=== PATIENT | male | born 1950 | race Caucasian/White ===

== ENCOUNTER 2023-11-16 12:06 | Outpatient (OUT) | payer MEDICARE, SELFPAY ==
[2023-11-16 12:37] LABS: Basophils Absolute Auto 0.1 10^3/uL (0.0-0.1); Basophils Percent Auto 1.2 % (0.2-2.0); Eosinophils Absolute Auto 0.3 10^3/uL (0.0-0.7); Eosinophils Percent Auto 4.6 % (0.9-7.0); Hematocrit 36.7 % (42.0-54.0); Hemoglobin 12.4 g/dL (14.0-18.0); Immature Granulocytes Abs Auto 0.01 10^3/uL (0.00-0.03); Immature Granulocytes Pct Auto 0.2 % (0.0-0.5); Lymphocytes Absolute Auto 2.2 10^3/uL (1.2-3.8); Lymphocytes Percent Auto 34.3 % (20.5-60.0); Mean Corpuscular HGB Conc 33.8 g/dL (29.9-35.2); Mean Corpuscular Hemoglobin 33.2 pg (25.9-34.0); Mean Corpuscular Volume 98.1 fL (80.0-94.0); Mean Platelet Volume 9.1 fL (9.5-13.5); Monocytes Absolute Auto 0.5 10^3/uL (0.3-0.8); Monocytes Percent Auto 7.9 % (1.7-12.0); Neutrophils Absolute Auto 3.4 10^3/uL (1.4-6.5); Neutrophils Percent Auto 51.8 % (43.0-75.0); Platelet Count 339 10^3/uL (150-450); Red Blood Count 3.74 10^6/uL (4.70-6.10); White Blood Count 6.5 10^3/uL (4.0-11.0)
[2023-11-16 13:12] LABS: Estimated Average Glucose 123 mg/dL; Glycohemoglobin A1C 5.9 % (4.5-6.2)
[2023-11-16 14:43] LABS: Alanine Aminotransferase 20 U/L (16-63); Albumin Globulin Ratio 0.8; Albumin Level 3.4 g/dL (3.4-5.0); Alkaline Phosphatase 107 U/L (46-116); Anion Gap 10.6; Aspartate Amino Transferase 14 U/L (15-37); BUN Creatinine Ratio 10.7; Bilirubin Total 0.6 mg/dL (0.2-1.0); Calcium 9.2 mg/dL (8.5-10.1); Carbon Dioxide 25.5 mmol/L (21.0-32.0); Chloride 103 mmol/L (98-107); Chol HDL Ratio 3.9; Cholesterol 187 mg/dL (<=200); Estimated GFR (African America 56 (>=60); Estimated GFR (Non-African Ame 46 (>=60); Free T3 2.64 pg/mL (2.18-3.98); Globulin 4.2 g/dL; Glucose 90 mg/dL (74-106); HDL Cholesterol 48 mg/dL (40-60); LDL Cholesterol Calculated 120.2 mg/dL; Potassium 4.1 mmol/L (3.5-5.1); Sodium 135 mmol/L (136-145); Thyroid Stimulating Hormone 5.071 uIU/mL (0.358-3.740); Total Protein 7.6 g/dL (6.4-8.2); Triglycerides 94 mg/dL (<=150); VLDL CHOLESTEROL 18.8 mg/dL
== END 2023-11-16 12:07 | disposition home or self-care (01) ==
LOC: LAB 12:09
PROVIDERS: PCP Family Medicine; Visit Provider Family Medicine
DX: J30.2 Other seasonal allergic rhinitis (principal); N52.9 Male erectile dysfunction, unspecified; K21.9 Gastro-esophageal reflux disease without esophagitis; E78.5 Hyperlipidemia, unspecified; R73.09 Other abnormal glucose; Z12.5 Encounter for screening for malignant neoplasm of prostate; Z12.12 Encounter for screening for malignant neoplasm of rectum
CPT/HCPCS: 36415; 80053; 80061; 83036; 84436; 84443; 84481; 85025; G0103

== ENCOUNTER 2023-11-23 09:19 | Outpatient (OUT) | payer MEDICARE, SELFPAY ==
--- NOTE | 2023-11-23 09:25 | US_ITS ---
[address] [address] Patient Name: ODALYS MCLEAN MRN: [id number] date: 1950 Sex: M Assigned Patient Location: US Current Patient Location: Accession/Order Number: [id number] Exam Date: 11/23/2023 09:30 Report Date: 11/23/2023 11:40 At the request of: JARON LUCAS Procedure: US aorta EXAM: US aorta HISTORY: Abdominal Aneurysm I71.40 COMPARISON: None. 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
--- OUTSIDE RECORDS SUMMARY | 2023-11-23 09:34 | XMS_ITS | CCD ---
Author Name Unknown Address [address] [facility] [address] [place] [address] Organization [facility] Care Team Providers Care Managing Consultant Name Role Phone PHYSICIAN, DEFAULT Unavailable Unavailable PHYSICIAN, DEFAULT Unavailable Unavailable DR JARON AVALOS Admitting Unavailable LANCE, DR SALMERON Attending Unavailable DR JARON AVALOS Primary Care Unavailable DR JARON AVALOS Consulting Unavailable Jaron Avalos MD Unavailable Jaron Avalos MD Unavailable Jaron Avalos MD Unavailable Jaron Avalos MD Primary Care Provider [phone] EDWARD, SUDISH Referring Unavailable EDWARD, SUDISH Attending Unavailable EDWARD, SUDISH Referring Unavailable EDWARD, SUDISH Referring Unavailable EDWARD, SUDISH Attending Unavailable EDWARD, SUDISH Attending Unavailable RODDY LOYD Referring Unavailable JARON AVALOS Primary Care Unavailable RODDY LOYD Referring Unavailable RODDY LOYD Referring Unavailable JARON AVALOS Primary Care Unavailable JARON AVALOS Primary Care Unavailable EDWRAD, SUDISH Referring Unavailable RODDY LOYD Admitting Unavailable RODDY LOYD Attending Unavailable EDWARD, SUDISH Referring Unavailable JARON AVALOS M Primary Care Unavailable RODDY LOYD Referring Unavailable JARON AVALOS Primary Care Unavailable RODDY LOYD Attending Unavailable EDWARD, SUDISH Referring Unavailable RODDY LOYD Attending Unavailable EDWARD, SUDISH Referring Unavailable Medications Current Medications Medication Drug Class(es) Dates Sig (Normalized) Sig (Original) amoxicillin 120 mg/ml / clavulanate 8.58 mg/ml oral suspension (1 source) Penicillin-class Antibacterial Start: 05-23-2023 End: 05-28-2023 take 6.5 mL by mouth twice daily amoxicillin-clav ulanate (AUGMENTIN) 600-42.9 mg/5 mL suspension Take 6.5 mL by mouth twice daily for 5 days. 65 mL 0 05/23/2023 05/28/2023 Active Comment on above: Take 6.5 mL by mouth twice daily for 5 days. enteric contrast (will be provided with radiology test) (1 source) Start: 09-25-2022 End: 09-25-2022 take 1 dose by mouth once, then take 1 dose by mouth once enteric contrast (will be provided with radiology test) Take 1 Each by mouth one time only for [address] Chest ABD/PEL WO Routine order Administer, As Directed One Time Only, via Oral, Rectal, both Oral and Rectal, Enteric Tube, Stoma or Indwelling Catheter, Enteric Contrast as designated per enteric contrast guidelines 1 Each 0 09/25/2022 09/25/2022 Active Comment on above: Take 1 Each by mouth one time only for [address] Chest ABD/PEL WO Routine order Administer, As Directed One Time Only, via Oral, Rectal, both Oral and Rectal, Enteric Tube, Stoma or Indwelling Catheter, Enteric Contrast as designated per enteric contrast guidelines oxyCODONE hydrochloride 1 mg/ml oral solution (2 sources) Opioid Agonist Start: 05-22-2023 End: 06-01-2023 take 5 mL by mouth every six hours as needed for pain oxyCODONE (ROXICODONE) 5 mg/5 mL oral solution Indications: Acute post-operative pain Take 5 mL by mouth every 6 hours as needed for pain for up to 7 days. 100 mL 0 05/25/2023 06/01/2023 Active Comment on above: Take 5 mL by mouth e very 6 hours as needed for pain for up to 7 days. Completed/Discontinued Medications Medication Drug Class(es) Dates Sig (Normalized) Sig (Original) Acetaminophen (7 sources) acetaminophen (TYLENOL ORAL) Take by mouth as needed. 0 Active Comment on above: Take by mouth as nee ded. acetaminophen 250 mg / aspirin 250 mg / caffeine 65 mg oral tablet (7 sources) Platelet Aggregation Inhibitor, Nonsteroidal Anti-inflammatory Drug, Central Nervous System Stimulant, Methylxanthine take 1 tablet by mouth once as needed Aspirin-Acetaminop hen-Caffeine (EXCEDRIN MIGRAINE) 250-250-65 mg per tablet Take 1 tablet by mouth as needed. 0 Active Comment on above: Take 1 tablet by carlos th as needed. desloratadine 5 mg oral tablet (7 sources) Histamine-1 Receptor Antagonist Start: 10-20-2015 take 1 tablet by mouth once daily desloratadine (CLARINEX) 5 mg tablet Take 1 tablet by mouth once daily. 0 10/20/2015 Active Comment on above: Take 1 tablet by carlos th once daily. Problems Problem Classification Problem Date Documented Date Episodic/Chronic Chronic kidney disease (4 sources) Chronic kidney disease stage 3A ; Translations: [Stage 3a chronic kidney disease] Onset: 3 05-17-2023 Chronic Diabetes mellitus without complication (1 source) Other abnormal glucose; Translations: [OTHER ABNORMAL GLUCOSE] Onset: 2 Episodic Disorders of lipid metabolism (1 source) Hyperlipidemia, unspecified; Translations: [HYPERLIPIDEMIA UNSPECIFIED] Onset: 2 Chronic Esophageal disorders (1 source) Gastro-esophageal reflux disease without esophagitis; Translations: [GERD WITHOUT ESOPHAGITIS] Onset: 2 Chronic Esophageal disorders (19 sources) Zenker's diverticulum; Translations: [Diverticulum of esophagus, acquired] Onset: 2 Episodic Fluid and electrolyte disorders (5 sources) Hyperkalemia; Translations: [Hyperkalemia] Onset: 3 Episodic Other gastrointestinal disorders (1 source) Dysphagia, unspecified; Translations: [DYSPHAGIA UNSPECIFIED] Onset: 2 Episodic Other gastrointestinal disorders (1 source) Dysphagia; Translations: [Dysphagia, pharyngoesophageal phase] Episodic Other lower respiratory disease (2 sources) Multiple nodules of lung; Translations: [Other nonspecific abnormal finding of lung field] Episodic Other male genital disorders (4 sources) Male erectile dysfunction, unspecified; Translations: [MALE ERECTILE DYSFUNCTION UNS] Onset: 2 Chronic Other nervous system disorders (1 source) Acute postoperative pain; Translations: [Other acute postprocedural pain] 05-25-2023 Episodic Other nervous system disorders (1 source) Other acute postprocedural pain; Translations: [Acute post-operative pain] Onset: 3 Episodic Other screening for suspected conditions (not mental disorders or infectious disease) (1 source) Encounter for screening for malignant neoplasm of prostate; Translations: [ENC SCREEN MALIG NEOPLASM PROSTATE] Onset: 2 Episodic Results Test Name Value Interpretation Reference Range Facility [facility] 06-11-2023 CNOV Office Visit (OTOLMN ) ODALYS CERDA ([id number]) 1950 M Date Time Provider Department 06/11/23 10:40 AM RODDY LOYD OTOLMS During your visit today, we recorded the following information about you: Amy Rios RN 06/11/2023 10:58 AM Signed Tobacco Use: 5 packs/day Quit 11/12/1969. Types: Cigarettes Was smoking cessation packet given? N/A - Patient is a non-smoker or quit >1 year ago. Was a referral initiated?N/A Patient is a non-smoker Roddy Loyd MD 06/14/2023 12:35 PM Signed CC: Odalys Cerda is a 73 year old male seen as a return patient with a history of zenker's diverticulum s/p CO2 laser diverticulum 05-22-23 IMPRESSION AND PLANS (Medical Decision Making): Doing well post-op Has advanced to a more regular diet Follow up - 9-12 months Medical Decision Making: Medical Decision Making Level: 1 - N/A HPI: The patient returns today for f/u regarding the above. At the last visit, the plan was as follows: surgery Today, is doing quite well He has started a more normal diet No pain EAT 10: Patient Entered Questionnaires Eating Asessment Tool Score 06/04/2023 EAT Score 15 LCQ: Patient Entered Questionnaires VHI (original/full) Patient Entered Questionnaires REVIEW OF RADIOLOGICAL FILMS AND RECORDS: Op report ALLERGIES No Known Allergies Current Outpatient Medications Medication Sig desloratadine (CLARINEX) 5 mg tablet Take 1 tablet by mouth once daily. Aspirin-Acetaminophen -Caffeine (EXCEDRIN MIGRAINE) 250-250-65 mg per tablet Take 1 tablet by mouth as needed. acetaminophen (TYLENOL ORAL) Take by mouth as needed. No current facility-administered medications for this visit. PAST MEDICAL HISTORY Diagnosis Date Zenker diverticulum PAST SURGICAL HISTORY Procedure Laterality Date COLONOSCOPY EGD LAP ING HERNIA REPAIR INIT TONSILLECTOMY HX Social History: Social History Tobacco Use Smoking status: Former Packs/day: 5.00 Types: Cigarettes Quit date: 11/12/1969 Years since quittin.6 Smokeless tobacco: Never Substance Use Topics Alcohol use: Not Currently Drug use: Never Family History: No family history of ENT problems PHYSICAL EXAM: On physical examination Odalys Cerda is a well-developed, well nourished male. The voice is wnl. Mental status revealed patient to be alert and oriented x3. Mood is appropriate. Details of the physical examination: Pulmonary: There is no respiratory distress or increased work of breathing. Nose: The external anatomy appears normal. LARYNX: deferred NECK: The neck remains soft without masses or lymphadenopathy. ROM was intact Roddy Loyd MD Referring Provider: RODDY LOYD [[id number]] Allergies As of Date: 06/11/2023 (No Known Allergies) Date Reviewed: 06/11/2023 Reviewed by: Amy Rios RN - Fully Assessed Reason for Visit: Established Patient [175] Cmt: Post op visit Primary Visit Diagnosis:Zenker's diverticulum [K22.5] Prescriptions as of 06/14/2023 - desloratadine (CLARINEX) 5 mg tablet Take 1 tablet by mouth once daily. - Aspirin-Acetaminophen -Caffeine (EXCEDRIN MIGRAINE) 250-250-65 mg per tablet Take 1 tablet by mouth as needed. - acetaminophen (TYLENOL ORAL) Take by mouth as needed. Problem List As Of Date 06/11/2023 Noted Resolved 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] 05/16/2023 Stage 3a chronic kidney disease (HCC) [N18.31] 05/17/2023 Hyperkalemia [E87.5] 05/17/2023 Visit Notes: >> Amy Rios RN Mon Jun 11, 2023 10:57 AM Status: Signed Tobacco Use: 5 packs/day Quit 11/12/1969. Types: Cigarettes Was smoking cessation packet given? N/A - Patient is a non-smoker or quit >1 year ago. Was a referral initiated?N/A Patient is a non-smoker Encounter Status:Closed by RODDY LOYD on 06/14/23 [facility] 05-24-2023 CNPN Telephone (OTOLMN) CARIDADODALYS ([id number]) 1950 M Date Time Provider Department 05/24/23 RODDY LOYD OTOLMN During your visit today, we recorded the following information about you: Diane Joaquin Vilchis 05/24/2023 4:41 PM Signed Mr. Cerda called and said that the oxyCodone 5 mg /5ml can't be filled due to supply shortage with outside company. The pharmacy he was using was [facility] in [facility]. He was wondering if a new prescription be filled at the [facility] in [facility]. The Pharmacy phone number is . Amy Rios RN 05/25/2023 9:55 AM Signed [facility] [place]- they do not have this medication in stock. Said nearest pharmacy is [facility] in [place]. Called pt. And he said it is ok to send there, since will be there this afternoon. Allergies As of Date: 05/24/2023 (No Known Allergies) Date Reviewed: 05/22/2023 Reviewed by: Macarena Manjarrez RN - Fully Assessed Reason for Visit: Medication Problem [65] Cmt: Medication can't be refilled Visit Diagnosis:Acute post-operative pain [G89.18] Order(s):oxyCODONE (ROXICODONE) 5 mg/5 mL oral solutionTake 5 mL by mouth every 6 hours as needed for pain for up to 7 days.Disp: 100 mLRfl: 0 Prescriptions as of 05/25/2023 - oxyCODONE (ROXICODONE) 5 mg/5 mL oral solution Take 5 mL by mouth every 6 hours as needed for pain for up to 7 days. - amoxicillin-clavulana te (AUGMENTIN) 600-42.9 mg/5 mL suspension Take 6.5 mL by mouth twice daily for 5 days. - desloratadine (CLARINEX) 5 mg tablet Take 1 tablet by mouth once daily. - Aspirin-Acetaminophen -Caffeine (EXCEDRIN MIGRAINE) 250-250-65 mg per tablet Take 1 tablet by mouth as needed. - acetaminophen (TYLENOL ORAL) Take by mouth as needed. Problem List As Of Date 05/24/2023 Noted Resolved 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] 05/16/2023 Stage 3a chronic kidney disease (HCC) [N18.31] 05/17/2023 Hyperkalemia [E87.5] 05/17/2023 Prescriptions ordered this encounter Disp Refills Start End OXYCODONE 5 MG/5 ML ORAL SOLUTION 100 * 0 05/25/2023 06/01/2023 Route: ORAL Sig: Take 5 mL by mouth every 6 hours as needed for pain for up to 7 days. Medications Discontinued During This Encounter Prescriptions - oxyCODONE (ROXICODONE) 5 mg/5 mL oral solution (Discontinued) Take 5 mL by mouth every 6 hours as needed for pain for up to 7 days. Encounter Status:Closed by RODDY LOYD on 05/25/23 Normal [facility] Basic metabolic 2000 panelon 05-23-2023 Anion gap [Moles/Vol] 10 mmol/L Normal 9-18 [facility] Comment on above: Order Comment: Speci nomi Type: BLOOD SPECIMEN Ordering Facility: [facility] Address: [address] [place], [place] [phone] Performed By: #### 2 4321-2 #### [facility] CLIA [id number] [address] [place] [address] [place] Calcium [Mass/Vol] 9.5 mg/dL Normal 8.5-10.2 [facility] Comment on above: Order Comment: Speci men Type: BLOOD SPECIMEN Ordering Facility: [facility] Address: [address] [place] [address] Performed By: #### 2 4321-2 #### [facility] CLIA [id number] [facility] [place] [address] [place] Chloride [Moles/Vol] 106 mmol/L High 97-105 [facility] Comment on above: Order Comment: Speci men Type: BLOOD SPECIMEN Ordering Facility: [facility] Address: [address] [place] [address] Performed By: #### 2 4321-2 #### [facility] CLIA [id number] [address] [place] [address] [place] CO2 [Moles/Vol] 23 mmol/L Normal 22-30 [facility] Comment on above: Order Comment: Speci men Type: BLOOD SPECIMEN Ordering Facility: [facility] Address: [address] [place] [address] Performed By: #### 2 4321-2 #### [facility] CLIA [id number] [address] [place] [address] [place] Creatinine [Mass/Vol] 1.36 mg/dL High 0.73-1.22 [facility] Comment on above: Order Comment: Speci men Type: BLOOD SPECIMEN Ordering Facility: [facility] Address: [address] [place] [address] Performed By: #### 2 4321-2 #### [facility] CLIA [id number] [facility] [address] [place] ESTIMATED GLOMERULAR FILTRATION RATE 55 mL/min/1.73m??? Low >=60 [facility] Comment on above: Order Comment: Speci men Type: BLOOD SPECIMEN Ordering Facility: [facility] Address: [address] [place] [address] Result Comment: Kristel mated Glomerular Filtration Rate (eGFR) is calculated using the 2020 CKD-EPI creatinine equation. This equation utilizes serum creatinine, sex, and age as parameters. The creatinine assay has traceable calibration to isotope dilution-mass spectrometry. Refer to KDIGO guidelines for clinical interpretation. In patients with unstable renal function, e.g. those with acute kidney injury, the eGFR may not accurately reflect actual GFR. Performed By: #### 2 4321-2 #### [facility] CLIA [id number] [address] [place] [address] [place] Glucose [Mass/Vol] 160 mg/dL High 74-99 [facility] Comment on above: Order Comment: Speci men Type: BLOOD SPECIMEN Ordering Facility: [facility] Address: [address] [place] [address] Result Comment: The [place] Diabetes Association (ADA) provides guidance for cutoff values for fasting glucose and random glucose. The ADA defines fasting as no caloric intake for at least 8 hours. Fasting plasma glucose results between 100 to 125 mg/dL indicate increased risk for diabetes (prediabetes). Fasting plasma glucose results greater than or equal to 126 mg/dL meet the criteria for diagnosis of diabetes. In the absence of unequivocal hyperglycemia, results should be confirmed by repeat testing. In a patient with classic symptoms of hyperglycemia or hyperglycemic crisis, random plasma glucose results greater than or equal to 200 mg/dL meet the criteria for diagnosis of diabetes. Reference: Standards of Medical Care in Diabetes 2016, [place] Diabetes Association. Diabetes Care. 2016.39(Suppl 1). Performed By: #### 2 4321-2 #### [facility] CLIA [id number] [address] [place] [address] [place] Potassium [Moles/Vol] 4.9 mmol/L Normal 3.7-5.1 [facility] Comment on above: Order Comment: Speci men Type: BLOOD SPECIMEN Ordering Facility: [facility] Address: [address] [place] [address] Performed By: #### 2 4321-2 #### [facility] CLIA [id number] [address] [place] [address] [place] Sodium [Moles/Vol] 139 mmol/L Normal 136-144 [facility] Comment on above: Order Comment: Speci men Type: BLOOD SPECIMEN Ordering Facility: [facility] Address: [address] [place] [address] Performed By: #### 2 4321-2 #### [facility] CLIA [id number] [address] [place] [address] [place] Urea nitrogen [Mass/Vol] 12 mg/dL Normal 9-24 [facility] Comment on above: Order Comment: Speci men Type: BLOOD SPECIMEN Ordering Facility: [facility] Address: [address] [place] [address] Performed By: #### 2 4321-2 #### [facility] CLIA [id number] [address] [place] CBC W Auto Differential pane l (Bld)on 05-23-2023 Basophils (Bld) [#/Vol] 10*3/uL Normal <0.11 [facility] Comment on above: Order Comment: Speci men Type: BLOOD SPECIMEN Ordering Facility: [facility] Address: [address] [place] [address] Performed By: #### K 1 #### [facility] CLIA [id number] [address] [place] [address] Basophils/100 WBC (Bld) 0.1 % Normal [facility] Comment on above: Order Comment: Speci men Type: BLOOD SPECIMEN Ordering Facility: [facility] Address: [address] [place] [address] Performed By: #### K 1 #### [facility] CLIA [id number] [address] [place] [address] Differential cell count method Nom (Bld) Auto Normal [facility] Comment on above: Order Comment: Speci men Type: BLOOD SPECIMEN Ordering Facility: [facility] Address: [address] [place] [address] Performed By: #### K 1 #### [facility] CLIA [id number] [address] [place] [address] Eosinophils (Bld) [#/Vol] 10*3/uL Normal <0.46 [facility] Comment on above: Order Comment: Speci men Type: BLOOD SPECIMEN Ordering Facility: [facility] Address: [address] [place], [place] [phone] Performed By: #### K 1 #### [facility] CLIA [id number] [address] [place] [address] Eosinophils/100 WBC (Bld) 0.0 % Normal [facility] Comment on above: Order Comment: Speci men Type: BLOOD SPECIMEN Ordering Facility: [facility] Address: [address] [place] [address] Performed By: #### K 1 #### [facility] CLIA [id number] [address] [place] [address] Erythrocyte distribution width (RBC) [Ratio] 12.1 % Normal 11.5-15.0 [facility] Comment on above: Order Comment: Speci men Type: BLOOD SPECIMEN Ordering Facility: [facility] Address: [address] [place] [address] Performed By: #### K 1 #### [facility] CLIA [id number] [address] [place] [address] Hematocrit (Bld) [Volume fraction] 38.5 % Low 39.0-51.0 [facility] Comment on above: Order Comment: Speci men Type: BLOOD SPECIMEN Ordering Facility: [facility] Address: [address] [place] [address] Performed By: #### K 1 #### [facility] CLIA [id number] [address] [place] [address] Hemoglobin (Bld) [Mass/Vol] 13.1 g/dL Normal 13.0-17.0 [facility] Comment on above: Order Comment: Speci men Type: BLOOD SPECIMEN Ordering Facility: [facility] Address: [address] [place] [address] Performed By: #### K 1 #### [facility] CLIA [id number] [address] [place] [address] Immature granulocytes (Bld) [#/Vol] 0.07 10*3/uL Normal <0.10 [facility] Comment on above: Order Comment: Speci men Type: BLOOD SPECIMEN Ordering Facility: [facility] Address: [address] [place] [address] Performed By: #### K 1 #### [facility] CLIA [id number] [address] [place] [address] Immature granulocytes/100 WBC (Bld) 0.5 % Normal [facility] Comment on above: Order Comment: Speci men Type: BLOOD SPECIMEN Ordering Facility: [facility] Address: [address] [place] [address] Performed By: #### K 1 #### [facility] CLIA [id number] [address] [place] [address] Lymphocytes (Bld) [#/Vol] 0.86 10*3/uL Low 1.00-4.00 [facility] Comment on above: Order Comment: Speci men Type: BLOOD SPECIMEN Ordering Facility: [facility] Address: [address] [place] [address] Performed By: #### K 1 #### [facility] CLIA [id number] [address] [place] [address] Lymphocytes/100 WBC (Bld) 5.8 % Normal [facility] Comment on above: Order Comment: Speci men Type: BLOOD SPECIMEN Ordering Facility: [facility] Address: [address] [place] [address] Performed By: #### K 1 #### [facility] CLIA [id number] [address] [place] [address]77 MCH (RBC) [Entitic mass] 33.5 pg Normal 26.0-34.0 [facility] Comment on above: Order Comment: Speci men Type: BLOOD SPECIMEN Ordering Facility: [facility] Address: [address] [place] [address] Performed By: #### K 1 #### [facility] CLIA [id number] [address] [place] [address]703 MCHC (RBC) [Mass/Vol] 34.0 g/dL Normal 30.5-36.0 [facility] Comment on above: Order Comment: Speci men Type: BLOOD SPECIMEN Ordering Facility: [facility] Address: [address] [place] [address] Performed By: #### K 1 #### [facility] CLIA [id number] [address] [place] [address] MCV (RBC) [Entitic vol] 98.5 fL Normal 80.0-100.0 [facility] Comment on above: Order Comment: Speci men Type: BLOOD SPECIMEN Ordering Facility: [facility] Address: [address] [place] [address] Performed By: #### K 1 #### [facility] CLIA [id number] [address] [place] [address] Monocytes (Bld) [#/Vol] 0.68 10*3/uL Normal <0.87 [facility] Comment on above: Order Comment: Speci men Type: BLOOD SPECIMEN Ordering Facility: [facility] Address: [address] [place] [address] Performed By: #### K 1 #### [facility] CLIA [id number] [address] [place] [address] Monocytes/100 WBC (Bld) 4.6 % Normal [facility] Comment on above: Order Comment: Speci men Type: BLOOD SPECIMEN Ordering Facility: [facility] Address: [address] [place] [address] Performed By: #### K 1 #### [facility] CLIA [id number] [address] [place] [address] Neutrophils (Bld) [#/Vol] 13.22 10*3/uL High 1.45-7.50 [facility] Comment on above: Order Comment: Speci men Type: BLOOD SPECIMEN Ordering Facility: [facility] Address: [address] [place] [address] Performed By: #### K 1 #### [facility] CLIA [id number] [address] [place] [address] Neutrophils/100 WBC (Bld) 89.0 % Normal [facility] Comment on above: Order Comment: Speci men Type: BLOOD SPECIMEN Ordering Facility: [facility] Address: [address] [place] [address] Performed By: #### K 1 #### [facility] CLIA [id number] [address] [place] [address] Nucleated RBC (Bld) [#/Vol] 10*3/uL Normal <0.01 [facility] Comment on above: Order Comment: Speci men Type: BLOOD SPECIMEN Ordering Facility: [facility] Address: [address] [place] [address] Performed By: #### K 1 #### [facility] CLIA [id number] [address] [place] [address] 22148 Nucleated RBC/100 WBC (Bld) [Ratio] 0.0 /100 WBC Normal [facility] Comment on above: Order Comment: Speci men Type: BLOOD SPECIMEN Ordering Facility: [facility] Address: [address] [address] Performed By: #### K 1 #### [facility] CLIA [id number] [address] [place] [address] 17479 Platelet mean volume (Bld) [Entitic vol] 9.9 fL Normal 9.0-12.7 [facility] Comment on above: Order Comment: Speci men Type: BLOOD SPECIMEN Ordering Facility: [facility] Address: [address] [address] Performed By: #### K 1 #### [facility] CLIA [id number] [address] [place] [address] 42371 Platelets (Bld) [#/Vol] 229 10*3/uL Normal 150-400 [facility] Comment on above: Order Comment: Speci men Type: BLOOD SPECIMEN Ordering Facility: [facility] Address: [address] [address] Performed By: #### K 1 #### [facility] CLIA [id number] [address] [place] [address] RBC (Bld) [#/Vol] 3.91 10*6/uL Low 4.20-6.00 [facility] Comment on above: Order Comment: Speci men Type: BLOOD SPECIMEN Ordering Facility: [facility] Address: [address] [place] [address] Performed By: #### K 1 #### [facility] CLIA [id number] [address] [place] [address] 85427 WBC (Bld) [#/Vol] 14.85 10*3/uL High 3.70-11.00 [facility] Comment on above: Order Comment: Speci men Type: BLOOD SPECIMEN Ordering Facility: [facility] Address: [address] [place] [address] Performed By: #### K 1 #### [facility] CLIA [id number] [address] [place] [address] 88024 XR ESOPHAGRAMon 05-23-2023 XR ESOPHAGRAM * * *Final Report* * * DATE OF EXAM: May 23 2023 9:36AM HGX [id number] - XR ESOPHAGRAM / PROCEDURE REASON: Dysphagia, known cause * * * * Physician Interpretation * * * * UPPER GI HISTORY: History of Zenker's diverticulum status post cricopharyngeal myotomy 05/22/2023. COMPARISON: Outside barium swallow 06/14/2021 TECHNIQUE: The patient ingested water-soluble contrast followed by low density barium under intermittent fluoroscopic monitoring. Contrast: ORAL: 40 ml of OMNIPAQUE 350 ORAL: 40 ml of EZPAQUE Fluoroscopy radiation summary: Fluoroscopy time: 0:36 (min:sec). Air kerma: 17.9 mGy. RESULT: Extractor Filler: No focal consolidation within the visualized lung field. Luminal contrast transits the esophagus with filling and rapid emptying of a small Zenker's diverticulum without leak or obstruction. Staff Physician: Dr. Adriana MD was present for the critical portions of the procedure and was immediately available throughout the remainder of the procedure. IMPRESSION: NO LEAK OR OBSTRUCTION. Sledger: RACHELLE Transcribe Date/Time: May 23 2023 9:41A Dictated by : PEDRO WILSON MD This examination was interpreted and the report reviewed and electronically signed by: MANOHAR CASTANON MD on May 23 2023 9:49AM EST [id number] Normal [facility] ANES POSTPROC EVALon 023 ANES POSTPROC EVAL HNO ID: [id number] Author: Kevin Gutierrez DO Service: ? Author Type: Anesthesiologist Type: Anesthesia Postprocedure Evaluation Filed: 05/22/2023 4:29 PM Note Text: POST ANESTHESIA EVALUATION NOTE : 1950 Procedure Summary Date: 05/22/23 Room / Location: [address] [facility] Anesthesia Start: 1422 Anesthesia Stop: 1543 Procedures: ENDOSCOPIC EXCISION ZENKERS DIVERTICULUM DIVERTICULECTOMY HYPOPHARYNX OR ESOPHAGUS, CERVICAL APPROACH (Neck) Diagnosis: Zenker diverticulum Pharyngoesophageal dysphagia (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]) (Pharyngoesophageal dysphagia [R13.14]) Surgeons: Roddy Loyd MD Responsible Provider: Kevin Gutierrez DO Anesthesia Type: general ASA Status: 3 Anesthesia Type: general Airway Type: ETT Last Vitals Vitals Value Taken Time BP 142/68 05/22/23 1615 Temp 36.2 ?C (97.2 ?F) 05/22/23 1608 Pulse 60 05/22/23 1619 Resp 15 05/22/23 1619 SpO2 98 % 05/22/23 1619 Vitals shown include unvalidated device data. Post Anesthesia Patient Status Patient Evaluation: PACU. PACU/ICU Patient Condition: stable. Anticipated Disposition: inpatient floor planned admission. Neurological Status: aware and responsive. Pulmonary Status: breathing comfortably on supplemental oxygen Airway Control: returned to baseline unsupported. Cardiovascular Status: stable. Pain Management: clinically adequate Postoperative Hydration: acceptable. Intraoperative Events: no significant anesthesia events Post Operative Nausea/Vomiting Status: no significant post operative nausea or vomiting Recommendation: continue current plan of care. Anesthesia Observations No Documentation SIGNATURE: Kevin Gutierrez DO PATIENT NAME: Odalys Cerda DATE: May 22, 2023 TIME: 4:29 PM CSN: [id number] Normal [facility] ANES PRE-OPon 05-22-2023 ANES PRE-OP HNO ID: [id number] Author: Kevin Gutierrez DO Service: ? Author Type: Anesthesiologist Type: Anesthesia Preprocedure Evaluation Filed: 05/22/2023 6:42 AM Note Text: ANESTHESIOLOGY DAY OF SURGERY NOTE : 1950 Procedure Information Date/Time: 05/22/23 1515 Procedures: ENDOSCOPIC EXCISION ZENKERS DIVERTICULUM DIVERTICULECTOMY HYPOPHARYNX OR ESOPHAGUS, CERVICAL APPROACH (Neck) Location: [facility] Surgeons: Roddy Loyd MD Estimated body mass index is 27.34 kg/m? as calculated from the following: Height as of 05/16/23: 180.3 cm (5' 11 ). Weight as of 05/16/23: 88.9 kg (196 lb). Most recent hematocrit and potassium results: Hematocrit 39.6 05/16/2023 Potassium 4.2 05/17/2023 Relevant Problems -RENAL (+) Stage 3a chronic kidney disease (HCC) I - PHYSICAL EVALUATION AIRWAY Patient intubated: No. Tracheostomy tube not present Mallampati: II. TM distance: >3 FB. Neck ROM: full ROM without neurological symptoms. Mouth opening: adequate. Short neck: no. Thick neck: no DENTAL Normal dental observations. Dental findings: teeth intact. II - ANESTHESIA PLAN ASA Score: 3 Anesthetic Plan: general Airway type: ETT The patient is not a current smoker. NPO Status: adequate Beta Sherly Administration of chronic beta sherly medication not planned. Monitoring Plan Monitoring plan: standard ASA. Post Procedure Analgesic Plan Postoperative analgesic plan: multimodal analgesia. Informed Consent Anesthetic risks, benefits, alternatives, personnel and consent discussed: yes. Patient / Responsible Alliance Party agrees to proceed: yes Patient / Surrogate agrees to blood products: Yes DNR status not reviewed with patient and/or family prior to surgery. Significant changes in the patient condition since the History and Physical, not otherwise documented in primary service progress note: no. Potential Anesthesia issues that may suggest increased risk of complications or contraindication to planned procedure: none. No vitals data found for the desired time range. No current facility-administered medications on file as of . Outpatient Medications as of Medication Sig - desloratadine (CLARINEX) 5 mg tablet Take 1 tablet by mouth once daily. - Aspirin-Acetaminophen -Caffeine (EXCEDRIN MIGRAINE) 250-250-65 mg per tablet Take 1 tablet by mouth as needed. - acetaminophen (TYLENOL ORAL) Take by mouth as needed. I have interviewed and examined the patient. I have reviewed the medical record and/or the pre-anesthesia evaluation, pertinent labs, and test results. This contains updated information obtained within 48 hours of Surgery/Procedure. SIGNATURE: Kevin Gutierrez DO PATIENT NAME: Odalys Cerda DATE: May 22, 2023 TIME: 6:41 AM CSN: [id number] Normal [facility] OPERATIVE NOon 05-22-2023 OPERATIVE NO HNO ID: [id number] Author: Roddy Loyd MD Service: Otolaryngology Author Type: Physician Type: Operative Report Filed: 05/22/2023 6:26 PM Note Text: Operative Note DATE OF SERVICE: 05/22/2023 PATIENT: Odalys Cerda LOG ID: [id number] INCISION/PROCEDURE START TIME: 2:40 PM INCISION CLOSE/PROCEDURE END TIME: 3:21 PM Surgeon: Roddy Loyd MD Or Assistant: Linda Adkins MD, Philip Thomas MD Pre-Operative Diagnosis: Zenker diverticulum Pharyngoesophageal dysphagia Post-Operative Diagnosis: Zenker diverticulum Pharyngoesophageal dysphagia Procedure: Rigid esophagoscopy Cricopharyngeal myotomy with CO2 laser Findings: - Easy exposure with long duckbill pharyngoscope. - Cricopharyngeal hypertrophy - Cricopharyngeal myotomy performed with Co2 laser on settings of 4 watt continuous Anesthesia: General endotracheal anesthesia Complications: None Blood Loss: 2 cc Specimens: None Disposition: PACU Pre-Operative Note: Mr. Cerda is a 73 year old male who presented to the [facility] clinic with a history of dysphagia. Modified barium swallow revealed evidence of a small zenker diverticulum and cricopharyngeal hypertrophy. The patient was therefore offered the aforementioned procedures. The procedure, risks, benefits, alternatives, potential complications, possible outcomes as well as the option of no treatment were reviewed with the patient who indicated their understanding and wished to proceed forward with the procedure. Informed consent was obtained. Operative Note: The patient was taken to the operative suite and a huddle was performed, all present were in agreement. The patient was sedated and intubated. Eye protection placed over the patient's eyes. The patient was then draped in the appropriate fashion. A time-out was then performed. We first began by inserting a tooth guard over the maxillary teeth for protection during the procedure. The Morales 3 blade was used to expose the cricopharyngeus muscle to ensure exposure was possible. The morales 3 blade was removed. The short duckbill laryngoscope was then advanced into the oral cavity and oropharynx until the postcricoid region was brought into view. Once the cricopharyngeus muscle was adequately visualized, the patient was placed into suspension. Microlaryngoscopy was initiated with 0-degree Vargas endoscope with above findings. The eyes, face, and ETT were covered with wet towels. A microscope was brought into the field and aimed at the cricopharyngeal muscle. A CO2 laser was assembled with settings of 4 mercer continuous. The CO2 laser was used to transect the cricopharyngeus muscle and overlying mucosa down to fascia. No perforation in the fascia was visualized. Teseal was placed onto the surgical site. The laryngoscope was then taken out of suspension and removed under direct visualization without injury to the oral cavity. The maxillary tooth guard was removed and no injury was noted. This completed the procedure. The patient tolerated the procedure well without any immediate postoperative complications. All counts were correct at the conclusion of the procedure. Roddy Loyd MD was present for all critical portions of the procedure. I was present, scrubbed, and personally performed all [place] portions of the procedure. Roddy Loyd MD [facility] CNPN Telephone ([place]) ODALYS CERDA ([id number]) 1950 M Date Time Provider Department 05/17/23 STACY DAI During your visit today, we recorded the following information about you: Stacy Dai APRN.CNP 05/17/2023 8:25 AM Signed Please contact patient and advise potassium level is elevated on pre-op labs -5.4 Repeat potassium ordered Advise patient to increase water intake, avoid high potassium foods and have potassium repeated in 2-3 days prior to upcoming surgery Thank you Stacy Dai APRN.CNP [facility] Jennie Chilel LPN 05/21/2023 7:05 AM Signed DEBORA Gonzalez APRN.CNP; [facility] Rn Resource Pool 1 4 days ago LB Called patient and relayed the below message, he asked I send him a message as he was out and not able to write anything down. My Chart message was sent included lab hours and location along with phone number to call and schedule an appt. Allergies As of Date: 05/17/2023 (No Known Allergies) Date Reviewed: 05/16/2023 Reviewed by: Jennie Chilel LPN - Fully Assessed Reason for Visit: PreOp Call [1754] Cmt: Pre-op labs Primary Visit Diagnosis:Hyperkalemi a [E87.5] Order(s):POTASSIUM BLD [SQK1] Order #: [id number] FUTURE Prescriptions as of 05/21/2023 - desloratadine (CLARINEX) 5 mg tablet Take 1 tablet by mouth once daily. - Aspirin-Acetaminophen -Caffeine (EXCEDRIN MIGRAINE) 250-250-65 mg per tablet Take 1 tablet by mouth as needed. - acetaminophen (TYLENOL ORAL) Take by mouth as needed. Problem List As Of Date 05/17/2023 Noted Resolved 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] 05/16/2023 Stage 3a chronic kidney disease (HCC) [N18.31] 05/17/2023 Hyperkalemia [E87.5] 05/17/2023 Encounter Status:Closed by STACY DAI on 05/17/23 Normal [facility] POTASSIUM BLDon 05-17-2023 Potassium [Moles/Vol] 4.2 mmol/L Normal 3.7-5.1 [facility] Comment on above: Order Comment: Speci men Type: BLOOD SPECIMEN Ordering Facility: [facility] Address: [address] [address] Performed By: #### K 1 #### [facility] CLIA [id number] [address] [place] [address] 49465 Basic metabolic 2000 panelon 05-16-2023 Anion gap [Moles/Vol] 11 mmol/L Normal 9-18 [facility] Comment on above: Order Comment: Speci men Type: BLOOD SPECIMEN Ordering Facility: [facility] Address: [address] [address] Performed By: #### K 1 #### [facility] CLIA [id number] [address] [place] [address] 51178 Calcium [Mass/Vol] 9.7 mg/dL Normal 8.5-10.2 [facility] Comment on above: Order Comment: Speci men Type: BLOOD SPECIMEN Ordering Facility: [facility] Address: [address] [address] Performed By: #### K 1 #### [facility] CLIA [id number] [address] [place] [address] 93546 Chloride [Moles/Vol] 106 mmol/L High 97-105 [facility] Comment on above: Order Comment: Speci men Type: BLOOD SPECIMEN Ordering Facility: [facility] Address: [address] [address] Performed By: #### K 1 #### [facility] CLIA [id number] [address] [place] [address] 85383 CO2 [Moles/Vol] 24 mmol/L Normal 22-30 [facility] Comment on above: Order Comment: Speci men Type: BLOOD SPECIMEN Ordering Facility: [facility] Address: [address] [address] Performed By: #### K 1 #### [facility] CLIA [id number] [address] [place] [address] 63213 Creatinine [Mass/Vol] 1.51 mg/dL High 0.73-1.22 [facility] Comment on above: Order Comment: Sandra nomi Type: BLOOD SPECIMEN Ordering Facility: [facility] Address: [address] [address] Performed By: #### K 1 #### [facility] CLIA [id number] [address] [place] [address] 75200 ESTIMATED GLOMERULAR FILTRATION RATE 48 mL/min/1.73m??? Low >=60 [facility] Comment on above: Order Comment: Sandra nomi Type: BLOOD SPECIMEN Ordering Facility: [facility] Address: [address] [place] [address] Result Comment: Kristel mated Glomerular Filtration Rate (eGFR) is calculated using the 2020 CKD-EPI creatinine equation. This equation utilizes serum creatinine, sex, and age as parameters. The creatinine assay has traceable calibration to isotope dilution-mass spectrometry. Refer to KDIGO guidelines for clinical interpretation. In patients with unstable renal function, e.g. those with acute kidney injury, the eGFR may not accurately reflect actual GFR. Performed By: #### K 1 #### [facility] CLIA [id number] [address] [place], [place] [id number] Glucose [Mass/Vol] 87 mg/dL Normal 74-99 [facility] Comment on above: Order Comment: Sandra nomi Type: BLOOD SPECIMEN Ordering Facility: [facility] Address: [address] [place] [address] Result Comment: The [place] Diabetes Association (ADA) provides guidance for cutoff values for fasting glucose and random glucose. The ADA defines fasting as no caloric intake for at least 8 hours. Fasting plasma glucose results between 100 to 125 mg/dL indicate increased risk for diabetes (prediabetes). Fasting plasma glucose results greater than or equal to 126 mg/dL meet the criteria for diagnosis of diabetes. In the absence of unequivocal hyperglycemia, results should be confirmed by repeat testing. In a patient with classic symptoms of hyperglycemia or hyperglycemic crisis, random plasma glucose results greater than or equal to 200 mg/dL meet the criteria for diagnosis of diabetes. Reference: Standards of Medical Care in Diabetes 2016, [place] Diabetes Association. Diabetes Care. 2016.39(Suppl 1). Performed By: #### K 1 #### [facility] CLIA [id number] [address] [place] [address] Potassium [Moles/Vol] 5.4 mmol/L High 3.7-5.1 [facility] Comment on above: Order Comment: Speci men Type: BLOOD SPECIMEN Ordering Facility: [facility] Address: [address] [address] Performed By: #### K 1 #### [facility] CLIA [id number] [address] [place] [address] 09075 Sodium [Moles/Vol] 141 mmol/L Normal 136-144 [facility] Comment on above: Order Comment: Speci men Type: BLOOD SPECIMEN Ordering Facility: [facility] Address: [address] [address] Performed By: #### K 1 #### [facility] CLIA [id number] [address] [place], [place] [phone] Urea nitrogen [Mass/Vol] 12 mg/dL Normal 9-24 [facility] Comment on above: Order Comment: Speci men Type: BLOOD SPECIMEN Ordering Facility: [facility] Address: [address] [address] Performed By: #### K 1 #### [facility] CLIA [id number] [address] [place] [address] 39265 CBC W Auto Differential pane l (Bld)on 05-16-2023 Basophils (Bld) [#/Vol] 0.07 10*3/uL Normal <0.11 [facility] Comment on above: Order Comment: Speci men Type: BLOOD SPECIMEN Ordering Facility: [facility] Address: [address] [address] Performed By: #### K 1 #### [facility] CLIA [id number] [address] [place] [address] 83823 Basophils/100 WBC (Bld) 0.9 % Normal [facility] Comment on above: Order Comment: Speci men Type: BLOOD SPECIMEN Ordering Facility: [facility] Address: [address] [address] Performed By: #### K 1 #### [facility] CLIA [id number] [address] [place] [address] 62354 Differential cell count method Nom (Bld) Auto Normal [facility] Comment on above: Order Comment: Speci men Type: BLOOD SPECIMEN Ordering Facility: [facility] Address: [address] [address] Performed By: #### K 1 #### [facility] CLIA [id number] [address] [place] [address] 20090 Eosinophils (Bld) [#/Vol] 0.41 10*3/uL Normal <0.46 [facility] Comment on above: Order Comment: Speci men Type: BLOOD SPECIMEN Ordering Facility: [facility] Address: [address] [address] Performed By: #### K 1 #### [facility] CLIA [id number] [address] [place] [address] 85788 Eosinophils/100 WBC (Bld) 5.5 % Normal [facility] Comment on above: Order Comment: Speci men Type: BLOOD SPECIMEN Ordering Facility: [facility] Address: [address] [place] [address] Performed By: #### K 1 #### [facility] CLIA [id number] [address] [place] [address] 05513 Erythrocyte distribution width (RBC) [Ratio] 12.5 % Normal 11.5-15.0 [facility] Comment on above: Order Comment: Speci men Type: BLOOD SPECIMEN Ordering Facility: [facility] Address: [address] [place] [address] Performed By: #### K 1 #### [facility] CLIA [id number] [address] [place] [address] 94914 Hematocrit (Bld) [Volume fraction] 39.6 % Normal 39.0-51.0 [facility] Comment on above: Order Comment: Speci men Type: BLOOD SPECIMEN Ordering Facility: [facility] Address: [address] [address] Performed By: #### K 1 #### [facility] CLIA [id number] [address] [place] [address] 98377 Hemoglobin (Bld) [Mass/Vol] 13.3 g/dL Normal 13.0-17.0 [facility] Comment on above: Order Comment: Speci men Type: BLOOD SPECIMEN Ordering Facility: [facility] Address: [address] [address] Performed By: #### K 1 #### [facility] CLIA [id number] [address] [place] [address] 01548 Immature granulocytes (Bld) [#/Vol] 10*3/uL Normal <0.10 [facility] Comment on above: Order Comment: Speci men Type: BLOOD SPECIMEN Ordering Facility: [facility] Address: [address] [address] Performed By: #### K 1 #### [facility] CLIA [id number] [address] [place] [address] 58128 Immature granulocytes/100 WBC (Bld) 0.3 % Normal [facility] Comment on above: Order Comment: Speci men Type: BLOOD SPECIMEN Ordering Facility: [facility] Address: [address] [address] Performed By: #### K 1 #### [facility] CLIA [id number] [address] [place] [address] 05836 Lymphocytes (Bld) [#/Vol] 2.08 10*3/uL Normal 1.00-4.00 [facility] Comment on above: Order Comment: Speci men Type: BLOOD SPECIMEN Ordering Facility: [facility] Address: [address] [address] Performed By: #### K 1 #### [facility] CLIA [id number] [address] [place] [address] 09301 Lymphocytes/100 WBC (Bld) 27.7 % Normal [facility] Comment on above: Order Comment: Speci men Type: BLOOD SPECIMEN Ordering Facility: [facility] Address: [address] [address] Performed By: #### K 1 #### [facility] CLIA [id number] [address] [place] [address] 53784 MCH (RBC) [Entitic mass] 33.6 pg Normal 26.0-34.0 [facility] Comment on above: Order Comment: Speci men Type: BLOOD SPECIMEN Ordering Facility: [facility] Address: [address] [address] Performed By: #### K 1 #### [facility] CLIA [id number] [address] [place] [address] 21448 MCHC (RBC) [Mass/Vol] 33.6 g/dL Normal 30.5-36.0 [facility] Comment on above: Order Comment: Speci men Type: BLOOD SPECIMEN Ordering Facility: [facility] Address: [address] [address] Performed By: #### K 1 #### [facility] CLIA [id number] [address] [place] [address] 28192 MCV (RBC) [Entitic vol] 100.0 fL Normal 80.0-100.0 [facility] Comment on above: Order Comment: Speci men Type: BLOOD SPECIMEN Ordering Facility: [facility] Address: [address] [address] Performed By: #### K 1 #### [facility] CLIA [id number] [address] [place] [address] 07796 Monocytes (Bld) [#/Vol] 0.68 10*3/uL Normal <0.87 [facility] Comment on above: Order Comment: Speci men Type: BLOOD SPECIMEN Ordering Facility: [facility] Address: [address] [address] Performed By: #### K 1 #### [facility] CLIA [id number] [address] [place] [address] 26264 Monocytes/100 WBC (Bld) 9.1 % Normal [facility] Comment on above: Order Comment: Speci men Type: BLOOD SPECIMEN Ordering Facility: [facility] Address: [address] [place] [address] Performed By: #### K 1 #### [facility] CLIA [id number] [address] [place] [address] 58147 Neutrophils (Bld) [#/Vol] 4.25 10*3/uL Normal 1.45-7.50 [facility] Comment on above: Order Comment: Speci men Type: BLOOD SPECIMEN Ordering Facility: [facility] Address: [address] [place] [address] Performed By: #### K 1 #### [facility] CLIA [id number] [address] [place] [address] 50210 Neutrophils/100 WBC (Bld) 56.5 % Normal [facility] Comment on above: Order Comment: Speci men Type: BLOOD SPECIMEN Ordering Facility: [facility] Address: [address] [address] Performed By: #### K 1 #### [facility] CLIA [id number] [address] [place] [address] 36882 Nucleated RBC (Bld) [#/Vol] 10*3/uL Normal <0.01 [facility] Comment on above: Order Comment: Speci men Type: BLOOD SPECIMEN Ordering Facility: [facility] Address: [address] [address] Performed By: #### K 1 #### [facility] CLIA [id number] [address] [place] [address] 77796 Nucleated RBC/100 WBC (Bld) [Ratio] 0.0 /100 WBC Normal [facility] Comment on above: Order Comment: Speci men Type: BLOOD SPECIMEN Ordering Facility: [facility] Address: [address] [address] Performed By: #### K 1 #### [facility] CLIA [id number] [address] [place] [address] 01967 Platelet mean volume (Bld) [Entitic vol] 10.2 fL Normal 9.0-12.7 [facility] Comment on above: Order Comment: Speci men Type: BLOOD SPECIMEN Ordering Facility: [facility] Address: [address] [place] [address] Performed By: #### K 1 #### [facility] CLIA [id number] [address] [place] [address] 09876 Platelets (Bld) [#/Vol] 264 10*3/uL Normal 150-400 [facility] Comment on above: Order Comment: Speci men Type: BLOOD SPECIMEN Ordering Facility: [facility] Address: [address] [place] [address] Performed By: #### K 1 #### [facility] CLIA [id number] [address] [place] [address] 73353 RBC (Bld) [#/Vol] 3.96 10*6/uL Low 4.20-6.00 [facility] Comment on above: Order Comment: Speci men Type: BLOOD SPECIMEN Ordering Facility: [facility] Address: [address] [place] [address] Performed By: #### K 1 #### [facility] CLIA [id number] [address] [place] [address] 81724 WBC (Bld) [#/Vol] 7.51 10*3/uL Normal 3.70-11.00 [facility] Comment on above: Order Comment: Speci men Type: BLOOD SPECIMEN Ordering Facility: [facility] Address: [address] [place] [address] Performed By: #### K 1 #### [facility] CLIA [id number] [address] [place] [address] 53704 [id number] 05-16-2023 ECG01 Ventricular Rate : 6 1 BPM Atrial Rate : 61 BPM P-R Interval : 174 ms QRS Duration : 86 ms Q-T Interval : 426 ms QTC Calculation(Bazett) : 428 ms Calculated P Danvers : 77 degrees Calculated R Danvers : -18 degrees Calculated T Danvers : 21 degrees NORMAL SINUS RHYTHM NORMAL ECG Confirmed by KAYE HOLLINGSWORTH MD (34) on 05/27/2023 1:02:45 PM NAME : ODALYS CERDA PID : [id number] : 1950 Gender : Male Race : ORD : Procedure Date : May 16 2023 09:16:45 Edit Date : May 27 2023 13:03:58 Diagnosis: NORMAL SINUS RHYTHM NORMAL ECG Confirmed by KAYE HOLLINGSWORTH MD (34) on 05/27/2023 1:02:45 PM Test Reason : Location : 145 : LOCARD Overread By : KAYE HOLLINGSWORTH MD Edited By : KAYE HOLLINGSWORTH MD Referred By : RODDY LOYD Acquired by : Gm taveras [facility] HISTORY PHYSICALon HISTORY PHYSICAL HNO ID: [id number] Author: Stacy Dai APRN.HAND COUNTER Service: ? Author Type: Nurse Practitioner Type: HANDP Filed: 05/18/2023 8:48 AM Note Text: HISTORY AND PHYSICAL EXAMINATION SERVICE DATE: 05/16/2023 SERVICE TIME: 10:14 AM PRIMARY CARE PHYSICIAN: No primary care provider on file. REASON FOR VISIT: Odalys Cerda is a 73 year old male who is scheduled for ENDOSCOPIC EXCISION ZENKERS DIVERTICULUM DIVERTICULECTOMY HYPOPHARYNX OR ESOPHAGUS, CERVICAL APPROACH at the request of Dr. Roddy Loyd for consultation. My final recommendation will be communicated back to the requesting physician by way of shared medical record or letter. The patient has the following: ACTIVE PROBLEM LIST Zenker Diverticulum Stage 3a Chronic Kidney Disease (Hcc) Hyperkalemia Subjective CHIEF COMPLAINT: Dysphagia HPI: 73 year old man with history of dysphagia for about 12 years. Occurs mostly with solids and pill. Diagnosed with Zenkers diverticulum. Denies current abdominal pain Elected for above surgery PAST MEDICAL HISTORY Diagnosis Date Zenker diverticulum PAST SURGICAL HISTORY Procedure Laterality Date COLONOSCOPY EGD LAP ING HERNIA REPAIR INIT TONSILLECTOMY HX FAMILY HISTORY Problem Relation Age of Onset Anesthesia Problems No Family History SOCIAL HISTORY: Social History Tobacco Use Smoking status: Former Packs/day: 5.00 Types: Cigarettes Quit date: 11/12/1969 Years since quittin.5 Smokeless tobacco: Never Substance Use Topics Alcohol use: Not Currently Drug use: Never MEDICATIONS: Prior to Admission medications as of 05/16/23 1008 Medication Sig Last Dose Taking desloratadine (CLARINEX) 5 mg tablet Take 1 tablet by mouth once daily. Yes Aspirin-Acetaminophen -Caffeine (EXCEDRIN MIGRAINE) 250-250-65 mg per tablet Take 1 tablet by mouth as needed. Yes acetaminophen (TYLENOL ORAL) Take by mouth as needed. Yes No medication comments found. CURRENT ALLERGIES: ALLERGIES No Known Allergies COVID VACCINATION STATUS: Fully vaccinated REVIEW OF SYSTEMS: PAIN ASSESSMENT: General: No weight loss, malaise or fevers. Neuro: No history of TIA's, stroke, SELF SEALING FUEL TANK BUILDER tumor, impaired sensorium, hemiplegia, paraplegia or quadraplegia. No neurological symptoms or problems., Postive for Headaches Respiratory: No history of current cough or dyspnea, or pneumonia in the past 6 weeks. No history of respiratory/pulmonary symptoms or problems. + snoring Cardiovascular: No history of HTN requiring medication, no history of angina, CHF, [place], cardiac surgery or stents. Denies rest pain, gangrene or revascularization/amp utation for PVD. No history of cardiovascular symptoms or problems. GI: See HPI : No history of dysuria, frequency or incontinence,, stones or chronic kidney disease Endocrine: No history of diabetes. Has not taken steroids within the past 30 days. No history of endocrinological symptoms or problems. Hematology: No history of bleeding or clotting disorder. Pt is not taking anti-coagulation or platelet medications. No history of hematological symptoms or problems. Oncology: No history of CA metastasis, chemo within 30 days, or radiotherapy within 90 days. Has not lost 10% of body wt in 6 months. No history of oncological symptoms or problems. Psych: No history of psychiatric symptoms or problems. Musculoskeletal: Negative for joint pain or swelling, back pain or muscle pain. Skin: Negative for lesions, rash and itching. Objective PHYSICAL EXAM: VITALS: BP 131/72 Pulse 60 Temp (Src) 97.5 (Temporal Artery) Resp 16 Ht 5' 11 (1.80m) Wt 196 lb (88.9kg) SpO2 99% BMI 27.35 kg/(m2). General: Alert and oriented, No acute distress Skin: Normal color, no rash, no lesions. HEENT: EOM, pupils equal, round and reactive., No carotid bruits Cardiovascular: Normal S1 AND S2, no rubs, murmurs or gallops. No JVD. Pulse regular. Lungs: Normal breath sounds, no wheezes or crackles. Abdomen: Soft, non-tender, no rigidity. Extremities: No deformity, no edema or tenderness, no joint swelling or clubbing. Neurological: Normal cognition and motor skills. Pulses: Carotid and radial pulses normal +2. Diagnostic tests reviewed for today's visit: Lab Value Units Date High Low HB 13.3 g/dL 05/16/2023 17.0 13.0 HCT 39.6 % 05/16/2023 51.0 39.0 WBC 7.51 k/uL 05/16/2023 11.00 3.70 PLT 264 k/uL 05/16/2023 400 150 NA 141 mmol/L 05/16/2023 144 136 K 4.2 mmol/L 05/17/2023 5.1 3.7 GLUC 87 mg/dL 05/16/2023 99 74 BUN 12 mg/dL 05/16/2023 24 9 CREAT 1.51 mg/dL 05/16/2023 1.22 0.73 Recent Results (from the past 8760 hour(s)) ECG COMPLETE Collection Time: 05/16/23 9:16 AM Result Value Ventricular Rate 61 Atrial Rate 61 P-R Interval 174 QRS Duration 86 QT Interval 426 QTC Calculation (Bazett) 428 Calculated P Danvers 77 Calculated R Danvers -18 Calculated T Dan[place] 21 Impression NORMAL SINUS RHYTHM NORMAL ECG Chest xray 05/16/20 (more content not included)... Normal [facility] XR CHEST 1V FRONTALon 2022 XR CHEST 1V FRONTAL * * *Final Report* * * DATE OF EXAM: May 16 2023 11:28AM LNX 5290 - XR CHEST 1V FRONTAL / PROCEDURE REASON: Zenker diverticulum * * * * Physician Interpretation * * * * EXAMINATION: CHEST RADIOGRAPH (SINGLE VIEW AP OR PA) CLINICAL HISTORY: Zenker diverticulum MQ: XC1_5 Comparison: CT chest performed 10/19/2022 RESULT: Lines, tubes, and devices: None. Lungs and pleura: No consolidation. No lung mass. No pleural effusion. Cardiomediastinal silhouette: Normal cardiomediastinal silhouette. Other: Degenerative changes noted in the thoracic spine. IMPRESSION: No acute radiographic abnormality. Sledger: PSCB Transcribe Date/Time: May 16 2023 2:51P Dictated by : BINDU NORRIS MD This examination was interpreted and the report reviewed and electronically signed by: BINDU NORRIS MD on May 16 2023 3:03PM EST [id number] Normal [facility] CNOVon 03-23-2023 CNOV Office Visit (OTOLTW ) ODALYS CERDA ([id number]) 1950 M Date Time Provider Department 03/23/23 1:30 PM RODDY LOYD OTPETERTAndrew During your visit today, we recorded the following information about you: Roddy Loyd MD 03/28/2023 6:17 PM Signed CC: The patient is seen at the request of Dr. Marine Leon for evaluation and management of Zenker's Diverticulum. I will communicate with the referring provider via the shared EMR or mail. Assessment and Plan (Medical Decision Making): Small diverticulum/CP prominence noticeable on MBS We agreed to pursue endoscopic zenkers diverticulotomy with the CO2 laser . -I discussed options including observation, endoscopic vs open cricopharyngeal myotomy including the risks and benefits of each approach including but not limited to: bleeding, infection, perforation, inability to gain endoscopic exposure, injury to dentoalveolar structures, tongue numbness, taste disturbance, need for temporary feeding tube, need for revision surgery, laser fire/burn if used in procedure. Surgery - Endoscopic CP myotomy Drug management - NONE Labs and Imaging ordered - BMP, CBC + DIFF, ECG, XR chest Consults - PACC Follow up - for surgery in near term Medical Decision Making: Problems: Moderate: New problem with uncertain prognosis Data: Unique test result(s) reviewed: 2 Unique test(s) ordered: 2 Risk: Moderate: Decision on minor surgery w/ risk factors Medical Decision Making Level: 4 - Moderate HPI: 73 year old man with history of dysphagia for about 12 years. He has seen GI and thoracic surgery for it. MBS revealed zenker's diverticulum. The dysphagia occurs mainly with solids. No weight loss, but it takes him much longer to eat. He coughs up the food frequently.He has difficulty with swallowing pills. Eat-10 = 20 REVIEW OF RADIOLOGICAL FILMS AND RECORDS: UGI: Upper GI 09/29/2019 was notable for mild tertiary waves of the esophagus resulting in slight delay in passage of contents into the stomach but was otherwise unremarkable with no notable structural abnormalities. MBS 06/14/21 ALLERGIES No Known Allergies Current Outpatient Medications Medication Sig desloratadine (CLARINEX) 5 mg tablet Take 1 tablet by mouth once daily. Aspirin-Acetaminophen -Caffeine (EXCEDRIN MIGRAINE) 250-250-65 mg per tablet Take 1 tablet by mouth as needed. acetaminophen (TYLENOL ORAL) Take by mouth as needed. No current facility-administered medications for this visit. No past medical history on file. No past surgical history on file. Social History: Social History Tobacco Use Smoking status: Former Types: Cigarettes Quit date: 11/12/1969 Years since quittin.3 Smokeless tobacco: Never Substance Use Topics Alcohol use: Not Currently Drug use: Never Family History: No family history of ENT problems ROS: Constitutional: Denies having night sweats, constant fatigue, loss of appetite, or recent substantial weight loss. Eyes: The pt denies having blurred vision or double vision. Respiratory: Denies symptoms of shortness of breath, noisy breathing. 14 point review of systems was otherwise normal except as noted in HPI. PHYSICAL EXAM: On physical examination Odalys Cerda is a well-developed, well nourished male. His conversational voice is normal. Mental status revealed patient to be alert and oriented x 3. Mood is appropriate. Details of the physical examination: Respiratory: no stridor or SOB Cardiovascular: No clubbing, cyanosis or edema of the upper extremities HEAD AND FACE: Physical examination of the head, neck, external nose, external ears, mouth and face fails to demonstrate any significant abnormality or asymmetry to critical face to face observation. Skin and scalp are normal. NOSE: Examination of the nasal cavity revealed a septum which is midline ORAL CAVITY AND OROPHARYNX: The oral mucosa, hard and soft palates, tongue, and posterior pharyngeal wall are without lesions. LARYNX: To better evaluate laryngeal biomechanics and vocal fold oscillation I performed laryngoscopy. A mirror exam was attempted but would not provide this level of laryngeal detail. PROCEDURE NOTE: Laryngoscopy was performed because of the following indication: high resolution assessment of vocal fold oscillation and laryngeal biomechanics: After spraying the nose with xylocaine/neosynephri ne, the flexible scope was placed in a transnasal fashion. The nasopharynx, oropharynx, hypopharynx including the pyriform sinuses were normal. The base of tongue showed no gross lesions. The larynx itself showed no lesions. Right VC motion: within normal limits Left VC motion: within normal limits Glottic closure: complete The immediate subglottic airway was patent Pt tolerated the procedure well, and there were no complications. The procedure was performed by Dr. Roddy Smith (more content not included)... [facility] 11-22-2022 [employer] Telephone ([employer]) ODALYS CERDA ([id number]) 1950 M Date Time Provider Department 11/22/22 MARINE LEON During your visit today, we recorded the following information about you: Venessa uMrphy 11/22/2022 10:37 AM Signed Changed phone apt time from 9:20am to 8:40 am 12/14/2022. Confirmed with patient via phone. Sent via mail. Patient also has access to [employer]. PF Allergies As of Date: 11/22/2022 (No Known Allergies) Date Reviewed: 10/19/2022 Reviewed by: Jane Lemos Ma - Fully Assessed Reason for Visit: Appointment Rescheduled [1024] Problem List As Of Date: 11/22/2022 (None) Encounter Status:Closed by VENESSA MURPHY on 11/22/22 [facility] 11-16-2022 [employer] Telephone ([employer]) ODALYS CERDA ([id number]) 1950 M Date Time Provider Department 11/16/22 MARINE LEON During your visit today, we recorded the following information about you: Venessa Murphy 11/16/2022 12:47 PM Signed Left message with patient to reschedule for a different day and/or time (phone visit) w/ Dr. Leon. PF Allergies As of Date: 11/16/2022 (No Known Allergies) Date Reviewed: 10/19/2022 Reviewed by: Jane Lemos Ma - Fully Assessed Reason for Visit: Appointment Rescheduled [1024] Problem List As Of Date: 11/16/2022 (None) Encounter Status:Closed by VENESSA MURPHY on 11/16/22 [facility] [employer] Telephone (THORMN) ODALYS CERDA ([id number]) 1950 M Date Time Provider Department 11/16/22 MARINE LEON During your visit today, we recorded the following information about you: Venessa Murphy 11/16/2022 10:57 AM Signed Confirmed rescheduled date and time of apt w/ patient from 11/30/2022 at 9:20am to 12/14/2022 at 9:20am, phone visit w/ Dr. Leon. Dr Leon not available on 11/30/2022. Set out via mail. Patient also has access to [employer]. Allergies As of Date: 11/16/2022 (No Known Allergies) Date Reviewed: 10/19/2022 Reviewed by: Jane Lemos Ma - Fully Assessed Reason for Visit: Appointment Rescheduled [1024] Problem List As Of Date: 11/16/2022 (None) Encounter Status:Closed by VENESSA MURPHY on 11/16/22 [facility] 10-23-2022 CNPN Telephone (THORMN) ODALYS CERDA ([id number]) 1950 M Date Time Provider Department 10/23/22 MARINE LEON During your visit today, we recorded the following information about you: Arely Berrios RN 10/23/2022 8:[address] leon , plan for CT scan of the chest in 6 months to follow lung nodule CT scan of chest April [address] leon or roller mill tender to review Allergies As of Date: 10/23/2022 (No Known Allergies) Date Reviewed: 10/19/2022 Reviewed by: Jane Lemos Ma - Fully Assessed Reason for Visit: Appointment [186] Orders [681] Cmt: follow up ct scan Primary Visit Diagnosis:Lung nodules [R91.8] Order(s):CT CHEST WO IVCON [[id number]] Order #: [id number] FUTURE Problem List As Of Date: 10/23/2022 (None) Encounter Status:Closed by ARELY BERRIOS on 10/23/22 [facility] CNOVon 10-19-2022 CNOV Office Visit (THORMN ) ODALYS CERDA ([id number]) 1950 M Date Time Provider Department 10/19/22 12:40 PM MARINE LEON During your visit today, we recorded the following information about you: Temperature Pulse Respiration Blood pressure 98.3 degrees 70/minute 12/minute 117/73 Weight Height 89 kg 1.77 m Marine Leon MD, PhD 10/20/2022 9:32 AM Unsigned [employer] [address] [address] [place] DEPART[facility] OF THORACIC AND CARDIOVASCULAR SURGERY NAME: ODALYS CERDA CLINIC #: [id number] DATE: 10/19/2022 AGE: 72 PHYSICIAN: Marine Leon M.D., Ph.D. I had the sincere pleasure of seeing the patient in my Thoracic Surgery Clinic. This very pleasant 72-year-old man was seen with his in my clinic today for an opinion regarding dysphagia and a relatively recent bacterial pneumonia. The patient's medical history and review of systems have been studied. I have also independently reviewed images from a limited barium esophagram as well as CT and abdominal CT scans that were performed at this center today. I have also studied pulmonary function tests including a walk oximetry, PFTs and DLCO. I have assessed the patient with my care team here at [facility]. In brief, the patient is a fairly healthy 72-year-old man with an ECOG performance status of zero. He has gradually noted the onset of dysphagia over the last several months. This has gotten worse, but when questioned specifically, he may have had dysphagia persisting for greater than a decade. Currently, the patient impacts his upper esophagus with food and has to regurgitate. He is able to take mechanically soft and solids without difficulty. He has normal pulmonary function tests and had a reasonable walk oximetry without desaturation. His DLCO is normal. His barium esophagram identifies a fairly small Zenker's diverticulum. The diverticulum is probably less than 2 cm. It is not particularly evident on the CT scan of neck. Overall, the patient is not losing weight. IMPRESSION: Hypertrophic upper esophageal sphincter might benefit from dilatation or an endoscopic myotomy given the small size of the Zenker's diverticulum. Botox could certainly be utilized for palliation in addition to dilatation. I will have Dr. Loyd see the patient. If he thinks that a standard surgical diverticulectomy should be performed despite the diminutive size of the diverticulum, I will be happy to move in that direction. It is possible he might be able to palliate this process endoscopically. I will arrange a visit with Dr. Loyd. It was a pleasure seeing the patient today. Marine Leon M.D., Ph.D. SM:[id number] / Richard Navarro MD 10/19/2022 2:39 PM Addendum [facility] THORACIC SURGERY OUTPATIENT CONSULT NOTE Odalys Cerda [id number] Requesting Provider: Jaron Avalos MD Thoracic Physician: Marine Leon MD Chief Complaint: Difficulty swallowing Impression: 72-year-old male with small Zenker's diverticulum noted on modified barium swallow measuring 2 cm in length by 1.4 cm at the neck. The patient did undergo CT chest, abdomen, and pelvis which was reviewed today and the diverticulum wasn't visualized Plan: -We will refer the patient to ENT for evaluation for possible dilation, possible Botox injection. As the diverticulum is very small and was not visible today on the CT scan we would try to have the patient avoid any aggressive operative interventions. If this would fail, and if his symptoms would get worse, we can re-evaluate for surgery. HPI: Odalys Cerda is a 72 year old. No medical issues. Hx of tonsillectomy. Ex smoker quit 30 years ago. Not on anticoagulation. White male referred by Jaron Avalos MD for an opinion regarding management of Zenker's Diverticulum. Patient has been complaining of difficulty swallowing for 14 years. It happened mainly with solid food where he feels that food is getting stuck then he would have to cough it up or drink more to clear it. This happens daily with every single meal. Reports also occasional hoarseness. Occasional heartburn. (document at least 4 of these elements) Quality: chronic Severity: severe Duration: 6 times per day Timing: daily Context: preceded by food ECOG Score: 0 Living arrangement: Lives with family/friend Functional status: Independent Unintentional weight loss over last 3 months: No PAST MEDICAL HISTORY: No past medical history on file. PAST SURGICAL HISTORY: No past surgical history on file. FAMILY HISTORY: No family history on file. SOCIAL HISTORY: MEDICATIONS: Prior to Admission Medications: No prescriptions on file. ALLERGIES: ALLERGIES Not on File Chemical Exposure: No Asbestos Exposure yes COMPLETE REVIEW OF SYSTEM (more content not included)... Normal [facility] CT ABD/PEL WO IVCONon 2021 CT ABD/PEL WO IVCON * * *Final Report* * * DATE OF EXAM: Oct 19 2022 11:28AM [facility] [facility] [place]/PEL WO IVCON / PROCEDURE REASON: Zenkers diverticulum * * * * Physician Interpretation * * * * EXAMINATION: CT ABDOMEN AND PELVIS WITHOUT IV CONTRAST CLINICAL HISTORY: History of large Zenker's diverticulum diagnosed on upper GI study 06/14/2021. TECHNIQUE: Non-IV contrast imaging of the abdomen and pelvis was performed using standard technique, scanning from just above the dome of the diaphragm to the symphysis pubis. Unenhanced imaging is limited for the evaluation of some intra-abdominal and pelvic pathology. MQ: CTAPWO_3 Contrast: IV: None Oral: 450 ml of Omni 240 10-25ml diluted with water CT Radiation dose: Integrated Dose-length product (DLP) for this visit = 863 mGy*cm. CT Dose Reduction Employed: Automated exposure control (AEC) COMPARISON: None. RESULT: Abdomen / Pelvis: Liver: Unremarkable. Biliary: The gallbladder is unremarkable. Spleen: No splenomegaly. Pancreas: Unremarkable. Adrenals: No mass. Kidneys: No calculus, hydronephrosis or finding to suggest a cyst or mass in the unenhanced kidney. GI Tract: No bowel dilation. Normal appendix. There is diverticulosis. No changes of diverticulitis. Lymph Nodes: No lymphadenopathy. Mesentery/peritoneum: No ascites. Retroperitoneum: No mass. Vasculature: Arterial atherosclerotic disease with 3.2 cm infrarenal abdominal aortic aneurysm. Pelvis: No mass or ascites. Bones/Soft Tissues: No suspicious osseous lesion. Lower thorax: A chest CT performed will be reported separately. Extractor Filler (topogram) images: No additional findings. IMPRESSION: 3.2 cm infrarenal abdominal aortic aneurysm. Sledger: RACHELLE Transcribe Date/Time: Oct 19 2022 11:42A Dictated by : YOSI ROSALINA, DO This examination was interpreted and the report reviewed and electronically signed by: JARON HUYNH MD on Oct 19 2022 1:07PM EST [id number] Normal [facility] CT CHEST WO IVCONon 10-19-20 22 Radiology Result ACTIONABLE Abnormal [facility] CT CHEST WO IVCON * * *Final Report* * * DATE OF EXAM: Oct 19 2022 11:28AM [facility] [place] CT CHEST WO IVCON / PROCEDURE REASON: Zenkers diverticulum * * * * Physician Interpretation * * * * EXAMINATION: CHEST CT WITHOUT CONTRAST CLINICAL HISTORY: Zenkers diverticulum on outside barium swallow. Former smoker. Technique: Spiral CT acquisition of the chest from the thoracic inlet to the upper abdomen without contrast. MQ: CTCWO_6 CT Radiation dose: Integrated Dose-length product (DLP) for this visit = 863 mGy*cm CT Dose Reduction Employed: Automated exposure control (AEC) Comparison: None. RESULT: Limitations: None. Lines, tubes, and devices: None. Lung parenchyma and airways: No consolidation. There is scarring/atelectasis adjacent to vertebral osteophytes in the right lower lobe. A 3 mm left upper lobe nodular opacity the pleura laterally (image 42) may be related to apical pleural parenchymal scarring which is seen bilaterally and likely postinflammatory. The central airways are patent and without an endobronchial lesion. Pleural space: No pleural effusion. No pleural thickening. Lower neck, lymph nodes, and mediastinum: The imaged thyroid gland is normal. No lymphadenopathy in the supraclavicular, axillary, mediastinal, or hilar regions. Nondilated esophagus. The reported Zenker's diverticulum is not well/reliably characterized on the present study. Heart, pericardium, and thoracic vessels: The thoracic aorta and main pulmonary artery are normal in caliber. The cardiac chambers are normal in size. Mild coronary artery atherosclerotic calcifications are noted, although the study is not optimized for coronary assessment. No pericardial effusion or thickening. Bones and soft tissues: There is osteopenia. No destructive bone lesion. Mild endplate degenerative changes in the thoracic spine. Chest wall is unremarkable. Upper abdomen: Dictated separately. Extractor Filler (topogram) images: No additional findings. IMPRESSION: The queried Zenker's diverticulum is not well/reliably characterized on the present exam. A 3 mm nodular opacity in the left upper lobe may be related to scarring versus a small lung nodule. If there are risk factors for lung malignancy a chest CT could be obtained in one year. Incidental Finding: Follow-up Acuity: Incidental Finding: Solid: <6 mm (solitary or multiple) Routing Code: N/A Recommendation: No imaging follow-up is recommended Time Frame: N/A Comments: If there are risk factors for lung malignancy, a follow-up chest CT exam could be obtained in 12 months Sledger: PSCBrian Transcribe Date/Time: Oct 19 2022 4:07P Dictated by : CY RUTHERFORD MD This examination was interpreted and the report reviewed and electronically signed by: LELO FONTAINE MD on Oct 19 2022 5:22PM EST [id number] ACTIONABLE Invalid Interpretation Code [facility] SIX MINUTE WALKon 10-19-2022 [facility] 09-06-2022 CNPN Telephone (THORMN) ODALYS CERDA ([id number]) 1950 M Date Time Provider Department 09/06/22 MRAINE LEON During your visit today, we recorded the following information about you: Porsha Nick 09/15/2022 3:54 PM Addendum Received Routed Epic Telephone Encounter from MD Odalys Sloan is being referred to Unspecified Thoracic Surgeon by Jaron Avalos MD [address] [facility] [address] Patient diagnosis/Reason for consult: Zenker's Diverticulum Referral triage process explained: Yes Patient will receive a call from Thoracic NPM after triage review with surgeon to discuss any additional testing and/or consults that will be scheduled. Pt will then receive a call from our scheduling office for scheduling. Please call pt at [phone]. Patient was informed consultation could be at [place] or [facility]: No Patient Registration: Registration complete/updated: Yes Insurance card(s) [facility] in the past year: Yes, 09/06/22 Pt's Ring[employer] is inactive. Ok to communicate to pt via Ring[employer] no Medical Records: Records in [facility] (internal [facility] records): No Imaging in [facility] (internal [facility] records): No Care Everywhere - queried no, downloaded No Linked Outside Organizations (list): Waiting for correct spelling of name OSH Records Requested: yes Date: September 06, 2022 Outside Hospital(s) requested records from: Dr. Jaron Avalos Received: Yes Uploaded: Yes. Waiting on additional records: No. Missing (list): n/a OSH Pathology Slides Requested: no Date: N/A Outside Hospital(s) slides requested from: n/a OS Radiology Imaging Requested: yes Date: September 06, 2022 Outside Hospital(s) requested imaging from: [facility]. Imaging will be received via Electronic Transfer Received: Yes Imaging uploaded: Yes Waiting on additional: Yes. Missing (list): CT Additional providers added to Care Teams: Yes Additional Notes/Comments: n/a Enct routed to: Willie Gaston [facility] for triage Porsha Nick, wage and salary administrator Arely Berrios RN 09/25/2022 8:49 AM Signed Thoracic Surgery Consultation - review of records for appointment scheduling Received medical records from the office of Jaron Avalos MD [address] [address] Patient is being referred to Unspecified/First Available by OSH for Zenker DIverticulum Outside hospital records scanned Imaging CT (chest,) 05/30/21 UGI: MBS 06/14/21 Cardiopulmonary Testing PFT's/Six: requested Cardiac: Office Notes/Consults 09/06/22 see scanned docs History of: No family history on file. No past medical history on file. No past surgical history on file. Request consult with dr leon pft/dlco/six ct chest/abd with oral constrast DEBORA Murillo 09/26/2022 3:38 PM Addendum Pt was scheduled for the requested consult w/Dr Edward w/a ch/abd/pel ct w/oral contrast and w/pfts per Arely's Tele. Pt was scheduled for 10/19/22, confirmed appt date/time/location w/pt via phone. Appt reminder sent out to pt via Replise. Referring Provider: JARON AVALOS [[id number]] Allergies As of Date: 09/06/2022 (Not on File) Date Reviewed: Never Reviewed Reason for Visit: Consult [173] Cmt: Zenker Diverticulum Appointment Confirmation [350] Primary Visit Diagnosis:Zenkers diverticulum [K22.5] Order(s):SPIROMETRY BASELINE ONLY [[id number]] Order #: [id number]: 1 FUTURE LUNG DIFFUSION CAPACITY (DLCO) [[id number]] Order #: [id number]: 1 FUTURE SIX MINUTE WALK [[id number]] Order #: [id number]: [address] CHEST WO IVCON [[id number]] Order #: [id number] FUTURE CT ABD/PEL WO IVCON [[id number]] Order #: [id number] FUTURE [] enteric contrast (will be provided with radiology test)Take 1 Each by mouth one time only for [address] Chest ABD/PEL WO Routine order Administer, As Directed One Time Only, via Oral, Rectal, both Oral and Rectal, Enteric Tube, Stoma or Indwelling Catheter, Enteric Contrast as designated per enteric contrast guidelinesDisp: 1 EachRfl: 0 Problem List As Of Date: 09/06/2022 (None) Prescriptions ordered this encounter Disp Refills Start End ENTERIC CONTRAST (RADIOLOGY PROCEDUR* 1 Ea* 0 09/25/2022 09/25/2022 Class: In Office Route: ORAL Sig: Take 1 Each by mouth one time only for [address] Chest ABD/PEL WO Routine order Administer, As Directed One Time Only, via Oral, Rectal, both Oral and Rectal, Enteric Tube, Stoma or Indwelling Catheter, Enteric Contrast as designated per enteric contrast guidelines Cosign accepted by MARINE LEON[[id number]] on 09/25/2022 3:58 PM Encounter Status:Closed by ARELY BERRIOS on 09/25/22 Normal [facility] H PYLORI ANTIBODY IGGon 10-2 H. PYLORI IGG ABS 0.15 Index Value Normal 0.00-0.79 T [facility] Comment on above: Result Comment: Nega tive <0.80 Equivocal 0.80 - 0.89 Positive >0.89 Performed By: #### H PYLLC #### [facility] [address] [place] [address] Dr. Dunia Carlisle CBC AUTO DIFFon 08-31-2022 BASO # 0.1 103/ul Normal 0.0-0.1 [facility] Comment on above: Performed By: #### C BC #### [facility] [address] [place] [address] Dr. Dunia Carlisle Basophils/100 WBC (Bld) 1.2 % Normal 0.2-2.0 [facility] Comment on above: Performed By: #### C BC #### [facility] [address] [place] [address] Dr. Dunia Carlisle EO # 0.2 103/ul Normal 0.0-0.7 [facility] Comment on above: Performed By: #### C BC #### [facility] [address] [place] [address] Dr. Dunia Carlisle Eosinophils/100 WBC (Bld) 3.6 % Normal 0.9-7.0 [facility] Comment on above: Performed By: #### C BC #### [facility] [address] [place] [address] Dr. Dunia Carlisle Erythrocyte distribution width (RBC) [Ratio] 12.1 % Normal 11.0-15.0 [facility] Comment on above: Performed By: #### C BC #### [facility] [address] [place] [address] Dr. Dunia Carlisle Hematocrit (Bld) [Volume fraction] 39.3 % Critically low 42.0-54.0 [facility] Comment on above: Performed By: #### C BC #### [facility] [address] [place] [address] Dr. Dunia Carlisle Hemoglobin (Bld) [Mass/Vol] 13.1 g/dL Critically low 14.0-18.0 [facility] Comment on above: Performed By: #### C BC #### [facility] [address] [place] [address] Dr. Dunia Carlisle IG # 0.07 10e3/ul Critically high 0.00-0.03 [facility] Comment on above: Performed By: #### C BC #### [facility] [address] [place] [address] Dr. Dunia Carlisle IG % 1.2 % Critically high 0.0-0.5 [facility] Comment on above: Performed By: #### C BC #### [facility] [address] [place] [address] Dr. Dunia Carlisle LYMPH # 1.8 103/ul Normal 1.2-3.8 [facility] Comment on above: Performed By: #### C BC #### [facility] [address] [place] [address] Dr. Dunia Carlisle Lymphocytes/100 WBC (Bld) 29.1 % Normal 20.5-60.0 [facility] Comment on above: Performed By: #### C BC #### [facility] [address] [place] [address] Dr. Dunia Carlisle MANUAL DIFF REQ NO Normal [facility] Comment on above: Performed By: #### C BC #### [facility] [address] [place] [address] Dr. Dunia Carlisle MCH (RBC) [Entitic mass] 33.2 pg Normal 25.9-34.0 [facility] Comment on above: Performed By: #### C BC #### [facility] [address] [place] [address] Dr. Dunia Carlisle MCHC (RBC) [Mass/Vol] 33.3 g/dL Normal 29.9-35.2 [facility] Comment on above: Performed By: #### C BC #### [facility] [address] [place] [address] Dr. Dunia Carlisle MCV (RBC) [Entitic vol] 99.5 fL Critically high 80.0-94.0 [facility] Comment on above: Performed By: #### C BC #### [facility] [address] [address] [address] Dunia Carlisle MONO # 0.5 103/ul Normal 0.3-0.8 [facility] Comment on above: Performed By: #### C BC #### [facility] [address] [address] [address] Dunia Carlisle Monocytes/100 WBC (Bld) 8.9 % Normal 1.7-12.0 [facility] Comment on above: Performed By: #### C BC #### [facility] [address] [place] [address] Dr. Dunia Carlisle NEUT # 3.4 103/ul Normal 1.4-6.5 [facility] Comment on above: Performed By: #### C BC #### [facility] [address] [place] [address] Dr. Dunia Carlisle Neutrophils/100 WBC (Bld) 56.0 % Normal 43.0-75.0 [facility] Comment on above: Performed By: #### C BC #### [facility] [address] [place] [address] Dr. Dunia Carlisle Platelet mean volume (Bld) [Entitic vol] 9.4 fL Critically low 9.5-13.5 [facility] Comment on above: Performed By: #### C BC #### [facility] [address] [place] [address] Dr. Dunia Carlisle PLT 249 103/ul Normal 150-450 [facility] Comment on above: Performed By: #### C BC #### [facility] [address] [place] [address] Dr. Dunia Carlisle RBC 3.95 106/ul Critically low 4.70-6.10 [facility] Comment on above: Performed By: #### C BC #### [facility] [address] [place] [address] Dr. Dunia Carlisle WBC 6.0 103/ul Normal 4.0-11.0 [facility] Comment on above: Performed By: #### C BC #### [facility] [address] [place] [address] Dr. Dunia Carlisle GLYCOHEMOGLOBIN A1Con 2021 ADA RECOMMENDATION SEE BELOW Normal [facility] Comment on above: Result Comment: ADA RECOMMENDED LIMIT 4.0 - 6.0 ADA THERAPEUTIC TARGET < 7.0 ACTION SUGGESTED > 7.0 Performed By: #### A 1C #### [facility] [address] [place] [address] Dr. Dunia Carlisle Glucose [Mass/Vol] 123 mg/dL Normal [facility] Comment on above: Performed By: #### A 1C #### [facility] [address] [place] [address] Dr. Dunia Carlisle HbA1c (Bld) [Mass fraction] 5.9 % Normal 4.5-6.2 [facility] Comment on above: Performed By: #### A 1C #### [facility] [address] [place] [address] Dr. Dunia Carlisle LIPID PROFILEon 08-31-2022 CHOL-HDL RATIO NORM SEE BELOW Normal [facility] Comment on above: Result Comment: 3.3 - 4.4 LOW RISK 4.4 - 7.1 AVERAGE RISK 7.1 - 11.0 MODERATE RISK >11.0 HIGH RISK Performed By: #### L IPID, CMP #### [facility] [address] [place] [address] Dr. Dunia Carlisle Cholesterol [Mass/Vol] 179 mg/dL Normal <=200 [facility] Comment on above: Performed By: #### L IPID, CMP #### [facility] [address] [place] [address] Dr. Dunia aCrlisle Cholesterol in HDL [Mass/Vol] 56 mg/dL Normal 40-60 [facility] Comment on above: Performed By: #### L IPID, CMP #### [facility] [address] [place] [address] Dr. Dunia Carlisle Cholesterol in LDL [Mass/Vol] 110.6 mg/dL Normal [facility] Comment on above: Performed By: #### L IPID, CMP #### [facility] [address] [place] [address] Dr. Dunia Carlisle Cholesterol.total/Ch olesterol in HDL [Mass ratio] 3.2 {ratio} Normal [facility] Comment on above: Performed By: #### L IPID, CMP #### [facility] [address] [address] [address] Dunia Carlisle HDL NORMAL > or = 60 mg/dl - LO W CARDIOVASCULAR RISK <40 mg/dl - HIGH CARDIOVASCULAR RISK Normal [facility] Comment on above: Performed By: #### L IPID, CMP #### [facility] [address] [address] [address] Dunia Carlisle LDL CALC NORMAL SEE BELOW Normal [facility] Comment on above: Result Comment: <100 mg/dl OPTIMAL 100 - 129 mg/dl NEAR OR ABOVE OPTIMAL 130 - 159 mg/dl BORDERLINE HIGH 160 - 189 mg/dl HIGH >190 mg/dl VERY HIGH Performed By: #### L IPID, CMP #### [facility] [address] [address] [address] Dunia Carlisle Triglyceride [Mass/Vol] 62 mg/dL Normal <=150 [facility] Comment on above: Performed By: #### L IPID, CMP #### [facility] [address] [address] [address] Dunia Carlisel VLDL CALC 12.4 mg/dL Normal [facility] Comment on above: Performed By: #### L IPID, CMP #### [facility] [address] [address] [address] Dunia Carlisle PROF 14(COMP METB)on 022 Albumin [Mass/Vol] 3.8 g/dL Normal 3.4-5.0 [facility] Comment on above: Performed By: #### L IPID, CMP #### [facility] [address] [address] [address] Dunia Carlisle Albumin/Globulin [Mass ratio] 1.0 {ratio} Normal [facility] Comment on above: Performed By: #### L IPID, CMP #### [facility] [address] [address] [address] Dunia Carlisle ALP [Catalytic activity/Vol] 104 U/L Normal 46-116 [facility] Comment on above: Performed By: #### L IPID, CMP #### [facility] [address] [address] [address] Dunia Carlisle ALT [Catalytic activity/Vol] 14 U/L Critically low 16-63 [facility] Comment on above: Performed By: #### L IPID, CMP #### [facility] [address] [address] [address] Dunia Carlisle Anion gap [Moles/Vol] 11.0 mmol/L Normal [facility] Comment on above: Performed By: #### L IPID, CMP #### [facility] [address] [address] [address] Dunia Carlisle AST [Catalytic activity/Vol] 16 U/L Normal 15-37 [facility] Comment on above: Performed By: #### L IPID, CMP #### [facility] [address] [address] [address] Dunia Carlisle Bilirubin [Mass/Vol] 0.6 mg/dL Normal 0.2-1.0 [facility] Comment on above: Performed By: #### L IPID, CMP #### [facility] [address] [address] [address] Dunia Carlisle Calcium [Mass/Vol] 9.1 mg/dL Normal 8.5-10.1 [facility] Comment on above: Performed By: #### L IPID, CMP #### [facility] [address] [address] [address] Dunia Carlisle Chloride [Moles/Vol] 105 mmol/L Normal 98-107 [facility] Comment on above: Performed By: #### L IPID, CMP #### [facility] [address] [address] [address] Dunia Carlisle CO2 [Moles/Vol] 28.7 mmol/L Normal 21.0-32.0 [facility] Comment on above: Performed By: #### L IPID, CMP #### [facility] [address] [address] [address] Dunia Carlisle Creatinine [Mass/Vol] 1.41 mg/dL Critically high 0.70-1.30 [facility] Comment on above: Performed By: #### L IPID, CMP #### [facility] [address] [place] [address] Dr. Dunia Carlisle EGFR-AF GERMAN =60 Normal >=60 [facility] Comment on above: Performed By: #### L IPID, CMP #### [facility] [address] [address] [address] Dunia Carlisle EGFR-NON AF GERMAN 49 mL/min/1.73m2 Critically low >=60 [facility] Comment on above: Performed By: #### L IPID, CMP #### [facility] [address] [place] [address] Dr. Dunia Carlisle Globulin (S) [Mass/Vol] 3.9 g/dL Normal [facility] Comment on above: Performed By: #### L IPID, CMP #### [facility] [address] [place] [address] Dr. Dunia Carlisle Glucose [Mass/Vol] 93 mg/dL Normal 74-106 [facility] Comment on above: Performed By: #### L IPID, CMP #### [facility] [address] [place] [address] Dr. Dunia Carlisle Potassium [Moles/Vol] 4.7 mmol/L Normal 3.5-5.1 [facility] Comment on above: Performed By: #### L IPID, CMP #### [facility] [address] [place] [address] Dr. Dunia Carlisle Protein [Mass/Vol] 7.7 g/dL Normal 6.4-8.2 [facility] Comment on above: Performed By: #### L IPID, CMP #### [facility] [address] [place] [address] Dr. Dunia Carlisle Sodium [Moles/Vol] 140 mmol/L Normal 136-145 [facility] Comment on above: Performed By: #### L IPID, CMP #### [facility] [address] [place] [address] Dr. Dunia Carlisle Urea nitrogen [Mass/Vol] 15.0 mg/dL Normal 7.0-18.0 [facility] Comment on above: Performed By: #### L IPID, CMP #### [facility] [address] [address] [address] Dunia Carlisle Urea nitrogen/Creatinine [Mass ratio] 10.6 mg/mg Normal [facility] Comment on above: Performed By: #### L IPID, CMP #### [facility] [address] [address] [address] Dunia Carlisle Vital Signs Date Time Vital Sign Value Performing Clinician Faci lity 05-16-2023 10:07-0400 Body height 180.3 cm Pacc 2 Work Phone: [facility] 05-16-2023 10:07-0400 Body temperature 97.5 [degF] Pacc 2 Work Phone: [facility] 05-16-2023 10:07-0400 Body weight 88.91 kg Pacc 2 Work Phone: [facility] 05-16-2023 10:07-0400 Diastolic blood pressure 72 mm[Hg] Pacc 2 Work Phone: [facility] 05-16-2023 10:07-0400 Heart rate 60 /min Pacc 2 Work Phone: [facility] 05-16-2023 10:07-0400 Respiratory rate 16 /min Pacc 2 Work Phone: [facility] 05-16-2023 10:07-0400 SaO2% (BldA) [Mass fraction] 99 % Pacc 2 Work Phone: [facility] 05-16-2023 10:07-0400 Systolic blood pressure 131 mm[Hg] Pacc 2 Work Phone: [facility] 10-19-2022 12:37-0500 Body height 177 cm Pulm J-2 [facility] 10-19-2022 12:37-0500 Body temperature 98.29 [degF] Marine Leon MD, PhD Work Phone: [facility] 10-19-2022 12:37-0500 Body weight 89.04 kg Marine Leon MD, PhD Work Phone: [facility] 10-19-2022 12:37-0500 Diastolic blood pressure 73 mm[Hg] Marine Leon MD, PhD Work Phone: [facility] 10-19-2022 12:37-0500 Heart rate 70 /min Marine Leon MD, PhD Work Phone: [facility] 10-19-2022 12:37-0500 Respiratory rate 12 /min Marine Leon MD, PhD Work Phone: [facility] 10-19-2022 12:37-0500 SaO2% (BldA) [Mass fraction] 98 % Marine Leon MD, PhD Work Phone: [facility] 10-19-2022 12:37-0500 Systolic blood pressure 117 mm[Hg] Marine Leon MD, PhD Work Phone: [facility] 10-19-2022 09:00-0500 Body weight 87.59 kg Pulm J-2 [facility] Encounters Encounter Date Encounter Type Care Provider Facility Start: 06-11-2023 End: 06-11-2023 ambulatory RODDY LOYD Facility:[facility] Start: 06-11-2023 End: 06-11-2023 Patient encounter procedure Roddy Loyd MD Work Phone: Otolaryngology Comment on above: Zenker's diverticulu m (Primary Dx) Start: 05-24-2023 Telephone encounter Roddy teixeira MD Work Phone: Otolaryngology Comment on above: Medication Problem ( Medication can't be refilled) Start: 05-23-2023 End: 05-23-2023 ambulatory JARON AVALOS Facility:[facility] Start: 05-22-2023 End: 05-23-2023 ambulatory RODDY LOYD Facility:[facility] Start: 05-17-2023 End: 05-17-2023 ambulatory Stacy Dai APRN.CNP Work Phone: Pre Anesthesia Comment on above: Repeat lab work Start: 05-17-2023 E-mail encounter fro m caregiver Stacy Garcíamyrima BASHIR.HAND COUNTER Work Phone: [facility] Start: 05-17-2023 Telephone encounter Stacy gray MCKAY.HAND COUNTER Work Phone: Pre Anesthesia Comment on above: PreOp Call (Pre-op l abs ) Start: 05-16-2023 End: 05-16-2023 ambulatory JARON AVALOS Facility:[facility] Start: 05-16-2023 End: 05-17-2023 ambulatory RODDY LOYD Facility:[facility] Start: 05-16-2023 Encounter for other preprocedural examination MARINE LEON [facility] Start: 05-16-2023 End: 05-16-2023 Subsequent hospital visit by physician Xr [facility] Comment on above: 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] Start: 05-16-2023 End: 05-16-2023 Admission to [facility] 2 Work Phone: [facility] Start: 05-16-2023 End: 05-16-2023 ambulatory [facility] 2 Work Phone: Pre Anesthesia Comment on above: Pre-op evaluation (P rimary Dx); Zenker diverticulum Start: 05-16-2023 End: 05-16-2023 Preprocedural examination done [facility] [place] 2 Work Phone: Pre Anesthesia Start: 04-19-2023 End: 04-19-2023 ambulatory Marine Leon MD, PhD Work Phone: Thoracic Clinic Comment on above: DIVERTICULUM - ESOPH BARBARA (Primary Dx) Start: 04-19-2023 End: 04-19-2023 Telemedicine consultation with patient Marine Leon MD, PhD Work Phone: [facility] Start: 03-23-2023 End: 03-23-2023 ambulatory RODDY LOYD Facility:[facility] Start: 12-14-2022 End: 12-14-2022 ambulatory MARINE LEON Facility:[facility] Start: 12-14-2022 End: 12-14-2022 ambulatory Marine Leon MD, PhD Work Phone: [facility] Clinic Comment on above: DIVERTICULUM - ESOPH BARBARA (Primary Dx); Pharyngoesophageal dysphagia Start: 12-14-2022 End: 12-14-2022 Telemedicine consultation with patient Marine Leon MD, PhD Work Phone: [facility] Start: 11-22-2022 Telephone encounter Marine ledbetter MD, PhD Work Phone: [facility] Comment on above: Appointment Reschedu led Start: 11-16-2022 Telephone encounter Marine ledbetter MD, PhD Work Phone: [facility] Comment on above: Appointment Reschedu led Start: 10-24-2022 ambulatory Soniya Baez APRN.HAND COUNTER Work Phone: Pulmonary Medicine Start: 10-23-2022 Telephone encounter Marine ledbetter MD, PhD Work Phone: [facility] Comment on above: Appointment; Orders (follow up ct scan ) Start: 10-19-2022 End: 10-19-2022 [facility] Start: 10-19-2022 End: 10-19-2022 Patient encounter procedure Marine Leon MD, PhD Work Phone: [facility] Comment on above: DIVERTICULUM - ESOPH BARBARA (Primary Dx) Start: 10-19-2022 End: 10-19-2022 ambulatory SUDISH EDWARD Facility:[facility] Start: 10-19-2022 End: 10-19-[address] [facility] Facility:[facility] Start: 10-19-2022 End: 10-19-2022 Subsequent hospital visit by physician Ct 2 Main Qb (I-Stat) Radiology Comment on above: Zenkers diverticulum [K22.5] Start: 10-19-2022 End: 10-19-2022 ambulatory [facility] Pulmonary Medicine Comment on above: Spirometry Start: 10-19-2022 End: 10-19-2022 Patient encounter procedure Pulm Fct Lab J-2 [facility] Start: 09-06-2022 Telephone encounter Marine ledbetter MD, PhD Work Phone: [facility] Comment on above: Consult (Neno motley ) Start: 08-31-2022 End: 09-01-[address] JARON AVALOS Facility: Start: 05-16-2018 End: 05-17-2018 Ambulatory DEFAULT PHYSICIAN Facility:[facility] Procedures Date Procedure Procedure Detail Performing Clinician Start: 05-16-2023 Radiologic exam ches t single view Edwin Lopez MD Work Phone: Start: 10-19-2022 Ct abdomen & pelvis w/o contrast material Marine Leon MD, PhD Work Phone: Start: 10-19-2022 Ct thorax w/o contra st material Marine Leon MD, PhD Work Phone: Start: 10-19-2022 End: 10-19-2022 Co diffusing capacity Marine Leon MD, PhD Work Phone: Start: 08-31-[address] JUANJOSE AVALOS Comment on above: Performed By: #### P [facility] #### [facility] [address] [place] [address] Dr. Dunia Carlisle Plan of Treatment Date Care Activity Detail Author Start: 03-04-2028 Urine microalbumin profile DTAP,TDAP,TD (3 - Td or Tdap) [facility] Start: 05-23-2026 DIABETES SCREEN DIABETES SCREEN [facility] Start: 05-16-2026 DIABETES SCREEN DIABETES SCREEN [facility] Start: 05-23-2024 HEMOGLOBIN/HEMATOCRIT HEMOGLOBIN/HEM [facility] Start: 05-23-2024 SERUM CREATININE SERUM CREATININE [facility] Start: 05-16-2024 HEMOGLOBIN/HEMATOCRIT HEMOGLOBIN/HEM [facility] Start: 05-16-2024 SERUM CREATININE SERUM CREATININE [facility] Start: 07-13-2023 Influenza vaccination INFLUENZA (#1) [facility] Start: 05-17-2023 End: 07-17-2023 POTASSIUM BLD POTASSIUM BLD Lab Routine Hyperkalemia Expected: 05/17/2023, Expires: 07/17/2023 [facility] Work Phone: Comment on above: Expected: 05/17/2023 , Expires: 07/17/2023 Start: 12-11-2022 COVID-19 VACCINE (6 - Moderna series) COVID-19 VACCINE (6 - Moderna series) [facility] Start: 11-12-2022 ADVANCE DIRECTIVE DISCUSSION ADVANCE DIRECTIVE DISCUSSION [facility] Start: 11-12-2022 DEPRESSION ASSESSMENT DEPRESSION ASS ESSMENT [facility] Start: 11-12-2021 ADVANCE DIRECTIVE DISCUSSION ADVANCE DIRECTIVE DISCUSSION [facility] Start: 11-12-2021 DEPRESSION ASSESSMENT DEPRESSION ASS ESSMENT [facility] Start: 1995 COLOGUARD (FIT-DNA) COLOGUARD (FIT-D NA) [facility] Start: 1995 Colonoscopy COLONOSCOPY [facility] Start: 1995 COLORECTAL CANCER SCREENING COLORECTAL CANCER SCREENING [facility] Start: [address] COLONOGRAPHY [facility] Start: 1995 DIABETES SCREEN DIABETES SCREEN [facility] Start: 1995 FECAL OCCULT BLOOD FECAL OCCULT BLOO D [facility] Start: 1995 SIGMOIDOSCOPY SIGMOIDOSCOPY [facility] Start: 1985 LIPID SCREEN LIPID SCREEN [facility] Start: 02-09-1968 ANNUAL PCP TEAM SUPERVISOR ASSEMBLY STOCK IONA DISEASE VISIT ANNUAL PCP TEAM CHRONIC DISEASE VISIT [facility] Start: 02-09-1968 HEPATITIS C SCREENING HEPATITIS C SC REENING [facility] Start: 1950 ABDOMINAL AORTIC ANEURYSM SCREENING ABDOMINAL AORTIC ANEURYSM SCREENING [facility] End: 10-25-2023 Ct abdomen & pelvis w/o contrast material CT ABD/PEL WO IVCON Radiology Routine Zenkers diverticulum 1 Occurrences starting 09/25/2022 until 10/25/2023 [facility] Work Phone: Comment on above: 1 Occurrences starti ng 09/25/2022 until 10/25/2023 End: 10-25-2023 Ct thorax w/o contrast material CT CHEST WO IVCON Radiology Routine Zenkers diverticulum 1 Occurrences starting 09/25/2022 until 10/25/2023 [facility] Work Phone: Comment on above: 1 Occurrences starti ng 09/25/2022 until 10/25/2023 End: 11-22-2023 Ct thorax w/o contrast material CT CHEST WO IVCON Radiology Routine Lung nodules 1 Occurrences starting 10/23/2022 until 11/22/2023 [facility] Work Phone: Comment on above: 1 Occurrences starti ng 10/23/2022 until 11/22/2023 End: 10-25-2023 LUNG DIFFUSION CAPACITY (DLCO) LUNG DIFFUSION CAPACITY (DLCO) PFT Routine Zenkers diverticulum 1 Occurrences starting 09/25/2022 until 10/25/2023 [facility] Work Phone: Comment on above: 1 Occurrences starti ng 09/25/2022 until 10/25/2023 LUNG DIFFUSION CAPAC ITY (DLCO) LUNG DIFFUSION CAPACITY (DLCO) PFT Routine Zenkers diverticulum 10/19/2022 9:29 AM EST [facility] Work Phone: End: 10-25-2023 SIX MINUTE WALK SIX MINUTE WALK PFT Routine Zenkers diverticulum 1 Occurrences starting 09/25/2022 until 10/25/2023 [facility] Work Phone: Comment on above: 1 Occurrences starti ng 09/25/2022 until 10/25/2023 End: 10-25-2023 SPIROMETRY BASELINE ONLY SPIROMETRY BASELINE ONLY PFT Routine Zenkers diverticulum 1 Occurrences starting 09/25/2022 until 10/25/2023 [facility] Work Phone: Comment on above: 1 Occurrences starti ng 09/25/2022 until 10/25/2023 SPIROMETRY BASELINE ONLY SPIROME TRY BASELINE ONLY PFT Routine Zenkers diverticulum 10/19/2022 9:29 AM EST [facility] Work Phone: [facility] Immunizations Immunization Date Immunization Notes Care Provider Hubert berg 08-24-2022 influenza, high-dose , quadrivalent vaccine (FLUZONE HIGH DOSE QUADRIVALENT) [address] 08-18-2021 influenza (aIIV4) va ccine, age 65+ yr, quadrivalent, PF (FLUAD QUADRIVALENT) [address] 08-06-2020 pneumococcal conjuga te vaccine, [address] 08-02-2020 influenza virus vacc ine, unspecified formulation [address] 04-22-2020 zoster vaccine recombinant [address] 12-22-2019 zoster vaccine recombinant [address] 08-27-2018 influenza, high dose seasonal, preservative-free [address] 08-27-2018 pneumococcal polysac charide vaccine, [address] 03-04-2018 tetanus toxoid, redu alex diphtheria toxoid, and acellular pertussis vaccine, adsorbed [address] 09-17-2017 influenza, injectabl e, quadrivalent, preservative free [address] 08-20-2017 influenza, high dose seasonal, preservative-free [address] 11-14-2016 influenza, injectabl e, quadrivalent, preservative free [address] 11-14-2016 pneumococcal conjuga te vaccine, [address] 11-15-2015 pneumococcal polysac charide vaccine, [address] 10-20-2015 influenza, seasonal, injectable [address] 11-03-2014 pneumococcal polysac charide vaccine, [address] 09-29-2014 influenza virus vacc ine, whole virus [address] 04-23-2013 tetanus toxoid, redu alex diphtheria toxoid, and acellular pertussis vaccine, adsorbed [address] 09-18-2005 tetanus and diphther ia toxoids, adsorbed, preservative free, for adult use (5 Lf of tetanus toxoid and 2 Lf of diphtheria toxoid) [address] Payers Date Payer Category Payer Medicare HUMANA MEDICARE HU[employer]NA MEDICARE PPO [id number] 2018-Present [phone] [address] [address] [place] [address] PPO [id number] 1959 Medicare [id number] 1950 Unknown [id number] Unknown Social History Date Type Detail Facility Tobacco smoking stat [facility] Tobacco smoking consumption unknown [facility] Start: 1950 Sex Assigned At Not on file [facility] Start: 10-19-2022 End: 05-16-2023 Tobacco smoking status NHIS Ex-smoker [facility] End: 11-12-1969 History of tobacco use Current smoker [facility] End: 11-12-1969 History of tobacco use Cigarette Smoker [facility] Start: 10-19-2022 End: 05-16-2023 Tobacco use and exposure Smokeless tobacco non-user [facility] Start: 10-19-2022 End: 05-16-2023 Alcohol intake Ex-drinker (finding) [facility] Start: 1950 Sex Assigned At Male [facility] Start: 03-23-2023 End: 05-16-2023 Cigarettes smoked current (pack per day) - Reported 5 [facility] Start: 03-23-2023 End: 05-16-2023 Tobacco use panel [facility] National Score (1-10 0), lower number is lower risk 76 [facility] Start: 09-29-2022 Gender identity Identifies as male gender (finding) [facility] Start: 09-29-2022 Sexual orientation Heterosexual (fin ding) [facility] Clinical Notes 09-25-2022 to 06-11-2023 Roddy Loyd MD - 06/11/2023 11:30 AM Amy Rose RN - 06/11/2023 10:57 AM EDTTelephone Encounter - Amy Rios RN - 05/25/2023 9:46 AM Manda Perdomo RT(R) - 05/16/2023 11:45 AM EDT Note Date & Type Note Facility 06-11-2023 Note HNO ID: [id number] Author: Roddy Loyd MD Service: ? Author Type: Physician Type: Progress Notes Filed: 06/14/2023 12:35 PM Note Text: CC: Odalys Cerda is a 73 year old male seen as a return patient with a history of zenker's diverticulum s/p CO2 laser diverticulum 05-22-23 IMPRESSION AND PLANS (Medical Decision Making): Doing well post-op Has advanced to a more regular diet Follow up - 9-12 months Medical Decision Making: Medical Decision Making Level: 1 - N/A HPI: The patient returns today for f/u regarding the above. At the last visit, the plan was as follows: surgery Today, is doing quite well He has started a more normal diet No pain EAT 10: Patient Entered Questionnaires Eating Asessment Tool Score 06/04/2023 EAT Score 15 LCQ: Patient Entered Questionnaires VHI (original/full) Patient Entered Questionnaires REVIEW OF RADIOLOGICAL FILMS AND RECORDS: Op report ALLERGIES No Known Allergies Current Outpatient Medications Medication Sig desloratadine (CLARINEX) 5 mg tablet Take 1 tablet by mouth once daily. Flqjbel-Xcvxhrncwqmqx-Vvggzpmv (EXCEDRIN MIGRAINE) 250-250-65 mg per tablet Take 1 tablet by mouth as needed. acetaminophen (TYLENOL ORAL) Take by mouth as needed. No current facility-administered medications for this visit. PAST MEDICAL HISTORY Diagnosis Date Zenker diverticulum PAST SURGICAL HISTORY Procedure Laterality Date COLONOSCOPY EGD LAP ING HERNIA REPAIR INIT TONSILLECTOMY HX Social History: Social History Tobacco Use Smoking status: Former Packs/day: 5.00 Types: Cigarettes Quit date: 11/12/1969 Years since quittin.6 Smokeless tobacco: Never Substance Use Topics Alcohol use: Not Currently Drug use: Never Family History: No family history of ENT problems PHYSICAL EXAM: On physical examination Odalys Cerda is a well-developed, well nourished male. The voice is wnl. Mental status revealed patient to be alert and oriented x3. Mood is appropriate. Details of the physical examination: Pulmonary: There is no respiratory distress or increased work of breathing. Nose: The external anatomy appears normal. LARYNX: deferred NECK: The neck remains soft without masses or lymphadenopathy. ROM was intact Roddy Loyd MD [facility] 06-11-2023 History of Presen t illness Narrative CC: Odalys Cerda is a 73 year old male seen as a return patient with a history of zenker's diverticulum s/p CO2 laser diverticulum 05-22-23 IMPRESSION AND PLANS (Medical Decision Making): Doing well post-op Has advanced to a more regular diet Follow up - 9-12 months Medical Decision Making: Medical Decision Making Level: 1 - N/A HPI: The patient returns today for f/u regarding the above. At the last visit, the plan was as follows: surgery Today, is doing quite well He has started a more normal diet No pain EAT 10: Patient Entered Questionnaires Eating Asessment Tool Score 06/04/2023 EAT Score 15 LCQ: Patient Entered Questionnaires VHI (original/full) Patient Entered Questionnaires REVIEW OF RADIOLOGICAL FILMS AND RECORDS: Op report ALLERGIES No Known Allergies Current Outpatient Medications Medication Sig desloratadine (CLARINEX) 5 mg tablet Take 1 tablet by mouth once daily. Rnnxadz-Abbdnkecwxfal-Gkzrbzvc (EXCEDRIN MIGRAINE) 250-250-65 mg per tablet Take 1 tablet by mouth as needed. acetaminophen (TYLENOL ORAL) Take by mouth as needed. No current facility-administered medications for this visit. PAST MEDICAL HISTORY Diagnosis Date Zenker diverticulum PAST SURGICAL HISTORY Procedure Laterality Date COLONOSCOPY EGD LAP ING HERNIA REPAIR INIT TONSILLECTOMY HX Social History: Social History Tobacco Use Smoking status: Former Packs/day: 5.00 Types: Cigarettes Quit date: 11/12/1969 Years since quittin.6 Smokeless tobacco: Never Substance Use Topics Alcohol use: Not Currently Drug use: Never Family History: No family history of ENT problems PHYSICAL EXAM: On physical examination Odalys Cerda is a well-developed, well nourished male. The voice is wnl. Mental status revealed patient to be alert and oriented x3. Mood is appropriate. Details of the physical examination: Pulmonary: There is no respiratory distress or increased work of breathing. Nose: The external anatomy appears normal. LARYNX: deferred NECK: The neck remains soft without masses or lymphadenopathy. ROM was intact Roddy Loyd MD documented in this encounter [facility] 06-11-2023 Nurse Note Tobacco Use: 5 packs/day Quit 11/12/1969. Types: Cigarettes Was smoking cessation packet given? N/A - Patient is a non-smoker or quit >1 year ago. Was a referral initiated?N/A Patient is a non-smoker documented in this encounter [facility] 05-25-2023 Miscellaneous Notes [facility] [place] do not have this medication in stock. Said nearest pharmacy is [facility] in [place]. Called pt. And he said it is ok to send there, since will be there this afternoon. Mr. Cerda called and said that the oxyCodone 5 mg /5ml can't be filled due to supply shortage with outside company. The pharmacy he was using was [facility] in [facility]. He was wondering if a new prescription be filled at the [facility] in [facility]. The Pharmacy phone number is . documented in this encounter [facility] 05-23-2023 Note HNO ID: [id number] Author: RT Maite(R) Service: Radiology Author Type: Technologist Type: Progress Notes Filed: 05/23/2023 9:44 AM Note Text: Radiology Service Progress Note PATIENT NAME: Odalys Cerda DATE OF SERVICE: May 23, 2023 TIME: 9:43 AM PATIENT IDENTITY VERIFICATION COMPLETED USING TWO (2) IDENTIFIERS: Name and Date of confirmed by patient verbally. FALL SCREENING: Has the patient had 2 falls in the last year or 1 fall with injury or currently using an Ambulatory Assistive Device (Walker, Cane, Wheelchair, Crutches, etc.)? Inpatient: Screened on floor PATIENT GENDER DATA: Male PATIENT RELEVANT IMPLANT DATA REVIEWED: Yes RADIOLOGY DEPARTMENT: General X-ray: Exam(s) Completed: GI/ Procedure(s): Esophogram with water soluable and barium contrasts PERIPHERAL IV DATA: Not applicable SIGNED BY: RT Maite(R) May 23, 2023 9:43 AM [facility] 05-23-2023 Note HNO ID: [id number] Author: Philip Thomas MD Service: Otolaryngology Author Type: Resident Type: Progress Notes Filed: 05/23/2023 7:10 AM Note Text: [facility] OT[facility] - HEAD AND NECK SURGERY PROGRESS NOTE Admission Date: 05/22/2023 Interval HPI: No acute events. Denies chest pain. OBJECTIVE: Vitals: 05/22/23 1638 05/22/23 2106 05/23/23 0033 05/23/23 0536 BP: 159/74 112/53 129/59 107/55 Pulse: 65 (!) 54 (!) 55 (!) 52 Resp: 18 16 16 16 Temp: 36.8 ?C (98.2 ?F) 36.7 ?C (98.1 ?F) 36 ?C (96.8 ?F) 36.6 ?C (97.8 ?F) TempSrc: Oral Oral Temporal Oral SpO2: 96% 93% 96% 96% Physical Examination: General: No acute distress Neuro: following commands, appropriate Airway: No stridor or stertor. Neck: soft. No crepitus ASSESSMENT/PLAN: Odalys Cerda is a 73 year old male POD 1 from endoscopic cricopharyngeal myotomy and zenker diverticulectomy Active Problems: * No active hospital problems. * - XR esophagram this morning - Antibiotics: unasyn - Anticoagulation: lovenox - FEN: NPO. If no leak on imaging then start liquid diet - Dispo: discharge today assuming no leak Plan of care discussed with: Provider, RN, Patient. Philip Thomas MD Otolaryngology - Head and Neck Surgery PGY 5 Pager: [phone] Service pager: [phone] (page after 5pm and on weekends) [facility] 05-22-2023 Note HNO ID: [id number] Author: Donita Torres APRN.SUPERVISOR ELECTROLYTIC TINNING Service: ? 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 Staffing SUPERVISOR ELECTROLYTIC TINNING: Donita Torres APRN.CRNA Performed by: ZAINA Indications and Patient Condition Indications for airway management: anesthesia and airway protection Preoxygenated: yes anesthesia circuit Method: modified rapid sequence Cricoid Pressure: No Final Airway Details Final airway type: endotracheal airway Final Endotracheal Airway: microlaryngeal (6.0) Cuffed: yes Successful intubation technique: video laryngoscopy Devices used: [employer] Endotracheal tube insertion site: oral Blade size: #4 Measured from: lips Measurement (cm): 23 Placement verified by: chest auscultation and capnometry Cormack-Lehane Classification: grade I - full view of glottis Number of attempts at approach: 1 Airway not difficult SIGNATURE: Donita Torres APRN.CRNA PATIENT NAME: Odalys Cerda DATE: May 22, 2023 TIME: 2:50 PM CSN: [id number] [facility] 05-17-2023 Miscellaneous Notes my chart message sent documented in this encounter [facility] 05-17-2023 Miscellaneous Notes Please contact patient and advise potassium level is elevated on pre-op labs -5.4 Repeat potassium ordered Advise patient to increase water intake, avoid high potassium foods and have potassium repeated in 2-3 days prior to upcoming surgery Thank you Stacy Dai APRN.CNP PACC documented in this encounter [facility] 05-16-2023 Note HNO ID: [id number] Author: Manda Pendleton RT(R) Service: ? Author Type: Technologist Type: Progress Notes Filed: 05/16/2023 11:24 AM Note Text: Radiology Service Progress Note PATIENT NAME: Odalys Cerda DATE OF SERVICE: May 16, 2023 TIME: 11:24 AM PATIENT IDENTITY VERIFICATION COMPLETED USING TWO (2) IDENTIFIERS: Name and Date of confirmed by patient verbally. FALL SCREENING: Has the patient had 2 falls in the last year or 1 fall with injury or currently using an Ambulatory Assistive Device (Walker, Cane, Wheelchair, Crutches, etc.)? No PATIENT GENDER DATA: Male PATIENT RELEVANT IMPLANT DATA REVIEWED: Not Applicable RADIOLOGY DEPARTMENT: General X-ray: Exam(s) Completed: Chest X-Ray PERIPHERAL IV DATA: Not applicable SIGNED BY: RT Corky(R) May 16, 2023 11:24 AM [facility] 05-16-2023 History of Presen t illness Narrative Radiology Service Progress Note PATIENT NAME: Odalys Cerda DATE OF SERVICE: May 16, 2023 TIME: 11:24 AM PATIENT IDENTITY VERIFICATION COMPLETED USING TWO (2) IDENTIFIERS: Name and Date of confirmed by patient verbally. FALL SCREENING: Has the patient had 2 falls in the last year or 1 fall with injury or currently using an Ambulatory Assistive Device (Walker, Cane, Wheelchair, Crutches, etc.)? No PATIENT GENDER DATA: Male PATIENT RELEVANT IMPLANT DATA REVIEWED: Not Applicable RADIOLOGY DEPARTMENT: General X-ray: Exam(s) Completed: Chest X-Ray PERIPHERAL IV DATA: Not applicable SIGNED BY: RT Corky(R) May 16, 2023 11:24 AM documented in this encounter [facility] 05-16-2023 History and physical note HISTORY AND PHYSICAL EXAMINATION SERVICE DATE: 05/16/2023 SERVICE TIME: 10:14 AM PRIMARY CARE PHYSICIAN: No primary care provider on file. REASON FOR VISIT: Odalys Cerda is a 73 year old male who is scheduled for ENDOSCOPIC EXCISION ZENKERS DIVERTICULUM DIVERTICULECTOMY HYPOPHARYNX OR ESOPHAGUS, CERVICAL APPROACH at the request of Dr. Roddy Loyd for consultation. My final recommendation will be communicated back to the requesting physician by way of shared medical record or letter. The patient has the following: ACTIVE PROBLEM LIST Zenker Diverticulum Subjective CHIEF COMPLAINT: Dysphagia HPI: 73 year old man with history of dysphagia for about 12 years. Occurs mostly with solids and pill. Diagnosed with Zenkers diverticulum. Denies current abdominal pain Elected for above surgery PAST MEDICAL HISTORY Diagnosis Date Zenker diverticulum PAST SURGICAL HISTORY Procedure Laterality Date COLONOSCOPY EGD LAP ING HERNIA REPAIR INIT TONSILLECTOMY HX FAMILY HISTORY Problem Relation Age of Onset Anesthesia Problems No Family History SOCIAL HISTORY: Social History Tobacco Use Smoking status: Former Packs/day: 5.00 Types: Cigarettes Quit date: 11/12/1969 Years since quittin.5 Smokeless tobacco: Never Substance Use Topics Alcohol use: Not Currently Drug use: Never MEDICATIONS: Prior to Admission medications as of 05/16/23 1008 Medication Sig Last Dose Taking desloratadine (CLARINEX) 5 mg tablet Take 1 tablet by mouth once daily. Yes Ihbdwkt-Rfzbaqmfngoku-Cdjmpfks (EXCEDRIN MIGRAINE) 250-250-65 mg per tablet Take 1 tablet by mouth as needed. Yes acetaminophen (TYLENOL ORAL) Take by mouth as needed. Yes No medication comments found. CURRENT ALLERGIES: ALLERGIES No Known Allergies COVID VACCINATION STATUS: Fully vaccinated REVIEW OF SYSTEMS: PAIN ASSESSMENT: General: No weight loss, malaise or fevers. Neuro: No history of TIA's, stroke, SELF SEALING FUEL TANK BUILDER tumor, impaired sensorium, hemiplegia, paraplegia or quadraplegia. No neurological symptoms or problems., Postive for Headaches Respiratory: No history of current cough or dyspnea, or pneumonia in the past 6 weeks. No history of respiratory/pulmonary symptoms or problems. + snoring Cardiovascular: No history of HTN requiring medication, no history of angina, CHF, [place], cardiac surgery or stents. Denies rest pain, gangrene or revascularization/amputation for PVD. No history of cardiovascular symptoms or problems. GI: See HPI : No history of dysuria, frequency or incontinence,, stones or chronic kidney disease Endocrine: No history of diabetes. Has not taken steroids within the past 30 days. No history of endocrinological symptoms or problems. Hematology: No history of bleeding or clotting disorder. Pt is not taking anti-coagulation or platelet medications. No history of hematological symptoms or problems. Oncology: No history of CA metastasis, chemo within 30 days, or radiotherapy within 90 days. Has not lost 10% of body wt in 6 months. No history of oncological symptoms or problems. Psych: No history of psychiatric symptoms or problems. Musculoskeletal: Negative for joint pain or swelling, back pain or muscle pain. Skin: Negative for lesions, rash and itching. Objective PHYSICAL EXAM: VITALS: BP 131/72 Pulse 60 Temp (Src) 97.5 (Temporal Artery) Resp 16 Ht 5' 11 (1.80m) Wt 196 lb (88.9kg) SpO2 99% BMI 27.35 kg/(m^2). General: Alert and oriented, No acute distress Skin: Normal color, no rash, no lesions. HEENT: EOM, pupils equal, round and reactive., No carotid bruits Cardiovascular: Normal S1 & S2, no rubs, murmurs or gallops. No JVD. Pulse regular. Lungs: Normal breath sounds, no wheezes or crackles. Abdomen: Soft, non-tender, no rigidity. Extremities: No deformity, no edema or tenderness, no joint swelling or clubbing. Neurological: Normal cognition and motor skills. Pulses: Carotid and radial pulses normal +2. Diagnostic tests reviewed for today's visit: Labs pending Most recent EK05/16/2023 preliminary normal sinus rhythm, normal axis, normal intervals Chest xray pending Spirometry 10/19/2022 IMPRESSION: Spirometry shows a reduced FEV1/FVC ratio; but individually normal FVC and FEV1 predicted values.This pattern indicates mild obstruction or a normal variant. The diffusing capacity is normal. Electronically Signed On 10-19-2022 15:18:48 EST by Prudencio Bella Assessment/Wendy Lazcano diverticulum Assessment: See HPI METS: Climb a flight of stairs or walk up a hill (5.50 METs) Participate in moderate recreational activities, such as golf, bowling, dancing, doubles tennis, or throwing a baseball or football (6.00 METs) Patient denies any chest pain or undue shortness of breath with the above physical activity. ASA Class: 2 ANESTHESIA FINDINGS: Intubation History: No history of difficult intubation Significant Anesthesia Considerations: None Airway Exam: General: Normal appearance Mallampati Score is CLASS II ULBT: Class I - Lower incisors can bite the upper lip above the eleuterio line Neck: Normal appearance and function, Distance from hyoid to mentum during neck extension is at least 3 finger breaths Mouth: Normal tongue size Dentition: Intact Airway History: No abnormal airway history Sleep Apnea Probability Snores loudly: No Tired, fatigued or sleepy in daytime: No Stops breathing or choking/gasping during sleep: No High blood pressure: No Sleep Apnea Probability Score 05/09/2023 Sleep Apnea Screen V2 50 (Recommend sleep study) PLAN This patient is optimally prepared for surgery pending LABS and CXR. CONSULTS: Patient does not require consults for optimization at this time. The Following Tests/Procedures Have Been Initiated: Labs, chest xray and EKG ordered by surgical team Planned Anesthetic: General Instructions Given to Patient: Instructions located in the after visit summary. Patient given verbal and written preop instructions and voices comprehension and compliance. SIGNATURE: Stacy Dai APRN.CNP PATIENT NAME: Odalys Cerda DATE: May 16, 2023 TIME: documented in this encounter [facility] 05-16-2023 Instructions Stacy Dai APRN.CNP - 05/16/2023 10:12 AM EDT PATIENT PREOPERATIVE INSTRUCTIONS Roddy Loyd MD has scheduled you for your procedure at this surgery center: [facility] Scheduling Office: [phone] --[address] [place] [address]. Please read below carefully for your personalized instructions. Dietary Restrictions: - Nothing to eat or drink after midnight except for a sip of water with approved medications. Medications: Unless instructed differently below, stay on all of your medications until your surgery. Approved medications to take the morning of surgery with a sip of water: NONE If you take any medications for erectile dysfunction-Cialis (Tadalafil), Levitra, Staxyn (Vardenafil) Viagra (Sildenenafil please do not take these for 48 hours before surgery. If you start any new medications after today's visit, please contact the surgeon's office. Blood Thinning Medications: - Stop NSAIDS (Ibuprofen, Advil, Aleve, Motrin, Celebrex, Mobic, etc.) 7 days before surgery, as directed by your surgeon. - Stop Aspirin 7 days before surgery, as directed by your surgeon. - Stop Vitamin E, ALL multi-vitamins, herbals and dietary supplements 7 days before surgery. - You may take Tylenol (Acetaminophen) or any of your pain medications that do not contain aspirin or NSAIDS as needed. Important Reminders: - If you use CPAP/BIPAP, bring the machine with you to the surgery center. - If you are prescribed inhalers for breathing, continue using them. - Candy, mints, and tobacco products are NOT permitted the morning of surgery. - Hearing aids, dentures and glasses may be worn the morning of surgery. - NO jewelry, body piercings, makeup, hairpins or contacts are to be worn the day of surgery. If you develop symptoms such as a fever, cold, or flu, or have other changes to your health within TWO DAYS of scheduled surgery or the morning of surgery, please contact the surgery center above. Personal Belongings: -Please have photo ID and insurance cards. -If you do not have a copy of advance directives on file with us, please bring a copy with you on the day of surgery. - Leave ALL valuables and money at home or with family members. For Outpatient Procedures: - YOU MUST HAVE A RESPONSIBLE DIVISION CHAIR TAKE YOU HOME. A CAFETERIA DIRECTOR OR PEDIATRICS PHYSICIAN CANNOT BE MADE A RESPONSIBLE DIVISION CHAIR. - We recommend that a responsible person stays with you overnight to take care of you. - You cannot stay in a hotel alone after outpatient surgery. You will not be permitted to have your surgery, if you do not have someone to take care of you. Arrival Time for Surgery: - To obtain your arrival time for surgery, call your physician's office the day before your surgery. - If your surgery is scheduled for Sunday, call the Sunday before. Your surgeon s lead presser will tell you what time to call the office. - If you have not reached the departmental lead presser by 5 P.M., call [phone] after 5 P.M. the day before your surgery. Please be aware that emergency situations arise, which may delay or change your surgical time. If this happens, we will notify you as soon as possible and regret any inconvenience. If you already have an Advance Directive, please fax a copy to [phone] or email to for it to be added to your chart. If you do not have an Advance Directive, you can find the appropriate form and more information at [email or web address]. We recommend that you complete the Advance Directive form found on the website and bring it with you the day of your surgery. It can be witnessed and scanned into your chart that day. documented in this encounter [facility] 04-19-2023 Note HNO ID: [id number] Author: Marine Leon MD, PhD Service: ? Author Type: Physician Type: Progress Notes Filed: 04/19/2023 9:25 AM Note Text: VIRTUAL VISIT PROGRESS NOTE This is a virtual visit using Audio only. It required patient-provider interaction for the medical decision making as documented below. I have communicated my name and active licensure. The patient's identity and physical location were verified at the time of this visit. Either the patient or their legal contact representative has been informed of the risks and benefits of -- and alternatives to -- treatment through a remote evaluation and consents to proceed with the evaluation remotely. 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 03/23/2023 ENT - CC: The patient is seen at the request of Dr. Marine Leon for evaluation and management of Zenker's Diverticulum. I will communicate with the referring provider via the shared EMR or mail. Assessment and Plan (Medical Decision Making): Small diverticulum/CP prominence noticeable on MBS We agreed to pursue endoscopic zenkers diverticulotomy with the CO2 laser . -I discussed options including observation, endoscopic vs open cricopharyngeal myotomy including the risks and benefits of each approach including but not limited to: bleeding, infection, perforation, inability to gain endoscopic exposure, injury to dentoalveolar structures, tongue numbness, taste disturbance, need for temporary feeding tube, need for revision surgery, laser fire/burn if used in procedure. Surgery - Endoscopic CP myotomy Drug management - NONE Labs and Imaging ordered - BMP, CBC + DIFF, ECG, XR chest Consults - PACC Follow up - for surgery in near term HISTORY REVIEWED (electronic chart updated): No past medical history on file. No past surgical history on file. No family history on file. Social History Tobacco Use - Smoking status: Former Types: Cigarettes Quit date: 11/12/1969 Years since quittin.4 - Smokeless tobacco: Never Substance Use Topics - Alcohol use: Not Currently - Drug use: Never Current Outpatient Medications Medication Sig - desloratadine (CLARINEX) 5 mg tablet Take 1 tablet by mouth once daily. - Owyzmpr-Lwlbueggojjrh-Gnyvqtwc (EXCEDRIN MIGRAINE) 250-250-65 mg per tablet Take 1 tablet by mouth as needed. - acetaminophen (TYLENOL ORAL) Take by mouth as needed. No current facility-administered medications for this visit. ALLERGIES No Known Allergies REVIEW OF SYSTEMS: GENERAL: feeling well without fatigue, no recent change in weight HEENT: denies KERN, change in hearing or vision, no other ENT complaints NECK: denies swelling or pain in neck RESPIRATORY: intermittent cough, no wheezing or shortness of breath CARDIOVASCULAR: no chest pain, no palpitations GI: normal appetite, tolerating PO well, BMs normal, and no abdominal pain : urination is normal MUSCULOSKELETAL: denies any painful or swollen joints, no muscle aches PHYSICAL EXAMINATION: VIDEO EXAM: (if completed, performed via video enabled technology) No exam performed ASSESSMENT: (K22.5) DIVERTICULUM - ESOPHAGUS (primary encounter diagnosis) PLAN: See There are no Patient Instructions on file for this visit. I spent a total of >30 minutes on the date of the service which included preparing to see the patient, [id number] patient care, completing clinical documentation, counseling and educating the patient/family/caregiver, and care coordination (not separately reported) Marine Leon M.D., Ph.D., FACS, [facility] I have read and reviewed the documentation and agree. I wish to add the following findings which have been dictated and will be communicated back to the requesting physician. Marine Leon MD, PhD [facility] 04-19-2023 History of Presen t illness Narrative VIRTUAL VISIT PROGRESS NOTE This is a virtual visit using Audio only. It required patient-provider interaction for the medical decision making as documented below. I have communicated my name and active licensure. The patient's identity and physical location were verified at the time of this visit. Either the patient or their legal contact representative has been informed of the risks and benefits of -- and alternatives to -- treatment through a remote evaluation and consents to proceed with the evaluation remotely. 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 03/23/2023 ENT - CC: The patient is seen at the request of Dr. Marine Leon for evaluation and management of Zenker's Diverticulum. I will communicate with the referring provider via the shared EMR or mail. Assessment and Plan (Medical Decision Making): Small diverticulum/CP prominence noticeable on MBS We agreed to pursue endoscopic zenkers diverticulotomy with the CO2 laser . -I discussed options including observation, endoscopic vs open cricopharyngeal myotomy including the risks and benefits of each approach including but not limited to: bleeding, infection, perforation, inability to gain endoscopic exposure, injury to dentoalveolar structures, tongue numbness, taste disturbance, need for temporary feeding tube, need for revision surgery, laser fire/burn if used in procedure. Surgery - Endoscopic CP myotomy Drug management - NONE Labs and Imaging ordered - BMP, CBC + DIFF, ECG, XR chest Consults - PACC Follow up - for surgery in near term HISTORY REVIEWED (electronic chart updated): No past medical history on file. No past surgical history on file. No family history on file. Social History Tobacco Use Smoking status: Former Types: Cigarettes Quit date: 11/12/1969 Years since quittin.4 Smokeless tobacco: Never Substance Use Topics Alcohol use: Not Currently Drug use: Never Current Outpatient Medications Medication Sig desloratadine (CLARINEX) 5 mg tablet Take 1 tablet by mouth once daily. Nukbfry-Rpspgnrxspiym-Nkekaebq (EXCEDRIN MIGRAINE) 250-250-65 mg per tablet Take 1 tablet by mouth as needed. acetaminophen (TYLENOL ORAL) Take by mouth as needed. No current facility-administered medications for this visit. ALLERGIES No Known Allergies REVIEW OF SYSTEMS: GENERAL: feeling well without fatigue, no recent change in weight HEENT: denies KERN, change in hearing or vision, no other ENT complaints NECK: denies swelling or pain in neck RESPIRATORY: intermittent cough, no wheezing or shortness of breath CARDIOVASCULAR: no chest pain, no palpitations GI: normal appetite, tolerating PO well, BMs normal, and no abdominal pain : urination is normal MUSCULOSKELETAL: denies any painful or swollen joints, no muscle aches PHYSICAL EXAMINATION: VIDEO EXAM: (if completed, performed via video enabled technology) No exam performed ASSESSMENT: (K22.5) DIVERTICULUM - ESOPHAGUS (primary encounter diagnosis) PLAN: See There are no Patient Instructions on file for this visit. I spent a total of >30 minutes on the date of the service which included preparing to see the patient, [id number] patient care, completing clinical documentation, counseling and educating the patient/family/caregiver, and care coordination (not separately reported) Marine Leon M.D., Ph.D., FACS, FCCP I have read and reviewed the documentation and agree. I wish to add the following findings which have been dictated and will be communicated back to the requesting physician. Marine Leon MD, PhD documented in this encounter [facility] 03-23-2023 Note HNO ID: [id number] Author: Roddy Loyd MD Service: ? Author Type: Physician Type: Progress Notes Filed: 03/28/2023 6:17 PM Note Text: CC: The patient is seen at the request of Dr. Marine Leon for evaluation and management of Zenker's Diverticulum. I will communicate with the referring provider via the shared EMR or mail. Assessment and Plan (Medical Decision Making): Small diverticulum/CP prominence noticeable on MBS We agreed to pursue endoscopic zenkers diverticulotomy with the CO2 laser . -I discussed options including observation, endoscopic vs open cricopharyngeal myotomy including the risks and benefits of each approach including but not limited to: bleeding, infection, perforation, inability to gain endoscopic exposure, injury to dentoalveolar structures, tongue numbness, taste disturbance, need for temporary feeding tube, need for revision surgery, laser fire/burn if used in procedure. Surgery - Endoscopic CP myotomy Drug management - NONE Labs and Imaging ordered - BMP, CBC + DIFF, ECG, XR chest Consults - PACC Follow up - for surgery in near term Medical Decision Making: Problems: Moderate: New problem with uncertain prognosis Data: Unique test result(s) reviewed: 2 Unique test(s) ordered: 2 Risk: Moderate: Decision on minor surgery w/ risk factors Medical Decision Making Level: 4 - Moderate HPI: 73 year old man with history of dysphagia for about 12 years. He has seen GI and thoracic surgery for it. MBS revealed zenker's diverticulum. The dysphagia occurs mainly with solids. No weight loss, but it takes him much longer to eat. He coughs up the food frequently.He has difficulty with swallowing pills. Eat-10 = 20 REVIEW OF RADIOLOGICAL FILMS AND RECORDS: UGI: Upper GI 09/29/2019 was notable for mild tertiary waves of the esophagus resulting in slight delay in passage of contents into the stomach but was otherwise unremarkable with no notable structural abnormalities. MBS 06/14/21 ALLERGIES No Known Allergies Current Outpatient Medications Medication Sig desloratadine (CLARINEX) 5 mg tablet Take 1 tablet by mouth once daily. Hpsxcam-Khcccrufxtiwr-Ytpbbhni (EXCEDRIN MIGRAINE) 250-250-65 mg per tablet Take 1 tablet by mouth as needed. acetaminophen (TYLENOL ORAL) Take by mouth as needed. No current facility-administered medications for this visit. No past medical history on file. No past surgical history on file. Social History: Social History Tobacco Use Smoking status: Former Types: Cigarettes Quit date: 11/12/1969 Years since quittin.3 Smokeless tobacco: Never Substance Use Topics Alcohol use: Not Currently Drug use: Never Family History: No family history of ENT problems ROS: Constitutional: Denies having night sweats, constant fatigue, loss of appetite, or recent substantial weight loss. Eyes: The pt denies having blurred vision or double vision. Respiratory: Denies symptoms of shortness of breath, noisy breathing. 14 point review of systems was otherwise normal except as noted in HPI. PHYSICAL EXAM: On physical examination Odalys Cerda is a well-developed, well nourished male. His conversational voice is normal. Mental status revealed patient to be alert and oriented x 3. Mood is appropriate. Details of the physical examination: Respiratory: no stridor or SOB Cardiovascular: No clubbing, cyanosis or edema of the upper extremities HEAD AND FACE: Physical examination of the head, neck, external nose, external ears, mouth and face fails to demonstrate any significant abnormality or asymmetry to critical face to face observation. Skin and scalp are normal. NOSE: Examination of the nasal cavity revealed a septum which is midline ORAL CAVITY AND OROPHARYNX: The oral mucosa, hard and soft palates, tongue, and posterior pharyngeal wall are without lesions. LARYNX: To better evaluate laryngeal biomechanics and vocal fold oscillation I performed laryngoscopy. A mirror exam was attempted but would not provide this level of laryngeal detail. PROCEDURE NOTE: Laryngoscopy was performed because of the following indication: high resolution assessment of vocal fold oscillation and laryngeal biomechanics: After spraying the nose with xylocaine/neosynephrine, the flexible scope was placed in a transnasal fashion. The nasopharynx, oropharynx, hypopharynx including the pyriform sinuses were normal. The base of tongue showed no gross lesions. The larynx itself showed no lesions. Right VC motion: within normal limits Left VC motion: within normal limits Glottic closure: complete The immediate subglottic airway was patent Pt tolerated the procedure well, and there were no complications. The procedure was performed by Dr. Roddy Loyd. NECK: The neck appears normal. On palpation, there are no masses or lymphadenopathy. The ROM is intact Roddy Loyd MD I agree with the chief complaint, ROS, and Pas (more content not included)... [facility] 12-14-2022 Note HNO ID: [id number] Author: Marine Leon MD, PhD Service: ? Author Type: Physician Type: Progress Notes Filed: 12/14/2022 9:06 AM Note Text: VIRTUAL VISIT PROGRESS NOTE This is a virtual visit using Audio only. It required patient-provider interaction for the medical decision making as documented below. Last clinic note per Dr. Leon: 10/19/2022 IMPRESSION: Hypertrophic upper esophageal sphincter might benefit from dilatation or an endoscopic myotomy given the small size of the Zenker's diverticulum. Botox could certainly be utilized for palliation in addition to dilatation. I will have Dr. Loyd see the patient. If he thinks that a standard surgical diverticulectomy should be performed despite the diminutive size of the diverticulum, I will be happy to move in that direction. It is possible he might be able to palliate this process endoscopically. I will arrange a visit with Dr. Loyd. It was a pleasure seeing the patient today. ENT Dr. Loyd: 03/30/2023 scheduled. Odalys Cerda is a 72 year old male seen for dysphagia. HISTORY REVIEWED (electronic chart updated): No past medical history on file. No past surgical history on file. No family history on file. Social History Tobacco Use Smoking status: Former Types: Cigarettes Quit date: 11/12/1969 Years since quittin.1 Smokeless tobacco: Never Substance Use Topics Alcohol use: Not Currently Drug use: Never No current outpatient medications on file. No current facility-administered medications for this visit. ALLERGIES No Known Allergies REVIEW OF SYSTEMS: GENERAL: feeling well without fatigue, no recent change in weight HEENT: denies KERN, change in hearing or vision, no other ENT complaints NECK: denies swelling or pain in neck RESPIRATORY: no wheezing or shortness of breath, intermittent productive cough CARDIOVASCULAR: no chest pain, no palpitations GI: normal appetite, tolerating PO well, BMs normal, and no abdominal pain : urination is normal MUSCULOSKELETAL: denies any painful or swollen joints, no muscle aches SKIN: no rash HEMATOLOGY/LYMPHOLOGY: negative for prolonged bleeding, no swollen lymph nodes PHYSICAL EXAMINATION: VIDEO EXAM: (if completed, performed via video enabled technology) No exam performed ASSESSMENT: No diagnosis found. PLAN: See Moe There are no Patient Instructions on file for this visit. I spent a total of 30 minutes on the date of the service which included preparing to see the patient, counseling and educating the patient/family/caregiver, communicating results to the patient/family/caregiver, and care coordination (not separately reported) I have read and reviewed the documentation and agree. I wish to add the following findings which have been dictated and will be communicated back to the requesting physician. Marine Leon MD, PhD [facility] 12-14-2022 History of Presen t illness Narrative VIRTUAL VISIT PROGRESS NOTE This is a virtual visit using Audio only. It required patient-provider interaction for the medical decision making as documented below. Last clinic note per Dr. Leon: 10/19/2022 IMPRESSION: Hypertrophic upper esophageal sphincter might benefit from dilatation or an endoscopic myotomy given the small size of the Zenker's diverticulum. Botox could certainly be utilized for palliation in addition to dilatation. I will have Dr. Loyd see the patient. If he thinks that a standard surgical diverticulectomy should be performed despite the diminutive size of the diverticulum, I will be happy to move in that direction. It is possible he might be able to palliate this process endoscopically. I will arrange a visit with Dr. Loyd. It was a pleasure seeing the patient today. ENT Dr. Loyd: 03/30/2023 scheduled. Odalys Cerda is a 72 year old male seen for dysphagia. HISTORY REVIEWED (electronic chart updated): No past medical history on file. No past surgical history on file. No family history on file. Social History Tobacco Use Smoking status: Former Types: Cigarettes Quit date: 11/12/1969 Years since quittin.1 Smokeless tobacco: Never Substance Use Topics Alcohol use: Not Currently Drug use: Never No current outpatient medications on file. No current facility-administered medications for this visit. ALLERGIES No Known Allergies REVIEW OF SYSTEMS: GENERAL: feeling well without fatigue, no recent change in weight HEENT: denies KERN, change in hearing or vision, no other ENT complaints NECK: denies swelling or pain in neck RESPIRATORY: no wheezing or shortness of breath, intermittent productive cough CARDIOVASCULAR: no chest pain, no palpitations GI: normal appetite, tolerating PO well, BMs normal, and no abdominal pain : urination is normal MUSCULOSKELETAL: denies any painful or swollen joints, no muscle aches SKIN: no rash HEMATOLOGY/LYMPHOLOGY: negative for prolonged bleeding, no swollen lymph nodes PHYSICAL EXAMINATION: VIDEO EXAM: (if completed, performed via video enabled technology) No exam performed ASSESSMENT: No diagnosis found. PLAN: See Moe There are no Patient Instructions on file for this visit. I spent a total of 30 minutes on the date of the service which included preparing to see the patient, counseling and educating the patient/family/caregiver, communicating results to the patient/family/caregiver, and care coordination (not separately reported) I have read and reviewed the documentation and agree. I wish to add the following findings which have been dictated and will be communicated back to the requesting physician. Marine Leon MD, PhD documented in this encounter [facility] 11-22-2022 Miscellaneous Notes Changed phone apt time from 9:20am to 8:40 am 12/14/2022. Confirmed with patient via phone. Sent via mail. Patient also has access to [employer]. PF documented in this encounter [facility] 11-16-2022 Miscellaneous Notes Left message with patient to reschedule for a different day and/or time (phone visit) w/ Dr. Leon. PF documented in this encounter [facility] 11-16-2022 Miscellaneous Notes Confirmed rescheduled date and time of apt w/ patient from 11/30/2022 at 9:20am to 12/14/2022 at 9:20am, phone visit w/ Dr. Leon. Dr Leon not available on 11/30/2022. Set out via mail. Patient also has access to [employer]. documented in this encounter [facility] 10-24-2022 Note HNO ID: [id number] Author: Soniya Baez APRN.BARRY Service: ? Author Type: Nurse Practitioner Type: Progress Notes Filed: 10/24/2022 12:16 PM Note Text: Incidental Lung Nodule Enrollment Call attempt: 1st Attempt Call status: Complete Enrolled in Lung Nodule program: No Lung Nodule outreach: No outreach - TSx Lung Nodule Program Location: [place] Chest ordered by Dr. Leon. Soniya Baez APRN.CNP [facility] 10-24-2022 Note Patient Outreach (PU LMMN) ODALYS CERDA ([id number]) 1950 M Date Time Provider Department 10/24/22 SONIYA BAEZ During your visit today, we recorded the following information about you: Soniya Baez APRN.CNP 10/24/2022 12:16 PM Signed Incidental Lung Nodule Enrollment Call attempt: 1st Attempt Call status: Complete Enrolled in Lung Nodule program: No Lung Nodule outreach: No outreach - TSx Lung Nodule Program Location: [place] Chest ordered by Dr. Leon. Soniya Baez APRN.CNP Allergies As of Date: 10/24/2022 (No Known Allergies) Date Reviewed: 10/19/2022 Reviewed by: Jane Lemos Ma - Fully Assessed Primary Visit Diagnosis:Lung nodules [R91.8] Problem List As Of Date: 10/24/2022 (None) Encounter Status:Closed by SONIYA BAEZ on 10/24/22 [facility] 10-24-2022 History of Presen t illness Narrative Incidental Lung Nodule Enrollment Call attempt: 1st Attempt Call status: Complete Enrolled in Lung Nodule program: No Lung Nodule outreach: No outreach - TSx Lung Nodule Program Location: [place] Chest ordered by Dr. Leon. 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 Author Type: Physician Type: Progress Notes Filed: 10/21/2022 11:53 AM Note Text: [facility] STAFF PHYSICIAN NOTE OF PERSONAL INVOLVEMENT IN CARE I have reviewed the documentation obtained and documented by the Resident. I have personally performed a face to face assessment of the patient and have personally participated on the bolton components of the history, exam and medical decision making. I have discussed the case and management of the patient's care. I wish to add the following findings which have been dictated and will be communicated back to the requesting physician. STAFF PHYSICIAN: Marine Leon MD, PhD DATE OF SERVICE: October 19, 2022 [facility] 10-21-2022 History of Presen t illness Narrative [facility] STAFF PHYSICIAN NOTE OF PERSONAL INVOLVEMENT IN CARE I have reviewed the documentation obtained and documented by the Resident. I have personally performed a face to face assessment of the patient and have personally participated on the bolton components of the history, exam and medical decision making. I have discussed the case and management of the patient's care. I wish to add the following findings which have been dictated and will be communicated back to the requesting physician. STAFF PHYSICIAN: Marine Leon MD, PhD DATE OF SERVICE: October 19, 2022 Images from the original note were not included. [facility] THORACIC SURGERY OUTPATIENT CONSULT NOTE Odalys Cerda [id number] Requesting Provider: Jaron Avalos MD Thoracic Physician: Marine Leon MD Chief Complaint: Difficulty swallowing Impression: 72-year-old male with small Zenker's diverticulum noted on modified barium swallow measuring 2 cm in length by 1.4 cm at the neck. The patient did undergo CT chest, abdomen, and pelvis which was reviewed today and the diverticulum wasn't visualized Plan: -We will refer the patient to ENT for evaluation for possible dilation, possible Botox injection. As the diverticulum is very small and was not visible today on the CT scan we would try to have the patient avoid any aggressive operative interventions. If this would fail, and if his symptoms would get worse, we can re-evaluate for surgery. HPI: Odalys Cerda is a 72 year old. No medical issues. Hx of tonsillectomy. Ex smoker quit 30 years ago. Not on anticoagulation. White male referred by Jaron Avalos MD for an opinion regarding management of Zenker's Diverticulum. Patient has been complaining of difficulty swallowing for 14 years. It happened mainly with solid food where he feels that food is getting stuck then he would have to cough it up or drink more to clear it. This happens daily with every single meal. Reports also occasional hoarseness. Occasional heartburn. (document at least 4 of these elements) Quality: chronic Severity: severe Duration: 6 times per day Timing: daily Context: preceded by food ECOG Score: 0 Living arrangement: Lives with family/friend Functional status: Independent Unintentional weight loss over last 3 months: No PAST MEDICAL HISTORY: No past medical history on file. PAST SURGICAL HISTORY: No past surgical history on file. FAMILY HISTORY: No family history on file. SOCIAL HISTORY: MEDICATIONS: Prior to Admission Medications: No prescriptions on file. ALLERGIES: ALLERGIES Not on File Chemical Exposure: No Asbestos Exposure yes COMPLETE REVIEW OF SYSTEMS Constitutional: No weight loss, malaise or fevers. HEENT: Negative for frequent or significant headaches Resp: Negative for cough, wheezing, or shortness of breath Cardiovascular: Negative for chest pain, leg swelling or palpitations GI: See HPI : No history of dysuria, frequency, or incontinence Endo: Negative for cold or heat intolerance, polyuria, polydipsia and goiter Heme/Lymph: Negative for prolonged bleeding, bruising easily or swollen nodes Neurologic: No history or headaches, syncope, paralysis, seizures or tremors Integumentary: Negative for lesions, rash, and itching. Additional systems reviewed: No additional systems reviewed PHYSICAL EXAM There were no vitals taken for this visit. Constitutional: Well developed and Well nourished HEENT: PERRLA and EOM's intact Resp: Clear Cardiovascular: Regular rate & rhythm GI: Soft, Round, and Non-tender Integumentary: Warm and Dry Musculoskeletal: No deformities Neurological/Psychiatric: Oriented to time, place & person Additional systems reviewed: No additional systems reviewed DATA: Radiology: CT (chest,) 05/30/21 UGI: Upper GI 09/29/2019 was notable for mild tertiary waves of the esophagus resulting in slight delay in passage of contents into the stomach but was otherwise unremarkable with no notable structural abnormalities. MBS 06/14/21 I have personally reviewed the following images/data: CT scan, EGD, Esophagram, and Swallowing Study Outside Paper Medical Records Review personally performed by: Va SIGNATURE: Richard Navarro MD PAGER: [phone] DATE of SERVICE: 10/19/2022 TIME of SERVICE: 9:22 AM documented in this encounter [facility] 10-19-2022 Note HNO ID: [id number] Author: Richard Navarro MD Service: ? Author Type: Resident Type: Progress Notes Filed: 10/19/2022 2:39 PM Note Text: [facility] THORACIC SURGERY OUTPATIENT CONSULT NOTE Odalys Cerda [id number] Requesting Provider: Jaron Avalos MD Thoracic Physician: Marine Leon MD Chief Complaint: Difficulty swallowing Impression: 72-year-old male with small Zenker's diverticulum noted on modified barium swallow measuring 2 cm in length by 1.4 cm at the neck. The patient did undergo CT chest, abdomen, and pelvis which was reviewed today and the diverticulum wasn't visualized Plan: -We will refer the patient to ENT for evaluation for possible dilation, possible Botox injection. As the diverticulum is very small and was not visible today on the CT scan we would try to have the patient avoid any aggressive operative interventions. If this would fail, and if his symptoms would get worse, we can re-evaluate for surgery. HPI: Odalys Cerda is a 72 year old. No medical issues. Hx of tonsillectomy. Ex smoker quit 30 years ago. Not on anticoagulation. White male referred by Jaron Avalos MD for an opinion regarding management of Zenker's Diverticulum. Patient has been complaining of difficulty swallowing for 14 years. It happened mainly with solid food where he feels that food is getting stuck then he would have to cough it up or drink more to clear it. This happens daily with every single meal. Reports also occasional hoarseness. Occasional heartburn. (document at least 4 of these elements) Quality: chronic Severity: severe Duration: 6 times per day Timing: daily Context: preceded by food ECOG Score: 0 Living arrangement: Lives with family/friend Functional status: Independent Unintentional weight loss over last 3 months: No PAST MEDICAL HISTORY: No past medical history on file. PAST SURGICAL HISTORY: No past surgical history on file. FAMILY HISTORY: No family history on file. SOCIAL HISTORY: MEDICATIONS: Prior to Admission Medications: No prescriptions on file. ALLERGIES: ALLERGIES Not on File Chemical Exposure: No Asbestos Exposure yes COMPLETE REVIEW OF SYSTEMS Constitutional: No weight loss, malaise or fevers. HEENT: Negative for frequent or significant headaches Resp: Negative for cough, wheezing, or shortness of breath Cardiovascular: Negative for chest pain, leg swelling or palpitations GI: See HPI : No history of dysuria, frequency, or incontinence Endo: Negative for cold or heat intolerance, polyuria, polydipsia and goiter Heme/Lymph: Negative for prolonged bleeding, bruising easily or swollen nodes Neurologic: No history or headaches, syncope, paralysis, seizures or tremors Integumentary: Negative for lesions, rash, and itching. Additional systems reviewed: No additional systems reviewed PHYSICAL EXAM There were no vitals taken for this visit. Constitutional: Well developed and Well nourished HEENT: PERRLA and EOM's intact Resp: Clear Cardiovascular: Regular rate AND rhythm GI: Soft, Round, and Non-tender Integumentary: Warm and Dry Musculoskeletal: No deformities Neurological/Psychiatric: Oriented to time, place AND person Additional systems reviewed: No additional systems reviewed DATA: Radiology: CT (chest,) 05/30/21 UGI: Upper GI 09/29/2019 was notable for mild tertiary waves of the esophagus resulting in slight delay in passage of contents into the stomach but was otherwise unremarkable with no notable structural abnormalities. MBS 06/14/21 I have personally reviewed the following images/data: CT scan, EGD, Esophagram, and Swallowing Study Outside Paper Medical Records Review personally performed by: Me SIGNATURE: Richard Navarro MD PAGER: [phone] DATE of SERVICE: 10/19/2022 TIME of SERVICE: 9:22 AM [facility] 10-19-2022 Note HNO ID: [id number] Author: RT Tino(R) Service: Radiology Author Type: Technologist Type: Progress Notes Filed: 10/19/2022 11:23 AM Note Text: Radiology Service Progress Note PATIENT NAME: Odalys Cerda DATE OF SERVICE: October 19, 2022 TIME: 11:23 AM PATIENT IDENTITY VERIFICATION COMPLETED USING TWO (2) IDENTIFIERS: Name and Date of confirmed by patient verbally and Name and Date of confirmed by identification band. FALL SCREENING: Has the patient had 2 falls in the last year or 1 fall with injury or currently using an Ambulatory Assistive Device (Walker, Cane, Wheelchair, Crutches, etc.)? No PATIENT GENDER DATA: Male PATIENT RELEVANT IMPLANT DATA REVIEWED: Yes RADIOLOGY DEPARTMENT: CT; Exam(s) Completed: Chest Abdomen Pelvis PERIPHERAL IV DATA: Not applicable SIGNED BY: RT Tino(R) October 19, 2022 11:23 AM [facility] 10-19-2022 Note HNO ID: [id number] Author: Lulu Jacome RRT Service: ? Author Type: Registered Resp Therapist Type: Procedures Filed: 10/19/2022 9:58 AM Note Text: RESPIRATORY THERAPY SIX MINUTE WALK TEST OXIMETRY REPORT Six Minute Walk Test for This Encounter Oxygen Device Liters FIO2 SpO2% HR Activity Feet Speed (MPH) Flag R/A 100 81 Resting R/A 98 93 Six Minute Walk 1285 2.4 R/A 99 83 Recovery 1 minute post R/A 100 84 Recovery 2 minute post R/A 100 84 Recovery 3 minute post General Information Height Weight Smoking Status Pulse Oximetry Site Oximeter Pre Blood Pressure Post Blood Pressure Total Time Spent (min) 177 cm (5' 9.69 ) 87.6 kg (193 lb 1.6 oz) Ex-smoker Forehead Masimo 129/84 131/82 30 _ Distance Walked (meters) Distance Walked (feet) Male Predicted Walk Distance (feet) Male Lower Limit of Normal (feet) Male % Predicted Total Duration Of The Stops (seconds) 391.67 1285 1690.62 1188.62 76 -- _ Lowest SpO2 During 6 Minute Walk Pre-Ganga Dyspnea Rating Pre-Ganga Fatigue Rating Post Ganga Dyspnea Rating Post Ganga Fatigue Rating O2 Supply Carrier Walking Assistance/Device 98 % 0 0 0 2 -- None Six Minute Walk Trend (Previous Encounters) None SIGNATURE: Lulu Jacome RRT PATIENT NAME: Odalys Cerda DATE: October 19, 2022 TIME: 9:58 AM [facility] 10-19-2022 Note HNO ID: [id number] Author: Lulu Jacome RRT Service: ? Author Type: Registered Resp Therapist Type: Progress Notes Filed: 10/19/2022 9:35 AM Note Text: PULM FUNCTION SMARTBLOCK: Provider: Marine Leon MD, PhD Spirometry: 1 DLCO: 1 6 MW: 1 [facility] 10-19-2022 History of Presen t illness Narrative Radiology Service Progress Note PATIENT NAME: Odalys Cerda DATE OF SERVICE: October 19, 2022 TIME: 11:23 AM PATIENT IDENTITY VERIFICATION COMPLETED USING TWO (2) IDENTIFIERS: Name and Date of confirmed by patient verbally and Name and Date of confirmed by identification band. FALL SCREENING: Has the patient had 2 falls in the last year or 1 fall with injury or currently using an Ambulatory Assistive Device (Walker, Cane, Wheelchair, Crutches, etc.)? No PATIENT GENDER DATA: Male PATIENT RELEVANT IMPLANT DATA REVIEWED: Yes RADIOLOGY DEPARTMENT: CT; Exam(s) Completed: Chest Abdomen Pelvis PERIPHERAL IV DATA: Not applicable SIGNED BY: RT Tino(R) October 19, 2022 11:23 AM documented in this encounter [facility] 10-19-2022 Procedure note Associated Ord er(s): SIX MINUTE WALK RESPIRATORY THERAPY SIX MINUTE WALK TEST OXIMETRY REPORT Six Minute Walk Test for This Encounter Oxygen Device Liters FIO2 SpO2% HR Activity Feet Speed (MPH) Flag R/A 100 81 Resting R/A 98 93 Six Minute Walk 1285 2.4 R/A 99 83 Recovery 1 minute post R/A 100 84 Recovery 2 minute post R/A 100 84 Recovery 3 minute post General Information Height Weight Smoking Status Pulse Oximetry Site Oximeter Pre Blood Pressure Post Blood Pressure Total Time Spent (min) 177 cm (5' 9.69 ) 87.6 kg (193 lb 1.6 oz) Ex-smoker Forehead Masimo 129/84 131/82 30 _ Distance Walked (meters) Distance Walked (feet) Male Predicted Walk Distance (feet) Male Lower Limit of Normal (feet) Male % Predicted Total Duration Of The Stops (seconds) 391.67 1285 1690.62 1188.62 76 -- _ Lowest SpO2 During 6 Minute Walk Pre-Ganga Dyspnea Rating Pre-Ganga Fatigue Rating Post Ganga Dyspnea Rating Post Ganga Fatigue Rating O2 Supply Carrier Walking Assistance/Device 98 % 0 0 0 2 -- None Six Minute Walk Trend (Previous Encounters) None SIGNATURE: Lulu Jacome RRT PATIENT NAME: Odalys Cerda DATE: October 19, 2022 TIME: 9:58 AM documented in this encounter [facility] 10-19-2022 History of Presen t illness Narrative PULM FUNCTION SMARTBLOCK: Provider: Marine Leon MD, PhD Spirometry: 1 DLCO: 1 6 MW: 1 documented in this encounter [facility] 09-25-2022 Miscellaneous Notes Images from the original note were not included. Thoracic Surgery Consultation - review of records for appointment scheduling Received medical records from the office of Jaron Avalos MD [address] [place], [place] [id number] Patient is being referred to Unspecified/First Available by OS for Zenker DIverticulum Outside hospital records scanned Imaging CT (chest,) 05/30/21 UGI: MBS 06/14/21 Cardiopulmonary Testing PFT's/Six: requested Cardiac: Office Notes/Consults 09/06/22 see scanned docs History of: No family history on file. No past medical history on file. No past surgical history on file. Request consult with dr leon pft/dlco/six ct chest/abd with oral constrast Arely Berrios RN Received Routed [facility] Telephone Encounter from Dr. Jaron Avalos MD Odalys Cerda is being referred to Unspecified Thoracic Surgeon by Jaron Avalos MD [address] [place], [place] [id number] Patient diagnosis/Reason for consult: Zenker's Diverticulum Referral triage process explained: Yes Patient will receive a call from Thoracic NPM after triage review with surgeon to discuss any additional testing and/or consults that will be scheduled. Pt will then receive a call from our scheduling office for scheduling. Please call pt at [phone]. Patient was informed consultation could be at [place] or [facility]: No Patient Registration: Registration complete/updated: Yes Insurance card(s) [facility] in the past year: Yes, 09/06/22 Pt's [employer] is inactive. Ok to communicate to pt via [employer] no Medical Records: Records in [facility] (internal [facility] records): No Imaging in [facility] (internal [facility] records): No Care Everywhere - queried no, downloaded No Linked Outside Organizations (list): Waiting for correct spelling of name OSH Records Requested: yes Date: September 06, 2022 Outside Hospital(s) requested records from: Dr. Jaron Avalos Received: Yes Uploaded: Yes. Waiting on additional records: No. Missing (list): n/a OSH Pathology Slides Requested: no Date: N/A Outside Hospital(s) slides requested from: n/a OSH Radiology Imaging Requested: yes Date: September 06, 2022 Outside Hospital(s) requested imaging from: [facility]. Imaging will be received via Electronic Transfer Received: Yes Imaging uploaded: Yes Waiting on additional: Yes. Missing (list): CT Additional providers added to Care Teams: Yes Additional Notes/Comments: n/a Enct routed to: Willie Gaston NPM for triage Porsha Nick, wage and salary administrator [facility] Diagnosis Zenkers diverticulum- Primary Diverticulum of esophagus, acquired [facility] Zenkers diverticulum Diverticulum of esophagus, acquired [facility] Diagnosis Zenkers diverticulum- Primary Diverticulum of esophagus, acquired [facility] Diagnosis Zenkers diverticulum- Primary Diverticulum of esophagus, acquired [facility] Diagnosis DIVERTICULUM - ESOPHAGUS- Primary Diverticulum of esophagus, acquired [facility] Diagnosis Lung nodules- Primary Other nonspecific abnormal finding of lung field [facility] Diagnosis Lung nodules- Primary Other nonspecific abnormal finding of lung field [facility] Diagnosis DIVERTICULUM - ESOPHAGUS- Primary Diverticulum of esophagus, acquired Pharyngoesophageal dysphagia Dysphagia, pharyngoesophageal phase [facility] Diagnosis DIVERTICULUM - ESOPHAGUS- Primary Diverticulum of esophagus, acquired Zenker diverticulum Diverticulum of esophagus, acquired Pharyngoesophageal dysphagia Dysphagia, pharyngoesophageal phase [facility] Diagnosis Pre-op evaluation- Primary Preoperative examination, unspecified Zenker diverticulum Diverticulum of esophagus, acquired Zenker diverticulum Diverticulum of esophagus, acquired Pharyngoesophageal dysphagia Dysphagia, pharyngoesophageal phase [facility] Diagnosis Hyperkalemia- Primary Hyperpotassemia Zenker diverticulum Diverticulum of esophagus, acquired Pharyngoesophageal dysphagia Dysphagia, pharyngoesophageal phase documented in this encounter [facility] note* Diagnosis Acute post-operative pain documented in this encounter [facility] note* Diagnosis Zenker's diverticulum- Primary Diverticulum of esophagus, acquired documented in this encounter [facility] note* Diagnosis Zenker diverticulum Diverticulum of esophagus, acquired documented in this encounter [facility] for referral (narrative)* Diagnostic Procedure Only (Routine) - Closed Specialty Diagnoses / Procedures Referred By Alfonso espinoza Referred To Contact XR IMAGING Diagnoses Zenker diverticulum Procedures XR CHEST 1V FRONTAL RADIOLOGIC EXAM CHEST SINGLE VIEW Roddy Loyd MD [address] [id number] Xr Imaging Referral ID Status Reason Start Date Expiration Date V isits Requested Visits Authorized [id number] Closed Auto-Generate d Referral 03/23/2023 04/21/2024 1 1 [facility] Summary Purpose Family History No Family History Records FoundNo Family History Records FoundNo Family History Records Found Advance Directives No Advanced Directives Records FoundNo Advanced Directives Records FoundNo Advanced Directives Records Found Reason for Referral Specialty Diagnoses / Procedures Referred By Alfonso espinoza Referred To Contact CT IMAGING Diagnoses Zenkers diverticulum Procedures CT ABD/PEL WO IVCON CT ABD & PELVIS W/O CONTRAST Marine Leon MD, PhD [address] [place] [address] Ct Imaging Referral ID Status Reason Start Date Expiration Date Visits Requested Visits Authorized [id number] Pending Review Auto-Generat ed Referral 2 10/25/2023 1 1 Specialty Diagnoses / Procedures Referred By Alfonso espinoza Referred To Contact CT IMAGING Diagnoses Zenkers diverticulum Procedures CT CHEST WO IVCON DIAGNOSTIC COMPUTED TOMOGRAPHY THORAX W/O CNTRST Marine Leon MD, PhD [address] [place] [address] Ct Imaging Referral ID Status Reason Start Date Expiration Date Visits Requested Visits Authorized [id number] Pending Review Auto-Generat ed Referral 2 10/25/2023 1 1 Specialty Diagnoses / Procedures Referred By Contac t Referred To [facility] RESPIRATORY [facility]STER Diagnoses Zenkers diverticulum Procedures SIX MINUTE WALK CARDIOPULMONARY EXERCISE STRESS Marine Leon MD, PhD [address] [place] [address] Respiratory [address] [place] [address] Referral ID Status Reason Start Date Expiration Date Visits Requested Visits Authorized [id number] Pending Review Auto-Generat ed Referral 2 10/25/2023 1 1 Specialty Diagnoses / Procedures Referred By Contac t Referred To [facility] RESPIRATORY [place] Diagnoses Zenkers diverticulum Procedures LUNG DIFFUSION CAPACITY (DLCO) DIFFUSING CAPACITY Marine Leon MD, PhD [address] [place] [address] [facility] [id number] [address] [address] [place], [place] [address] [address] Referral ID Status Reason Start Date Expiration Date Visits Requested Visits Authorized [id number] Pending Review Auto-Generat ed Referral 2 10/25/2023 1 1 Specialty Diagnoses / Procedures Referred By Contac t Referred To [facility] [place] Diagnoses Zenkers diverticulum Procedures SPIROMETRY BASELINE ONLY SPMTRY W/VC EXPIRATORY NAHUM W/WO MXML VOL VNTJ Marine Leon MD, PhD [address] [place] [address] [facility] [address] [place] [address] Referral ID Status Reason Start Date Expiration Date Visits Requested Visits Authorized [id number] Pending Review Auto-Generat ed Referral 2 10/25/2023 1 1 Referral ID Status Reason Start Date Expiration Date V isits Requested Visits Authorized [id number] Closed Auto-Generate d Referral 10/19/2022 11/18/2022 1 1 Referral ID Status Reason Start Date Expiration Date V isits Requested Visits Authorized [id number] Closed Auto-Generate d Referral 10/19/2022 11/18/2022 1 1 Specialty Diagnoses / Procedures Referred By Contac t Referred To Contact Ent - Otolaryngology Diagnoses Diverticulum of esophagus, acquired Procedures CONSULT TO ENT OFFICE/OUTPATIENT NEW HIGH MDM 60-74 MINUTES Marine Leon MD, PhD [address] [employer] [address] [place] [id number] Referral ID Status Reason Start Date Expiration Date Visits Requested Visits Authorized [id number] Authorized PCP Requested Referral 11/21/2022 10/21/2023 1 1 Specialty Diagnoses / Procedures Referred By Contac t Referred To Contact CT IMAGING Diagnoses Lung nodules Procedures CT CHEST WO IVCON DIAGNOSTIC COMPUTED TOMOGRAPHY THORAX W/O CNTRST Marine Leon MD, PhD [address] [employer] [address] [place] [address] Ct Imaging Referral ID Status Reason Start Date Expiration Date Visits Requested Visits Authorized [id number] Pending Review Auto-Generat ed Referral 11/22/2023 1 1 Additional Source Comments (unrecognized sect ion and content) No Status Records FoundNo Status Records FoundNo Status Records Found INFORMATION SOURCE (unrecogn ized section and content) DATE CREATED AUTHOR 05/17/2018 [facility] DATE CREATED AUTHOR AUTHOR'S ORGANIZ ATION 09/04/2022 [facility] DATE CREATED AUTHOR AUTHOR'S ORGANIZ ATION 06/15/2023 [facility] Source Comments (unrecognize d section and content) In the event this informatio n is protected by the Federal Confidentiality of Alcohol and Drug Abuse Patient Records regulations: The Federal rules restrict any use of the information to criminally investigate or prosecute any alcohol or drug abuse patient.[facility] the event this information is protected by the Federal Confidentiality of Alcohol and Drug Abuse Patient Records regulations: The Federal rules restrict any use of the information to criminally investigate or prosecute any alcohol or drug abuse patient.[facility] Hospital[facility] the event this information is protected by the Federal Confidentiality of Alcohol and Drug Abuse Patient Records regulations: The Federal rules restrict any use of the information to criminally investigate or prosecute any alcohol or drug abuse patient.[facility] Hospital[facility] the event this information is protected by the Federal Confidentiality of Alcohol and Drug Abuse Patient Records regulations: The Federal rules restrict any use of the information to criminally investigate or prosecute any alcohol or drug abuse patient.[facility] HospitalIn the event this information is protected by the Federal Confidentiality of Alcohol and Drug Abuse Patient Records regulations: The Federal rules restrict any use of the information to criminally investigate or prosecute any alcohol or drug abuse patient.[facility] HospitalIn the event this information is protected by the Federal Confidentiality of Alcohol and Drug Abuse Patient Records regulations: The Federal rules restrict any use of the information to criminally investigate or prosecute any alcohol or drug abuse patient.[facility] Hospital[facility] the event this information is protected by the Federal Confidentiality of Alcohol and Drug Abuse Patient Records regulations: The Federal rules restrict any use of the information to criminally investigate or prosecute any alcohol or drug abuse patient.[facility] HospitalIn the event this information is protected by the Federal Confidentiality of Alcohol and Drug Abuse Patient Records regulations: The Federal rules restrict any use of the information to criminally investigate or prosecute any alcohol or drug abuse patient.[facility] HospitalIn the event this information is protected by the Federal Confidentiality of Alcohol and Drug Abuse Patient Records regulations: The Federal rules restrict any use of the information to criminally investigate or prosecute any alcohol or drug abuse patient.[facility] HospitalIn the event this information is protected by the Federal Confidentiality of Alcohol and Drug Abuse Patient Records regulations: The Federal rules restrict any use of the information to criminally investigate or prosecute any alcohol or drug abuse patient.[facility] HospitalIn the event this information is protected by the Federal Confidentiality of Alcohol and Drug Abuse Patient Records regulations: The Federal rules restrict any use of the information to criminally investigate or prosecute any alcohol or drug abuse patient.[facility] HospitalIn the event this information is protected by the Federal Confidentiality of Alcohol and Drug Abuse Patient Records regulations: The Federal rules restrict any use of the information to criminally investigate or prosecute any alcohol or drug abuse patient.[facility] HospitalIn the event this information is protected by the Federal Confidentiality of Alcohol and Drug Abuse Patient Records regulations: The Federal rules restrict any use of the information to criminally investigate or prosecute any alcohol or drug abuse patient.[facility] HospitalIn the event this information is protected by the Federal Confidentiality of Alcohol and Drug Abuse Patient Records regulations: The Federal rules restrict any use of the information to criminally investigate or prosecute any alcohol or drug abuse patient.[facility] HospitalIn the event this information is protected by the Federal Confidentiality of Alcohol and Drug Abuse Patient Records regulations: The Federal rules restrict any use of the information to criminally investigate or prosecute any alcohol or drug abuse patient.[facility] HospitalIn the event this information is protected by the Federal Confidentiality of Alcohol and Drug Abuse Patient Records regulations: The Federal rules restrict any use of the information to criminally investigate or prosecute any alcohol or drug abuse patient.[facility] HospitalIn the event this information is protected by the Federal Confidentiality of Alcohol and Drug Abuse Patient Records regulations: The Federal rules restrict any use of the information to criminally investigate or prosecute any alcohol or drug abuse patient.[facility] HospitalIn the event this information is protected by the Federal Confidentiality of Alcohol and Drug Abuse Patient Records regulations: The Federal rules restrict any use of the information to criminally investigate or prosecute any alcohol or drug abuse patient.[facility] HospitalIn the event this information is protected by the Federal Confidentiality of Alcohol and Drug Abuse Patient Records regulations: The Federal rules restrict any use of the information to criminally investigate or prosecute any alcohol or drug abuse patient.[facility] HospitalIn the event this information is protected by the Federal Confidentiality of Alcohol and Drug Abuse Patient Records regulations: The Federal rules restrict any use of the information to criminally investigate or prosecute any alcohol or drug abuse patient.[facility] Reason for Visit (unrecogniz ed section and content) Reason Comments Consult Zenker Diverticulum Reason Comments Spirometry Specialty Diagnoses / Procedures Referred By Contac t Referred To Contact [facility] Diagnoses Zenkers diverticulum Procedures LUNG DIFFUSION CAPACITY (DLCO) DIFFUSING CAPACITY Marine Leon MD, PhD [address] [employer] [address] [place] [address] [facility] [place] [address] Referral ID Status Reason Start Date Expiration Date V isits Requested Visits Authorized [id number] Closed Auto-Generate d Referral 09/25/2022 10/25/2023 1 1 Specialty Diagnoses / Procedures Referred By Contac t Referred To Contact [facility] Diagnoses Zenkers diverticulum Procedures SPIROMETRY BASELINE ONLY SPMTRY W/VC EXPIRATORY NAHUM W/WO MXML VOL VNTJ Marine Leon MD, PhD [address] [employer] [address] [place] [address] [facility] [address] [address] Referral ID Status Reason Start Date Expiration Date V isits Requested Visits Authorized [id number] Closed Auto-Generate d Referral 09/25/2022 10/25/2023 1 1 Specialty Diagnoses / Procedures Referred By Contac t Referred To Contact [facility] Diagnoses Zenkers diverticulum Procedures SIX MINUTE WALK CARDIOPULMONARY EXERCISE STRESS Marine Leon MD, PhD [address] [employer] [address] [place] [address] [facility] [address] [address] Referral ID Status Reason Start Date Expiration Date V isits Requested Visits Authorized [id number] Closed Auto-Generate d Referral 09/25/2022 10/25/2023 1 1 Specialty Diagnoses / Procedures Referred By Contac t Referred To Contact CT IMAGING Diagnoses Zenkers diverticulum Procedures CT ABD/PEL WO IVCON CT ABD & PELVIS W/O CONTRAST Marine Leon MD, PhD [address] [place] [address] Ct Imaging Referral ID Status Reason Start Date Expiration Date V isits Requested Visits Authorized [id number] Closed Auto-Generate d Referral 10/19/2022 11/18/2022 1 1 Reason Comments Consult Reason Comments Appointment Orders follow up ct scan Reason Comments Appointment Rescheduled Reason Comments Established Patient Reason Comments Cough Reason Comments Pre-Op Visit Reason Comments PreOp Call Pre-op labs Reason Comments Medication Problem Medication can't be refilled Reason Comments Established Patient Post op visit Reason Comments Radiology XR Specialty Diagnoses / Procedures Referred By Contac t Referred To Contact XR IMAGING Diagnoses Zenker diverticulum Procedures XR CHEST 1V FRONTAL RADIOLOGIC EXAM CHEST SINGLE VIEW Roddy Loyd MD [address] [place] [address] Xr Imaging Referral ID Status Reason Start Date Expiration Date V isits Requested Visits Authorized [id number] Closed Auto-Generate d Referral 03/23/2023 04/21/2024 1 1 Care Teams (unrecognized sec tion and content) Managing Consultant Relationship Specialty Start Date End Date Jaron Avalos MD [address] [place] [id number] Referring Family Medicine 09/05/22 Managing Consultant Relationship Specialty Start Date End Date Jaron Avalos MD [address] [place] [address] Referring Family Medicine 09/05/22 Managing Consultant Relationship Specialty Start Date End Date Jaron Avalos MD [address] [place] [address] Referring Family Medicine 09/05/22 Managing Consultant Relationship Specialty Start Date End Date Jaron Avalos MD [address] [place] [address] Referring Family Medicine 09/05/22 Managing Consultant Relationship Specialty Start Date End Date Jaron Avalos MD [address] [place] [address] Referring Family Medicine 09/05/22 Managing Consultant Relationship Specialty Start Date End Date Jaron Avalos MD [address] [place] [address] Referring Family Medicine 09/05/22 Managing Consultant Relationship Specialty Start Date End Date Jaron Avalos MD [address] [place] [id number] Referring Family Medicine 09/05/22 Managing Consultant Relationship Specialty Start Date End Date Jaron Avalos MD [address] [place] [id number] Referring Family Medicine 09/05/22 Managing Consultant Relationship Specialty Start Date End Date Jaron Avalos MD Referring Family Medicine 09/05/22 Managing Consultant Relationship Specialty Start Date End Date Jaron Avalos MD [address] [facility] [place] [address] PCP - General Family Medicine 05/16/23 Jaron Avalos MD Referring Family Medicine 09/05/22 Managing Consultant Relationship Specialty Start Date End Date Jaron Avalos MD [address] [facility] PCP - General Family Medicine 05/16/23 Jaron Avalos MD Referring Family Medicine 09/05/22 Managing Consultant Relationship Specialty Start Date End Date Jaron Avalos MD [address] [facility] [place] [address] PCP - General Family Medicine 05/16/23 Jaron Avalos MD Referring Family Medicine 09/05/22 Managing Consultant Relationship Specialty Start Date End Date Jaron Avalos MD [address] [facility] [place] [address] PCP - General Family Medicine 05/16/23 Jaron Avalos MD Referring Family Medicine 09/05/22 Managing Consultant Relationship Specialty Start Date End Date Jaron Avalos MD [address] [facility] [place] [address] PCP - General Family [facility] 05/16/23 Jaron Avalos MD Referring Family Medicine 09/05/22 Managing Consultant Relationship Specialty Start Date End Date Jaron Avalos MD [address] [facility] [place] [address] PCP - General Family Medicine 05/16/23 Jaron Avalos MD Referring Family Medicine 09/05/22 FOR RECORDS PERTAINING TO PATIENTS WHO ARE OR HAVE BEEN ENROLLED IN A CHEMICAL DEPENDENCY/SUBSTANCEABUSE PROGRAM, SOME INFORMATION MAY BE OMITTED. This clinical summary was aggregated from multiple sources. Caution should be exercised in using it in the provision of clinical care. This summary normalizes information from multiple sources, and as a consequence, information in this document may materially change the coding, format and clinical context of patient data. In addition, data may be omitted in some cases. CLINICAL DECISIONS SHOULD BE BASED ON THE PRIMARY CLINICAL RECORDS. [facility] [employer] [facility]. provides no warranty or guarantee of the accuracy or completeness of information in this document.
[2023-11-23 11:13] LABS: Occult Blood Positive
== END 2023-11-23 09:20 | disposition home or self-care (01) ==
LOC: US 09:19
PROVIDERS: PCP Family Medicine; Visit Provider Family Medicine
DX: I71.40 Abdominal aortic aneurysm, without rupture, unspecified (principal); J30.2 Other seasonal allergic rhinitis; N52.9 Male erectile dysfunction, unspecified; K21.9 Gastro-esophageal reflux disease without esophagitis; E78.5 Hyperlipidemia, unspecified; R73.09 Other abnormal glucose; Z12.5 Encounter for screening for malignant neoplasm of prostate; Z12.12 Encounter for screening for malignant neoplasm of rectum
CPT/HCPCS: 76706; G0328

== ENCOUNTER 2024-03-13 08:39 | Outpatient (OUT) | payer MEDICARE, SELFPAY ==
--- NOTE | 2024-03-13 09:01 | CT_ITS ---
[address] [address] Patient Name: ODALYS MCLEAN MRN: [id number] date: 1950 Sex: M Assigned Patient Location: CT Current Patient Location: CT Accession/Order Number: [id number] Exam Date: 03/13/2024 08:57 Report Date: 03/13/2024 12:18 At the request of: JARON LUCAS Procedure: CT chest wo con EXAMINATION: CT chest wo con HISTORY: Nonspecific Abnormal Findings On Lung Field R91.8 COMPARISON: 05/30/2021 TECHNIQUE: Multi-planar CT images were created with IV contrast. Axial, Coronal, and Sagittal images. Dose reduction techniques were achieved by using automated exposure control and/or adjustment of mA and/or kV according to patient size and/or use of iterative reconstruction technique. FINDINGS: LUNGS: Previously identified 8 mm opacity in the posterior basilar segment of the right lower lobe is decreased in overall size now measuring 5.4 mm, axial image 97 and 98. Minimal biapical pleural parenchymal scarring is stable. No new significant pulmonary nodule or mass. PLEURA: No mass, effusion, or pneumothorax. VASCULATURE: No abnormality. CHEMA: No mass or adenopathy. MEDIASTINUM: No mass or adenopathy. CARDIAC: No enlargement, pericardial thickening, or significant calcification. AORTA: No aneurysm or dissection. CHEST WALL: No mass or axillary adenopathy. BONES: No bone lesion or fracture. LIMITED ABDOMEN: No suspicious findings. Limited images of the upper abdomen. OTHER: Negative. CT/CT chest wo con IMPRESSION: Decrease in size of a right lower lobe opacity, stability over time suggests a benign process No new significant pulmonary nodule or mass Electronically authenticated by: CATHI GARCIA Date: 03/13/2024 12:18
--- OUTSIDE RECORDS SUMMARY | 2024-03-13 09:03 | XMS_ITS | CCD ---
Author Organization [facility] Care Team Providers Care Correctional Nurse Name Role Phone PHYSICIAN, DEFAULT Unavailable Unavailable PHYSICIAN, DEFAULT Unavailable Unavailable LANCE, DR SALMERON Admitting Unavailable LANCE, DR SALMERON Attending Unavailable LANCE, DR SALMERON Primary Care Unavailable LANCE, DR SALMERON Consulting Unavailable Jaron Avalos MD Unavailable Jaron Avalos MD Unavailable Jaron Avalos MD Unavailable Jaron Avalos MD Primary Care Provider [phone] MELA, SUDISH Referring Unavailable MELA, SUDISH Attending Unavailable MELA, SUDISH Referring Unavailable MELA, SUDISH Referring Unavailable MELA, SUDISH Attending Unavailable MELA, SUDISH Attending Unavailable RACH, RDODY Referring Unavailable HOY, JARON M Primary Care Unavailable RACH, RODDY Referring Unavailable RACH, RODDY Referring Unavailable HOY, JARON M Primary Care Unavailable HOY, JARON M Primary Care Unavailable MELA, SUDISH Referring Unavailable RACH RODDY Admitting Unavailable RODDY LOYD Attending Unavailable MELA, SUDISH Referring Unavailable HOY, JARON M Primary Care Unavailable RACH, RODDY Referring Unavailable HOY, JARON M Primary Care Unavailable RACH RODDY Attending Unavailable MELA, SUDISH Referring Unavailable RACH, RODDY Attending Unavailable MELA, SUDISH Referring Unavailable NILLShaji R Attending Unavailable Allergies Allergy Classification Reported Allergen(s) Allergy Type Date of Onset Reaction(s) Facility (1 source) No Known Medication Allergies; Translations: [No Known Medication Allergies] Propensity to adverse reactions (disorder) [facility] Repository Medications Current Medications Medication Drug Class(es) Dates [...] Test Name Value Interpretation Reference Range Facility Physician Referralon 024 Physician Referral [id number]. [id number] Gm F[facility] CNOVon 06-11-2023 CNOV Office Visit (OTOLMN ) ODALYS CERDA ([id number]) 1950 M Date Time Provider Department 06/11/23 10:40 AM RODDY LOYD OTOLPR During your visit today, we recorded the following information about you: Amy Rios RN 06/11/2023 10:58 AM Signed Tobacco Use: 5 packs/day Quit 11/12/1969. Types: Cigarettes Was smoking cessation packet given? N/A - Patient is a non-smoker or quit >1 year ago. Was a referral initiated?N/A Patient is a non-smoker Roddy Loyd MD 06/14/2023 12:35 PM Signed CC: Oadlys Cerda is a 73 year old male [...] Roddy Loyd MD Referring Provider: RODDY LOYD [[id number]] Allergies As of Date: 06/11/2023 (No Known [...] Encounter Status:Closed by RODDY LOYD on 06/14/23 [facility] 05-24-2023 CNPN Telephone (OTOLMN) CARIDADODALYS Kehinde ([id number]) 1950 M Date Time Provider Department 05/24/23 RODDY LOYD OTOLMN During your visit today, we recorded the following information about you: Diane Joaquin Vilchis 05/24/2023 4:41 PM Signed Mr. Cerda called and said that the oxyCodone 5 mg /5ml can't be filled due to supply shortage with outside company. [facility] pharmacy he was using [facility]. He was wondering if a new prescription be filled at the [facility] in [facility]. The Pharmacy phone number is . Amy Rios RN 05/25/2023 9:55 AM Signed Called [facility] in [place]- they do not have this medication in stock. [facility] [place] Called pt. And he said it is [...] Status:Closed by RODDY LOYD on 05/25/23 Normal [facility] Basic metabolic 2000 panelon 05-23-2023 Anion gap [Moles/Vol] 10 mmol/L Normal 9-18 [facility] Comment on above: Order Comment: Specpaola mosher Type: BLOOD SPECIMEN Ordering Facility: [facility] Address: [address] [place] [phone] Performed By: #### 2 4321-2 #### [facility] CLIA [id number] [address] [facility] [place] [place] [address] [place] Calcium [Mass/Vol] 9.5 mg/dL Normal 8.5-10.2 [facility] Comment on above: Order Comment: Speci men Type: BLOOD SPECIMEN Ordering Facility: [facility] Address: [address] [address] Performed By: #### 2 4321-2 #### [facility] CLIA [id number] [address] [place] [address] [place] Chloride [Moles/Vol] 106 mmol/L High 97-105 [facility] Comment on above: Order Comment: Speci men Type: BLOOD SPECIMEN Ordering Facility: [facility] Address: [address] [address] Performed By: #### 2 4321-2 #### [facility] CLIA [id number] [address] [place] [address] [place] CO2 [Moles/Vol] 23 mmol/L Normal 22-30 [facility] Comment on above: Order Comment: Speci men Type: BLOOD SPECIMEN Ordering Facility: [facility] Address: [address] [place] [address] Performed By: #### 2 4321-2 #### [facility] CLIA [id number] [address] [place] [address] [place] Creatinine [Mass/Vol] 1.36 mg/dL High 0.73-1.22 [facility] Comment on above: Order Comment: Speci men Type: BLOOD SPECIMEN Ordering Facility: [facility] Address: [address] [place] [address] Performed By: #### 2 4321-2 #### [facility] CLIA [id number] [address] [place] [address] [place] ESTIMATED GLOMERULAR FILTRATION RATE 55 mL/min/1.73m??? Low >=60 [facility] Comment on above: Order Comment: Speci men Type: BLOOD SPECIMEN Ordering Facility: [facility] Address: [address] [place] [address] Result Comment: Kristel mated Glomerular Filtration Rate [...] GFR. Performed By: #### 2 4321-2 #### [facility] CLIA [id number] [address] [place] [address] [place] Glucose [Mass/Vol] 160 mg/dL High 74-99 [facility] Comment on above: Order Comment: Speci men Type: BLOOD SPECIMEN Ordering Facility: [facility] Address: [address] [phone] Result Comment: The [place] Diabetes Association (ADA) provides guidance for cutoff [...] Standards of Medical Care in Diabetes 2016, [place] [employer]. Diabetes Care. 2016.39(Suppl 1). Performed By: #### 2 4321-2 #### [facility] CLIA [id number] [address] [place] [address] [place] Potassium [Moles/Vol] 4.9 mmol/L Normal 3.7-5.1 [facility] Comment on above: Order Comment: Sandra mosher Type: BLOOD SPECIMEN Ordering Facility: [facility] Address: [address] [place] [address] Performed By: #### 2 4321-2 #### [facility] CLIA [id number] [address] [id number] [place] Sodium [Moles/Vol] 139 mmol/L Normal 136-144 [facility] Comment on above: Order Comment: Speci men Type: BLOOD SPECIMEN Ordering Facility: [facility] Address: [address] [address] Performed By: #### 2 4321-2 #### [facility] CLIA [id number] [address] [place] [address] STATES [facility] Urea nitrogen [Mass/Vol] 12 mg/dL Normal 9-24 [facility] Comment on above: Order Comment: Speci men Type: BLOOD SPECIMEN Ordering Facility: [facility] Address: [address] [address] Performed By: #### 2 4321-2 #### [facility] CLIA [id number] [address] [place] [address] OF [place] CBC W Auto Differential pane l (Bld)on 05-23-2023 Basophils (Bld) [#/Vol] 10*3/uL Normal <0.11 [facility] Comment on above: Order Comment: Speci men Type: BLOOD SPECIMEN Ordering Facility: [facility] Address: [address] [address] Performed By: #### K 1 #### [facility] CLIA [id number] [address] [place], [place] [id number] Basophils/100 WBC (Bld) 0.1 % Normal [facility] Comment on above: Order Comment: Speci men Type: BLOOD SPECIMEN Ordering Facility: [facility] Address: [address] Performed By: #### K 1 #### [facility] CLIA [id number] [address] [place] [address] Differential cell count method Nom (Bld) Auto Normal [facility] Comment on above: Order Comment: Speci men Type: BLOOD SPECIMEN Ordering Facility: [facility] Address: [address] [address] Performed By: #### K 1 #### [facility] CLIA [id number] [address] [place] [address] Eosinophils (Bld) [#/Vol] 10*3/uL Normal <0.46 [facility] Comment on above: Order Comment: Speci men Type: BLOOD SPECIMEN Ordering Facility: [facility] Address: [address] [address] Performed By: #### K 1 #### [facility] CLIA [id number] [address] [place] [address] Eosinophils/100 WBC (Bld) 0.0 % Normal [facility] Comment on above: Order Comment: Speci men Type: BLOOD SPECIMEN Ordering Facility: [facility] Address: [address] [address] Performed By: #### K 1 #### [facility] CLIA [id number] [address] [place] [address] Erythrocyte distribution width (RBC) [Ratio] 12.1 % Normal 11.5-15.0 [facility] Comment on above: Order Comment: Speci men Type: BLOOD SPECIMEN Ordering Facility: [facility] Address: [address] [address] Performed By: #### K 1 #### [facility] CLIA [id number] [address] [place] [address] Hematocrit (Bld) [Volume fraction] 38.5 % Low 39.0-51.0 [facility] Comment on above: Order Comment: Speci men Type: BLOOD SPECIMEN Ordering Facility: [facility] Address: [address] [address] Performed By: #### K 1 #### [facility] CLIA [id number] [address] [place] [address] Hemoglobin (Bld) [Mass/Vol] 13.1 g/dL Normal 13.0-17.0 [facility] Comment on above: Order Comment: Speci men Type: BLOOD SPECIMEN Ordering Facility: [facility] Address: [address] [address] Performed By: #### K 1 #### [facility] CLIA [id number] [address] [place] [address] Immature granulocytes (Bld) [#/Vol] 0.07 10*3/uL Normal <0.10 [facility] Comment on above: Order Comment: Speci men Type: BLOOD SPECIMEN Ordering Facility: [facility] Address: [address] [place] [address] Performed By: #### K 1 #### [facility] CLIA [id number] [address] [place] [address] Immature granulocytes/100 WBC (Bld) 0.5 % Normal [facility] Comment on above: Order Comment: Speci men Type: BLOOD SPECIMEN Ordering Facility: [facility] Address: [address] [place] [address] Performed By: #### K 1 #### [facility] CLIA [id number] [address] [place] [address] Lymphocytes (Bld) [#/Vol] 0.86 10*3/uL Low 1.00-4.00 [facility] Comment on above: Order Comment: Speci men Type: BLOOD SPECIMEN Ordering Facility: [facility] Address: [address] [place] [address] Performed By: #### K 1 #### [facility] CLIA [id number] [address] [place] [address] Lymphocytes/100 WBC (Bld) 5.8 % Normal [facility] Comment on above: Order Comment: Speci men Type: BLOOD SPECIMEN Ordering Facility: [facility] Address: [address] [place] [address] Performed By: #### K 1 #### [facility] CLIA [id number] [address] [place] [address]38[address] MCH (RBC) [Entitic mass] 33.5 pg Normal 26.0-34.0 [facility] Comment on above: Order Comment: Speci men Type: BLOOD SPECIMEN Ordering Facility: [facility] Address: [address] [place] [address] Performed By: #### K 1 #### [facility] CLIA [id number] [address] [place] [address]481 MCHC (RBC) [Mass/Vol] 34.0 g/dL Normal 30.5-36.0 [facility] Comment on above: Order Comment: Speci men Type: BLOOD SPECIMEN Ordering Facility: [facility] Address: [address] [place] [address] Performed By: #### K 1 #### [facility] CLIA [id number] [address] [place] [address] 51647 MCV (RBC) [Entitic vol] 98.5 fL Normal 80.0-100.0 [facility] Comment on above: Order Comment: Speci men Type: BLOOD SPECIMEN Ordering Facility: [facility] Address: [address] [place] [address] Performed By: #### K 1 #### [facility] CLIA [id number] [address] [place] [address]28[address] Monocytes (Bld) [#/Vol] 0.68 10*3/uL Normal <0.87 [facility] Comment on above: Order Comment: Speci men Type: BLOOD SPECIMEN Ordering Facility: [facility] Address: [address] [place] [address] Performed By: #### K 1 #### [facility] CLIA [id number] [address] [place] [address]9747 Monocytes/100 WBC (Bld) 4.6 % Normal [facility] Comment on above: Order Comment: Speci men Type: BLOOD SPECIMEN Ordering Facility: [facility] Address: [address] [place] [address] Performed By: #### K 1 #### [facility] CLIA [id number] [address] [place] [address]288 Neutrophils (Bld) [#/Vol] 13.22 10*3/uL High 1.45-7.50 [facility] Comment on above: Order Comment: Speci men Type: BLOOD SPECIMEN Ordering Facility: [facility] Address: [address] [address] Performed By: #### K 1 #### [facility] CLIA [id number] [address] [place] [address] Neutrophils/100 WBC (Bld) 89.0 % Normal [facility] Comment on above: Order Comment: Speci men Type: BLOOD SPECIMEN Ordering Facility: [facility] Address: [address] [address] Performed By: #### K 1 #### [facility] CLIA [id number] [address] [place] [address] Nucleated RBC (Bld) [#/Vol] 10*3/uL Normal <0.01 [facility] Comment on above: Order Comment: Speci men Type: BLOOD SPECIMEN Ordering Facility: [facility] Address: [address] [address] Performed By: #### K 1 #### [facility] CLIA [id number] [address] [place] [address]128 Nucleated RBC/100 WBC (Bld) [Ratio] 0.0 /100 WBC Normal [facility] Comment on above: Order Comment: Speci men Type: BLOOD SPECIMEN Ordering Facility: [facility] Address: [address] [address] Performed By: #### K 1 #### [facility] CLIA [id number] [address] [place] [address]27 Platelet mean volume (Bld) [Entitic vol] 9.9 fL Normal 9.0-12.7 [facility] Comment on above: Order Comment: Speci men Type: BLOOD SPECIMEN Ordering Facility: [facility] Address: [address] [address] Performed By: #### K 1 #### [facility] CLIA [id number] [address] [place] [address] Platelets (Bld) [#/Vol] 229 10*3/uL Normal 150-400 [facility] Comment on above: Order Comment: Speci men Type: BLOOD SPECIMEN Ordering Facility: [facility] Address: [address] [place] [address] Performed By: #### K 1 #### [facility] CLIA [id number] [address] [place] [address]77 RBC (Bld) [#/Vol] 3.91 10*6/uL Low 4.20-6.00 [facility] Comment on above: Order Comment: Speci men Type: BLOOD SPECIMEN Ordering Facility: [facility] Address: [address] [place] [address] Performed By: #### K 1 #### [facility] CLIA [id number] [address] [place] [address]1980 WBC (Bld) [#/Vol] 14.85 10*3/uL High 3.70-11.00 [facility] Comment on above: Order Comment: Speci men Type: BLOOD SPECIMEN Ordering Facility: [facility] Address: [address] [place] [address] Performed By: #### K 1 #### [facility] CLIA [id number] [address] [place] [address]709 XR ESOPHAGRAMon 05-23-2023 XR ESOPHAGRAM * * [...] 0:36 (min:sec). Air kerma: 17.9 mGy. RESULT: Loss Prevention Analyst: No focal consolidation within the visualized lung field. Luminal contrast transits the esophagus with filling and rapid emptying of a small Zenker's diverticulum without leak or obstruction. Staff Physician: Dr. Adriana MD was present for the critical portions of the procedure and was immediately available throughout the remainder of the procedure. IMPRESSION: NO LEAK OR OBSTRUCTION. 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 Author Type: Anesthesiologist Type: Anesthesia Postprocedure Evaluation Filed: 05/22/2023 4:29 PM Note Text: POST ANESTHESIA EVALUATION NOTE : 1950 Procedure Summary Date: 05/22/23 Room / Location: [address] [facility] Anesthesia Start: 1422 Anesthesia Stop: 154 Procedures: ENDOSCOPIC EXCISION ZENKERS DIVERTICULUM DIVERTICULECTOMY HYPOPHARYNX [...] May 22, 2023 TIME: 4:29 PM CSN: [id number] Normal [facility] ANES PRE-OPon 05-22-2023 ANES PRE-OP HNO ID: [id number] Author: Kevin Gutierrez DO Service: ? Author Type: Anesthesiologist Type: Anesthesia Preprocedure Evaluation Filed: 05/22/2023 6:42 AM Note Text: ANESTHESIOLOGY DAY OF SURGERY NOTE : 1950 Procedure Information Date/Time: 05/22/23 1515 Procedures: ENDOSCOPIC EXCISION ZENKERS DIVERTICULUM DIVERTICULECTOMY HYPOPHARYNX OR ESOPHAGUS, CERVICAL APPROACH (Neck) Location: [facility] Surgeons: Roddy Loyd MD [...] May 22, 2023 TIME: 6:41 AM CSN: [id number] Normal [facility] OPERATIVE NOon 05-22-2023 OPERATIVE NO HNO ID: [id number] Author: Roddy Loyd MD Service: Otolaryngology Author Type: Physician Type: Operative Report Filed: 05/22/2023 6:26 PM Note Text: Operative Note DATE OF SERVICE: 05/22/2023 PATIENT: Odalys Cerda LOG ID: [id number] INCISION/PROCEDURE START TIME: 2:40 PM INCISION CLOSE/PROCEDURE END TIME: 3:21 PM Surgeon: Roddy Loyd MD Main Line Assembler: Linda Adkins MD, Philip Thomas MD Pre-Operative [...] year old male who presented to the [facility] with a history [...] portions of the procedure. Roddy Loyd MD [facility] ODALYS CERDA ([id number]) 1950 M Date Time Provider Department 05/17/23 [...] to upcoming surgery Thank you Stacy Dai APRN.[facility] Jennie Chilel LPN 05/21/2023 7:05 AM Signed DEBORA Gonzalez APRN.[facility]; [facility] Resource Pool 1 4 days ago [...] a [E87.5] Order(s):POTASSIUM BLD [SQK1] Order #: [id number] FUTURE Prescriptions as of 05/21/2023 - desloratadine [...] Status:Closed by STACY DAI on 05/17/23 Normal [facility] POTASSIUM BLDon 05-17-2023 Potassium [Moles/Vol] 4.2 mmol/L Normal 3.7-5.1 [facility] Comment on above: Order Comment: Speci men Type: BLOOD SPECIMEN Ordering Facility: [facility] Address: [address] [place] [address] Performed By: #### K 1 #### [facility] CLIA [id number] [address] [place] [address] 28394 Basic metabolic 2000 panelon 05-16-2023 Anion gap [Moles/Vol] 11 mmol/L Normal 9-18 [facility] Comment on above: Order Comment: Speci men Type: BLOOD SPECIMEN Ordering Facility: [facility] Address: [address] [place] [address] Performed By: #### K 1 #### [facility] CLIA [id number] [address] [place] [address]04 Calcium [Mass/Vol] 9.7 mg/dL Normal 8.5-10.2 [facility] Comment on above: Order Comment: Speci men Type: BLOOD SPECIMEN Ordering Facility: [facility] Address: [address] [place] [address] Performed By: #### K 1 #### [facility] CLIA [id number] [address] [place] [address] 51025 Chloride [Moles/Vol] 106 mmol/L High 97-105 [facility] Comment on above: Order Comment: Speci men Type: BLOOD SPECIMEN Ordering Facility: [facility] Address: [address] [address] Performed By: #### K 1 #### [facility] CLIA [id number] [address] [place] [address] 30035 CO2 [Moles/Vol] 24 mmol/L Normal 22-30 [facility] Comment on above: Order Comment: Speci men Type: BLOOD SPECIMEN Ordering Facility: [facility] Address: [address] [address] Performed By: #### K 1 #### [facility] CLIA [id number] [address] [place] [address] 97607 Creatinine [Mass/Vol] 1.51 mg/dL High 0.73-1.22 [facility] Comment on above: Order Comment: Specpaola mosher Type: BLOOD SPECIMEN Ordering Facility: [facility] Address: [address] [address] Performed By: #### K 1 #### [facility] CLIA [id number] [address] [place] [address] 21019 ESTIMATED GLOMERULAR FILTRATION RATE 48 mL/min/1.73m??? Low >=60 [facility] Comment on above: Order Comment: Sandra mosher Type: BLOOD SPECIMEN Ordering Facility: [facility] Address: [address] [place] [address] Result Comment: Kristel mated Glomerular Filtration Rate [...] GFR. Performed By: #### K 1 #### [facility] CLIA [id number] [address] [place] [address] 83068 Glucose [Mass/Vol] 87 mg/dL Normal 74-99 [facility] Comment on above: Order Comment: Sandra mosher Type: BLOOD SPECIMEN Ordering Facility: [facility] Address: [address] [address] Result Comment: The [place] Diabetes Association (ADA) provides guidance for cutoff [...] Standards of Medical Care in Diabetes 2016, [place] [employer]. Diabetes Care. 2016.39(Suppl 1). Performed By: #### K 1 #### [facility] CLIA [id number] [address] [place] [address]104 Potassium [Moles/Vol] 5.4 mmol/L High 3.7-5.1 [facility] Comment on above: Order Comment: Speci men Type: BLOOD SPECIMEN Ordering Facility: [facility] Address: [address] [address] Performed By: #### K 1 #### [facility] CLIA [id number] [address] [place] [address] 64682 Sodium [Moles/Vol] 141 mmol/L Normal 136-144 [facility] Comment on above: Order Comment: Speci men Type: BLOOD SPECIMEN Ordering Facility: [facility] Address: [address] [address] Performed By: #### K 1 #### [facility] CLIA [id number] [address] [place] [address] 27686 Urea nitrogen [Mass/Vol] 12 mg/dL Normal 9-24 [facility] Comment on above: Order Comment: Speci men Type: BLOOD SPECIMEN Ordering Facility: [facility] Address: [address] [address] Performed By: #### K 1 #### [facility] CLIA [id number] [address] [place] [address] 12968 CBC W Auto Differential pane l (Bld)on 05-16-2023 Basophils (Bld) [#/Vol] 0.07 10*3/uL Normal <0.11 [facility] Comment on above: Order Comment: Speci men Type: BLOOD SPECIMEN Ordering Facility: [facility] Address: [address] [address] Performed By: #### K 1 #### [facility] CLIA [id number] [address] [place] [address] 93440 Basophils/100 WBC (Bld) 0.9 % Normal [facility] Comment on above: Order Comment: Speci men Type: BLOOD SPECIMEN Ordering Facility: [facility] Address: [address] [address] Performed By: #### K 1 #### [facility] CLIA [id number] [address] [place] [address] 58598 Differential cell count method Nom (Bld) Auto Normal [facility] Comment on above: Order Comment: Speci men Type: BLOOD SPECIMEN Ordering Facility: [facility] Address: [address] [address] Performed By: #### K 1 #### [facility] CLIA [id number] [address] [place] [address] 04865 Eosinophils (Bld) [#/Vol] 0.41 10*3/uL Normal <0.46 [facility] Comment on above: Order Comment: Speci men Type: BLOOD SPECIMEN Ordering Facility: [facility] Address: [address] [address] Performed By: #### K 1 #### [facility] CLIA [id number] [address] [place] [address] 97724 Eosinophils/100 WBC (Bld) 5.5 % Normal [facility] Comment on above: Order Comment: Speci men Type: BLOOD SPECIMEN Ordering Facility: [facility] Address: [address] [address] Performed By: #### K 1 #### [facility] CLIA [id number] [address] [place] [address] 73993 Erythrocyte distribution width (RBC) [Ratio] 12.5 % Normal 11.5-15.0 [facility] Comment on above: Order Comment: Speci men Type: BLOOD SPECIMEN Ordering Facility: [facility] Address: [address] [address] Performed By: #### K 1 #### [facility] CLIA [id number] [address] [place] [address] 60549 Hematocrit (Bld) [Volume fraction] 39.6 % Normal 39.0-51.0 [facility] Comment on above: Order Comment: Speci men Type: BLOOD SPECIMEN Ordering Facility: [facility] Address: [address] [place] [address] Performed By: #### K 1 #### [facility] CLIA [id number] [address] [place] [address] 59705 Hemoglobin (Bld) [Mass/Vol] 13.3 g/dL Normal 13.0-17.0 [facility] Comment on above: Order Comment: Speci men Type: BLOOD SPECIMEN Ordering Facility: [facility] Address: [address] [place] [address] Performed By: #### K 1 #### [facility] CLIA [id number] [address] [place] [address] 89285 Immature granulocytes (Bld) [#/Vol] 10*3/uL Normal <0.10 [facility] Comment on above: Order Comment: Speci men Type: BLOOD SPECIMEN Ordering Facility: [facility] Address: [address] [place] [address] Performed By: #### K 1 #### [facility] CLIA [id number] [address] [place] [address] 47543 Immature granulocytes/100 WBC (Bld) 0.3 % Normal [facility] Comment on above: Order Comment: Speci men Type: BLOOD SPECIMEN Ordering Facility: [facility] Address: [address] [place] [address] Performed By: #### K 1 #### [facility] CLIA [id number] [address] [place] [address] 92628 Lymphocytes (Bld) [#/Vol] 2.08 10*3/uL Normal 1.00-4.00 [facility] Comment on above: Order Comment: Speci men Type: BLOOD SPECIMEN Ordering Facility: [facility] Address: [address] [address] Performed By: #### K 1 #### [facility] CLIA [id number] [address] [place] [address] 37967 Lymphocytes/100 WBC (Bld) 27.7 % Normal [facility] Comment on above: Order Comment: Speci men Type: BLOOD SPECIMEN Ordering Facility: [facility] Address: [address] [address] Performed By: #### K 1 #### [facility] CLIA [id number] [address] [place] [address] 23714 MCH (RBC) [Entitic mass] 33.6 pg Normal 26.0-34.0 [facility] Comment on above: Order Comment: Speci men Type: BLOOD SPECIMEN Ordering Facility: [facility] Address: [address] [place] [address] Performed By: #### K 1 #### [facility] CLIA [id number] [address] [place] [address] 15724 MCHC (RBC) [Mass/Vol] 33.6 g/dL Normal 30.5-36.0 [facility] Comment on above: Order Comment: Speci men Type: BLOOD SPECIMEN Ordering Facility: [facility] Address: [address] [address] Performed By: #### K 1 #### [facility] CLIA [id number] [address] [place] [address] 03064 MCV (RBC) [Entitic vol] 100.0 fL Normal 80.0-100.0 [facility] Comment on above: Order Comment: Speci men Type: BLOOD SPECIMEN Ordering Facility: [facility] Address: [address] [place] [address] Performed By: #### K 1 #### [facility] CLIA [id number] [address] [place] [address] 81339 Monocytes (Bld) [#/Vol] 0.68 10*3/uL Normal <0.87 [facility] Comment on above: Order Comment: Speci men Type: BLOOD SPECIMEN Ordering Facility: [facility] Address: [address] [address] Performed By: #### K 1 #### [facility] CLIA [id number] [address] [place] [address] 09413 Monocytes/100 WBC (Bld) 9.1 % Normal [facility] Comment on above: Order Comment: Speci men Type: BLOOD SPECIMEN Ordering Facility: [facility] Address: [address] [address] Performed By: #### K 1 #### [facility] CLIA [id number] [address] [place] [address] 21993 Neutrophils (Bld) [#/Vol] 4.25 10*3/uL Normal 1.45-7.50 [facility] Comment on above: Order Comment: Speci men Type: BLOOD SPECIMEN Ordering Facility: [facility] Address: [address] [address] Performed By: #### K 1 #### [facility] CLIA [id number] [address] [place] [address] 76006 Neutrophils/100 WBC (Bld) 56.5 % Normal [facility] Comment on above: Order Comment: Speci men Type: BLOOD SPECIMEN Ordering Facility: [facility] Address: [address] [address] Performed By: #### K 1 #### [facility] CLIA [id number] [address] [place] [address] 27527 Nucleated RBC (Bld) [#/Vol] 10*3/uL Normal <0.01 [facility] Comment on above: Order Comment: Speci men Type: BLOOD SPECIMEN Ordering Facility: [facility] Address: [address] [place] [address] Performed By: #### K 1 #### [facility] CLIA [id number] [address] [place] [address] 65127 Nucleated RBC/100 WBC (Bld) [Ratio] 0.0 /100 WBC Normal [facility] Comment on above: Order Comment: Speci men Type: BLOOD SPECIMEN Ordering Facility: [facility] Address: [address] [address] Performed By: #### K 1 #### [facility] CLIA [id number] [address] [place] [address] 34029 Platelet mean volume (Bld) [Entitic vol] 10.2 fL Normal 9.0-12.7 [facility] Comment on above: Order Comment: Speci men Type: BLOOD SPECIMEN Ordering Facility: [facility] Address: [address] Performed By: #### K 1 #### [facility] CLIA [id number] [address] [place] [address] 67121 Platelets (Bld) [#/Vol] 264 10*3/uL Normal 150-400 [facility] Comment on above: Order Comment: Speci men Type: BLOOD SPECIMEN Ordering Facility: [facility] Address: [address] Performed By: #### K 1 #### [facility] CLIA [id number] [address] [place] [address] 17896 RBC (Bld) [#/Vol] 3.96 10*6/uL Low 4.20-6.00 [facility] Comment on above: Order Comment: Speci men Type: BLOOD SPECIMEN Ordering Facility: [facility] Address: [address] Performed By: #### K 1 #### [facility] CLIA [id number] [address] [place] [address] 57748 WBC (Bld) [#/Vol] 7.51 10*3/uL Normal 3.70-11.00 [facility] Comment on above: Order Comment: Speci men Type: BLOOD SPECIMEN Ordering Facility: [facility] Address: [address] Performed By: #### K 1 #### [facility] CLIA [id number] [address] [place] [address] 20394 [id number] 05-16-2023 ECG01 Ventricular Rate : 6 1 BPM Atrial Rate : 61 BPM P-R Interval : 174 ms QRS Duration : 86 ms Q-T Interval : 426 ms QTC Calculation(Bazett) : 428 ms Calculated P Chauncey : 77 degrees Calculated R Chauncey : -18 degrees Calculated T Chauncey : 21 degrees NORMAL SINUS RHYTHM NORMAL ECG Confirmed by KAYE HOLLINGSWORTH MD (34) on 05/27/2023 1:02:45 PM NAME : ODALYS CERDA PID : [id number] : 1950 Gender : Male Race : [...] RODDY LOYD Acquired by : Gm taveras [facility] HISTORY PHYSICALon HISTORY PHYSICAL HNO ID: [id number] Author: Stacy Dai APRN.CHEMICAL LABORATORY SCIENTIST Service: ? Author Type: Nurse Practitioner Type: [...] fevers. Neuro: No history of TIA's, stroke, OXYGRAPH OPERATOR tumor, impaired sensorium, hemiplegia, paraplegia or quadraplegia. No neurological symptoms or problems., Postive for Headaches Respiratory: No history of current cough or dyspnea, or pneumonia in the past 6 weeks. No history of respiratory/pulmonary symptoms or problems. + snoring Cardiovascular: No history of HTN requiring medication, no history of angina, CHF, [place], cardiac surgery or stents. Denies rest pain, [...] 426 QTC Calculation (Bazett) 428 Calculated P Chauncey 77 Calculated R Chauncey -18 Calculated T Chauncey 21 Impression NORMAL SINUS RHYTHM NORMAL ECG Chest xray 05/16/20 (more content not included)... Normal [facility] XR CHEST 1V FRONTALon 2022 XR CHEST [...] thoracic spine. IMPRESSION: No acute radiographic abnormality. Spline Rolling Machine Job Setter: PSCB Transcribe Date/Time: May 16 2023 2:51P Dictated by : BINDU NORRIS MD This examination was interpreted and the report reviewed and electronically signed by: BINDU NORRIS MD on May 16 2023 3:03PM EST [id number] Normal [facility] CNOVon 03-23-2023 CNOV Office Visit (OTOLTW ) ODALYS CERDA ([id number]) 1950 M Date Time Provider Department 03/23/23 1:30 PM RODDY LOYD During your visit today, we recorded the [...] Dr. Roddy Smith (more content not included)... Normal [facility] OD[facility] ([id number]) 1950 M Date Time Provider Department 11/22/22 MARINE LEON During your visit today, we recorded the following information about you: Venessa Murphy 11/22/2022 10:37 AM Signed Changed phone apt time from 9:20am to 8:40 am 12/14/2022. Confirmed with patient via phone. Sent via mail. Patient also has access to [employer]. PF Allergies As of Date: 11/22/2022 (No Known Allergies) Date Reviewed: 10/19/2022 Reviewed by: Jane Lemos Ma - Fully Assessed Reason for Visit: Appointment Rescheduled [1024] Problem List As Of Date: 11/22/2022 (None) Encounter Status:Closed by [facility]ENES[facility] Tele[facility] (NuPotentialPR) ODALYS CERDA ([id number]) 1950 M Date Time Provider Department 11/16/22 [...] Encounter Status:Closed by VENESSA MURPHY on [facility]22 [facility] ODALYS CERDA ([id number]) 1950 M Date Time Provider Department 11/16/22 MARINE LEON During your visit today, we recorded the following information about you: Venessa Murphy 11/16/2022 10:57 AM Signed Confirmed rescheduled date and time of apt w/ patient from 11/30/2022 at 9:20am to 12/14/2022 at 9:20am, phone visit w/ Dr. Leon. Dr Leon not available on 11/30/2022. Set out via mail. Patient also has access to [employer]. Allergies As of Date: 11/16/2022 (No Known Allergies) Date Reviewed: 10/19/2022 Reviewed by: Jane Lemos Ma - Fully Assessed Reason for Visit: Appointment Rescheduled [1024] Problem List As Of Date: 11/16/2022 (None) Encounter Status:Closed by VENESSA MURPHY on 11/16/22 [facility] Janett 10-23-2022 CNPN Telephone (THORMN) ODALYS CERDA ([id number]) 1950 M Date Time Provider Department 10/23/22 MARINE LEON During your visit today, we recorded the following information about you: Arely Beriros RN 10/23/2022 8:[address] leon , plan for CT scan of the chest in 6 months to follow lung nodule CT scan of chest April [address] leon or [facility] to review Allergies As of Date: 10/23/2022 (No Known Allergies) Date Reviewed: 10/19/2022 Reviewed by: Jane Lemos Ma - Fully Assessed Reason for Visit: Appointment [186] Orders [681] Cmt: follow up ct scan Primary Visit Diagnosis:Lung nodules [R91.8] Order(s):CT CHEST WO IVCON [[id number]] Order #: [id number] FUTURE Problem List As Of Date: 10/23/2022 (None) Encounter Status:Closed by ARELY BERRIOS on 10/23/22 [facility] CNOVon 10-19-2022 CNOV Office Visit (THORMN ) ODALYS CERDA ([id number]) 1950 M Date Time Provider Department 10/19/22 12:40 PM MARINE LEON During your visit today, we recorded the following information about you: Temperature Pulse Respiration Blood pressure 98.3 degrees 70/minute 12/minute 117/73 Weight Height 89 kg 1.77 m Marine Leon MD, PhD 10/20/2022 9:32 AM Unsigned [address] [place] [address] [place] DEPARTMENT OF THORACIC AND CARDIOVASCULAR SURGERY NAME: ODALYS CERDA CLINIC #: [id number] DATE: 10/19/2022 AGE: 72 PHYSICIAN: Marine Leon [...] patient with my care team here at [facility]. In brief, the patient is a fairly [...] the patient today. Marine Leon M.D., Ph.D. SM:[id number] / Richard Navarro MD 10/19/2022 2:39 PM Addendum [facility] THORACIC SURGERY OUTPATIENT CONSULT NOTE Odalys Cerda [id number] Requesting Provider: Jaron Avalos MD Thoracic Physician: [...] OF SYSTEM (more content not included)... Normal [facility] CT ABD/PEL WO IVCONon 2021 CT ABD/PEL WO IVCON * * *Final Report* * * DATE OF EXAM: Oct 19 2022 11:28AM [facility] 0531 - CT ABD/PEL WO IVCON / [...] chest CT performed will be reported separately. Loss Prevention Analyst (topogram) images: No additional findings. IMPRESSION: 3.2 cm infrarenal abdominal aortic aneurysm. Spline Rolling Machine Job Setter: RACHELLE Transcribe Date/Time: Oct 19 2022 11:42A Dictated by : YOSI ROMANO DO This examination was interpreted and the report reviewed and electronically signed by: JARON HUYNH MD on Oct 19 2022 1:07PM EST [id number] Normal [facility] CT CHEST WO IVCONon 10-19-20 Radiology Result ACTION[address] Abnormal [facility] CT CHEST WO IVCON * * *Final Report* * * DATE OF EXAM: Oct 19 2022 11:28AM [facility] 0541 - CT CHEST WO IVCON / [...] wall is unremarkable. Upper abdomen: Dictated separately. Loss Prevention Analyst (topogram) images: No additional findings. IMPRESSION: The [...] exam could be obtained in 12 months Spline Rolling Machine Job Setter: RACHELLE Transcribe Date/Time: Oct 19 2022 4:07P Dictated by : CY RUTHERFORD MD This examination was interpreted and the report reviewed and electronically signed by: LELO FONTAINE MD on Oct 19 2022 5:22PM EST [id number] ACTIONABLE Invalid Interpretation Code [facility] SIX MINUTE WALKon 10-19-2022 [facility] 09-06-2022 CNPN Telephone (THORMN) ODALYS CERDA ([id number]) 1950 M Date Time Provider Department 09/06/22 MARINE LEON During your visit today, we recorded the following information about you: Porsha Sandoval 09/15/2022 3:54 PM Addendum Received Routed Epic Telephone Encounter from MD Odalys Sloan is being referred to Unspecified Thoracic Surgeon by Jaron Avalos MD [address] [facility] [address] Patient diagnosis/Reason for consult: Zenker's Diverticulum Referral triage process explained: Yes Patient will receive a call from Thoracic NPM after triage review with surgeon to discuss any additional testing and/or consults that will be scheduled. Pt will then receive a call from our scheduling office for scheduling. Please call pt at [phone]. Patient was informed consultation could be at [place] or [facility] [place]: No Patient Registration: Registration complete/updated: Yes Insurance card(s) scanned in [facility] with in the past year: Yes, 09/06/22 Pt's [employer] is inactive. Ok to communicate to pt via [employer] no Medical Records: [facility] in [facility] (internal [facility] records): No Imaging in [facility] (internal [facility] records): No Care Everywhere - [...] 06, 2022 Outside Hospital(s) requested imaging from: [facility]. Imaging will be received via Electronic Transfer Received: Yes Imaging uploaded: Yes Waiting on additional: Yes. Missing (list): CT Additional providers added to Care Teams: Yes Additional Notes/Comments: n/a Enct routed to: Willie Gaston NP for triage Porsha Nick, income tax administrator Arely Berrios RN 09/25/2022 8:49 AM Signed Thoracic Surgery Consultation - review of records for appointment scheduling Received medical records from the office of Jaron Avalos MD [address] [facility] [address] Patient is being referred to Unspecified/First Available [...] was scheduled for the requested consult w/Dr Leon w/a ch/abd/pel ct w/oral contrast and w/pfts per Arely's Tele. Pt was scheduled for 10/19/22, confirmed appt date/time/location w/pt via phone. Appt reminder sent out to pt via [employer]. Referring Provider: JARON AVALOS [[id number]] Allergies As of Date: 09/06/2022 (Not on File) Date Reviewed: Never Reviewed Reason for Visit: Consult [173] Cmt: Zenker Diverticulum Appointment Confirmation [3505] Primary Visit Diagnosis:Zenkers diverticulum [K22.5] Order(s):SPIROMETRY BASELINE ONLY [[id number]] Order #: [id number]: 1 FUTURE LUNG DIFFUSION CAPACITY (DLCO) [[id number]] Order #: [id number]: 1 FUTURE SIX MINUTE WALK [[id number]] Order #: [id number]: [address] CHEST WO IVCON [[id number]] Order #: [id number] FUTURE CT ABD/PEL WO IVCON [[id number]] Order #: [id number] FUTURE [] enteric contrast (will be provided [...] enteric contrast guidelines Cosign accepted by MARINE LEON[[id number]] on 09/25/2022 3:58 PM Encounter Status:Closed by ARELY BERRIOS on 09/25/22 Normal [facility] H PYLORI ANTIBODY IGGon 08-13 H. PYLORI IGG ABS 0.15 Index Value Normal 0.00-0.79 [facility] Comment on above: Result Comment: Nega tive <0.80 Equivocal 0.80 - 0.89 Positive >0.89 Performed By: #### H PYLLC #### [facility] [address] [place] [address] Dr. Dunia Carlisle CBC AUTO DIFFon 08-31-2022 BASO # 0.1 103/ul Normal 0.0-0.1 [facility] Comment on above: Performed By: #### C BC #### [facility] [address] [place] [address] Dr. Dunia Carlisle Basophils/100 WBC (Bld) 1.2 % Normal 0.2-2.0 [facility] Comment on above: Performed By: #### C BC #### [facility] [address] [place] [address] Dr. Dunia Carlisle EO # 0.2 103/ul Normal 0.0-0.7 [facility] Comment on above: Performed By: #### C BC #### [facility] [address] [place] [address] Dr. Dunia Carlisle Eosinophils/100 WBC (Bld) 3.6 % Normal 0.9-7.0 [facility] Comment on above: Performed By: #### C BC #### [facility] [address] [place] [address] Dr. Dunia Carlisle Erythrocyte distribution width (RBC) [Ratio] 12.1 % Normal 11.0-15.0 [facility] Comment on above: Performed By: #### C BC #### [facility] [address] [place] [address] Dr. Dunia Carlisle Hematocrit (Bld) [Volume fraction] 39.3 % Critically low 42.0-54.0 [facility] Comment on above: Performed By: #### C BC #### [facility] [address] [place] [address] Dr. Dunia Carlisle Hemoglobin (Bld) [Mass/Vol] 13.1 g/dL Critically low 14.0-18.0 [facility] Comment on above: Performed By: #### C BC #### [facility] [address] [place] [address] Dr. Dunia Carlisle IG # 0.07 10e3/ul Critically high 0.00-0.03 [facility] Comment on above: Performed By: #### C BC #### [facility] [address] [place] [address] Dr. Dunia Carlisle IG % 1.2 % Critically high 0.0-0.5 [facility] Comment on above: Performed By: #### C BC #### [facility] [address] [place] [address] Dr. Dunia Carlisle LYMPH # 1.8 103/ul Normal 1.2-3.8 [facility] Comment on above: Performed By: #### C BC #### [facility] [address] [place] [address] Dr. Dunia Carlisle Lymphocytes/100 WBC (Bld) 29.1 % Normal 20.5-60.0 [facility] Comment on above: Performed By: #### C BC #### [facility] [address] [place] [address] Dr. Dunia Carlisle MANUAL DIFF REQ NO Normal [facility] Comment on above: Performed By: #### C BC #### [facility] [address] [place] [address] Dr. Dunia Carlisle MCH (RBC) [Entitic mass] 33.2 pg Normal 25.9-34.0 [facility] Comment on above: Performed By: #### C BC #### [facility] [address] [place] [address] Dr. Dunia Carlisle MCHC (RBC) [Mass/Vol] 33.3 g/dL Normal 29.9-35.2 [facility] Comment on above: Performed By: #### C BC #### [facility] [id number] Dunia Carlisle MCV (RBC) [Entitic vol] 99.5 fL Critically high 80.0-94.0 [facility] Comment on above: Performed By: #### C BC #### [facility] [address] [address] [address] Dunia Carlisle MONO # 0.5 103/ul Normal 0.3-0.8 [facility] Comment on above: Performed By: #### C BC #### [facility] [address] [address] [address] Dunia Carlisle Monocytes/100 WBC (Bld) 8.9 % Normal 1.7-12.0 [facility] Comment on above: Performed By: #### C BC #### [facility] [address] [address] [address] Dunia Carlisle NEUT # 3.4 103/ul Normal 1.4-6.5 [facility] Comment on above: Performed By: #### C BC #### [facility] [address] [address] [address] Dunia Carlisle Neutrophils/100 WBC (Bld) 56.0 % Normal 43.0-75.0 [facility] Comment on above: Performed By: #### C BC #### [facility] [address] [address] [address] Dunia Carlisle Platelet mean volume (Bld) [Entitic vol] 9.4 fL Critically low 9.5-13.5 [facility] Comment on above: Performed By: #### C BC #### [facility] [address] [address] [address] Dunia Carlilse PLT 249 103/ul Normal 150-450 [facility] Comment on above: Performed By: #### C BC #### [facility] [id number] Dunia Carlisle RBC 3.95 106/ul Critically low 4.70-6.10 [facility] Comment on above: Performed By: #### C BC #### [facility] [address] [address] [address] Dunia Carlisle WBC 6.0 103/ul Normal 4.0-11.0 [facility] Comment on above: Performed By: #### C BC #### [facility] [address] [address] [address] Dunia Carlisle GLYCOHEMOGLOBIN A1Con 2021 ADA RECOMMENDATION SEE BELOW Normal [facility] Comment on above: Result Comment: ADA RECOMMENDED LIMIT 4.0 - 6.0 ADA THERAPEUTIC TARGET < 7.0 ACTION SUGGESTED > 7.0 Performed By: #### A 1C #### [facility] [address] [address] [address] Dunia Carlisle Glucose [Mass/Vol] 123 mg/dL Normal [facility] Comment on above: Performed By: #### A 1C #### [facility] [address] [id number] Dr. Dunia Carlisle HbA1c (Bld) [Mass fraction] 5.9 % Normal 4.5-6.2 [facility] Comment on above: Performed By: #### A 1C #### [facility] [address] [address] [address] Dunia Carlisle LIPID PROFILEon 08-31-2022 CHOL-HDL RATIO NORM SEE BELOW Normal [facility] Comment on above: Result Comment: 3.3 - 4.4 LOW RISK 4.4 - 7.1 AVERAGE RISK 7.1 - 11.0 MODERATE RISK >11.0 HIGH RISK Performed By: #### L IPID, CMP #### [facility] [address] [address] [address] Dunia Carlisle Cholesterol [Mass/Vol] 179 mg/dL Normal <=200 [facility] Comment on above: Performed By: #### L IPID, CMP #### [facility] [address] [address] [address] Dunia Carlisle Cholesterol in HDL [Mass/Vol] 56 mg/dL Normal 40-60 [facility] Comment on above: Performed By: #### L IPID, CMP #### [facility] [address] [address] [address] Dunia Carlisle Cholesterol in LDL [Mass/Vol] 110.6 mg/dL Normal [facility] Comment on above: Performed By: #### L IPID, CMP #### [facility] [address] [address] [address] Dunia Carlisle Cholesterol.total/Ch olesterol in HDL [Mass ratio] 3.2 {ratio} Normal [facility] Comment on above: Performed By: #### L IPID, CMP #### [facility] [address] [address] [address] Dunia Carlisle HDL NORMAL > or = 60 mg/dl - LO W CARDIOVASCULAR RISK <40 mg/dl - HIGH CARDIOVASCULAR RISK Normal [facility] Comment on above: Performed By: #### L IPID, CMP #### [facility] [address] [address] [address] Dunia Carlisle LDL CALC NORMAL SEE BELOW Normal [facility] Comment on above: Result Comment: <100 mg/dl OPTIMAL 100 - 129 mg/dl NEAR OR ABOVE OPTIMAL 130 - 159 mg/dl BORDERLINE HIGH 160 - 189 mg/dl HIGH >190 mg/dl VERY HIGH Performed By: #### L IPID, CMP #### [facility] [address] [address] [address] Dunia Carlisle Triglyceride [Mass/Vol] 62 mg/dL Normal <=150 [facility] Comment on above: Performed By: #### L IPID, CMP #### [facility] [address] [address] [address] Dunia Carlisle VLDL CALC 12.4 mg/dL Normal [facility] Comment on above: Performed By: #### L IPID, CMP #### [facility] [address] [address] [address] Dunia Carlisle PROF 14(COMP METB)on 022 Albumin [Mass/Vol] 3.8 g/dL Normal 3.4-5.0 [facility] Comment on above: Performed By: #### L IPID, CMP #### [facility] [address] [address] [address] Dunia Carlisle Albumin/Globulin [Mass ratio] 1.0 {ratio} Normal [facility] Comment on above: Performed By: #### L IPID, CMP #### [facility] [address] [address] [address] Dunia Carlisle ALP [Catalytic activity/Vol] 104 U/L Normal 46-116 [facility] Comment on above: Performed By: #### L IPID, CMP #### [facility] [address] [address] [address] Dunia Carlisle ALT [Catalytic activity/Vol] 14 U/L Critically low 16-63 [facility] Comment on above: Performed By: #### L IPID, CMP #### [facility] [address] [address] [address] Dunia Carlisle Anion gap [Moles/Vol] 11.0 mmol/L Normal [facility] Comment on above: Performed By: #### L IPID, CMP #### [facility] [address] [address] [address] Dunia Carlisle AST [Catalytic activity/Vol] 16 U/L Normal 15-37 [facility] Comment on above: Performed By: #### L IPID, CMP #### [facility] [address] [address] [address] Dunia Carlisle Bilirubin [Mass/Vol] 0.6 mg/dL Normal 0.2-1.0 [facility] Comment on above: Performed By: #### L IPID, CMP #### [facility] [address] [address] [address] Dunia Carlisle Calcium [Mass/Vol] 9.1 mg/dL Normal 8.5-10.1 [facility] Comment on above: Performed By: #### L IPID, CMP #### [facility] [address] [address] [address] Dunia Carlisle Chloride [Moles/Vol] 105 mmol/L Normal 98-107 [facility] Comment on above: Performed By: #### L IPID, CMP #### [facility] [address] [address] [address] Dunia Carlisle CO2 [Moles/Vol] 28.7 mmol/L Normal 21.0-32.0 [facility] Comment on above: Performed By: #### L IPID, CMP #### [facility] [address] [address] [address] Dunia Carlisle Creatinine [Mass/Vol] 1.41 mg/dL Critically high 0.70-1.30 [facility] Comment on above: Performed By: #### L IPID, CMP #### [facility] [address] [address] [address] Dunia Carlisle EGFR-AF INDIAN =60 Normal >=60 [facility] Comment on above: Performed By: #### L IPID, CMP #### [facility] [address] [address] [address] Dunia Carlisle EGFR-NON AF INDIAN 49 mL/min/1.73m2 Critically low >=60 [facility] Comment on above: Performed By: #### L IPID, CMP #### [facility] [address] [address] [address] Dunia Carlisle Globulin (S) [Mass/Vol] 3.9 g/dL Normal [facility] Comment on above: Performed By: #### L IPID, CMP #### [facility] [address] [place] [address] Dr. Dunia Carlisle Glucose [Mass/Vol] 93 mg/dL Normal 74-106 [facility] Comment on above: Performed By: #### L IPID, CMP #### [facility] [address] [address] [address] Dunia Carlisle Potassium [Moles/Vol] 4.7 mmol/L Normal 3.5-5.1 [facility] Comment on above: Performed By: #### L IPID, CMP #### [facility] [address] [address] [address] Dunia Carlisle Protein [Mass/Vol] 7.7 g/dL Normal 6.4-8.2 [facility] Comment on above: Performed By: #### L IPID, CMP #### [facility] [address] [address] [address] Dunai Carlisle Sodium [Moles/Vol] 140 mmol/L Normal 136-145 [facility] Comment on above: Performed By: #### L IPID, CMP #### [facility] [address] [address] [address] Dunia Carlisle Urea nitrogen [Mass/Vol] 15.0 mg/dL Normal 7.0-18.0 [facility] Comment on above: Performed By: #### L IPID, CMP #### [facility] [address] [address] [address] Dunia Carlisle Urea nitrogen/Creatinine [Mass ratio] 10.6 mg/mg Normal [facility] Comment on above: Performed By: #### L IPID, CMP #### [facility] [address] [place], [place] [id number] Dr. Dunia Carlisle Vital Signs Date Time Vital Sign Value Performing Clinician Faci lity 05-16-2023 10:07-0400 Body height 180.3 cm Pacc 2 Work Phone: [facility] 05-16-2023 10:07-0400 Body temperature 97.5 [degF] Pacc 2 Work Phone: [facility] 05-16-2023 10:07-0400 Body weight 88.91 kg Pacc 2 Work Phone: [facility] 05-16-2023 10:07-0400 Diastolic blood pressure 72 mm[Hg] Pacc 2 Work Phone: [facility] 05-16-2023 10:07-0400 Heart rate 60 /min Pacc 2 Work Phone: [facility] 05-16-2023 10:07-0400 Respiratory rate 16 /min Pacc 2 Work Phone: [facility] 05-16-2023 10:07-0400 SaO2% (BldA) [Mass fraction] 99 % Pacc 2 Work Phone: [facility] 05-16-2023 10:07-0400 Systolic blood pressure 131 mm[Hg] Pacc 2 Work Phone: [facility] 10-19-2022 12:37-0500 Body height 177 cm Pulm J-2 [facility] 10-19-2022 12:37-0500 Body temperature 98.29 [degF] Marine Leon MD, PhD Work Phone: [facility] 10-19-2022 12:37-0500 Body weight 89.04 kg Marine Leon MD, PhD Work Phone: [facility] 10-19-2022 12:37-0500 Diastolic blood pressure 73 mm[Hg] Marine Leon MD, PhD Work Phone: [facility] 10-19-2022 12:37-0500 Heart rate 70 /min Marine Leon MD, PhD Work Phone: [facility] 10-19-2022 12:37-0500 Respiratory rate 12 /min Marine Leon MD, PhD Work Phone: [facility] 10-19-2022 12:37-0500 SaO2% (BldA) [Mass fraction] 98 % Marine Leon MD, PhD Work Phone: [facility] 10-19-2022 12:37-0500 Systolic blood pressure 117 mm[Hg] Marine Leon MD, PhD Work Phone: [facility] 10-19-2022 09:00-0500 Body weight 87.59 kg Pul J-2 [facility] Encounters Encounter Date Encounter Type Care Provider Facility Start: 12-26-2023 ambulatory Shaji SALAS Facility :[facility] Start: 06-11-2023 End: 06-11-2023 ambulatory RODDY LOYD Facility:[facility] Start: 06-11-2023 End: 06-11-2023 Patient encounter procedure Roddy Loyd MD Work Phone: Otolaryngology Comment on above: Zenker's diverticulu m (Primary Dx) Start: 05-24-2023 Telephone encounter Roddy teixeira MD Work Phone: Otolaryngology Comment on above: Medication Problem ( Medication can't be refilled) Start: 05-23-2023 End: 05-23-2023 ambulatory JARON AVALOS Facility:[facility] Start: 05-22-2023 End: 05-23-2023 ambulatory RODDY LOYD Facility:[facility] Start: 05-17-2023 End: 05-17-2023 ambulatory Stacy Dai CHEMICAL LABORATORY SCIENTIST Work Phone: Pre Anesthesia Comment on above: Repeat lab work Start: 05-17-2023 E-mail encounter fro m caregiver Stacy Suhas MEDICAL ADVISOR.CHEMICAL LABORATORY SCIENTIST Work Phone: [facility] Start: 05-17-2023 Telephone encounter Stacy Dietrich isaac MEDICAL ADVISOR.CHEMICAL LABORATORY SCIENTIST Work Phone: Pre Anesthesia Comment on above: PreOp Call (Pre-op l abs ) Start: 05-16-2023 End: 05-16-2023 ambulatory JARON AVALOS Facility:[facility] Start: 05-16-2023 End: 05-17-2023 ambulatory RODDY LOYD Facility:[facility] Start: 05-16-2023 Encounter for other preprocedural examination MARINE LEON [facility] Start: 05-16-2023 End: 05-16-2023 Subsequent hospital visit by physician Xr [facility] Comment on above: 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] Start: 05-16-2023 End: 05-16-2023 Admission to establishment [facility] Work Phone: [facility] Start: 05-16-2023 End: 05-16-2023 ambulatory [facility] Work Phone: Pre Anesthesia Comment on above: Pre-op evaluation (P rimary Dx); Zenker diverticulum Start: 05-16-2023 End: 05-16-2023 Preprocedural examination done [facility] Work Phone: Pre Anesthesia Start: 04-19-2023 End: 04-19-2023 ambulatory Marine Leon MD, PhD Work Phone: [facility] Comment on above: DIVERTICULUM - ESOPH BARBARA (Primary Dx) Start: 04-19-2023 End: 04-19-2023 Telemedicine consultation with patient Marine Leon MD, PhD Work Phone: [facility] Start: 03-23-2023 End: 03-23-2023 ambulatory RODDY RACH Facility:[facility] Start: 12-14-2022 End: 12-14-2022 ambulatory SUDMARIBETH MELA Facility:[facility] Start: 12-14-2022 End: 12-14-2022 ambulatory Marine Leon MD, PhD Work Phone: [facility] Comment on above: DIVERTICULUM - ESOPH BARBARA (Primary Dx); Pharyngoesophageal dysphagia Start: 12-14-2022 End: 12-14-2022 Telemedicine consultation with patient Marine Leon MD, PhD Work Phone: [facility] Start: 11-22-2022 Telephone encounter Marine ledbetter MD, PhD Work Phone: [facility] Comment on above: Appointment Reschedu led Start: 11-16-2022 Telephone encounter Marine ledbetter MD, PhD Work Phone: [facility] Comment on above: Appointment Reschedu led Start: 10-24-2022 ambulatory Soniya Baez APRN.CHEMICAL LABORATORY SCIENTIST Work Phone: Pulmonary Medicine Start: 10-23-2022 Telephone encounter Marine ledbetter MD, PhD Work Phone: [facility] Comment on above: Appointment; Orders (follow up ct scan ) Start: 10-19-2022 End: 10-19-2022 ambulatory SUDISH MELA Facility:[facility] Start: 10-19-2022 End: 10-19-2022 Patient encounter procedure Marine Leon MD, PhD Work Phone: [facility] Comment on above: DIVERTICULUM - ESOPH BARBARA (Primary Dx) Start: 10-19-2022 End: 10-19-2022 ambulatory SUDMARIBETH MELA Facility:[facility] Start: 10-19-2022 End: 10-19-2022 ambulatory SUDISH MELA Facility:[facility] Start: 10-19-2022 End: 10-19-2022 Subsequent hospital visit by physician Ct 2 Main Qb (I-Stat) Radiology Comment on above: Zendenisses diverticulum [K22.5] Start: 10-19-2022 End: 10-19-2022 ambulatory MARINE LEON Pulmonary Medicine Comment on above: Spirometry Start: 10-19-2022 End: 10-19-2022 Patient encounter procedure Pulm Fct Lab J-2 [facility] Start: 09-06-2022 Telephone encounter Marine ledbetter MD, PhD Work Phone: [facility] Comment on above: Consult (Neno Divdenis rticulum ) Start: 08-31-2022 End: 09-01-[address] JARON AVALOS Facility: Start: 05-16-2018 End: 05-17-2018 Ambulatory DEFAULT PHYSICIAN Facility:[facility] Procedures Date Procedure Procedure Detail Performing Clinician [...] Comment on above: Performed By: #### P [facility] #### [facility] [address] [place] [address] Dr. Dunia Carlisle Plan of Treatment Date Care Activity Detail Author Start: 03-04-2028 Urine microalbumin profile DTAP,TDAP,TD (3 - Td or Tdap) [facility] Start: 05-23-2026 DIABETES SCREEN DIABETES SCREEN [facility] Start: 05-16-2026 DIABETES SCREEN DIABETES SCREEN [facility] Start: 05-23-2024 HEMOGLOBIN/HEMATOCRIT HEMOGLOBIN/HEM ATOCRIT [facility] Start: 05-23-2024 SERUM CREATININE SERUM CREATININE [facility] Start: 05-16-2024 HEMOGLOBIN/HEMATOCRIT HEMOGLOBIN/HEM ATOCRIT [facility] Start: 05-16-2024 SERUM CREATININE SERUM CREATININE Cl [facility] Start: 07-13-2023 Influenza vaccination INFLUENZA (#1) [facility] Start: 05-17-2023 End: 07-17-2023 POTASSIUM BLD POTASSIUM BLD Lab Routine Hyperkalemia Expected: 05/17/2023, Expires: 07/17/2023 [facility] Work Phone: Comment on above: Expected: 05/17/2023 , Expires: 07/17/2023 Start: 12-11-2022 COVID-19 VACCINE (6 - Moderna series) COVID-19 VACCINE (6 - Moderna series) [facility] Start: 11-12-2022 ADVANCE DIRECTIVE DISCUSSION ADVANCE DIRECTIVE DISCUSSION [facility] Start: 11-12-2022 DEPRESSION ASSESSMENT DEPRESSION ASS ESSMENT [facility] Start: 11-12-2021 ADVANCE DIRECTIVE DISCUSSION ADVANCE DIRECTIVE DISCUSSION [facility] Start: 11-12-2021 DEPRESSION ASSESSMENT DEPRESSION ASS ESSMENT [facility] Start: 1995 COLOGUARD (FIT-DNA) COLOGUARD (FIT-D NA) [facility] Start: 1995 Colonoscopy COLONOSCOPY [facility] Start: 1995 COLORECTAL CANCER SCREENING COLORECTAL CANCER SCREENING [facility] Start: [address] COLONOGRAPHY [facility] Start: 1995 DIABETES SCREEN DIABETES SCREEN [facility] Start: 1995 FECAL OCCULT BLOOD FECAL OCCULT BLOO D [facility] Start: [address] [facility] Start: 1985 LIPID SCREEN LIPID SCREEN [facility] Start: 02-09-1968 ANNUAL PCP TEAM PEARL RESTORER IONA DISEASE VISIT ANNUAL PCP TEAM CHRONIC DISEASE VISIT [facility] Start: 02-09-1968 HEPATITIS C SCREENING HEPATITIS C SC DARCI [facility] Start: 1950 ABDOMINAL AORTIC ANEURYSM SCREENING ABDOMINAL AORTIC ANEURYSM SCREENING [facility] End: 10-25-2023 Ct abdomen & pelvis w/o contrast material CT ABD/PEL WO IVCON Radiology Routine Zenkers diverticulum 1 Occurrences starting 09/25/2022 until 10/25/2023 [facility] Work Phone: Comment on above: 1 Occurrences starti ng 09/25/2022 until 10/25/2023 End: 10-25-2023 Ct thorax w/o contrast material CT CHEST WO IVCON Radiology Routine Zenkers diverticulum 1 Occurrences starting 09/25/2022 until 10/25/2023 [facility] Work Phone: Comment on above: 1 Occurrences starti ng 09/25/2022 until 10/25/2023 End: 11-22-2023 Ct thorax w/o contrast material CT CHEST WO IVCON Radiology Routine Lung nodules 1 Occurrences starting 10/23/2022 until 11/22/2023 [facility] Work Phone: Comment on above: 1 Occurrences starti ng 10/23/2022 until 11/22/2023 End: 10-25-2023 LUNG DIFFUSION CAPACITY (DLCO) LUNG DIFFUSION CAPACITY (DLCO) PFT Routine Zenkers diverticulum 1 Occurrences starting 09/25/2022 until 10/25/2023 [facility] Work Phone: Comment on above: 1 Occurrences starti ng 09/25/2022 until 10/25/2023 LUNG DIFFUSION CAPAC ITY (DLCO) LUNG DIFFUSION CAPACITY (DLCO) PFT Routine Zenkers diverticulum 10/19/2022 9:29 AM [employer] [facility] Work Phone: End: 10-25-2023 SIX MINUTE WALK SIX MINUTE WALK PFT Routine Zenkers diverticulum 1 Occurrences starting 09/25/2022 until 10/25/2023 [facility] Work Phone: Comment on above: 1 Occurrences starti ng 09/25/2022 until 10/25/2023 End: 10-25-2023 SPIROMETRY BASELINE ONLY SPIROMETRY BASELINE ONLY PFT Routine Zenkers diverticulum 1 Occurrences starting 09/25/2022 until 10/25/2023 [facility] Work Phone: Comment on above: 1 Occurrences starti ng 09/25/2022 until 10/25/2023 SPIROMETRY BASELINE ONLY SPIROME TRY BASELINE ONLY PFT Routine Zenkers diverticulum 10/19/2022 9:29 AM [employer] [facility] Work Phone: [facility] Immunizations Immunization Date Immunization Notes Care Provider Hubert daly 08-24-2022 influenza, high-dose , quadrivalent vaccine (FLUZONE HIGH DOSE QUADRIVALENT) [address] 08-18-2021 influenza (aIIV4) va ccine, age 65+ yr, quadrivalent, PF (FLUAD QUADRIVALENT) [address] 08-06-2020 pneumococcal conjuga te vaccine, [address] 08-02-2020 influenza virus vacc ine, unspecified formulation [address] 04-22-2020 zoster vaccine recombinant [address] 12-22-2019 zoster vaccine recombinant [address] 08-27-2018 influenza, high dose seasonal, preservative-free [address] 08-27-2018 pneumococcal polysac charide vaccine, [address] 03-04-2018 tetanus toxoid, redu alex diphtheria toxoid, and acellular pertussis vaccine, adsorbed [address] 09-17-2017 influenza, injectabl e, quadrivalent, preservative free [address] 08-20-2017 influenza, high dose seasonal, preservative-free [address] 11-14-2016 influenza, injectabl e, quadrivalent, preservative free [address] 11-14-2016 pneumococcal conjuga te vaccine, [address] 11-15-2015 pneumococcal polysac charide vaccine, [address] 10-20-2015 influenza, seasonal, injectable [address] 11-03-2014 pneumococcal polysac charide vaccine, [address] 09-29-2014 influenza virus vacc ine, whole virus [address] 04-23-2013 tetanus toxoid, redu alex diphtheria toxoid, and acellular pertussis vaccine, adsorbed [address] 09-18-2005 tetanus and diphther ia toxoids, adsorbed, preservative free, for adult use (5 Lf of tetanus toxoid and 2 Lf of diphtheria toxoid) [address] Payers Date Payer Category Payer Medicare [employer] MEDICARE [employer] MEDICARE PPO [id number] 2018-Present [phone] [address] [address] [place] [address] PPO [id number] 1959 Medicare [id number] 1950 Unknown [id number] 1950 Unknown [id number] Unknown Social History Date Type Detail Facility Tobacco smoking stat [facility] Tobacco smoking consumption unknown [facility] Start: 1950 Sex Assigned At Not on file C [facility] Start: 10-19-2022 End: 05-16-2023 Tobacco smoking status NHIS Ex-smoker [facility] End: 11-12-1969 History of tobacco use Current smoker [facility] End: 11-12-1969 History of tobacco use Cigarette Smoker [facility] Start: 10-19-2022 End: 05-16-2023 Tobacco use and exposure Smokeless tobacco non-user [facility] Start: 10-19-2022 End: 05-16-2023 Alcohol intake Ex-drinker (finding) [facility] Start: 1950 Sex Assigned At Male [facility] Start: 03-23-2023 End: 05-16-2023 Cigarettes smoked current (pack per day) - Reported 5 [facility] Start: 03-23-2023 End: 05-16-2023 Tobacco use panel [facility] National Score (1-10 0), lower number is lower risk 76 [facility] Start: 09-29-2022 Gender identity Identifies as male gender (finding) [facility] Start: 09-29-2022 Sexual orientation Heterosexual (fin bharat) [facility] Clinical Notes 09-25-2022 to 06-11-2023 Roddy Lody MD - 06/11/2023 11:30 AM Amy Rose RN - 06/11/2023 10:57 AM EDTTelephone Encounter - Amy Rios RN - 05/25/2023 9:46 AM Manda Perdomo RT(R) - 05/16/2023 11:45 AM EDT Note Date & Type Note Facility 06-11-2023 Note HNO ID: [id number] Author: Roddy Loyd MD Service: ? Author [...] Take 1 tablet by mouth once daily. Eylorax-Frttkxyqpnsos-Pbpbzyol (EXCEDRIN MIGRAINE) 250-250-65 mg per tablet Take [...] lymphadenopathy. ROM was intact Roddy Loyd MD [facility] 06-11-2023 History of Presen t illness Narrative [...] Take 1 tablet by mouth once daily. Tqusmpi-Pwqnsmzncglgz-Uzshqnsz (EXCEDRIN MIGRAINE) 250-250-65 mg per tablet Take [...] Roddy Loyd MD documented in this encounter [facility] 06-11-2023 Nurse Note Tobacco Use: 5 packs/day Quit 11/12/1969. Types: Cigarettes Was smoking cessation packet given? N/A - Patient is a non-smoker or quit >1 year ago. Was a referral initiated?N/A Patient is a non-smoker documented in this encounter [facility] 05-25-2023 Miscellaneous Notes Called [facility] in [place]- they do not have this medication in stock. [facility] [place] Called pt. And he said it is ok to send there, since will be there this afternoon. Mr. Cerda called and said that the oxyCodone 5 mg /5ml can't be filled due to supply shortage with outside company. The pharmacy he was using was [facility] in [facility]. He was wondering if a new prescription be filled at the [facility] in [facility]. The Pharmacy phone number is . documented in this encounter [facility] 05-23-2023 Note HNO ID: [id number] Author: Keri Mcgrath RT(R) Service: Radiology Author Type: Technologist Type: Progress [...] PERIPHERAL IV DATA: Not applicable SIGNED BY: Keri Mcgrath RT(R) May 23, 2023 9:43 AM [facility] 05-23-2023 Note HNO ID: [id number] Author: Philip Thomas MD Service: Otolaryngology Author [...] Head and Neck Surgery PGY 5 Pager: [phone] Service pager: [phone] (page after 5pm and on weekends) [facility] 05-22-2023 Note HNO ID: [id number] Author: Donita Torres APRN.CRNA Service: ? Author Type: Nurse Patient Accounts Coordinator Type: Anesthesia Procedure Notes Filed: 05/22/2023 2:51 PM Note Text: ANESTHESIOLOGY PROCEDURE NOTE Airway General Information Procedure Start Time/Medication Administration: 05/22/2023 2:36 PM Patient location during procedure: OR Timeout Performed Pre-procedure: timeout performed Consent Obtained: Yes Patient identity confirmed: arm band, care production team advisor and patient Staffing COMPLETION ENGINEER: Donita Torres APRN.COMPLETION ENGINEER Performed by: ZAINA Indications and Patient Condition Indications for airway management: anesthesia and airway protection Preoxygenated: yes anesthesia circuit Method: modified rapid sequence Cricoid Pressure: No Final Airway Details Final airway type: endotracheal airway Final Endotracheal Airway: microlaryngeal (6.0) Cuffed: yes Successful intubation technique: video laryngoscopy Devices used: Tango Card Endotracheal tube insertion site: oral Blade size: #4 Measured from: lips Measurement (cm): 23 Placement verified by: chest auscultation and capnometry Cormack-Lehane Classification: grade I - full view of glottis Number of attempts at approach: 1 Airway not difficult SIGNATURE: Donita Torres APRN.COMPLETION ENGINEER PATIENT NAME: Odalys Cerda DATE: May 22, 2023 TIME: 2:50 PM CSN: [id number] [facility] 05-17-2023 Miscellaneous Notes my chart message sent documented in this encounter [facility] 05-17-2023 Miscellaneous Notes Please contact patient and advise potassium level is elevated on pre-op labs -5.4 Repeat potassium ordered Advise patient to increase water intake, avoid high potassium foods and have potassium repeated in 2-3 days prior to upcoming surgery Thank you Stacy Dai APRN.CNP PACC documented in this encounter [facility] 05-16-2023 Note HNO ID: [id number] Author: CLARISSE Fried) Service: ? Author Type: Technologist Type: Progress [...] IV DATA: Not applicable SIGNED BY: RT Corky(Jennifer) May 16, 2023 11:24 AM [facility] 05-16-2023 History of Presen t illness Narrative [...] IV DATA: Not applicable SIGNED BY: RT Corky(Jennifer) May 16, 2023 11:24 AM documented in this encounter [facility] 05-16-2023 History and physical note HISTORY [...] 1 tablet by mouth once daily. Yes Xfgpdfz-Zsrvymbxwxwha-Qbmpduve (EXCEDRIN MIGRAINE) 250-250-65 mg per tablet Take 1 tablet by mouth as needed. Yes acetaminophen (TYLENOL ORAL) Take by mouth as needed. Yes No medication comments found. CURRENT ALLERGIES: ALLERGIES No Known Allergies COVID VACCINATION STATUS: Fully vaccinated REVIEW OF SYSTEMS: PAIN ASSESSMENT: General: No weight loss, malaise or fevers. Neuro: No history of TIA's, stroke, OXYGRAPH OPERATOR tumor, impaired sensorium, hemiplegia, paraplegia or quadraplegia. No neurological symptoms or problems., Postive for Headaches Respiratory: No history of current cough or dyspnea, or pneumonia in the past 6 weeks. No history of respiratory/pulmonary symptoms or problems. + snoring Cardiovascular: No history of HTN requiring medication, no history of angina, CHF, GA, cardiac surgery or stents. Denies rest pain, [...] On 10-19-2022 15:18:48 EST by Prudencio Bella Assessment/Plan Neno diverticulum Assessment: See HPI METS: Climb a [...] 16, 2023 TIME: documented in this encounter [facility] 05-16-2023 Instructions Stacy Dai APRN.CNP - 05/16/2023 10:12 AM EDT PATIENT PREOPERATIVE INSTRUCTIONS Roddy Loyd MD has scheduled you for your procedure at this surgery center: [facility] [place] Scheduling Office: [phone] --[address] [place] [address]. Please read below carefully for your personalized [...] Procedures: - YOU MUST HAVE A RESPONSIBLE GENERAL MAINTENANCE ENGINEER TAKE YOU HOME. A CHIEF CLINICAL OFFICER OR CLIENT CONSULTANT CANNOT BE MADE A RESPONSIBLE GENERAL MAINTENANCE ENGINEER. - We recommend that a responsible person [...] call the Sunday before. Your surgeon s chief crew scheduler will tell you what time to call the office. - If you have not reached the departmental chief crew scheduler by 5 P.M., call [phone] after 5 P.M. the day before your surgery. Please be aware that emergency situations arise, which may delay or change your surgical time. If this happens, we will notify you as soon as possible and regret any inconvenience. If you already have an Advance Directive, please fax a copy to [phone] or email to for it to be [...] chart that day. documented in this encounter [facility] 04-19-2023 Note HNO ID: [id number] Author: Marine Leon MD, PhD Service: ? [...] visit. Either the patient or their legal patient support representative has been informed of the risks [...] 1 tablet by mouth once daily. - Gzzoalo-Jctsmrrzcfdni-Fqhmgbap (EXCEDRIN MIGRAINE) 250-250-65 mg per tablet Take [...] which included preparing to see the patient, mqlq-rf-amxa patient care, completing clinical documentation, counseling and educating the patient/family/caregiver, and care coordination (not separately reported) Marine Leon M.D., Ph.D., FACS, FCCP I have read and reviewed the documentation and agree. I wish to add the following findings which have been dictated and will be communicated back to the requesting physician. Marine Leon MD, PhD [facility] 04-19-2023 History of Presen t illness Narrative VIRTUAL VISIT PROGRESS NOTE This is a virtual visit using Audio only. It required patient-provider interaction for the medical decision making as documented below. I have communicated my name and active licensure. The patient's identity and physical location were verified at the time of this visit. Either the patient or their legal patient support representative has been informed of the risks [...] Take 1 tablet by mouth once daily. Zvcmfjz-Zbotpbtklkpjg-Lcoezsvc (EXCEDRIN MIGRAINE) 250-250-65 mg per tablet Take [...] which included preparing to see the patient, jjrs-ir-yxsf patient care, completing clinical documentation, counseling and educating the patient/family/caregiver, and care coordination (not separately reported) Marine Leon M.D., Ph.D., FACS, FCCP I have read and reviewed the documentation and agree. I wish to add the following findings which have been dictated and will be communicated back to the requesting physician. Marine Leon MD, PhD documented in this encounter [facility] 03-23-2023 Note HNO ID: [id number] Author: Roddy Loyd MD Service: ? Author [...] Take 1 tablet by mouth once daily. Ldskctp-Aldltisycygqn-Xyihnbcp (EXCEDRIN MIGRAINE) 250-250-65 mg per tablet Take [...] ROS, and Pas (more content not included)... [facility] 12-14-2022 Note HNO ID: [id number] Author: Marine Leon MD, PhD Service: ? [...] performed ASSESSMENT: No diagnosis found. PLAN: See Rach There are no Patient Instructions on file [...] the requesting physician. Marine Leon MD, PhD [facility] 12-14-2022 History of Presen t illness Narrative [...] performed ASSESSMENT: No diagnosis found. PLAN: See Rach There are no Patient Instructions on file [...] Leon MD, PhD documented in this encounter [facility] 11-22-2022 Miscellaneous Notes Changed phone apt time from 9:20am to 8:40 am 12/14/2022. Confirmed with patient via phone. Sent via mail. Patient also has access to [employer]. PF documented in this encounter [facility] 11-16-2022 Miscellaneous Notes Left message with patient to reschedule for a different day and/or time (phone visit) w/ Dr. Leon. PF documented in this encounter [facility] 11-16-2022 Miscellaneous Notes Confirmed rescheduled date and time of apt w/ patient from 11/30/2022 at 9:20am to 12/14/2022 at 9:20am, phone visit w/ Dr. Leon. Dr Leon not available on 11/30/2022. Set out via mail. Patient also has access to [employer]. documented in this encounter [facility] 10-24-2022 Note HNO ID: [id number] Author: Soniya Baez APRN.CHEMICAL LABORATORY SCIENTIST Service: ? Author Type: Nurse Practitioner Type: Progress Notes Filed: 10/24/2022 12:16 PM Note Text: Incidental Lung Nodule Enrollment Call attempt: 1st Attempt Call status: Complete Enrolled in Lung Nodule program: No Lung Nodule outreach: No outreach - TSx Lung Nodule Program Location: [facility] [facility] Chest ordered by Dr. Leon. Soniya Baez APRN.CHEMICAL LABORATORY SCIENTIST [facility] 10-24-2022 Note Patient Outreach (PU LMMN) ODALYS CERDA ([id number]) 1950 M Date Time Provider Department 10/24/22 SONIYA BAEZ During your visit today, we recorded the following information about you: Soniya Baez APRN.CNP 10/24/2022 12:16 PM Signed Incidental Lung Nodule Enrollment Call attempt: 1st Attempt Call status: Complete Enrolled in Lung Nodule program: No Lung Nodule outreach: No outreach - TSx Lung Nodule Program Location: [facility] [facility] Chest ordered by Dr. Leon. Soniya Baez APRN.CNP Allergies As of Date: 10/24/2022 (No Known Allergies) Date Reviewed: 10/19/2022 Reviewed by: Jane Lemos Ma - Fully Assessed Primary Visit Diagnosis:Lung nodules [R91.8] Problem List As Of Date: 10/24/2022 (None) Encounter Status:Closed by SONIYA BAEZ on 10/24/22 [facility] 10-24-2022 History of Presen t illness Narrative Incidental Lung Nodule Enrollment Call attempt: 1st Attempt Call status: Complete Enrolled in Lung Nodule program: No Lung Nodule outreach: No outreach - TSx Lung Nodule Program Location: [facility] [facility] Chest ordered by Dr. Leon. Soniya Baez APRN.CNP documented in this encounter [facility] 10-23-[address] leon , plan for CT scan of the chest in 6 months to follow lung nodule CT scan of chest April [address] leon or barry to review documented in this encounter [facility] 10-21-2022 Note HNO ID: [id number] Author: Marine Leon MD, PhD Service: ? Author Type: Physician Type: Progress Notes Filed: 10/21/2022 11:53 AM Note Text: [facility] STAFF PHYSICIAN NOTE OF PERSONAL [...] PhD DATE OF SERVICE: October 19, 2022 [facility] 10-21-2022 History of Presen t illness Narrative [facility] STAFF PHYSICIAN NOTE OF PERSONAL [...] THORACIC SURGERY OUTPATIENT CONSULT NOTE Odalys Cerda [id number] Requesting Provider: Jaron Avalos MD Thoracic Physician: [...] Paper Medical Records Review personally performed by: Ks SIGNATURE: Richard Navarro MD PAGER: [phone] DATE of SERVICE: 10/19/2022 TIME of SERVICE: 9:22 AM documented in this encounter [facility] 10-19-2022 Note HNO ID: [id number] Author: Richard Navarro MD Service: ? Author Type: Resident Type: Progress Notes Filed: 10/19/2022 2:39 PM Note Text: [facility] THORACIC SURGERY OUTPATIENT CONSULT NOTE Odalys Cerda [id number] Requesting Provider: Jaron Avalos MD Thoracic Physician: [...] Paper Medical Records Review personally performed by: Ks SIGNATURE: Richard Navarro MD PAGER: [phone] DATE of SERVICE: 10/19/2022 TIME of SERVICE: 9:22 AM [facility] 10-19-2022 Note HNO ID: [id number] Author: Valentino Alcala RT(R) Service: Radiology Author Type: Technologist Type: Progress [...] RT Tino(R) October 19, 2022 11:23 AM [facility] 10-19-2022 Note HNO ID: [id number] Author: Lulu Jacome RRT Service: ? Author [...] DATE: October 19, 2022 TIME: 9:58 AM [facility] 10-19-2022 Note HNO ID: [id number] Author: Lulu Jacome RRT Service: ? Author Type: Registered Resp Therapist Type: Progress Notes Filed: 10/19/2022 9:35 AM Note Text: PULM FUNCTION SMARTBLOCK: Provider: Marine Leon MD, PhD Spirometry: 1 DLCO: 1 6 MW: 1 [facility] 10-19-2022 History of Presen t illness Narrative [...] 2022 11:23 AM documented in this encounter [facility] 10-19-2022 Procedure note Associated Ord er(s): [...] TIME: 9:58 AM documented in this encounter [facility] 10-19-2022 History of Presen t illness Narrative PULM FUNCTION SMARTBLOCK: Provider: Marine Leon MD, PhD Spirometry: 1 DLCO: 1 6 MW: 1 documented in this encounter [facility] 09-25-2022 Miscellaneous Notes Images from the original note were not included. Thoracic Surgery Consultation - review of records for appointment scheduling Received medical records from the office of Jaron Avalos MD [address] [facility] [address] Patient is being referred to Unspecified/First Available [...] oral constrast Arely Berrios RN Received Routed Epic Telephone Encounter from Dr. Jaron Avalos MD Odalys Cerda is being referred to Unspecified Thoracic Surgeon by Jaron Avalos MD [address] [facility] [address] Patient diagnosis/Reason for consult: Zenker's Diverticulum Referral triage process explained: Yes Patient will receive a call from Thoracic NPM after triage review with surgeon to discuss any additional testing and/or consults that will be scheduled. Pt will then receive a call from our scheduling office for scheduling. Please call pt at [phone]. Patient was informed consultation could be at [place] or [facility] [place]: No Patient Registration: Registration complete/updated: Yes Insurance card(s) scanned in [facility] with in the past year: Yes, 09/06/22 Pt's [employer] is inactive. Ok to communicate to pt via [employer] no Medical Records: Records in [facility] (internal [facility] records): No Imaging in [facility] (internal [facility] records): No Care Everywhere - [...] 06, 2022 Outside Hospital(s) requested imaging from: [facility]. Imaging will be received via Electronic Transfer Received: Yes Imaging uploaded: Yes Waiting on additional: Yes. Missing (list): CT Additional providers added to Care Teams: Yes Additional Notes/Comments: n/a Enct routed to: Willie Gaston NPM for triage Porsha Nick, income tax administrator documented in this encounter [facility] Evaluation note Diagnosis Zenkers diverticulum- Primary Diverticulum of esophagus, acquired [facility] Zenkers diverticulum Diverticulum of esophagus, acquired [facility] Diagnosis Zenkers diverticulum- Primary Diverticulum of esophagus, acquired [facility] Diagnosis Zenkers diverticulum- Primary Diverticulum of esophagus, acquired [facility] Diagnosis DIVERTICULUM - ESOPHAGUS- Primary Diverticulum of esophagus, acquired [facility] Diagnosis Lung nodules- Primary Other nonspecific abnormal finding of lung field [facility] Diagnosis Lung nodules- Primary Other nonspecific abnormal finding of lung field [facility] Diagnosis DIVERTICULUM - ESOPHAGUS- Primary Diverticulum of esophagus, acquired Pharyngoesophageal dysphagia Dysphagia, pharyngoesophageal phase documented in this encounter [facility] note* Diagnosis DIVERTICULUM - ESOPHAGUS- Primary Diverticulum of esophagus, acquired Zenker diverticulum Diverticulum of esophagus, acquired Pharyngoesophageal dysphagia Dysphagia, pharyngoesophageal phase documented in this encounter [facility] note* Diagnosis Pre-op evaluation- Primary Preoperative examination, unspecified Zenker diverticulum Diverticulum of esophagus, acquired Zenker diverticulum Diverticulum of esophagus, acquired Pharyngoesophageal dysphagia Dysphagia, pharyngoesophageal phase documented in this encounter [facility] note* Diagnosis Hyperkalemia- Primary Hyperpotassemia Zenker diverticulum Diverticulum of esophagus, acquired Pharyngoesophageal dysphagia Dysphagia, pharyngoesophageal phase documented in this encounter [facility] note* Diagnosis Acute post-operative pain documented in this encounter [facility] note* Diagnosis Zenker's diverticulum- Primary Diverticulum of esophagus, acquired documented in this encounter [facility] note* Diagnosis Zenker diverticulum Diverticulum of esophagus, acquired [facility] Diagnostic Procedure Only (Routine) - Closed Specialty Diagnoses / Procedures Referred By Alfonso espinoza Referred To Contact XR IMAGING Diagnoses Zenker diverticulum Procedures XR CHEST 1V FRONTAL RADIOLOGIC EXAM CHEST SINGLE VIEW Roddy Loyd MD [address] [place] [address] Xr Imaging Referral ID Status Reason Start Date Expiration Date V isits Requested Visits Authorized [id number] Closed Auto-Generate d Referral 03/23/2023 04/21/2024 1 1 [facility] Summary Purpose Family History No Family [...] PELVIS W/O CONTRAST Marine Leon MD, PhD [address] [place] [address] Ct Imaging Referral ID Status Reason Start Date Expiration Date Visits Requested Visits Authorized [id number] Pending Review Auto-Generat ed Referral 2 10/25/2023 1 1 Specialty Diagnoses / Procedures Referred By Contac t Referred To Contact CT IMAGING Diagnoses Zenkers diverticulum Procedures CT CHEST WO IVCON DIAGNOSTIC COMPUTED TOMOGRAPHY THORAX W/O CNTRST Marine Leon MD, PhD [address] [place] [address] Ct Imaging Referral ID Status Reason Start Date Expiration Date Visits Requested Visits Authorized [id number] Pending Review Auto-Generat ed Referral 2 10/25/2023 1 1 Specialty Diagnoses / Procedures Referred By Contac t Referred To [facility] Diagnoses Zenkers diverticulum Procedures SIX MINUTE WALK CARDIOPULMONARY EXERCISE STRESS Marine Leon MD, PhD [address] [place] [address] Respiratory [place] [address] [place] [address] Referral ID Status Reason Start Date Expiration Date Visits Requested Visits Authorized [id number] Pending Review Auto-Generat ed Referral 2 10/25/2023 1 1 Specialty Diagnoses / Procedures Referred By Contac t Referred To [facility] Diagnoses Zenkers diverticulum Procedures LUNG DIFFUSION CAPACITY (DLCO) DIFFUSING CAPACITY Marine Leon MD, PhD [address] [place] [address] Res[facility] [place] [address] [place] [address] Referral ID Status Reason Start Date Expiration Date Visits Requested Visits Authorized [id number] Pending Review Auto-Generat ed Referral 2 10/25/2023 1 1 Specialty Diagnoses / Procedures Referred By Contac t Referred To Contact [facility] Diagnoses Zenkers diverticulum Procedures SPIROMETRY BASELINE ONLY SPMTRY W/VC EXPIRATORY NAHUM W/WO MXML VOL VNTJ Marine Leon MD, PhD [address] [employer] [address] [place] [address] [facility] [place] [address] [place] [address] Referral ID Status Reason Start Date Expiration Date Visits Requested Visits Authorized [id number] Pending Review Auto-Generat ed Referral 2 10/25/2023 1 1 Referral ID Status Reason Start Date Expiration Date V isits Requested Visits Authorized [id number] Closed Auto-Generate d Referral 10/19/2022 11/18/2022 1 1 Referral ID Status Reason Start Date Expiration Date V isits Requested Visits Authorized [id number] Closed Auto-Generate d Referral 10/19/2022 11/18/2022 1 1 Specialty Diagnoses / Procedures Referred By Contac t Referred To Contact Ent - Otolaryngology Diagnoses Diverticulum of esophagus, acquired Procedures CONSULT TO ENT OFFICE/OUTPATIENT NEW HIGH MDM 60-74 MINUTES Marine Leon MD, PhD [address] [place] [address] Referral ID Status Reason Start Date Expiration Date Visits Requested Visits Authorized [id number] Authorized PCP Requested Referral 11/21/2022 10/21/2023 1 1 Specialty Diagnoses / Procedures Referred By Contac t Referred To Contact CT IMAGING Diagnoses Lung nodules Procedures CT CHEST WO IVCON DIAGNOSTIC COMPUTED TOMOGRAPHY THORAX W/O CNTRST Marine Leon MD, PhD [address] [facility] [place] [address] Ct Imaging Referral ID Status Reason Start Date Expiration Date Visits Requested Visits Authorized [id number] Pending Review Auto-Generat ed Referral 11/22/2023 1 1 Additional Source Comments (unrecognized sect ion and content) No Status Records FoundNo Status Records FoundNo Status Records FoundNo Status Records Found INFORMATION SOURCE (unrecogn ized section and content) DATE CREATED AUTHOR 05/17/2018 [facility] DATE CREATED AUTHOR AUTHOR'S ORGANIZ ATION 09/04/2022 [facility] DATE CREATED AUTHOR AUTHOR'S ORGANIZ ATION 06/15/2023 [facility] DATE CREATED AUTHOR AUTHOR'S ORGANIZ ATION 12/25/2023 Bienvenido Adames [facility] Source Comments (unrecognize d section and content) In the event this informatio n is protected by the Federal Confidentiality of Alcohol and Drug Abuse Patient Records regulations: The Federal rules restrict any use of the information to criminally investigate or prosecute any alcohol or drug abuse patient.[facility] the event this information is protected by the Federal Confidentiality of Alcohol and Drug Abuse Patient Records regulations: The Federal rules restrict any use of the information to criminally investigate or prosecute any alcohol or drug abuse patient.[facility] the event this information is protected by the Federal Confidentiality of Alcohol and Drug Abuse Patient Records regulations: The Federal rules restrict any use of the information to criminally investigate or prosecute any alcohol or drug abuse patient.[facility] the event this information is protected by the Federal Confidentiality of Alcohol and Drug Abuse Patient Records regulations: The Federal rules restrict any use of the information to criminally investigate or prosecute any alcohol or drug abuse patient.[facility] Hospital[facility] the event this information is protected by the Federal Confidentiality of Alcohol and Drug Abuse Patient Records regulations: The Federal rules restrict any use of the information to criminally investigate or prosecute any alcohol or drug abuse patient.[facility] Hospital[facility] the event this information is protected by the Federal Confidentiality of Alcohol and Drug Abuse Patient Records regulations: The Federal rules restrict any use of the information to criminally investigate or prosecute any alcohol or drug abuse patient.[facility] Hospital[facility] the event this information is protected by the Federal Confidentiality of Alcohol and Drug Abuse Patient Records regulations: The Federal rules restrict any use of the information to criminally investigate or prosecute any alcohol or drug abuse patient.[facility] Hospital[facility] the event this information is protected by the Federal Confidentiality of Alcohol and Drug Abuse Patient Records regulations: The Federal rules restrict any use of the information to criminally investigate or prosecute any alcohol or drug abuse patient.[facility] Hospital[facility] the event this information is protected by the Federal Confidentiality of Alcohol and Drug Abuse Patient Records regulations: The Federal rules restrict any use of the information to criminally investigate or prosecute any alcohol or drug abuse patient.[facility] HospitalIn the event this information is protected by the Federal Confidentiality of Alcohol and Drug Abuse Patient Records regulations: The Federal rules restrict any use of the information to criminally investigate or prosecute any alcohol or drug abuse patient.[facility] Hospital[facility] the event this information is protected by the Federal Confidentiality of Alcohol and Drug Abuse Patient Records regulations: The Federal rules restrict any use of the information to criminally investigate or prosecute any alcohol or drug abuse patient.[facility] Hospital[facility] the event this information is protected by the Federal Confidentiality of Alcohol and Drug Abuse Patient Records regulations: The Federal rules restrict any use of the information to criminally investigate or prosecute any alcohol or drug abuse patient.[facility] Hospital[facility] the event this information is protected by the Federal Confidentiality of Alcohol and Drug Abuse Patient Records regulations: The Federal rules restrict any use of the information to criminally investigate or prosecute any alcohol or drug abuse patient.[facility] HospitalIn the event this information is protected by the Federal Confidentiality of Alcohol and Drug Abuse Patient Records regulations: The Federal rules restrict any use of the information to criminally investigate or prosecute any alcohol or drug abuse patient.[facility] HospitalIn the event this information is protected by the Federal Confidentiality of Alcohol and Drug Abuse Patient Records regulations: The Federal rules restrict any use of the information to criminally investigate or prosecute any alcohol or drug abuse patient.[facility] Hospital[facility] the event this information is protected by the Federal Confidentiality of Alcohol and Drug Abuse Patient Records regulations: The Federal rules restrict any use of the information to criminally investigate or prosecute any alcohol or drug abuse patient.[facility] the event this information is protected by the Federal Confidentiality of Alcohol and Drug Abuse Patient Records regulations: The Federal rules restrict any use of the information to criminally investigate or prosecute any alcohol or drug abuse patient.[facility] Hospital[facility] the event this information is protected by the Federal Confidentiality of Alcohol and Drug Abuse Patient Records regulations: The Federal rules restrict any use of the information to criminally investigate or prosecute any alcohol or drug abuse patient.[facility] HospitalIn the event this information is protected by the Federal Confidentiality of Alcohol and Drug Abuse Patient Records regulations: The Federal rules restrict any use of the information to criminally investigate or prosecute any alcohol or drug abuse patient.[facility] HospitalIn the event this information is protected by the Federal Confidentiality of Alcohol and Drug Abuse Patient Records regulations: The Federal rules restrict any use of the information to criminally investigate or prosecute any alcohol or drug abuse patient.[facility] Reason for Visit (unrecogniz ed section and content) Reason Comments Consult Zenker Diverticulum Reason Comments Spirometry Specialty Diagnoses / Procedures Referred By Contac t Referred To Contact RESPIRATORY LADD Diagnoses Zenkers diverticulum Procedures LUNG DIFFUSION CAPACITY (DLCO) DIFFUSING CAPACITY Marine Leon MD, PhD [address] [facility] [address] [place] [id number] [place] [address] Referral ID Status Reason Start Date Expiration Date V isits Requested Visits Authorized [id number] Closed Auto-Generate d Referral 09/25/2022 10/25/2023 1 1 Specialty Diagnoses / Procedures Referred By Contac t Referred To Contact RESPIRATORY LADD Diagnoses Zenkers diverticulum Procedures SPIROMETRY BASELINE ONLY SPMTRY W/VC EXPIRATORY NAHUM W/WO MXML VOL VNTJ Marine Leon MD, PhD [address] [employer] [address] [place] [address] Respiratory [place] [address] [address] [id number] Referral ID Status Reason Start Date Expiration Date V isits Requested Visits Authorized [id number] Closed Auto-Generate d Referral 09/25/2022 10/25/2023 1 1 Specialty Diagnoses / Procedures Referred By Contac t Referred To Contact RESPIRATORY LADD Diagnoses Zenkers diverticulum Procedures SIX MINUTE WALK CARDIOPULMONARY EXERCISE STRESS Marine Leon MD, PhD [address] [place] [address] [place] [address] Respiratory [place] [address] [place] [address] Referral ID Status Reason Start Date Expiration Date V isits Requested Visits Authorized [id number] Closed Auto-Generate d Referral 09/25/2022 10/25/2023 1 1 Specialty Diagnoses / Procedures Referred By Alfonso t Referred To Contact CT IMAGING Diagnoses Zenkers diverticulum Procedures CT ABD/PEL WO IVCON CT ABD & PELVIS W/O CONTRAST Marine Leon MD, PhD [address] [facility] [address] [place] [address] Ct Imaging Referral ID Status Reason Start Date Expiration Date V isits Requested Visits Authorized [id number] Closed Auto-Generate d Referral 10/19/2022 11/18/2022 1 [...] XR Specialty Diagnoses / Procedures Referred By Alfonso t Referred To Contact XR IMAGING Diagnoses Zenker diverticulum Procedures XR CHEST 1V FRONTAL RADIOLOGIC EXAM CHEST SINGLE VIEW Roddy Loyd MD [address] [place] [address] Xr Imaging Referral ID Status Reason Start Date Expiration Date V isits Requested Visits Authorized [id number] Closed Auto-Generate d Referral 03/23/2023 04/21/2024 1 1 Care Teams (unrecognized sec tion and content) Correctional Nurse Relationship Specialty Start Date End Date Jaron Avalos MD [address] [place] [address] Referring Family Medicine 09/05/22 Correctional Nurse Relationship Specialty Start Date End Date Jaron Avalos MD [address] [place] [address] Referring Family Medicine 09/05/22 Correctional Nurse Relationship Specialty Start Date End Date Jaron Avalos MD [address] [facility] [place] [address] Referring Family Medicine 09/05/22 Correctional Nurse Relationship Specialty Start Date End Date Jaron Avalos MD [address] [facility] [place] [place] [address] Referring Family Medicine 09/05/22 Correctional Nurse Relationship Specialty Start Date End Date Jaron Avalos MD [address] [facility] [place] [place] [address] Referring Family Medicine 09/05/22 Correctional Nurse Relationship Specialty Start Date End Date Jaron Avalos MD [address] [facility] [place] [place] [address] Referring Family Medicine 09/05/22 Correctional Nurse Relationship Specialty Start Date End Date Jaron Avalos MD [address] [facility] [place] [address] Referring Family Medicine 09/05/22 Correctional Nurse Relationship Specialty Start Date End Date Jaron Avalos MD [address] [facility] [place] [place] [address] Referring Family Medicine 09/05/22 Correctional Nurse Relationship Specialty Start Date End Date Jaron Avalos MD Referring Family Medicine 09/05/22 Correctional Nurse Relationship Specialty Start Date End Date Jaron Avalos MD [address] [id number] PCP - General Family Medicine 05/16/23 Jaron Avalos MD Referring Family Medicine 09/05/22 Correctional Nurse Relationship Specialty Start Date End Date Jaron Avalos MD [address] [facility] [address] PCP - General Family Medicine 05/16/23 Jaron Avalos MD Referring Family Medicine 09/05/22 Correctional Nurse Relationship Specialty Start Date End Date Jaron Avalos MD [address] [facility] [address] PCP - General Family Medicine 05/16/23 Jaron Avalos MD Referring Family Medicine 09/05/22 Correctional Nurse Relationship Specialty Start Date End Date Jaron Avalos MD [address] [place] [facility] [address] PCP - General Family Medicine 05/16/23 Jaron Avalos MD Referring Family Medicine 09/05/22 Correctional Nurse Relationship Specialty Start Date End Date Jaron Avalos MD [address] [place] [facility] [address] PCP - General Family Medicine 05/16/23 Jaron Avalos MD Referring Family Medicine 09/05/22 Correctional Nurse Relationship Specialty Start Date End Date Jaron Avalos MD [address] [place] [facility] [address] PCP - General Family Medicine 05/16/23 Jaron [...] BE BASED ON THE PRIMARY CLINICAL RECORDS. [facility]. provides no warranty or guarantee of the accuracy or completeness of information in this document.
== END 2024-03-13 08:40 | disposition home or self-care (01) ==
LOC: CT 08:39
PROVIDERS: PCP Family Medicine; Visit Provider Family Medicine
DX: R91.8 Other nonspecific abnormal finding of lung field (principal)
CPT/HCPCS: 71250

== ENCOUNTER 2025-02-20 09:34 | Outpatient (OUT) | payer MEDICARE, SELFPAY ==
--- NOTE | 2025-02-20 09:39 | US_ITS ---
[address] [address] Patient Name: ODALYS MCLEAN MRN: [id number] date: 1950 Sex: M Assigned Patient Location: US Current Patient Location: US Accession/Order Number: [id number] Exam Date: 02/20/2025 11:20 Report Date: 02/20/2025 11:21 At the request of: JARON LUCAS MD Procedure: US abdominal aortic aneurysm Aortic ultrasound Reason for exam: Abdominal aortic aneurysm Comparison: Aortic ultrasound 11/23/2023 Technique: Grayscale, spectral and color Doppler images of the abdominal aorta were obtained. Findings: Fusiform type abdominal aortic aneurysm measuring 3.5 x 3.6 cm similar to the prior study. Visualized iliac arteries appear normal in caliber. US/US abdominal aortic aneurysm Impression: Fusiform type abdominal aortic aneurysm 3.5 x 3.6 cm similar to the prior study. Impression dictated by: Prudencio Miranda Jr., D.O.02/20/2025 11:21 AM Dictation Location[facility] Electronically authenticated by: [id number] Date: 02/20/2025 11:21
--- OUTSIDE RECORDS SUMMARY | 2025-02-20 09:47 | XMS_ITS | CCD ---
Author Organization [facility] Care Team Providers Care Manager Motor Name Role Phone PHYSICIAN, DEFAULT Unavailable Unavailable PHYSICIAN, DEFAULT Unavailable Unavailable DR JARON AVALOS Admitting Unavailable LANCE, DR SALMERON Attending Unavailable LANCE, DR SALMERON Primary Care Unavailable LANCE, DR SALMERON Consulting Unavailable Jaron Avalos MD Unavailable Jaron Avalos MD Unavailable Jaron Avalos MD Unavailable Jaron Avalos MD Primary Care Provider [phone] Shaji SALAS Attending Unavailable RODDY LOYD Referring Unavailable LANCE JARON M Primary Care Unavailable RODDY LOYD Referring Unavailable CORINA AVALOSLAS M Primary Care Unavailable RODDY LOYD Referring Unavailable RODDY LOYD Referring Unavailable RODDY LOYD Attending Unavailable CORINA AVALOSLAS M Primary Care Unavailable LANCE JARON M Primary Care Unavailable RODDY LOYD Attending Unavailable RODDY LOYD Admitting Unavailable CORINA AVALOSLAS M Primary Care Unavailable Allergies Allergy Classification Reported Allergen(s) Allergy Type Date of Onset Reaction(s) Facility (1 source) No Known Medication Allergies; Translations: [No Known Medication Allergies] Propensity to adverse reactions (disorder) [facility] Repository Medications Current Medications Medication Drug [...] tablet by carlos th once daily. Problems Active Problems Problem Classification Problem Date Documented Date [...] Translations: [GERD WITHOUT ESOPHAGITIS] Onset: 2 Chronic Fluid and electrolyte disorders (5 sources) Hyperkalemia; [...] [Other acute postprocedural pain] 05-25-2023 Episodic Other screening for suspected conditions (not mental disorders or infectious disease) (1 source) Encounter for screening for malignant neoplasm of prostate; Translations: [ENC SCREEN MALIG NEOPLASM PROSTATE] Onset: 2 Episodic Past or Other Problems Problem Classification Problem Date Documented Date Episodic/Chronic Esophageal disorders (18 sources) Zenker's diverticulum; Translations: [Diverticulum of esophagus, acquired] Onset: 05-16-2023 Episodic Other nervous system disorders (1 source) Other acute postprocedural pain; Translations: [Acute post-operative pain] Onset: 05-22-2023 Episodic Results Test Name Value Interpretation Reference Range Facility Physician Referralon 024 Physician Referral [id number] 03 [id number]#1.00 TIFF [facility] CNOVon 06-11-2023 CNOV Office Visit (OTOLMN ) ODALYS CERDA ([id number]) 1950 M Date Time Provider Department 06/11/23 10:40 AM [facility] your visit today, we recorded the following information about you: Amy Rios, DEBORA 06/11/2023 10:58 AM Signed Tobacco Use: 5 [...] Take 1 tablet by mouth once daily. 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 - Aspirin-Acetaminophen- Caffeine (EXCEDRIN MIGRAINE) 250-250-65 mg per tablet Take [...] Encounter Status:Closed by RODDY LOYD on 06/14/23 [facility] 05-24-2023 CNPN Telephone (OTOLMN) ODALYS CERDA ([id number]) 1950 M Date Time Provider Department 05/24/23 RODDY LOYD OTOLMN During your visit today, we recorded the following information about you: Diane Joaquin Vilchis 05/24/2023 4:41 PM Signed Mr. Cerda called and said that the oxyCodone 5 mg /5ml can't be filled due to supply shortage with outside company. The pharmacy he was using was [facility] in [facility]. He was wondering if a new prescription be filled at the [facility] in [facility]. The Pharmacy phone number is . Amy Rios RN 05/25/2023 9:55 AM Signed Called [facility] in [place]- they do not have this medication in stock. Said nearest pharmacy is [facility] in [place]. Called pt. And he said it is [...] pain for up to 7 days. - amoxicillin-clavulanat e (AUGMENTIN) 600-42.9 mg/5 mL suspension Take 6.5 mL by mouth twice daily for 5 days. - desloratadine (CLARINEX) 5 mg tablet Take 1 tablet by mouth once daily. - Aspirin-Acetaminophen- Caffeine (EXCEDRIN MIGRAINE) 250-250-65 mg per tablet Take [...] Status:Closed by RODDY LOYD on 05/25/23 Normal [facility] Basic metabolic 2000 panelon 05-23-2023 Anion gap [Moles/Vol] 10 mmol/L Normal 9-18 [facility] Comment on above: Order Comment: Speci men Type: BLOOD SPECIMENOrdering Facility: [facility] Address: [address] [place] [address] Performed By: #### 2 4321-2 ####[facility] LABCLIA [id number] [place] [address] [place] Calcium [Mass/Vol] 9.5 mg/dL Normal 8.5-10.2 [facility] Comment on above: Order Comment: Speci men Type: BLOOD SPECIMENOrdering Facility: [facility] Address: [address] [place] [address] Performed By: #### 2 4321-2 ####[facility] LABCL[facility] [id number] [place] [address] [place] Chloride [Moles/Vol] 106 mmol/L High 97-105 [facility] Comment on above: Order Comment: Speci men Type: BLOOD SPECIMENOrdering Facility: [facility] Address: [address] [place] [address] Performed By: #### 2 4321-2 ####[facility] LABCLIA [id number] [place] [address] [place] CO2 [Moles/Vol] 23 mmol/L Normal 22-30 [facility] Comment on above: Order Comment: Speci men Type: BLOOD SPECIMENOrdering Facility: [facility] Address: [address] [place] [address] Performed By: #### 2 4321-2 ####[facility] LABCL[facility] [id number] [place] [address] [place] Creatinine [Mass/Vol] 1.36 mg/dL High 0.73-1.22 [facility] Comment on above: Order Comment: Speci men Type: BLOOD SPECIMENOrdering Facility: [facility] Address: [address] [place] [address] Performed By: #### 2 4321-2 ####[facility] LABCL[facility] [id number] [address] OF [facility] ESTIMATED GLOMERULAR FILTRATION RATE 55 mL/min/1.73m??? Low >=60 [facility] Comment on above: Order Comment: Speci men Type: BLOOD SPECIMENOrdering Facility: [facility] Address: [address] [place] [address] Result Comment: Kristel mated Glomerular Filtration Rate [...] actual GFR. Performed By: #### 2 4321-2 ####[facility] LABCL[facility] [id number] [place] [address] [place] Glucose [Mass/Vol] 160 mg/dL High 74-99 [facility] Comment on above: Order Comment: Speci men Type: BLOOD SPECIMENOrdering Facility: [facility] Address: [address] [place] [address] Result Comment: The [place] [employer] (ADA) provides guidance for cutoff [...] Standards of Medical Care in Diabetes 2016, [place] [employer]. Diabetes Care. 2016.39(Suppl 1). Performed By: #### 2 4321-2 ####[facility]CL[facility] [id number] [place] [address] [place] Potassium [Moles/Vol] 4.9 mmol/L Normal 3.7-5.1 [facility] Comment on above: Order Comment: Speci men Type: BLOOD SPECIMENOrdering Facility: [facility] Address: [address] [address] Performed By: #### 2 4321-2 ####[facility]CL[facility] [id number] [place] [address] [place] Sodium [Moles/Vol] 139 mmol/L Normal 136-144 [facility] Comment on above: Order Comment: Speci men Type: BLOOD SPECIMENOrdering Facility: [facility] Address: [address] [address] Performed By: #### 2 4321-2 ####[facility]CL[facility] [id number] [place] [address] [place] Urea nitrogen [Mass/Vol] 12 mg/dL Normal 9-24 [facility] Comment on above: Order Comment: Speci men Type: BLOOD SPECIMENOrdering Facility: [facility] Address: [address] [place] [address] Performed By: #### 2 4321-2 ####[facility] LABIA [id number] [place] [address] [place] CBC W Auto Differential pane l (Bld)on 05-23-2023 Basophils (Bld) [#/Vol] 10*3/uL Normal <0.11 [facility] Comment on above: Order Comment: Speci men Type: BLOOD SPECIMENOrdering Facility: [facility] Address: [address] [place] [address] Performed By: #### 5 7021-8 ####[facility] LABIA [id number] [place] [address] [place] Basophils/100 WBC (Bld) 0.1 % Normal [facility] Comment on above: Order Comment: Speci men Type: BLOOD SPECIMENOrdering Facility: [facility] Address: [address] [place] [address] Performed By: #### 5 7021-8 ####[facility] LABIA [id number] [place] [address] [place] Differential cell count method Nom (Bld) Auto Normal [facility] Comment on above: Order Comment: Speci men Type: BLOOD SPECIMENOrdering Facility: [facility] Address: [address] [place], [place] [address] Performed By: #### 5 7021-8 ####[facility]CLIA [id number] [place] [address] [place] Eosinophils (Bld) [#/Vol] 10*3/uL Normal <0.46 [facility] Comment on above: Order Comment: Speci men Type: BLOOD SPECIMENOrdering Facility: [facility] Address: [address] Performed By: #### 5 7021-8 ####[facility] LABCLIA [id number] [place] [address] [place] Eosinophils/100 WBC (Bld) 0.0 % Normal [facility] Comment on above: Order Comment: Speci men Type: BLOOD SPECIMENOrdering Facility: [facility] Address: [address] Performed By: #### 5 7021-8 ####[facility] LABIA [id number] [place] [address] [place] Erythrocyte distribution width (RBC) [Ratio] 12.1 % Normal 11.5-15.0 [facility] Comment on above: Order Comment: Speci men Type: BLOOD SPECIMENOrdering Facility: [facility] Address: [address] [place], [place] [address] Performed By: #### 5 7021-8 ####[facility] LABIA [id number] [place] [address] [place] Hematocrit (Bld) [Volume fraction] 38.5 % Low 39.0-51.0 [facility] Comment on above: Order Comment: Speci men Type: BLOOD SPECIMENOrdering Facility: [facility] Address: [address] Performed By: #### 5 7021-8 ####[facility] LABIA [id number] [place] [address] [place] Hemoglobin (Bld) [Mass/Vol] 13.1 g/dL Normal 13.0-17.0 [facility] Comment on above: Order Comment: Speci men Type: BLOOD SPECIMENOrdering Facility: [facility] Address: [address] Performed By: #### 5 7021-8 ####[facility]CLIA [id number] [place] [address] [place] Immature granulocytes (Bld) [#/Vol] 0.07 10*3/uL Normal <0.10 [facility] Comment on above: Order Comment: Speci men Type: BLOOD SPECIMENOrdering Facility: [facility] Address: [address] [place], [place] [address] Performed By: #### 5 7021-8 ####[facility]CL[facility] [id number] [address] [place] Immature granulocytes/100 WBC (Bld) 0.5 % Normal [facility] Comment on above: Order Comment: Speci men Type: BLOOD SPECIMENOrdering Facility: [facility] Address: [address] [place], [place] [address] Performed By: #### 5 7021-8 ####[facility] LABIA [id number] [place] [address] [place] Lymphocytes (Bld) [#/Vol] 0.86 10*3/uL Low 1.00-4.00 [facility] Comment on above: Order Comment: Speci men Type: BLOOD SPECIMENOrdering Facility: [facility] Address: [address] [place], [place] [address] Performed By: #### 5 7021-8 ####[facility]CL[facility] [id number] [address] [place] Lymphocytes/100 WBC (Bld) 5.8 % Normal [facility] Comment on above: Order Comment: Speci men Type: BLOOD SPECIMENOrdering Facility: [facility] Address: [address] [place], [place] [address] Performed By: #### 5 7021-8 ####[facility] LABIA [id number] [place] [address] [place] MCH (RBC) [Entitic mass] 33.5 pg Normal 26.0-34.0 [facility] Comment on above: Order Comment: Speci men Type: BLOOD SPECIMENOrdering Facility: [facility] Address: [address] [place] [address] Performed By: #### 5 7021-8 ####[facility]CL[facility] [id number] [place] [address] [place] MCHC (RBC) [Mass/Vol] 34.0 g/dL Normal 30.5-36.0 [facility] Comment on above: Order Comment: Speci men Type: BLOOD SPECIMENOrdering Facility: [facility] Address: [address] [place] [address] Performed By: #### 5 7021-8 ####[facility] LABIA [id number] [place] [address] [place] MCV (RBC) [Entitic vol] 98.5 fL Normal 80.0-100.0 [facility] Comment on above: Order Comment: Speci men Type: BLOOD SPECIMENOrdering Facility: [facility] Address: [address] [place], [place] [address] Performed By: #### 5 7021-8 ####[facility] LABIA [id number] [place] [address] [place] Monocytes (Bld) [#/Vol] 0.68 10*3/uL Normal <0.87 [facility] Comment on above: Order Comment: Speci men Type: BLOOD SPECIMENOrdering Facility: [facility] Address: [address] [place], [place] [address] Performed By: #### 5 7021-8 ####[facility] LABIA [id number] [address] [place] Monocytes/100 WBC (Bld) 4.6 % Normal [facility] Comment on above: Order Comment: Speci men Type: BLOOD SPECIMENOrdering Facility: [facility] Address: [address] [place], [place] [address] Performed By: #### 5 7021-8 ####[facility] LABCLIA [id number] [place] [address] [place] Neutrophils (Bld) [#/Vol] 13.22 10*3/uL High 1.45-7.50 [facility] Comment on above: Order Comment: Speci men Type: BLOOD SPECIMENOrdering Facility: [facility] Address: [address] [place], [place] [address] Performed By: #### 5 7021-8 ####[facility] LABCLIA [id number] [place] [address] [place] Neutrophils/100 WBC (Bld) 89.0 % Normal [facility] Comment on above: Order Comment: Speci men Type: BLOOD SPECIMENOrdering Facility: [facility] Address: [address] [place], [place] [address] Performed By: #### 5 7021-8 ####[facility] LABCLIA [id number] [place] [address] [place] Nucleated RBC (Bld) [#/Vol] 10*3/uL Normal <0.01 [facility] Comment on above: Order Comment: Speci men Type: BLOOD SPECIMENOrdering Facility: [facility] Address: [address] [place], [place] [address] Performed By: #### 5 7021-8 ####[facility]CLIA [id number] [place] [address] [place] Nucleated RBC/100 WBC (Bld) [Ratio] 0.0 /100 WBC Normal [facility] Comment on above: Order Comment: Speci men Type: BLOOD SPECIMENOrdering Facility: [facility] Address: [address] [place], [place] [address] Performed By: #### 5 7021-8 ####[facility] LABCLIA [id number] [place] [address] [place] Platelet mean volume (Bld) [Entitic vol] 9.9 fL Normal 9.0-12.7 [facility] Comment on above: Order Comment: Speci men Type: BLOOD SPECIMENOrdering Facility: [facility] Address: [address] [place], [place] [address] Performed By: #### 5 7021-8 ####[facility]CLIA [id number] [place] [address] [place] Platelets (Bld) [#/Vol] 229 10*3/uL Normal 150-400 [facility] Comment on above: Order Comment: Speci men Type: BLOOD SPECIMENOrdering Facility: [facility] Address: [address] [place], [place] [address] Performed By: #### 5 7021-8 ####[facility]CL[facility] [id number] [place] [address] [place] RBC (Bld) [#/Vol] 3.91 10*6/uL Low 4.20-6.00 [facility] Comment on above: Order Comment: Speci men Type: BLOOD SPECIMENOrdering Facility: [facility] Address: [address] [place], [place] [address] Performed By: #### 5 7021-8 ####[facility]CLIA [id number] [place] [address] [place] WBC (Bld) [#/Vol] 14.85 10*3/uL High 3.70-11.00 [facility] Comment on above: Order Comment: Speci men Type: BLOOD SPECIMENOrdering Facility: [facility] Address: [address] [place], [place] [address] Performed By: #### 5 7021-8 ####[facility]CLIA [id number] [place] [address] [place] XR ESOPHAGRAMon 05-23-2023 XR ESOPHAGRAM * * [...] 0:36 (min:sec). Air kerma: 17.9 mGy. RESULT: Assembly Line Supervisor: No focal consolidation within the visualized lung field. Luminal contrast transits the esophagus with filling and rapid emptying of a small Zenker's diverticulum without leak or obstruction. Staff Physician: Dr. Adriana MD was present for the critical portions of the procedure and was immediately available throughout the remainder of the procedure. IMPRESSION: NO LEAK OR OBSTRUCTION. Captain Fishing V[facility] Transcribe Date/Time: May 23 2023 9:41A Dictated by : PEDRO WILSON MD This examination was interpreted and the report reviewed and electronically signed by: MANOHAR CASTANON MD on May 23 2023 9:49AM EST [id number] Normal [facility] ANES POSTPROC EVALon 023 ANES POSTPROC EVAL HNO ID: [id number] Author: Kevin Gutierrez DO Service: ? Author Type: Anesthesiologist Type: Anesthesia Postprocedure Evaluation Filed: 05/22/2023 4:29 PM Note Text: POST ANESTHESIA EVALUATION NOTE : 1950 Procedure Summary Date: 05/22/23 Room / Location: MAIN [address] [facility] Anesthesia Start: 1422 Anesthesia [...] May 22, 2023 TIME: 4:29 PM CSN: [id number] Normal [facility] ANES PRE-OPon 05-22-2023 ANES PRE-OP HNO ID: [id number] Author: Kevin Gutierrez DO Service: ? Author Type: Anesthesiologist Type: Anesthesia Preprocedure Evaluation Filed: 05/22/2023 6:42 AM Note Text: ANESTHESIOLOGY DAY OF SURGERY NOTE : 1950 Procedure Information Date/Time: 05/22/23 1515 Procedures: ENDOSCOPIC EXCISION ZENKERS DIVERTICULUM DIVERTICULECTOMY HYPOPHARYNX OR ESOPHAGUS, CERVICAL APPROACH (Neck) Location: MAIN [facility] [place] Surgeons: Roddy Loyd MD Estimated body mass [...] 1 tablet by mouth once daily. - Aspirin-Acetaminophen- Caffeine (EXCEDRIN MIGRAINE) 250-250-65 mg per tablet Take [...] May 22, 2023 TIME: 6:41 AM CSN: [id number] Normal [facility] OPERATIVE NOon 05-22-2023 OPERATIVE NO HNO ID: [id number] Author: Roddy Loyd MD Service: Otolaryngology Author Type: Physician Type: Operative Report Filed: 05/22/2023 6:26 PM Note Text: Operative Note DATE OF SERVICE: 05/22/2023 PATIENT: Odalys Cerda LOG ID: [id number] INCISION/PROCEDURE START TIME: 2:40 PM INCISION CLOSE/PROCEDURE END TIME: 3:21 PM Surgeon: Roddy Loyd MD Real Estate Leasing Manager: Linda Adkins MD, Philip Thomas MD Pre-Operative [...] male who presented to the [facility] with a history [...] portions of the procedure. Roddy Loyd MD [facility] 05-17-2023 ALDA Telephone (openPeopleRA) ODALYS CERDA ([id number]) 1950 M Date Time Provider Department 05/17/23 [...] prior to upcoming surgery Thank you Stacy aDi APRN.[facility] Jennie Chilel LPN 05/21/2023 7:05 AM Signed Mariel Mccollum, DEBORA Dai APRN.BARRY; [facility] Rn Resource Pool 1 4 days [...] Call [[phone]] Cmt: Pre-op labs Primary Visit Diagnosis:Hyperkalemia [E87.5] Order(s):POTASSIUM BLD [SQK1] Order #: [id number] FUTURE Prescriptions as of 05/21/2023 - desloratadine (CLARINEX) 5 mg tablet Take 1 tablet by mouth once daily. - Aspirin-Acetaminophen- Caffeine (EXCEDRIN MIGRAINE) 250-250-65 mg per tablet Take 1 tablet by mouth as needed. - acetaminophen (TYLENOL ORAL) Take by mouth as needed. 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 POTASSIUM BLDon 05-17-2023 Potassium [Moles/Vol] 4.2 mmol/L Normal 3.7-5.1 [facility] Comment on above: Order Comment: Speci men Type: BLOOD SPECIMENOrdering Facility: [facility] Address: [address] [place] [address] Performed By: #### K 1 ####[facility] [id number] [place] [id number] Basic metabolic 2000 panelon 05-16-2023 Anion gap [Moles/Vol] 11 mmol/L Normal 9-18 [facility] Comment on above: Order Comment: Speci men Type: BLOOD SPECIMENOrdering Facility: [facility] Address: [address] [address] Performed By: #### 2 4321-2 ####[facility] LABCLIA [id number] [address] [address], [place] [address] [place] Calcium [Mass/Vol] 9.7 mg/dL Normal 8.5-10.2 [facility] Comment on above: Order Comment: Speci men Type: BLOOD SPECIMENOrdering Facility: [facility] Address: [address] [address] Performed By: #### 2 4321-2 ####[facility] LABCLIA [id number] [place] [address] [place] Chloride [Moles/Vol] 106 mmol/L High 97-105 [facility] Comment on above: Order Comment: Speci men Type: BLOOD SPECIMENOrdering Facility: [facility] Address: [address] [place] [address] Performed By: #### 2 4321-2 ####[facility] LABIA [id number] [place] [address] [place] CO2 [Moles/Vol] 24 mmol/L Normal 22-30 [facility] Comment on above: Order Comment: Speci men Type: BLOOD SPECIMENOrdering Facility: [facility] Address: [address] [place] [address] Performed By: #### 2 4321-2 ####[facility] LABIA [id number] [address] [place] Creatinine [Mass/Vol] 1.51 mg/dL High 0.73-1.22 [facility] Comment on above: Order Comment: Speci men Type: BLOOD SPECIMENOrdering Facility: [facility] Address: [address] [place] [address] Performed By: #### 2 4321-2 ####[facility]IA [id number] [address] OF [facility] ESTIMATED GLOMERULAR FILTRATION RATE 48 mL/min/1.73m??? Low >=60 [facility] Comment on above: Order Comment: Speci men Type: BLOOD SPECIMENOrdering Facility: [facility] Address: [address] [place] [address] Result Comment: Kristel mated Glomerular Filtration Rate [...] actual GFR. Performed By: #### 2 4321-2 ####[facility] [id number] [place] [address] [place] Glucose [Mass/Vol] 87 mg/dL Normal 74-99 [facility] Comment on above: Order Comment: Sandra mosher Type: BLOOD SPECIMENOrdering Facility: [facility] Address: [address] [place] [address] Result Comment: The [place] [employer] (ADA) provides guidance for cutoff [...] Standards of Medical Care in Diabetes 2016, [place] [employer]. Diabetes Care. 2016.39(Suppl 1). Performed By: #### 2 4321-2 ####[facility] [id number] [place] [address] [place] Potassium [Moles/Vol] 5.4 mmol/L High 3.7-5.1 [facility] Comment on above: Order Comment: Sandra mosher Type: BLOOD SPECIMENOrdering Facility: [facility] Address: [address] [address] Performed By: #### 2 4321-2 ####[facility] [id number] [place] [address] [place] Sodium [Moles/Vol] 141 mmol/L Normal 136-144 [facility] Comment on above: Order Comment: Sandra mosher Type: BLOOD SPECIMENOrdering Facility: [facility] Address: [address] [place] [address] Performed By: #### 2 4321-2 ####[facility] [id number] [place] [address] [place] Urea nitrogen [Mass/Vol] 12 mg/dL Normal 9-24 [facility] Comment on above: Order Comment: Speci men Type: BLOOD SPECIMENOrdering Facility: [facility] Address: [address] [place], [place] [address] Performed By: #### 2 4321-2 ####[facility] [id number] [place] [address] [place] CBC W Auto Differential pane l (Bld)on 05-16-2023 Basophils (Bld) [#/Vol] 0.07 10*3/uL Normal <0.11 [facility] Comment on above: Order Comment: Speci men Type: BLOOD SPECIMENOrdering Facility: [facility] Address: [address] [place], [place] [address] Performed By: #### 5 7021-8 ####[facility] [id number] [address] [place] Basophils/100 WBC (Bld) 0.9 % Normal [facility] Comment on above: Order Comment: Speci men Type: BLOOD SPECIMENOrdering Facility: [facility] Address: [address] [place], [place] [address] Performed By: #### 5 7021-8 ####[facility] [id number] [address] [place] Differential cell count method Nom (Bld) Auto Normal [facility] Comment on above: Order Comment: Speci men Type: BLOOD SPECIMENOrdering Facility: [facility] Address: [address] Performed By: #### 5 7021-8 ####[facility] [id number] [address] [place] Eosinophils (Bld) [#/Vol] 0.41 10*3/uL Normal <0.46 [facility] Comment on above: Order Comment: Speci men Type: BLOOD SPECIMENOrdering Facility: [facility] Address: [address] [place] [address] Performed By: #### 5 7021-8 ####[facility] [id number] [place] [address] [place] Eosinophils/100 WBC (Bld) 5.5 % Normal [facility] Comment on above: Order Comment: Speci men Type: BLOOD SPECIMENOrdering Facility: [facility] Address: [address] [place] [address] Performed By: #### 5 7021-8 ####[facility] [id number] [address] [place] Erythrocyte distribution width (RBC) [Ratio] 12.5 % Normal 11.5-15.0 [facility] Comment on above: Order Comment: Speci men Type: BLOOD SPECIMENOrdering Facility: [facility] Address: [address] [place] [address] Performed By: #### 5 7021-8 ####[facility] [id number] [address] [place] Hematocrit (Bld) [Volume fraction] 39.6 % Normal 39.0-51.0 [facility] Comment on above: Order Comment: Speci men Type: BLOOD SPECIMENOrdering Facility: [facility] Address: [address] [place], [place] [address] Performed By: #### 5 7021-8 ####[facility] [id number] [place] [address] [place] Hemoglobin (Bld) [Mass/Vol] 13.3 g/dL Normal 13.0-17.0 [facility] Comment on above: Order Comment: Speci men Type: BLOOD SPECIMENOrdering Facility: [facility] Address: [address] Performed By: #### 5 7021-8 ####[facility] [id number] [place] [address] [place] Immature granulocytes (Bld) [#/Vol] 10*3/uL Normal <0.10 [facility] Comment on above: Order Comment: Speci men Type: BLOOD SPECIMENOrdering Facility: [facility] Address: [address] Performed By: #### 5 7021-8 ####[facility] [id number] [place] [address] [place] Immature granulocytes/100 WBC (Bld) 0.3 % Normal [facility] Comment on above: Order Comment: Speci men Type: BLOOD SPECIMENOrdering Facility: [facility] Address: [address] Performed By: #### 5 7021-8 ####[facility] [id number] [place] [address] [place] Lymphocytes (Bld) [#/Vol] 2.08 10*3/uL Normal 1.00-4.00 [facility] Comment on above: Order Comment: Speci men Type: BLOOD SPECIMENOrdering Facility: [facility] Address: [address] Performed By: #### 5 7021-8 ####[facility] [id number] [place] [address] [place] Lymphocytes/100 WBC (Bld) 27.7 % Normal [facility] Comment on above: Order Comment: Speci men Type: BLOOD SPECIMENOrdering Facility: [facility] Address: [address] Performed By: #### 5 7021-8 ####[facility] [id number] [address] STATES OF [facility] MCH (RBC) [Entitic mass] 33.6 pg Normal 26.0-34.0 [facility] Comment on above: Order Comment: Speci men Type: BLOOD SPECIMENOrdering Facility: [facility] Address: [address] [place] [address] Performed By: #### 5 7021-8 ####[facility] [id number] [address] MCHC (RBC) [Mass/Vol] 33.6 g/dL Normal 30.5-36.0 [facility] Comment on above: Order Comment: Speci men Type: BLOOD SPECIMENOrdering Facility: [facility] Address: [address] [place] [address] Performed By: #### 5 7021-8 ####[facility] [id number] [address] OF [facility] MCV (RBC) [Entitic vol] 100.0 fL Normal 80.0-100.0 [facility] Comment on above: Order Comment: Speci men Type: BLOOD SPECIMENOrdering Facility: [facility] Address: [address] [place] [address] Performed By: #### 5 7021-8 ####[facility] [id number] [place] [address] [place] Monocytes (Bld) [#/Vol] 0.68 10*3/uL Normal <0.87 [facility] Comment on above: Order Comment: Speci men Type: BLOOD SPECIMENOrdering Facility: [facility] Address: [address] [place], [place] [address] Performed By: #### 5 7021-8 ####[facility] [id number] [address] [place] Monocytes/100 WBC (Bld) 9.1 % Normal [facility] Comment on above: Order Comment: Speci men Type: BLOOD SPECIMENOrdering Facility: [facility] Address: [address] Performed By: #### 5 7021-8 ####[facility] [id number] [place] [address] [place] Neutrophils (Bld) [#/Vol] 4.25 10*3/uL Normal 1.45-7.50 [facility] Comment on above: Order Comment: Speci men Type: BLOOD SPECIMENOrdering Facility: [facility] Address: [address] [address] Performed By: #### 5 7021-8 ####[facility] [id number] [place] [address] [place] Neutrophils/100 WBC (Bld) 56.5 % Normal [facility] Comment on above: Order Comment: Speci men Type: BLOOD SPECIMENOrdering Facility: [facility] Address: [address] Performed By: #### 5 7021-8 ####[facility] [id number] [place] [address] [place] Nucleated RBC (Bld) [#/Vol] 10*3/uL Normal <0.01 [facility] Comment on above: Order Comment: Speci men Type: BLOOD SPECIMENOrdering Facility: [facility] Address: [address] Performed By: #### 5 7021-8 ####[facility] [id number] [place] [address] [place] Nucleated RBC/100 WBC (Bld) [Ratio] 0.0 /100 WBC Normal [facility] Comment on above: Order Comment: Speci men Type: BLOOD SPECIMENOrdering Facility: [facility] Address: [address] Performed By: #### 5 7021-8 ####[facility] [id number] [place] [address] [place] Platelet mean volume (Bld) [Entitic vol] 10.2 fL Normal 9.0-12.7 [facility] Comment on above: Order Comment: Speci men Type: BLOOD SPECIMENOrdering Facility: [facility] Address: [address] [place], [place] [address] Performed By: #### 5 7021-8 ####[facility] [id number] [place] [address] [place] Platelets (Bld) [#/Vol] 264 10*3/uL Normal 150-400 [facility] Comment on above: Order Comment: Speci men Type: BLOOD SPECIMENOrdering Facility: [facility] Address: [address] [place], [place] [address] Performed By: #### 5 7021-8 ####[facility] [id number] [place] [address] [place] RBC (Bld) [#/Vol] 3.96 10*6/uL Low 4.20-6.00 [facility] Comment on above: Order Comment: Speci men Type: BLOOD SPECIMENOrdering Facility: [facility] Address: [address] [place], [place] [address] Performed By: #### 5 7021-8 ####[facility] [id number] [place] [address] [place] WBC (Bld) [#/Vol] 7.51 10*3/uL Normal 3.70-11.00 [facility] Comment on above: Order Comment: Speci men Type: BLOOD SPECIMENOrdering Facility: [facility] Address: [address] [place], [place] [address] Performed By: #### 5 7021-8 ####[facility] [id number] [place] [address] [place] [id number] 05-16-2023 ECG01 Ventricular Rate : 6 1 BPM Atrial Rate : 61 BPM P-R Interval : 174 ms QRS Duration : 86 ms Q-T Interval : 426 ms QTC Calculation(Bazett) : 428 ms Calculated P Mcmillan : 77 degrees Calculated R Mcmillan : -18 degrees Calculated T Mcmillan : 21 degrees NORMAL SINUS RHYTHM NORMAL ECG Confirmed by KAYE HOLLINGSWORTH MD (34) on 05/27/2023 1:02:45 PM NAME : ODALYS CERDA PID : [id number] : 1950 Gender : Male Race : ORD : Procedure Date : May 16 2023 09:16:45 Edit Date : May 27 2023 13:03:58 Diagnosis: NORMAL SINUS RHYTHM NORMAL ECG Confirmed by KAYE HOLLINGSWORTH MD (34) on 05/27/2023 1:02:45 PM Test Reason : Location : 145 : [facility] Overread By : KAYE HOLLINGSWORTH MD Edited By : KAYE HOLLINGSWORTH MD Referred By : RODDY LOYD Acquired by : am, Gm [facility] HISTORY PHYSICALon HISTORY PHYSICAL HNO ID: [id number] Author: Stacy Dai APRN.MILLING MACHINE OPERATOR GEAR Service: ? Author Type: Nurse Practitioner Type: [...] 1 tablet by mouth once daily. Yes Aspirin-Acetaminophen- Caffeine (EXCEDRIN MIGRAINE) 250-250-65 mg per tablet Take 1 tablet by mouth as needed. Yes acetaminophen (TYLENOL ORAL) Take by mouth as needed. Yes No medication comments found. CURRENT ALLERGIES: ALLERGIES No Known Allergies COVID VACCINATION STATUS: Fully vaccinated REVIEW OF SYSTEMS: PAIN ASSESSMENT: General: No weight loss, malaise or fevers. Neuro: No history of TIA's, stroke, ACCOUNT REVIEW SPECIALIST tumor, impaired sensorium, hemiplegia, paraplegia or quadraplegia. No neurological symptoms or problems., Postive for Headaches Respiratory: No history of current cough or dyspnea, or pneumonia in the past 6 weeks. No history of respiratory/pulmonary symptoms or problems. + snoring Cardiovascular: No history of HTN requiring medication, no history of angina, CHF, [place], cardiac surgery or stents. Denies rest pain, gangrene or revascularization/ampu tation for PVD. No history of cardiovascular symptoms [...] 426 QTC Calculation (Bazett) 428 Calculated P Mcmillan 77 Calculated R Mcmillan -18 Calculated T Mcmillan 21 Impression NORMAL SINUS RHYTHM NORMAL ECG Chest xray 05/16/20 (more content not included)... Normal [facility] XR CHEST 1V FRONTALon 2022 XR [...] thoracic spine. IMPRESSION: No acute radiographic abnormality. Captain Fishing Vessel: RACHELLE Transcribe Date/Time: May 16 2023 2:51P Dictated by : BINDU NORRIS MD This examination was interpreted and the report reviewed and electronically signed by: BINDU NORRIS MD on May 16 2023 3:03PM EST [id number] Normal [facility] CT ABD/PEL WO IVCONon 2021 [facility] CT CHEST WO IVCONon 10-19-20 Radiology Result ACTIONABLE Abnormal [facility] SIX MINUTE WALKon 10-19-2022 [facility] H PYLORI ANTIBODY IGGon 08-13 H. PYLORI IGG ABS 0.15 Index Value Normal 0.00-0.79 [facility] Comment on above: Result Comment: Nega tive <0.80 Equivocal 0.80 - 0.89 Positive >0.89 Performed By: #### H PYLLC #### [facility] [address] [place] [address] Dr. Dunia Carlisle CBC AUTO DIFFon 08-31-2022 BASO # 0.1 103/ul Normal 0.0-0.1 [facility] Comment on above: Performed By: #### C BC #### [facility] [address] [place] [address] Dr. Dunia Carlisle Basophils/100 WBC (Bld) 1.2 % Normal 0.2-2.0 [facility] Comment on above: Performed By: #### C BC #### [facility] [address] [place] [address] Dr. Dunia Carlisle EO # 0.2 103/ul Normal 0.0-0.7 [facility] Comment on above: Performed By: #### C BC #### [facility] [address] [place] [address] Dr. Dunia Carlisle Eosinophils/100 WBC (Bld) 3.6 % Normal 0.9-7.0 [facility] Comment on above: Performed By: #### C BC #### [facility] [address] [place] [address] Dr. Dunia Carlisle Erythrocyte distribution width (RBC) [Ratio] 12.1 % Normal 11.0-15.0 [facility] Comment on above: Performed By: #### C BC #### [facility] [address] [place] [address] Dr. Dunia Carlisle Hematocrit (Bld) [Volume fraction] 39.3 % Critically low 42.0-54.0 [facility] Comment on above: Performed By: #### C BC #### [facility] [address] [place] [address] Dr. Dunia Carlisle Hemoglobin (Bld) [Mass/Vol] 13.1 g/dL Critically low 14.0-18.0 [facility] Comment on above: Performed By: #### C BC #### [facility] [address] [place] [address] Dr. Dunia Carlisle IG # 0.07 10e3/ul Critically high 0.00-0.03 [facility] Comment on above: Performed By: #### C BC #### [facility] [address] [place] [address] Dr. Dunia Carlisle IG % 1.2 % Critically high 0.0-0.5 [facility] Comment on above: Performed By: #### C BC #### [facility] [address] [place] [address] Dr. Dunia Carlisle LYMPH # 1.8 103/ul Normal 1.2-3.8 [facility] Comment on above: Performed By: #### C BC #### [facility] [address] [place] [address] Dr. Dunia Carlisle Lymphocytes/100 WBC (Bld) 29.1 % Normal 20.5-60.0 [facility] Comment on above: Performed By: #### C BC #### [facility] [address] [place] [address] Dr. Dunia Carlisle MANUAL DIFF REQ NO Normal [facility] Comment on above: Performed By: #### C BC #### [facility] [address] [address] [address] Dunia Carlisle MCH (RBC) [Entitic mass] 33.2 pg Normal 25.9-34.0 [facility] Comment on above: Performed By: #### C BC #### [facility] [address] [address] [address] Dunia Carlisle MCHC (RBC) [Mass/Vol] 33.3 g/dL Normal 29.9-35.2 [facility] Comment on above: Performed By: #### C BC #### [facility] [address] [place] [address] Dr. Dunia Carlisle MCV (RBC) [Entitic vol] 99.5 fL Critically high 80.0-94.0 [facility] Comment on above: Performed By: #### C BC #### [facility] [address] [place] [address] Dr. Dunia Carlisle MONO # 0.5 103/ul Normal 0.3-0.8 [facility] Comment on above: Performed By: #### C BC #### [facility] [address] [place] [address] Dr. Dunia Carlisle Monocytes/100 WBC (Bld) 8.9 % Normal 1.7-12.0 [facility] Comment on above: Performed By: #### C BC #### [facility] [address] [place] [address] Dr. Dunia Carlisle NEUT # 3.4 103/ul Normal 1.4-6.5 [facility] Comment on above: Performed By: #### C BC #### [facility] [address] [place] [address] Dr. Dunia Carlisle Neutrophils/100 WBC (Bld) 56.0 % Normal 43.0-75.0 [facility] Comment on above: Performed By: #### C BC #### [facility] [address] [place] [address] Dr. Dunia Carlisle Platelet mean volume (Bld) [Entitic vol] 9.4 fL Critically low 9.5-13.5 [facility] Comment on above: Performed By: #### C BC #### [facility] [address] [address] [address] Dunia Carlisle PLT 249 103/ul Normal 150-450 [facility] Comment on above: Performed By: #### C BC #### [facility] [address] [address] [address] Dunia Carlisle RBC 3.95 106/ul Critically low 4.70-6.10 [facility] Comment on above: Performed By: #### C BC #### [facility] [address] [address] [address] Dunia Carlisle WBC 6.0 103/ul Normal 4.0-11.0 [facility] Comment on above: Performed By: #### C BC #### [facility] [address] [place] [address] Dr. Dunia Carlisle GLYCOHEMOGLOBIN A1Con 2021 ADA RECOMMENDATION SEE BELOW Normal [facility] Comment on above: Result Comment: ADA RECOMMENDED LIMIT 4.0 - 6.0 ADA THERAPEUTIC TARGET < 7.0 ACTION SUGGESTED > 7.0 Performed By: #### A 1C #### [facility] [address] [place] [address] Dr. Dunia Carlisle Glucose [Mass/Vol] 123 mg/dL Normal [facility] Comment on above: Performed By: #### A 1C #### [facility] [address] [place] [address] Dr. Dunia Carlisle HbA1c (Bld) [Mass fraction] 5.9 % Normal 4.5-6.2 [facility] Comment on above: Performed By: #### A 1C #### [facility] [address] [place] [address] Dr. Dunia Carlisle LIPID PROFILEon 08-31-2022 CHOL-HDL RATIO NORM SEE BELOW Normal [facility] Comment on above: Result Comment: 3.3 - 4.4 LOW RISK 4.4 - 7.1 AVERAGE RISK 7.1 - 11.0 MODERATE RISK >11.0 HIGH RISK Performed By: #### L IPID, CMP #### [facility] [address] [address] [address] Dunia Carlisle Cholesterol [Mass/Vol] 179 mg/dL Normal <=200 [facility] Comment on above: Performed By: #### L IPID, CMP #### [facility] [address] [address] [address] Dunia Carlisle Cholesterol in HDL [Mass/Vol] 56 mg/dL Normal 40-60 [facility] Comment on above: Performed By: #### L IPID, CMP #### [facility] [address] [address] [address] Dunia Carlisle Cholesterol in LDL [Mass/Vol] 110.6 mg/dL Normal [facility] Comment on above: Performed By: #### L IPID, CMP #### [facility] [address] [address] [address] Dunia Carlisle Cholesterol.total/Ch olesterol in HDL [Mass ratio] 3.2 {ratio} Normal [facility] Comment on above: Performed By: #### L IPID, CMP #### [facility] [address] [address] [address] Dunia Carlisle HDL NORMAL > or = 60 mg/dl - LO W CARDIOVASCULAR RISK <40 mg/dl - HIGH CARDIOVASCULAR RISK Normal [facility] Comment on above: Performed By: #### L IPID, CMP #### [facility] [address] [address] [address] Dunia Carlisle LDL CALC NORMAL SEE BELOW Normal [facility] Comment on above: Result Comment: <100 mg/dl OPTIMAL 100 - 129 mg/dl NEAR OR ABOVE OPTIMAL 130 - 159 mg/dl BORDERLINE HIGH 160 - 189 mg/dl HIGH >190 mg/dl VERY HIGH Performed By: #### L IPID, CMP #### [facility] [address] [address] [address] Dunia Carlisle Triglyceride [Mass/Vol] 62 mg/dL Normal <=150 [facility] Comment on above: Performed By: #### L IPID, CMP #### [facility] [address] [address] [address] Dunia Carlisle VLDL CALC 12.4 mg/dL Normal [facility] Comment on above: Performed By: #### L IPID, CMP #### [facility] [address] [place] [address] Dr. Dunia Carlisle PROF 14(COMP METB)on 022 Albumin [Mass/Vol] 3.8 g/dL Normal 3.4-5.0 [facility] Comment on above: Performed By: #### L IPID, CMP #### [facility] [address] [place] [address] Dr. Dunia Carlisle Albumin/Globulin [Mass ratio] 1.0 {ratio} Normal [facility] Comment on above: Performed By: #### L IPID, CMP #### [facility] [address] [place] [address] Dr. Dunia Carlisle ALP [Catalytic activity/Vol] 104 U/L Normal 46-116 [facility] Comment on above: Performed By: #### L IPID, CMP #### [facility] [address] [place] [address] Dr. Dunia Carlisle ALT [Catalytic activity/Vol] 14 U/L Critically low 16-63 [facility] Comment on above: Performed By: #### L IPID, CMP #### [facility] [address] [place] [address] Dr. Dunia Carlisle Anion gap [Moles/Vol] 11.0 mmol/L Normal [facility] Comment on above: Performed By: #### L IPID, CMP #### [facility] [address] [place] [address] Dr. Dunia Carlisle AST [Catalytic activity/Vol] 16 U/L Normal 15-37 [facility] Comment on above: Performed By: #### L IPID, CMP #### [facility] [address] [place] [address] Dr. Dunia Carlisle Bilirubin [Mass/Vol] 0.6 mg/dL Normal 0.2-1.0 [facility] Comment on above: Performed By: #### L IPID, CMP #### [facility] [address] [place] [address] Dr. Dunia Carlisle Calcium [Mass/Vol] 9.1 mg/dL Normal 8.5-10.1 [facility] Comment on above: Performed By: #### L IPID, CMP #### [facility] [address] [address] [address] Dunia Carlisle Chloride [Moles/Vol] 105 mmol/L Normal 98-107 [facility] Comment on above: Performed By: #### L IPID, CMP #### [facility] [address] [address] [address] Dunia Carlisle CO2 [Moles/Vol] 28.7 mmol/L Normal 21.0-32.0 [facility] Comment on above: Performed By: #### L IPID, CMP #### [facility] [address] [place] [address] Dr. Dunia Carlisle Creatinine [Mass/Vol] 1.41 mg/dL Critically high 0.70-1.30 [facility] [facility] Comment on above: Performed By: #### L IPID, CMP #### [facility] [address] [place] [address] Dr. Dunia Carlisle EGFR-AF MALAYSIAN =60 Normal >=60 [facility] Comment on above: Performed By: #### L IPID, CMP #### [facility] [address] [place] [address] Dr. Dunia Carlisle EGFR-NON AF MALAYSIAN 49 mL/min/1.73m2 Critically low >=60 [facility] Comment on above: Performed By: #### L IPID, CMP #### [facility] [address] [place] [address] Dr. Dunia Carlisle Globulin (S) [Mass/Vol] 3.9 g/dL Normal [facility] Comment on above: Performed By: #### L IPID, CMP #### [facility] [address] [place] [address] Dr. Dunia Carlisle Glucose [Mass/Vol] 93 mg/dL Normal 74-106 The [facility] Comment on above: Performed By: #### L IPID, CMP #### [facility] [address] [address] [address] Dunia Carlisle Potassium [Moles/Vol] 4.7 mmol/L Normal 3.5-5.1 [facility] Comment on above: Performed By: #### L IPID, CMP #### [facility] [address] [place] [address] Dr. Dunia Carlisle Protein [Mass/Vol] 7.7 g/dL Normal 6.4-8.2 The [facility] Comment on above: Performed By: #### L IPID, CMP #### [facility] [address] [place] [address] Dr. Dunia Carlisle Sodium [Moles/Vol] 140 mmol/L Normal 136-145 The [facility] Comment on above: Performed By: #### L IPID, CMP #### [facility] [address] [place] [address] Dr. Dunia Carlisle Urea nitrogen [Mass/Vol] 15.0 mg/dL Normal 7.0-18.0 [facility] Comment on above: Performed By: #### L IPID, CMP #### [facility] [address] [place] [address] Dr. Dunia Carlisle Urea nitrogen/Creatinine [Mass ratio] 10.6 mg/mg Normal [facility] Comment on above: Performed By: #### L IPID, CMP #### [facility] [address] [place] [address] Dr. Dunia Carlisle Vital Signs Date Time Vital Sign Value Performing Clinician [place] patel 05-16-2023 10: Body height 180.3 cm Pacc 2 Work Phone: [facility] 05-16-2023 10:040 Body temperature 97.5 [degF] Pacc 2 Work Phone: [facility] 05-16-2023 10: Body weight 88.91 kg Pacc 2 Work Phone: [facility] 05-16-2023 10:040 Diastolic blood pressure 72 mm[Hg] Pacc 2 Work Phone: [facility] 05-16-2023 10:07-0400 Heart rate 60 /min Pacc 2 Work Phone: [facility] 05-16-2023 10:07-0400 Respiratory rate 16 /min Pacc 2 Work Phone: [facility] 05-16-2023 10:07-0400 SaO2% (BldA) [Mass fraction] 99 % Pacc 2 Work Phone: [facility] 05-16-2023 10:07-0400 Systolic blood pressure 131 mm[Hg] Pacc 2 Work Phone: [facility] 10-19-2022 12:37-0500 Body height 177 cm Pulm J-2 [facility] 10-19-2022 12:37-0500 Body temperature 98.29 [degF] Marine Leon MD, PhD Work Phone: [facility] 10-19-2022 12:37-0500 Body weight 89.04 kg Marine Leon MD, PhD Work Phone: [facility] 10-19-2022 12:37-0500 Diastolic blood pressure 73 mm[Hg] Marine Leon MD, PhD Work Phone: [facility] 10-19-2022 12:37-0500 Heart rate 70 /min Marine Leon MD, PhD Work Phone: [facility] 10-19-2022 12:37-0500 Respiratory rate 12 /min Marine Leon MD, PhD Work Phone: [facility] 10-19-2022 12:37-0500 SaO2% (BldA) [Mass fraction] 98 % Marine Leon MD, PhD Work Phone: [facility] 10-19-2022 12:37-0500 Systolic blood pressure 117 mm[Hg] Marine Leon MD, PhD Work Phone: [facility] 10-19-2022 09:00-0500 Body weight 87.59 kg Pulm J-2 [facility] Encounters Encounter Date Encounter Type Care Provider Facility Start: 12-26-2023 ambulatory Shaji SALAS Facility : [facility] Start: 06-11-2023 End: 06-11-2023 ambulatory RODDY LOYD Facility:[facility] Start: 06-11-2023 End: 06-11-2023 Patient encounter procedure Roddy Loyd MD Work Phone: Otolaryngology Comment on above: Zenker's diverticulu m (Primary Dx) Start: 05-24-2023 Telephone encounter Roddy teixeira MD Work Phone: Otolaryngology Comment on above: Medication Problem ( Medication can't be refilled) Start: 05-23-2023 End: 05-23-2023 ambulatory JARON Joaquin JEANBrittani Facility:[facility] Start: 05-22-2023 End: 05-23-2023 ambulatory RODDY RACH Facility:[facility] Start: 05-17-2023 End: 05-17-2023 ambulatory Stacy Dai APRN.MILLING MACHINE OPERATOR GEAR Work Phone: Pre Anesthesia Comment on above: Repeat lab work Start: 05-17-2023 E-mail encounter fro m caregiver Stacy Dai APRN.MILLING MACHINE OPERATOR GEAR Work Phone: [facility] Start: 05-17-2023 Telephone encounter Stacy gray APRN.MILLING MACHINE OPERATOR GEAR Work Phone: Pre Anesthesia Comment on above: PreOp Call (Pre-op l abs ) Start: 05-16-2023 End: 05-16-2023 ambulatory RODDY LOYD Facility:[facility] Start: 05-16-2023 End: 05-16-2023 Subsequent hospital visit by physician [facility] Comment on above: 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] Start: 05-16-2023 End: 05-16-[facility] Work Phone: [facility] Start: 05-16-2023 End: 05-16-2023 ambulatory [facility] [place] 2 Work Phone: Pre Anesthesia Comment on above: Pre-op evaluation (P rimary Dx); Zenker diverticulum Start: 05-16-2023 Encounter for other preprocedural examination RODDY LOYD [facility] Start: 05-16-2023 End: 05-16-2023 Preprocedural examination done [facility] Nik[place] 2 Work Phone: Pre Anesthesia Start: 04-19-2023 End: 04-19-2023 ambulatory Marine Leon MD, PhD Work Phone: [facility] Comment on above: DIVERTICULUM - ESOPH BARBARA (Primary Dx) Start: 04-19-2023 End: 04-19-2023 Telemedicine consultation with patient Marine Leon MD, PhD Work Phone: [facility] Start: 12-14-2022 End: 12-14-2022 ambulatory Marine Leon MD, PhD Work Phone: [facility] Comment on above: DIVERTICULUM - ESOPH BARBARA (Primary Dx); Pharyngoesophageal dysphagia Start: 12-14-2022 End: 12-14-2022 Telemedicine consultation with patient Marine Leon MD, PhD Work Phone: [facility] Start: 11-22-2022 Telephone encounter Marine ledbetter MD, PhD Work Phone: [facility] Comment on above: Appointment Reschedu led Start: 11-16-2022 Telephone encounter Marine ledbetter MD, PhD Work Phone: [facility] Comment on above: Appointment Reschedu led Start: 10-24-2022 ambulatory Abigail Anna APRN.MILLING MACHINE OPERATOR GEAR Work Phone: Pulmonary Medicine Start: 10-23-2022 Telephone encounter Marine ledbetter MD, PhD Work Phone: [facility] Comment on above: Appointment; Orders (follow up ct scan ) Start: 10-19-2022 End: 10-19-2022 Patient encounter procedure Marine Leon MD, PhD Work Phone: [facility] Comment on above: DIVERTICULUM - ESOPH BARBARA (Primary Dx) Start: 10-19-2022 End: 10-19-2022 Subsequent hospital visit by physician Ct 2 Main Qb (I-Stat) Radiology Comment on above: Zenkers diverticulum [K22.5] Start: 10-19-2022 End: 10-19-2022 ambulatory Pulm J-2 Pulmonary Medicine Comment on above: Spirometry Start: 10-19-2022 End: 10-19-2022 Patient encounter procedure Pulm Fct Lab J-2 [facility] Start: 09-06-2022 Telephone encounter Marine ledbetter MD, PhD Work Phone: [facility] Comment on above: Consult (Zendenisse Dive rticulum ) Start: 08-31-2022 End: 09-01-[address] JARON AVALOS Facility: Start: 05-16-2018 End: 05-17-2018 Ambulatory DEFAULT PHYSICIAN Facility:[facility] Procedures Date Procedure Procedure Detail Performing Clinician Start: 05-16-2023 Radiologic exam ches t single view Edwin Lopez MD Work Phone: Start: 10-19-2022 Ct abdomen & pelvis w/o contrast material Marine Leon MD, PhD Work Phone: Start: 10-19-2022 Ct thorax w/o contra st material Marine Leno MD, PhD Work Phone: Start: 10-19-2022 End: 10-19-2022 Co diffusing capacity Marine Leon MD, PhD Work Phone: Start: 08-31-[address] JUANJOSE AVALOS Comment on above: Performed By: #### P [facility] #### [facility] [address] [place] [address] Dr. Dunia Carlisle Plan of Treatment Date Care Activity Detail Author Start: 03-04-2028 Urine microalbumin profile DTAP,TDAP,TD (3 - Td or Tdap) [facility] Start: 05-23-2026 DIABETES SCREEN DIABETES SCREEN [facility] Start: 05-16-2026 DIABETES SCREEN DIABETES SCREEN [facility] Start: 05-23-2024 HEMOGLOBIN/HEMATOCRIT HEMOGLOBIN/HEM [facility] Start: 05-23-2024 SERUM CREATININE SERUM CREATININE [facility] Start: 05-16-2024 HEMOGLOBIN/HEMATOCRIT HEMOGLOBIN/HEM [facility] Start: 05-16-2024 SERUM CREATININE SERUM CREATININE [facility] Start: 07-13-2023 Influenza vaccination INFLUENZA (#1) [facility] Start: 05-17-2023 End: 07-17-2023 POTASSIUM BLD POTASSIUM BLD Lab Routine Hyperkalemia Expected: 05/17/2023, Expires: 07/17/2023 [facility] Work Phone: Comment on above: Expected: 05/17/2023 , Expires: 07/17/2023 Start: 12-11-2022 COVID-19 VACCINE (6 - Moderna series) COVID-19 VACCINE (6 - Moderna series) [facility] Start: 11-12-2022 ADVANCE DIRECTIVE DISCUSSION ADVANCE DIRECTIVE DISCUSSION [facility] Start: 11-12-2022 DEPRESSION ASSESSMENT DEPRESSION ASS ESSMENT [facility] Start: 11-12-2021 ADVANCE DIRECTIVE DISCUSSION ADVANCE DIRECTIVE DISCUSSION [facility] Start: 11-12-2021 DEPRESSION ASSESSMENT [facility]ION [facility] Start: 1995 COLOGUARD (FIT-DNA) COLOGUARD (FIT-D NA) [facility] Start: 1995 Colonoscopy COLONOSCOPY [facility] Start: 1995 COLORECTAL CANCER SCREENING COLORECTAL CANCER SCREENING [facility] Start: [address] COLONOGRAPHY [facility] Start: 1995 DIABETES SCREEN DIABETES SCREEN [facility] Start: 1995 FECAL OCCULT BLOOD FECAL OCCULT BLOO D [facility] Start: 1995 SIGMOIDOSCOPY SIGMOIDOSCOPY [facility] Start: 1985 LIPID SCREEN LIPID SCREEN [facility] Start: 02-09-1968 ANNUAL PCP TEAM 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 MEASURER IONA DISEASE VISIT ANNUAL PCP TEAM CHRONIC DISEASE VISIT [facility] Start: 02-09-1968 HEPATITIS C SCREENING HEPATITIS C SC REENING [facility] Start: 1950 ABDOMINAL AORTIC ANEURYSM SCREENING ABDOMINAL AORTIC ANEURYSM SCREENING [facility] End: 10-25-2023 Ct abdomen & pelvis w/o contrast material CT ABD/PEL WO IVCON Radiology Routine Zenkers diverticulum 1 Occurrences starting 09/25/2022 until 10/25/2023 [facility] Work Phone: Comment on above: 1 Occurrences starti ng 09/25/2022 until 10/25/2023 End: 10-25-2023 Ct thorax w/o contrast material CT CHEST WO IVCON Radiology Routine Zenkers diverticulum 1 Occurrences starting 09/25/2022 until 10/25/2023 [facility] Work Phone: Comment on above: 1 Occurrences starti ng 09/25/2022 until 10/25/2023 End: 11-22-2023 Ct thorax w/o contrast material CT CHEST WO IVCON Radiology Routine Lung nodules 1 Occurrences starting 10/23/2022 until 11/22/2023 [facility] Work Phone: Comment on above: 1 Occurrences starti ng 10/23/2022 until 11/22/2023 End: 10-25-2023 LUNG DIFFUSION CAPACITY (DLCO) LUNG DIFFUSION CAPACITY (DLCO) PFT Routine Zenkers diverticulum 1 Occurrences starting 09/25/2022 until 10/25/2023 [facility] Work Phone: Comment on above: 1 Occurrences starti ng 09/25/2022 until 10/25/2023 LUNG DIFFUSION CAPAC ITY (DLCO) LUNG DIFFUSION CAPACITY (DLCO) PFT Routine Zenkers diverticulum 10/19/2022 9:29 AM Imprivata [facility] Work Phone: End: 10-25-2023 SIX MINUTE WALK SIX MINUTE WALK PFT Routine Zenkers diverticulum 1 Occurrences starting 09/25/2022 until 10/25/2023 [facility] Work Phone: Comment on above: 1 Occurrences starti ng 09/25/2022 until 10/25/2023 End: 10-25-2023 SPIROMETRY BASELINE ONLY SPIROMETRY BASELINE ONLY PFT Routine Zenkers diverticulum 1 Occurrences starting 09/25/2022 until 10/25/2023 [facility] Work Phone: Comment on above: 1 Occurrences starti ng 09/25/2022 until 10/25/2023 SPIROMETRY BASELINE ONLY SPIROME TRY BASELINE ONLY PFT Routine Zenkers diverticulum 10/19/2022 9:29 AM [employer] [facility] Work Phone: [facility] Immunizations Immunization Date Immunization Notes Care Provider Hubert bergkim 08-24-2022 influenza, high-dose , quadrivalent vaccine (FLUZONE HIGH DOSE QUADRIVALENT) [address] 08-18-2021 influenza (aIIV4) va ccine, age 65+ yr, quadrivalent, PF (FLUAD QUADRIVALENT) [address] 08-06-2020 pneumococcal conjuga te vaccine, [address] 08-02-2020 influenza virus vacc ine, unspecified formulation [address] 04-22-2020 zoster vaccine recombinant [address] 12-22-2019 zoster vaccine recombinant [address] 08-27-2018 influenza, high dose seasonal, preservative-free [address] 08-27-2018 pneumococcal polysac charide vaccine, [address] 03-04-2018 tetanus toxoid, redu alex diphtheria toxoid, and acellular pertussis vaccine, adsorbed [address] 09-17-2017 influenza, injectabl e, quadrivalent, preservative free [address] 08-20-2017 influenza, high dose seasonal, preservative-free [address] 11-14-2016 influenza, injectabl e, quadrivalent, preservative free [address] 11-14-2016 pneumococcal conjuga te vaccine, [address] 11-15-2015 pneumococcal polysac charide vaccine, [address] 10-20-2015 influenza, seasonal, injectable [address] 11-03-2014 pneumococcal polysac charide vaccine, [address] 09-29-2014 influenza virus vacc ine, whole virus [address] 04-23-2013 tetanus toxoid, redu alex diphtheria toxoid, and acellular pertussis vaccine, adsorbed [address] 11-07-2005 tetanus and diphther ia toxoids, adsorbed, preservative free, for adult use (5 Lf of tetanus toxoid and 2 Lf of diphtheria toxoid) Pulm J-2 [facility] Payers Date Payer Category Payer Medicare HU[employer]NA MEDICARE HU[employer]NA MEDICARE PPO [id number] 2018-Present [phone] [address] [address] [place] [address] PPO [id number] 1959 Medicare [id number] 1950 Unknown [id number] 1950 Unknown [id number] Unknown Social History Date Type Detail Facility Tobacco smoking stat [facility] Tobacco smoking consumption unknown [facility] Start: 1950 Sex Assigned At Not on file [facility] Start: 10-19-2022 End: 05-16-2023 Tobacco smoking status NHIS Ex-smoker [facility] End: 11-12-1969 History of tobacco use Current smoker [facility] End: 11-12-1969 History of tobacco use Cigarette Smoker [facility] Start: 10-19-2022 End: 05-16-2023 Tobacco use and exposure Smokeless tobacco non-user [facility] Start: 10-19-2022 End: 05-16-2023 Alcohol intake Ex-drinker (finding) [facility] Start: 1950 Sex Assigned At [facility] Start: 03-23-2023 End: 05-16-2023 Cigarettes smoked current (pack per day) - Reported 5 [facility] Start: 03-23-2023 End: 05-16-2023 Tobacco use panel [facility] National Score (1-10 0), lower number is lower risk 76 [facility] Start: 09-29-2022 Gender identity Identifies as male gender (finding) [facility] Start: 09-29-2022 Sexual orientation Heterosexual (fin ding) [facility] Clinical Notes 09-25-2022 to 06-11-2023 Roddy Loyd MD - 06/11/2023 11:30 AM Amy Rose RN - 06/11/2023 10:57 AM EDTTelephone Encounter - Amy Rios RN - 05/25/2023 9:46 AM Manda Perdomo RT(R) - 05/16/2023 11:45 AM EDT Note Date & Type Note Facility 06-11-2023 Note HNO ID: [id number] Author: Roddy Loyd MD Service: ? Author [...] Take 1 tablet by mouth once daily. Lhijteo-Ehelcjxsykdya-Unzrotco (EXCEDRIN MIGRAINE) 250-250-65 mg per tablet Take [...] lymphadenopathy. ROM was intact Roddy Loyd MD [facility] 06-11-2023 History of Presen t illness [...] Take 1 tablet by mouth once daily. Ozwfokg-Jwkcmxvprzvow-Bziwcahy (EXCEDRIN MIGRAINE) 250-250-65 mg per tablet Take [...] MD documented in this encounter [facility] 06-11-2023 Nurse Note Tobacco Use: 5 packs/day Quit 11/12/1969. Types: Cigarettes Was smoking cessation packet given? N/A - Patient is a non-smoker or quit >1 year ago. Was a referral initiated?N/A Patient is a non-smoker documented in this encounter [facility] 05-25-2023 Miscellaneous Notes Called [facility] in [place]- they do not have this medication in stock. Said nearest pharmacy is [facility] in [place]. Called pt. And he said it is ok to send there, since will be there this afternoon. Mr. Cerda called and said that the oxyCodone 5 mg /5ml can't be filled due to supply shortage with outside company. The pharmacy he was using was [facility] in [facility]. He was wondering if a new prescription be filled at the [facility] in [facility]. The Pharmacy phone number is . documented in this encounter [facility] 05-23-2023 Note HNO ID: [id number] Author: Keri Mcgrath RT(R) Service: Radiology Author [...] RT Maite(R) May 23, 2023 9:43 AM [facility] 05-23-2023 Note HNO ID: [id number] Author: Philip Thomas MD Service: Otolaryngology Author [...] Head and Neck Surgery PGY 5 Pager: [phone] Service pager: [phone] (page after 5pm and on weekends) [facility] 05-22-2023 Note HNO ID: [id number] Author: Donita Torres APRN.UNIVERSAL BRANCH CONSULTANT Service: ? Author Type: Nurse Riveting Machine Operator Tape Control Type: Anesthesia Procedure Notes Filed: 05/22/2023 2:51 PM Note Text: ANESTHESIOLOGY PROCEDURE NOTE Airway General Information Procedure Start Time/Medication Administration: 05/22/2023 2:36 PM Patient location during procedure: OR Timeout Performed Pre-procedure: timeout performed Consent Obtained: Yes Patient identity confirmed: arm band, care team supervisor and patient Staffing UNIVERSAL BRANCH CONSULTANT: Donita Torres APRN.UNIVERSAL BRANCH CONSULTANT Performed by: UNIVERSAL BRANCH CONSULTANT Indications and Patient Condition Indications for airway management: anesthesia and airway protection Preoxygenated: yes anesthesia circuit Method: modified rapid sequence Cricoid Pressure: No Final Airway Details Final airway type: endotracheal airway Final Endotracheal Airway: microlaryngeal (6.0) Cuffed: yes Successful intubation technique: video laryngoscopy Devices used: Wize Endotracheal tube insertion site: oral Blade size: #4 Measured from: lips Measurement (cm): 23 Placement verified by: chest auscultation and capnometry Cormack-Lehane Classification: grade I - full view of glottis Number of attempts at approach: 1 Airway not difficult SIGNATURE: Donita Torres APRN.UNIVERSAL BRANCH CONSULTANT PATIENT NAME: Odalys Cerda DATE: May 22, 2023 TIME: 2:50 PM CSN: [id number] [facility] 05-17-2023 Miscellaneous Notes my chart message sent documented in this encounter [facility] 05-17-2023 Miscellaneous Notes Please contact patient and advise potassium level is elevated on pre-op labs -5.4 Repeat potassium ordered Advise patient to increase water intake, avoid high potassium foods and have potassium repeated in 2-3 days prior to upcoming surgery Thank you Stacy Dai APRN.MILLING MACHINE OPERATOR GEAR PACC documented in this encounter [facility] 05-16-2023 History of Presen t illness Narrative [...] AM documented in this encounter [facility] 05-16-2023 Note HNO ID: [id number] Author: RT Corky(Jennifer) Service: ? Author Type: Technologist Type: Progress [...] RT Corky(Jennifer) May 16, 2023 11:24 AM [facility] 05-16-2023 History and physical note HISTORY [...] 1 tablet by mouth once daily. Yes Zlanbsp-Fdfemmfyhmyee-Plheusjp (EXCEDRIN MIGRAINE) 250-250-65 mg per tablet Take 1 tablet by mouth as needed. Yes acetaminophen (TYLENOL ORAL) Take by mouth as needed. Yes No medication comments found. CURRENT ALLERGIES: ALLERGIES No Known Allergies COVID VACCINATION STATUS: Fully vaccinated REVIEW OF SYSTEMS: PAIN ASSESSMENT: General: No weight loss, malaise or fevers. Neuro: No history of TIA's, stroke, ACCOUNT REVIEW SPECIALIST tumor, impaired sensorium, hemiplegia, paraplegia or quadraplegia. No neurological symptoms or problems., Postive for Headaches Respiratory: No history of current cough or dyspnea, or pneumonia in the past 6 weeks. No history of respiratory/pulmonary symptoms or problems. + snoring Cardiovascular: No history of HTN requiring medication, no history of angina, CHF, [place], cardiac surgery or stents. Denies rest pain, [...] 10-19-2022 15:18:48 EST by Prudencio Bella Assessment/Plan Zenker diverticulum Assessment: See HPI METS: Climb a [...] TIME: documented in this encounter [facility] 05-16-2023 Instructions Stacy Dai APRN.CNP - 05/16/2023 10:12 AM EDT PATIENT PREOPERATIVE INSTRUCTIONS Roddy Loyd MD has scheduled you for your procedure at this surgery center: [facility] [place] Scheduling Office: [phone] --[address] [place] [address]. Please read below carefully for your personalized [...] Procedures: - YOU MUST HAVE A RESPONSIBLE PLATFORM ARCHITECT TAKE YOU HOME. A PUBLIC RELATIONS ACCOUNT SUPERVISOR OR KITCHEN MANAGER CANNOT BE MADE A RESPONSIBLE PLATFORM ARCHITECT. - We recommend that a responsible person [...] call the Sunday before. Your surgeon s materials scheduler will tell you what time to call the office. - If you have not reached the departmental materials scheduler by 5 P.M., call [phone] after 5 P.M. the day before your surgery. Please be aware that emergency situations arise, which may delay or change your surgical time. If this happens, we will notify you as soon as possible and regret any inconvenience. If you already have an Advance Directive, please fax a copy to [phone] or email to for it to be [...] day. documented in this encounter [facility] 04-19-2023 History of Presen t illness Narrative VIRTUAL VISIT PROGRESS NOTE This is a virtual visit using Audio only. It required patient-provider interaction for the medical decision making as documented below. I have communicated my name and active licensure. The patient's identity and physical location were verified at the time of this visit. Either the patient or their legal life assurance representative has been informed of the risks [...] Take 1 tablet by mouth once daily. Ffhtqnu-Pvrhixcobghae-Dnabuiqc (EXCEDRIN MIGRAINE) 250-250-65 mg per tablet Take [...] which included preparing to see the patient, [id number] patient care, completing clinical documentation, counseling and educating the patient/family/caregiver, and care coordination (not separately reported) Marine Leon M.D., Ph.D., FACS, [facility] I have read and reviewed the documentation and agree. I wish to add the following findings which have been dictated and will be communicated back to the requesting physician. Marine Leon MD, PhD documented in this encounter [facility] 12-14-2022 History of Presen t illness [...] PhD documented in this encounter [facility] 11-22-2022 Miscellaneous Notes Changed phone apt time from 9:20am to 8:40 am 12/14/2022. Confirmed with patient via phone. Sent via mail. Patient also has access to VSS Monitoring. PF documented in this encounter [facility] 11-16-2022 Miscellaneous Notes Left message with patient to reschedule for a different day and/or time (phone visit) w/ Dr. Leon. PF documented in this encounter [facility] 11-16-2022 Miscellaneous Notes Confirmed rescheduled date and time of apt w/ patient from 11/30/2022 at 9:20am to 12/14/2022 at 9:20am, phone visit w/ Dr. Leon. Dr Leon not available on 11/30/2022. Set out via mail. Patient also has access to VSS Monitoring. documented in this encounter [facility] 10-24-2022 History of Presen t illness Narrative Incidental Lung Nodule Enrollment Call attempt: 1st Attempt Call status: Complete Enrolled in Lung Nodule program: No Lung Nodule outreach: No outreach - TSx Lung Nodule Program Location: [place] [facility] Chest ordered by Dr. Leon. Abigail Anna APRN.BARRY documented in this encounter [facility] 10-23-[address] leon , plan for CT scan of the chest in 6 months to follow lung nodule CT scan of chest April [address] leon or leaf sucker operator to review documented in this encounter [facility] 10-21-2022 History of Presen t illness Narrative [facility] STAFF PHYSICIAN NOTE OF PERSONAL [...] THORACIC SURGERY OUTPATIENT CONSULT NOTE Odalys Cerda [id number] Requesting Provider: Jaron Avalos MD Thoracic Physician: [...] Paper Medical Records Review personally performed by: Nj SIGNATURE: Richard Navarro MD PAGER: [id number] DATE of SERVICE: 10/19/2022 TIME of SERVICE: 9:22 AM documented in this encounter [facility] 10-19-2022 History of Presen t illness [...] AM documented in this encounter [facility] 10-19-2022 Procedure note Associated Ord er(s): [...] AM documented in this encounter [facility] 10-19-2022 History of Presen t illness Narrative PULM FUNCTION SMARTBLOCK: Provider: Marine Leon MD, PhD Spirometry: 1 DLCO: 1 6 MW: 1 documented in this encounter [facility] 09-25-2022 Miscellaneous Notes Images from the original note were not included. Thoracic Surgery Consultation - review of records for appointment scheduling Received medical records from the office of Jaron Avalos MD [address] [facility] [place] [address] Patient is being referred to Unspecified/First Available [...] leon pft/dlco/six ct chest/abd with oral constrast Katy Berrios RN Received Routed Epic Telephone Encounter from Dr. Jaorn Avalos MD Odalys Cerda is being referred to Unspecified Thoracic Surgeon by Jaron Avalos MD [address] [facility] [place] [address] Patient diagnosis/Reason for consult: Zenker's Diverticulum Referral triage process explained: Yes Patient will receive a call from Thoracic NPM after triage review with surgeon to discuss any additional testing and/or consults that will be scheduled. Pt will then receive a call from our scheduling office for scheduling. Please call pt at [phone]. Patient was informed consultation could be at [place] or [facility] [place]: No Patient Registration: Registration complete/updated: Yes Insurance card(s) scanned in [facility] with in the past year: Yes, 09/06/22 Pt's [email or web address] is inactive. Ok to communicate to pt via [email or web address] no Medical Records: Records in [facility] (internal CC records): No Imaging in [facility] (internal CC records): No Care Everywhere [...] 06, 2022 Outside Hospital(s) requested imaging from: [facility]. Imaging will be received via Electronic Transfer Received: Yes Imaging uploaded: Yes Waiting on additional: Yes. Missing (list): CT Additional providers added to Care Teams: Yes Additional Notes/Comments: n/a Enct routed to: Willie Gaston NPM for triage Porsha Nick, higher education administrator documented in this encounter [facility] Evaluation note Diagnosis Zenkers diverticulum- Primary Diverticulum [...] Dysphagia, pharyngoesophageal phase documented in this encounter [facility] note* Diagnosis DIVERTICULUM - ESOPHAGUS- Primary Diverticulum of esophagus, acquired Zenker diverticulum Diverticulum of esophagus, acquired Pharyngoesophageal dysphagia Dysphagia, pharyngoesophageal phase documented in this encounter [facility] note* Diagnosis Pre-op evaluation- Primary Preoperative examination, unspecified Zenker diverticulum Diverticulum of esophagus, acquired Zenker diverticulum Diverticulum of esophagus, acquired Pharyngoesophageal dysphagia Dysphagia, pharyngoesophageal phase documented in this encounter [facility] note* Diagnosis Hyperkalemia- Primary Hyperpotassemia Zenker diverticulum Diverticulum of esophagus, acquired Pharyngoesophageal dysphagia Dysphagia, pharyngoesophageal phase documented in this encounter [facility] note* Diagnosis Acute post-operative pain documented in this encounter [facility] note* Diagnosis Zenker's diverticulum- Primary Diverticulum of esophagus, acquired documented in this encounter [facility] note* Diagnosis Zenker diverticulum Diverticulum of esophagus, acquired [facility] Diagnostic Procedure Only (Routine) - Closed Specialty Diagnoses / Procedures Referred By Alfonso espinoza Referred To Contact XR IMAGING Diagnoses Zenker diverticulum Procedures XR CHEST 1V FRONTAL RADIOLOGIC EXAM CHEST SINGLE VIEW Roddy Loyd MD [address] [place] [address] Xr Imaging Referral ID Status Reason Start Date Expiration Date V isits Requested Visits Authorized [id number] Closed Auto-Generate d Referral 03/23/2023 04/21/2024 1 1 [facility] Summary Purpose Family History No Family [...] W/O CONTRAST Marine Leon MD, PhD [address] [place] [address] Ct Imaging Referral ID Status Reason Start Date Expiration Date Visits Requested Visits Authorized [id number] Pending Review Auto-Generat ed Referral 2 10/25/2023 1 1 Specialty Diagnoses / Procedures Referred By Contac t Referred To Contact CT IMAGING Diagnoses Zenkers diverticulum Procedures CT CHEST WO IVCON DIAGNOSTIC COMPUTED TOMOGRAPHY THORAX W/O CNTRST Marine Leon MD, PhD [address] [place] [address] Ct Imaging Referral ID Status Reason Start Date Expiration Date Visits Requested Visits Authorized [id number] Pending Review Auto-Generat ed Referral 2 10/25/2023 1 1 Specialty Diagnoses / Procedures Referred By Contac t Referred To Contact [facility] Diagnoses Zenkers diverticulum Procedures SIX MINUTE WALK CARDIOPULMONARY EXERCISE STRESS Marine Leon MD, PhD [address] [place] [address] [address] [place] [address] [place] [address] Referral ID Status Reason Start Date Expiration Date Visits Requested Visits Authorized [id number] Pending Review Auto-Generat ed Referral 2 10/25/2023 1 1 Specialty Diagnoses / Procedures Referred By Contac t Referred To Contact [facility] Diagnoses Zenkers diverticulum Procedures LUNG DIFFUSION CAPACITY (DLCO) DIFFUSING CAPACITY Marine Leon MD, PhD [address] [place] [address] [address] [place] [address] [place] [address] Referral ID Status Reason Start Date Expiration Date Visits Requested Visits Authorized [id number] Pending Review Auto-Generat ed Referral 2 10/25/2023 1 1 Specialty Diagnoses / Procedures Referred By Contac t Referred To Contact [facility] Diagnoses Zenkers diverticulum Procedures SPIROMETRY BASELINE ONLY SPMTRY W/VC EXPIRATORY NAHUM W/WO MXML VOL VNTJ Marine Leon MD, PhD [email or web address] [place] [address] [address] [place] [address] [address] Referral ID Status Reason Start Date Expiration Date Visits Requested Visits Authorized [id number] Pending Review Auto-Generat ed Referral 10/25/2023 1 1 Referral ID Status Reason Start Date Expiration Date V isits Requested Visits Authorized [id number] Closed Auto-Generate d Referral 10/19/2022 11/18/2022 1 1 Referral ID Status Reason Start Date Expiration Date V isits Requested Visits Authorized [id number] Closed Auto-Generate d Referral 10/19/2022 11/18/2022 1 1 Specialty Diagnoses / Procedures Referred By Contac t Referred To Contact Ent - Otolaryngology Diagnoses Diverticulum of esophagus, acquired Procedures CONSULT TO ENT OFFICE/OUTPATIENT [facility] MDM 60-74 MINUTES Marine Leon MD, PhD [address] [place] [address] Referral ID Status Reason Start Date Expiration Date Visits Requested Visits Authorized [id number] Authorized PCP Requested Referral 11/21/2022 10/21/2023 1 1 Specialty Diagnoses / Procedures Referred By Contac t Referred To Contact CT IMAGING Diagnoses Lung nodules Procedures CT CHEST WO IVCON DIAGNOSTIC COMPUTED TOMOGRAPHY THORAX W/O CNTRST Marine Leon MD, PhD [address] [place] [address] Ct Imaging Referral ID Status Reason Start Date Expiration Date Visits Requested Visits Authorized [id number] Pending Review Auto-Generat ed Referral 11/22/2023 1 1 Additional Source Comments (unrecognized sect ion and content) No Status Records FoundNo Status Records FoundNo Status Records FoundNo Status Records Found INFORMATION SOURCE (unrecogn ized section and content) DATE CREATED AUTHOR 05/17/2018 [facility] DATE CREATED AUTHOR AUTHOR'S ORGANIZ ATION 09/04/2022 [facility] DATE CREATED AUTHOR AUTHOR'S ORGANIZ ATION 12/25/2023 [facility] DATE CREATED AUTHOR AUTHOR'S ORGANIZ ATION 05/15/2024 [facility] Source Comments (unrecognize d section and content) In the event this informatio n is protected by the Federal Confidentiality of Alcohol and Drug Abuse Patient Records regulations: The Federal rules restrict any use of the information to criminally investigate or prosecute any alcohol or drug abuse patient.[facility] the event this information is protected by the Federal Confidentiality of Alcohol and Drug Abuse Patient Records regulations: The Federal rules restrict any use of the information to criminally investigate or prosecute any alcohol or drug abuse patient.[facility] the event this information is protected by the Federal Confidentiality of Alcohol and Drug Abuse Patient Records regulations: The Federal rules restrict any use of the information to criminally investigate or prosecute any alcohol or drug abuse patient.[facility] the event this information is protected by the Federal Confidentiality of Alcohol and Drug Abuse Patient Records regulations: The Federal rules restrict any use of the information to criminally investigate or prosecute any alcohol or drug abuse patient.[facility] the event this information is protected by the Federal Confidentiality of Alcohol and Drug Abuse Patient Records regulations: The Federal rules restrict any use of the information to criminally investigate or prosecute any alcohol or drug abuse patient.[facility] the event this information is protected by the Federal Confidentiality of Alcohol and Drug Abuse Patient Records regulations: The Federal rules restrict any use of the information to criminally investigate or prosecute any alcohol or drug abuse patient.[facility] the event this information is protected by the Federal Confidentiality of Alcohol and Drug Abuse Patient Records regulations: The Federal rules restrict any use of the information to criminally investigate or prosecute any alcohol or drug abuse patient.[facility] the event this information is protected by the Federal Confidentiality of Alcohol and Drug Abuse Patient Records regulations: The Federal rules restrict any use of the information to criminally investigate or prosecute any alcohol or drug abuse patient.[facility] the event this information is protected by the Federal Confidentiality of Alcohol and Drug Abuse Patient Records regulations: The Federal rules restrict any use of the information to criminally investigate or prosecute any alcohol or drug abuse patient.[facility] the event this information is protected by the Federal Confidentiality of Alcohol and Drug Abuse Patient Records regulations: The Federal rules restrict any use of the information to criminally investigate or prosecute any alcohol or drug abuse patient.[facility] the event this information is protected by the Federal Confidentiality of Alcohol and Drug Abuse Patient Records regulations: The Federal rules restrict any use of the information to criminally investigate or prosecute any alcohol or drug abuse patient.[facility] the event this information is protected by the Federal Confidentiality of Alcohol and Drug Abuse Patient Records regulations: The Federal rules restrict any use of the information to criminally investigate or prosecute any alcohol or drug abuse patient.[facility] the event this information is protected by the Federal Confidentiality of Alcohol and Drug Abuse Patient Records regulations: The Federal rules restrict any use of the information to criminally investigate or prosecute any alcohol or drug abuse patient.[facility] the event this information is protected by the Federal Confidentiality of Alcohol and Drug Abuse Patient Records regulations: The Federal rules restrict any use of the information to criminally investigate or prosecute any alcohol or drug abuse patient.[facility] the event this information is protected by the Federal Confidentiality of Alcohol and Drug Abuse Patient Records regulations: The Federal rules restrict any use of the information to criminally investigate or prosecute any alcohol or drug abuse patient.[facility] the event this information is protected by the Federal Confidentiality of Alcohol and Drug Abuse Patient Records regulations: The Federal rules restrict any use of the information to criminally investigate or prosecute any alcohol or drug abuse patient.[facility] the event this information is protected by the Federal Confidentiality of Alcohol and Drug Abuse Patient Records regulations: The Federal rules restrict any use of the information to criminally investigate or prosecute any alcohol or drug abuse patient.[facility] the event this information is protected by the Federal Confidentiality of Alcohol and Drug Abuse Patient Records regulations: The Federal rules restrict any use of the information to criminally investigate or prosecute any alcohol or drug abuse patient.[facility] the event this information is protected by the Federal Confidentiality of Alcohol and Drug Abuse Patient Records regulations: The Federal rules restrict any use of the information to criminally investigate or prosecute any alcohol or drug abuse patient.[facility] the event this information is protected by the Federal Confidentiality of Alcohol and Drug Abuse Patient Records regulations: The Federal rules restrict any use of the information to criminally investigate or prosecute any alcohol or drug abuse patient.[facility] Reason for Visit (unrecogniz ed section and content) Reason Comments Consult Zenker Diverticulum Reason Comments Spirometry Specialty Diagnoses / Procedures Referred By Contac t Referred To Contact [facility] Diagnoses Zenkers diverticulum Procedures LUNG DIFFUSION CAPACITY (DLCO) DIFFUSING CAPACITY Marine Leon MD, PhD [address] [place] [address] [address] [place] [address] [place] [id number] Referral ID Status Reason Start Date Expiration Date V isits Requested Visits Authorized [id number] Closed Auto-Generate d Referral 09/25/2022 10/25/2023 1 1 Specialty Diagnoses / Procedures Referred By Contac t Referred To Contact [facility] Diagnoses Zenkers diverticulum Procedures SPIROMETRY BASELINE ONLY SPMTRY W/VC EXPIRATORY NAHUM W/WO MXML VOL VNTJ Marine Leon MD, PhD [address] [facility] [address] [place] [address] Respiratory [place] [address] [place] [id number] Referral ID Status Reason Start Date Expiration Date V isits Requested Visits Authorized [id number] Closed Auto-Generate d Referral 09/25/2022 10/25/2023 1 1 Specialty Diagnoses / Procedures Referred By Contac t Referred To Contact [facility] Diagnoses Zenkers diverticulum Procedures SIX MINUTE WALK CARDIOPULMONARY EXERCISE STRESS Marine Leon MD, PhD [address] [facility] [address] [facility] [address] [place] [address] [address] [place] [address] [place], [place] [address] [place] [address] Referral ID Status Reason Start Date Expiration Date V isits Requested Visits Authorized [id number] Closed Auto-Generate d Referral 09/25/2022 10/25/2023 1 1 Specialty Diagnoses / Procedures Referred By Contac t Referred To Contact CT IMAGING Diagnoses Zenkers diverticulum Procedures CT ABD/PEL WO IVCON CT ABD & PELVIS W/O CONTRAST Marine Leon MD, PhD [address] [facility] [address] [facility] [address] [place] [address] Ct Imaging Referral ID Status Reason Start Date Expiration Date V isits Requested Visits Authorized [id number] Closed Auto-Generate d Referral 10/19/2022 11/18/2022 1 [...] EXAM CHEST SINGLE VIEW Roddy Loyd MD [address] [place] [address] Xr Imaging Referral ID Status Reason Start Date Expiration Date V isits Requested Visits Authorized [id number] Closed Auto-Generate d Referral 03/23/2023 04/21/2024 1 1 Care Teams (unrecognized sec tion and content) Manager Motor Relationship Specialty Start Date End Date Jaron Avalos MD [address] [place] [address] Referring Family Medicine 09/05/22 Manager Motor Relationship Specialty Start Date End Date Jaron Avalos MD [address] [place] [address] Referring Family Medicine 09/05/22 Manager Motor Relationship Specialty Start Date End Date Jaron Avalos MD [address] [place] [address] Referring Family Medicine 09/05/22 Manager Motor Relationship Specialty Start Date End Date Jaron Avalos MD [address] [place] [address] Referring Family Medicine 09/05/22 Manager Motor Relationship Specialty Start Date End Date Jaron Avalos MD [address] [place] [id number] Referring Family Medicine 09/05/22 Manager Motor Relationship Specialty Start Date End Date Jaron Avalos MD [address] [place] [id number] Referring Family Medicine 09/05/22 Manager Motor Relationship Specialty Start Date End Date Jaron Avalos MD [address] [place] [address] Referring Family Medicine 09/05/22 Manager Motor Relationship Specialty Start Date End Date Jaron Avalos MD [address] [place] [address] Referring Family Medicine 09/05/22 Manager Motor Relationship Specialty Start Date End Date Jaron Avalos MD Referring Family Medicine 09/05/22 Manager Motor Relationship Specialty Start Date End Date Jaron Avalos MD [address] [place] [address] PCP - General Family Medicine 05/16/23 Jaron Avalos MD Referring Family Medicine 09/05/22 Manager Motor Relationship Specialty Start Date End Date Jaron Avalos MD [address] [facility] [place] [address] PCP - General Family Medicine 05/16/23 Jaron Avalos MD Referring Family Medicine 09/05/22 Manager Motor Relationship Specialty Start Date End Date Jaron Avalos MD [address] [facility] [place] [address] PCP - General Family Medicine 05/16/23 Jarno Avalos MD Referring Family Medicine 09/05/22 Manager Motor Relationship Specialty Start Date End Date Jaron Avalos MD [address] [facility] [place] [address] PCP - General Family Medicine 05/16/23 Jaron Avalos MD Referring Family Medicine 09/05/22 Manager Motor Relationship Specialty Start Date End Date Jaron Avalos MD [address] [facility] [place] [address] PCP - General Family Medicine 05/16/23 Jaron Avalos MD Referring Family Medicine 09/05/22 Manager Motor Relationship Specialty Start Date End Date Jaron Avalos MD [address] [facility] [place] [address] PCP - General Family Medicine 05/16/23 Jaron [...] BE BASED ON THE PRIMARY CLINICAL RECORDS. [facility]. provides no warranty or guarantee of the accuracy or completeness of information in this document.
[2025-02-20 10:13] LABS: Basophils Percent Auto 0.6 % (0.2-2.0); Eosinophils Absolute Auto 0.2 10^3/uL (0.0-0.7); Eosinophils Percent Auto 3.5 % (0.9-7.0); Hematocrit 36.7 % (42.0-54.0); Hemoglobin 12.4 g/dL (14.0-18.0); Immature Granulocytes Abs Auto 0.02 10^3/uL (0.00-0.03); Immature Granulocytes Pct Auto 0.3 % (0.0-0.5); Lymphocytes Percent Auto 30.7 % (20.5-60.0); Mean Corpuscular HGB Conc 33.8 g/dL (29.9-35.2); Mean Corpuscular Hemoglobin 33.6 pg (25.9-34.0); Mean Corpuscular Volume 99.5 fL (80.0-94.0); Mean Platelet Volume 9.6 fL (9.5-13.5); Monocytes Absolute Auto 0.6 10^3/uL (0.3-0.8); Monocytes Percent Auto 8.8 % (1.7-12.0); Neutrophils Absolute Auto 3.7 10^3/uL (1.4-6.5); Neutrophils Percent Auto 56.1 % (43.0-75.0); Platelet Count 297 10^3/uL (150-450); Red Blood Count 3.69 10^6/uL (4.70-6.10); Red Cell Distribution Width 12.4 % (11.0-15.0); White Blood Count 6.6 10^3/uL (4.0-11.0)
[2025-02-20 10:46] LABS: Estimated Average Glucose 111 mg/dL; Glycohemoglobin A1C 5.5 % (4.5-6.2)
[2025-02-20 11:15] LABS: Alanine Aminotransferase 18 U/L (16-63); Albumin Level 3.5 g/dL (3.4-5.0); Alkaline Phosphatase 112 U/L (46-116); Aspartate Amino Transferase 19 U/L (15-37); BUN Creatinine Ratio 8.4; Bilirubin Total 0.8 mg/dL (0.2-1.0); Carbon Dioxide 27.1 mmol/L (21.0-32.0); Chloride 107 mmol/L (98-107); Chol HDL Ratio 3.5; Cholesterol 163 mg/dL (<=200); Estimated GFR (African America 49 (>=60 mL/min/1.73m^2); Estimated GFR (Non-African Ame 40 (>=60 mL/min/1.73m^2); Free T3 2.67 pg/mL (2.18-3.98); Globulin 3.6 g/dL; Glucose 93 mg/dL (74-106); HDL Cholesterol 46 mg/dL (40-60); Potassium 4.1 mmol/L (3.5-5.1); Sodium 141 mmol/L (136-145); Thyroid Stimulating Hormone 5.967 uIU/mL (0.358-3.740); Total Protein 7.1 g/dL (6.4-8.2); Triglycerides 105 mg/dL (<=150)
[2025-02-20 11:22] LABS: Prostate Specific Antigen Scrn 0.85 ng/mL (<=4.00)
== END 2025-02-20 09:35 | disposition home or self-care (01) ==
LOC: US 09:34
PROVIDERS: PCP Family Medicine; Visit Provider Family Medicine
DX: I71.40 Abdominal aortic aneurysm, without rupture, unspecified (principal); K21.9 Gastro-esophageal reflux disease without esophagitis; M54.16 Radiculopathy, lumbar region; J30.2 Other seasonal allergic rhinitis; N52.9 Male erectile dysfunction, unspecified; E78.5 Hyperlipidemia, unspecified; R73.09 Other abnormal glucose; Z12.12 Encounter for screening for malignant neoplasm of rectum; Z12.5 Encounter for screening for malignant neoplasm of prostate
CPT/HCPCS: 36415; 76775; 80053; 80061; 83036; 84436; 84443; 84481; 85025; G0103

== ENCOUNTER 2025-03-25 13:34 | Outpatient (OUT) | payer MEDICARE, SELFPAY ==
--- NOTE | 2025-03-25 13:39 | CT_ITS ---
[address] [address] Patient Name: ODALYS MCLEAN MRN: [id number] date: 1950 Sex: M Assigned Patient Location: CT Current Patient Location: CT Accession/Order Number: [id number] Exam Date: 03/25/2025 15:42 Report Date: 03/25/2025 15:51 At the request of: JARON LUCAS MD Procedure: CT chest wo con CT chest wo con 03/25/2025 1:56 PM SIGN AND SYMPTOMS: Follow-up opacity in right lower lobe TECHNIQUE: Multidetector CT axial slices of the chest were obtained without IV contrast. Multiplanar reformats were performed and viewed on a separate workstation and reviewed to further define anatomy and possible pathology. CT was performed with one or more of the following dose reduction techniques: Automated exposure control, adjustment of the mA and/or kV according to patient size, or use of iterative reconstruction technique. COMPARISON: 03/13/2024.. FINDINGS: Lower neck: Thyroid gland within normal limits, no supraclavicle adenopathy. Vessels: Atherosclerotic changes are noted in the thoracic aorta and coronary arteries. Mediastinum and Christie: Within normal limits. Heart: Normal size. No pericardial effusion. Airways: Within normal limits Lungs: There is continued scarring or atelectasis in the medial aspect of the right lower lobe adjacent to osteophytes the thoracic spine. This is unchanged. There is dependent atelectasis. Pleura: Within normal limits. Chest Wall: Within normal limits. Upper Abdomen: Within normal limits. Bones: Degenerative changes are present in the thoracic spine. CT/CT chest wo con IMPRESSION: There is continued scarring or atelectasis in the medial aspect of the right lower lobe adjacent to osteophytes the thoracic spine. This is unchanged. No acute cardiopulmonary pathology. Impression dictated by: Sammy Jolly M.D. 03/25/2025 3:51 PM Dictation Location: [place] [address] Electronically authenticated by: [id number] Y Date: 03/25/2025 15:51
== END 2025-03-25 13:35 | disposition home or self-care (01) ==
LOC: CT 13:34
PROVIDERS: PCP Family Medicine; Visit Provider Family Medicine
DX: R91.8 Other nonspecific abnormal finding of lung field (principal)
CPT/HCPCS: 71250

== ENCOUNTER 2025-09-24 09:59 | Outpatient (OUT) | payer MEDICARE, SELFPAY ==
--- OUTSIDE RECORDS SUMMARY | 2025-09-24 10:03 | XMS_ITS | Clinical Summary ---
Author Organization [facility] Address [address] [place] [address] Care Team Providers Care Nutrition Coordinator Name Role Phone Unavailable Primary Care Provider Unavailabl e Allergies No known active allergies Medications MedicationSigDispense QuantityRefillsLast FilledStart DateEnd DateStatus desloratadine (Clarinex) 5 MG tablet 11/20/2023ctive HYDROcodone-acetaminophen ([place]) 5-325 MG tablet Active Active Problems No known active problems Social History Tobacco UseTypesPacks/DayYears UsedDateSmoking Tobacco: NeverSmokeless Tobacco: Never Tobacco Cessation:Counseling Given: Not Answered Sex and Gender InformationValueDate RecordedSex Assigned at KdcymBvlb43/16/2023 9:08 AM EDTLegal LviFzos5901/24/2023 7:37 PM EDTGender PzhpdclhWffh06/16/2023 9:08 AM EDTSexual JwtlxfncgkhKlfbqcfk38/16/2023 9:08 AM EDT Last Filed Vital Signs Vital SignReadingTime TakenCommentsBlood Tdckslyo781/7308 12:00 PM EDT Pulse--Temperature--Respiratory Rate--Oxygen Saturation--Inhaled Oxygen Concentration--Fbjlby90 kg (183 lb)06/25/2018 12:00 PM LZLFchpjt032.3 cm (5' 11 )03/21/2023 12:00 PM EDTBody Mass Index25.52006/25/2018 12:00 PM EDT Plan of Treatment Not on file Insurance
[2025-09-24 10:25] LABS: Hematocrit 38.4 % (42.0-54.0); Hemoglobin 13.3 g/dL (14.0-18.0); Immature Granulocytes Abs Auto 0.01 10^3/uL (0.00-0.03); Immature Granulocytes Pct Auto 0.1 % (0.0-0.5); Lymphocytes Absolute Auto 1.8 10^3/uL (1.2-3.8); Mean Corpuscular HGB Conc 34.6 g/dL (29.9-35.2); Mean Corpuscular Hemoglobin 34.1 pg (25.9-34.0); Mean Corpuscular Volume 98.5 fL (80.0-94.0); Platelet Count 243 10^3/uL (150-450); Red Blood Count 3.90 10^6/uL (4.70-6.10); White Blood Count 6.7 10^3/uL (4.0-11.0)
[2025-09-24 11:36] LABS: Alanine Aminotransferase 23 U/L (16-63); Albumin Globulin Ratio 0.9; Albumin Level 3.7 g/dL (3.4-5.0); Alkaline Phosphatase 107 U/L (46-116); Anion Gap 10.1; Aspartate Amino Transferase 16 U/L (15-37); Blood Urea Nitrogen 18.0 mg/dL (7.0-18.0); Calcium 9.0 mg/dL (8.5-10.1); Carbon Dioxide 27.3 mmol/L (21.0-32.0); Chloride 107 mmol/L (98-107); Cholesterol 191 mg/dL (<=200); Estimated GFR (African America 57 (>=60 mL/min/1.73m^2); Estimated GFR (Non-African Ame 47 (>=60 mL/min/1.73m^2); Free T3 2.15 pg/mL (2.18-3.98); Globulin 3.9 g/dL; Glucose 95 mg/dL (74-106); HDL Cholesterol 54 mg/dL (40-60); Potassium 4.4 mmol/L (3.5-5.1); Sodium 140 mmol/L (136-145); Thyroid Stimulating Hormone 9.066 uIU/mL (0.358-3.740); Total Protein 7.6 g/dL (6.4-8.2); Triglycerides 65 mg/dL (<=150); VLDL CHOLESTEROL 13.0 mg/dL
== END 2025-09-24 10:00 | disposition home or self-care (01) ==
LOC: LAB 10:00
PROVIDERS: PCP Family Medicine; Visit Provider Family Medicine
DX: I12.9 Hypertensive chronic kidney disease with stage 1 through stage 4 chronic kidney disease, or unspecified chronic kidney disease (principal); N18.31 Chronic kidney disease, stage 3a; R73.09 Other abnormal glucose; N52.9 Male erectile dysfunction, unspecified; J30.2 Other seasonal allergic rhinitis; E78.5 Hyperlipidemia, unspecified; Z12.12 Encounter for screening for malignant neoplasm of rectum; E03.9 Hypothyroidism, unspecified; Z12.5 Encounter for screening for malignant neoplasm of prostate; D50.9 Iron deficiency anemia, unspecified
CPT/HCPCS: 36415; 80053; 80061; 83036; 84436; 84443; 84481; 85025; G0103

== ENCOUNTER 2025-10-05 09:33 | Outpatient (REF) | payer MEDICARE, SELFPAY ==
--- OUTSIDE RECORDS SUMMARY | 2025-09-24 04:30 | XMS_ITS ---
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 Layout Worker Name Role Phone Rio Avalos Primary Care Provider [phone] REASON FOR VISIT Yearly, left foot pain, ball of foot into 4th and 5th toes Medications Medication SIG (Take, Route, Frequency, Duration) Notes Start Date End Date Status Tadalafil 20 mg TAKE 1 TABLET DAILY NEEDED ActiveMeloxicam 15 MG1 tablet Orally Once a day; Duration: 30 days09/24/2025 ActiveFluticasone Propionate 50 MCG/ACT1 spray in each nostril Nasally Twice a day5ActiveVardenafil HCl 20 MG1 tablet 60 minutes before sexual activity as needed Orally Once a day; Duration: 90 days5Active Desloratadine 5 MG1 tablet Orally Once a day; Duration: 90 days5Active Social History Tobacco Use: Social History Observation Description Date Details (start date - stop date) Former Smoker 11/12/1963 - 11/12/1999 Tobacco Use/Smoking Question Answer Notes Patient is a former smoker When did you start smoking?11/12/1963When did you stop smoking?11/12/1999AUDIT-C (Standard) Question Answer Notes Did you have a drink containing alcohol in the p ast year? No Vhvnme0NzvfdutdjnokinPxahgvfo Problems Problem Type SNOMED Code ICD Code Onset Dates Problem Status W/U Status Risk Notes Problem Chronic kidney disea se stage 3A (disorder) (775474461) Chronic kidney disease, stage 3a (N18.31) Activeconfirmed Vital Signs Weight 212.8 lbs 09/24/2025 Height 71 in 09/24/2025 Blood pressure systolic 150 mm Hg 09/24/20 25 Blood pressure diastolic 96 mm Hg 025 BMI 29.68 kg/m2 09/24/2025 Encounters Encounter Location Date Provider Diagnosis [facility] [address] [place] [address] 09/24/2025 Rio Avalos Chronic kidney disease, stage 3a N18.31 ; Impotence N52.9 and Seasonal allergic rhinitis J30.2 Assessments Encounter Date Diagnosis (ICD Code) Assessment Notes Treatment Notes Treatment Clinical Notes Section Notes 09/24/2025 Chronic kidney disease, stage 3a (ICD-10 - N18.31) 09/24/2025Impotence (ICD-10 - N52.9)09/24/2025Seasonal allergic rhinitis (ICD-10 - J30.2) Plan Of Treatment Medication Medication Name Sig Start Date Stop Date Notes Meloxicam 15 MG 1 tablet Orally Once a day; Duration: 30 days 09/24/2025 Fluticasone Propionate 50 MCG/ACT1 spray in each nostril Nasally Twice a day 09/24/2025Vardenafil HCl 20 MG1 tablet 60 minutes before sexual activity as needed Orally Once a day; Duration: 90 days09/24/2025Desloratadine 5 MG1 tablet Orally Once a day; Duration: 90 days09/24/2025Pending Test Test Name Order Date HEMOGLOBIN A1C (GLYCO) 09/24/2025 LIPID PANEL (CHOL/TRIG/HDL/LDL) 09/24/20 25 STOOL OCCULT BLOOD 09/24/2025 THYROID PANEL (T4/TSH/FREE T3) PSA, SCREENING 09/24/2025 CMP (COMP MET KRAUS) w/eGFR CKD-EPI 2024 CBC WITH DIFF 09/24/2025 Procedure Notes * CategorySub-CategoryDetailNotesAllergyAllergy ShotAdministeredVial AAllergy: Formulation:, Expires:, Arm:Vial BFormulation:, Allergies: Expires:, Arm:Vial CFormulation: Allergies: Expires: Arm: Progress Notes * José Antonio CERDA SDOB:1950 (75 yo M)Acc No.[id number]:09/24/2025 Progress Note Patient: José Antonio OWODS :?Reese Avalos ([facility]), MDDOB:1950???Age: 75 Y???Sex:MaleDate:09/24/2025Phone:[phone]:[address], [place], [id number] In:09:19 AM ESTCheck Out:09:51 AM EST Subjective: * Chief Complaints: * Y earlyLeft foot pain, ball of foot into 4th and 5th toes * HPI: ???General:?no injury - blatearl ball of foot and 4th-5th digits - tried ewxcedrin and helpedPatient presents today for allergy injection. * ROS: ???EENT:?hearing changes?denies.?visual changes?denies. non-healing mouth sores?denies.?swollen glands or neck lumps?denies.?hoarseness?denies.?sore throat?denies.?difficulty swallowing?denies.?nose bleeds?denies.?nasal congestion?denies.?ear ache?denies.?ear discharge denies.?ringing in ears?denies.?light sensitivity?denies.?eye pain?denies.?blurring?denies.?eye irritation?denies.?double vision?denies. vision loss?denies.?General/Constitutional:?Sweats:?Denies.?Fatigue?denies.?Sleep proble ms?denies.?Anorexia?denies.?Malaise?denies.?Weight loss?denies. Fatigue or Weakness?denies.?Fever or Chills?denies.?Cardiovascular:?Shortness of Breath w/lying flat?denies.?Lightheadedne ss/dizziness?denies.?Chest tightness/ heavy pressure?denies.?Swelling of legs, a nkles, or feet?denies.?Waking up with shortness of breath?denies.?Chest pain&#16 0;denies.?Palpitations?denies.?Weight gain?denies.?Respiratory:?Chronic or frequent cough?denies.?Coughing up blood&#1 60;denies.?Difficulty breathing?denies.?Productive cough?denies.?Snoring&#1 60;denies.?Shortness of breath that awakens from sleep (PND)?denies.?Chest pain? denies.?Sputum production?denies.?Wheezing?denies.?Musculoskeletal:?Joint pain?denies.?Joint Fluid?denies.?Backpain?denies.?Knee pain?denies.?Neck pain?denies.?Joint Stiffness?denies.?Muscle cramps?denies.?Weakness of muscles?denies.?Arthritis?denies.?Muscle aches?denies.?Pain in shoulder(s)?denies.?Swollen joints?denies.? * Active Problem List I71.40 Abdominal aortic ane urysm (AAA), unspecified part, unspecified whether ruptured Onset Date:02/13/2025Modified On:02/13/2025K21.9GERD (gastroesophageal reflux disease) Modified On:11/16/2023/U Status:rhkcnhtijG12.2Seasonal allergic rhinitis Modified On:11/16/2023/U Status:cxqzpuexpA93.9Impotence Modified On:11/16/2023/U Status:hvqsfvnxiO54.2Seasonal allergic reaction Modified On:11/16/2023/U Status:lptahjfxmL97.16Lumbar radicular pain Modified On:02/22/2024/U Status:ahfdruhjbE78.8Other nonspecific abnormal finding of lung field Modified On:02/26/2024/U Status:gvumvhjzfS97.4Abdominal aortic aneurysm, without rupture Modified On:02/13/2025W/U Status:vnwgsnoblV57.31Chronic kidney disease, stage 3a Modified On:09/24/2025/U Status:confirmed * Medical History: * Surgical History: T hroat Surgery Cataract 2023Inguinal Hernia Repair * Hospitalization/Major Diagno stic Procedure: S ee above * Family History: F ather: , alzheimer's dementia. M other: , aneurysm, CVA. B rother(s): alive. S on(s): alive. 2 brother(s) - healthy. 2 son(s) - healthy. . * Social History: ???Tobacco Use:?Tobacco Use/Smoking?Patient is a?former smoker ?When did you start smoking??11/12/1963 ?When did you stop smoking??11/12/1999 ???Drug/Alcohol:?AUDIT-C (Standard)?Did you have a drink containing alcohol in the past year??No ?Points?0 ?Interpretation?Negative * Medications: T akingDesloratadine 5 MG Tablet 1 tablet Orally Once a day Fluticasone Propionate 50 MCG/ACT Suspension 1 spray in each nostril Nasally Twice a day Tadalafil 20 mg Tablet TAKE 1 TABLET DAILY NEEDED Taking Desloratadine 5 MG Tablet 1 tablet Orally Once a day Taking Fluticasone Propionate 50 MCG/ACT Suspension 1 spray in each nostril Nasally Twice a day Taking Tadalafil 20 mg Tablet TAKE 1 TABLET DAILY NEEDED DiscontinuedAstepro(Azelastine HCl) 205.5 MCG/SPRAY Solution 2 sprays (1 spray in each nostril) Nasally Twice a day , Notes to Pharmacist: prnAzithromycin 250 MG Tablet 2 tabs today then 1 tab Orally daily Clarinex(Desloratadine) 5 MG Tablet 1 tablet Orally Once a day Medication List reviewed and reconciled with the patientDiscontinued Astepro(Azelastine HCl) 205.5 MCG/SPRAY Solution 2 sprays (1 spray in each nostril) Nasally Twice a day , Notes to Pharmacist: prnDiscontinued Azithromycin 250 MG Tablet 2 tabs today then 1 tab Orally daily Discontinued Clarinex(Desloratadine) 5 MG Tablet 1 tablet Orally Once a day Medication List reviewed and reconciled with the patient * Allergies: n o[Allergies Verified] Objective: * Vitals: W t:212.8lbs, Ht: 71 in, BP:150/96mm Hg, BMI:29.68Index, Ht-cm: 180.34 cm, Wt-k.53 kg. * Examination: ???Physical Exam: ?GENERAL:?well developed, well nourished, in no acute distress.?HEAD:?normocephalic/atraumatic.?EYES:?pupils equal, round and reactive to light, conjunctivae and sclerae normal.?EARS:?no deformity or lesion of external ear, canals and TM appear normal bilaterally, TM's intact, not inflamed with normal light reflex, hearing grossly normal to conversational speech.?NOSE:?no deformity, discharge, inflammation, or lesions. ?MOUTH:?mucous membranes moist, normal oropharynx and posterior pharynx without lesions or exudates, tongue normal, dentition normal.?NECK:?neck supple, no masses or palpable cervical nodes, trachea midline, thyroid without nodules, masses, tenderness, or enlargement.?CHEST:?no chest wall deformity, no chest wall tenderness. ?LUNGS:?normal respiratory effort and clear to auscultation, no wheezes, rales, or rhonchi, good air exchange.?CARDIO:?regular rate and rhythm, normal S1 and S2, nor murmur, rub, or gallop.?PULSES:?normal capillary refill.?ABDOMEN:?soft, non-distended, non-tender, no masses.?MUSCULOSKELETAL:?no deformity or scoliosis noted, normal range of motion, joints normal, no erythema, edema, effusion, or ecchymosis.?EXTREMITY:?no clubbing, cyanosis, edema, or deformity withnormal ROM in both upper and lower bilateral extremities.?NEUROLOGIC:?grossly normal.?SKIN:?no rashes, ulcerations, or suspicious lesions.?LYMPH NODES:?no cervical adenopathy, nodes normal.?MENTAL STATUS:?alert and oriented x3, normal mood and affect.? Assessment: * Assessment: 1.?Chronic kidney disease, stage 3a - N18.31 (Primary)???2.?Impotence - N52 .9???3.?Seasonal allergic rhinitis - J30.2??? Plan: * Treatment: Refill Desloratadine Tablet, 5 MG, 1 tablet, Orally, Once a day, 90 days, 90 Tablet, Refills 3; Refill Fluticasone Propionate Suspension, 50 MCG/ACT, 1 spray in each nostril, Nasally, Twice a day, 3, Refills 3;?Start Vardenafil HCl Tablet, 20 MG, 1 tablet 60 minutes before sexual activityas needed, Orally, Once a day, 90 days, 30, Refills 11;?Start Meloxicam Tablet, 15 MG, 1 tablet, Orally, Once a day, 30 days, 30 Tablet, Refills 11.?LAB: HEMOGLOBIN A1C (GLYCO) ?LAB: LIPID PANEL (CHOL/TRIG/HDL/LDL) ?LAB: STOOL OCCULT BLOOD ?LAB: THYROID PANEL (T4/TSH/FREE T3) ?LAB: PSA, SCREENING ?LAB: CMP (COMP MET KRAUS) w/eGFR CKD-EPI ?LAB: CBC WITH DIFF2.?Impotence?LAB: HEMOGLOBIN A1C (GLYCO) ?LAB: LIPID PANEL (CHOL/TRIG/HDL/LDL) ?LAB: STOOL OCCULT BLOOD ?LAB: THYROID PANEL (T4/TSH/FREE T3) ?LAB: PSA, SCREENING ?LAB: CMP (COMP MET KRAUS) w/eGFR CKD-EPI ?LAB: CBC WITH DIFF3.?Seasonal allergic rhinitis?LAB: HEMOGLOBIN A1C (GLYCO) ?LAB: LIPID PANEL (CHOL/TRIG/HDL/LDL) ?LAB: STOOL OCCULT BLOOD ?LAB: THYROID PANEL (T4/TSH/FREE T3) ?LAB: PSA, SCREENING ?LAB: CMP (COMP MET KRAUS) w/eGFR CKD-EPI ?LAB: CBC WITH DIFF * Procedures: ???Allergy:?Allergy Shot?Administered.?Vial A?Allergy: Formulation:, Expires:, Arm:.?Vial B?Formulation:, Allergies: Expires:, Arm:.?Vial C?Formulation:??Allergies:??Expires:??Arm:.? * Procedure Codes: * Preventive Medicine: ??Screenings/Counseling:?BMI ACTION PLAN?Above Normal BMI Follow-up?Dietary management education, guidance, and counseling * * Sign off status: CompletedVisit Status:?CHK (Check Out) true * Provider: Natasha Avalos ([facility])MD Date: 11/24/2024 Generated for Printing/Faxing/eTransmitting on:?10/05/2025 09:37 AM EST History and Physical Notes * HPI (History of Present Illness) CategorySub-CategoryDetailNotesCategory NotesGeneralno injury - blatearl ball of foot and 4th-5th digits - tried ewxcedrin and helped Patient presents today for allergy injection Examination CategorySub-CategoryDetailNotesCategory NotesPhysical ExamGENERAL:well developed, well nourished, in no acute distressHEAD:normocephalic/atraumatic EYES:pupils equal, round and reactive to light, conjunctivae and sclerae normal EARS:no deformity or lesion of external ear, canals and TM appear normal bilaterally, TM's intact, not inflamed with normal light reflex, hearing grossly normal to conversational speechNOSE:no deformity, discharge, inflammation, or lesionsMOUTH:mucous membranes moist, normal oropharynx and posterior pharynx without lesions or exudates, tonguenormal, dentition normalNECK:neck supple, no masses or palpable cervical nodes, trachea midline, thyroid without nodules, masses, tenderness, or enlargementCHEST:no chest wall deformity, no chest wall tendernessLUNGS:normal respiratory effort and clear to auscultation, no wheezes, rales, or rhonchi, good air exchangeCARDIO:regular rate and rhythm, normal S1 and S2, nor murmur, rub, or gallopPULSES:normal capillary refillABDOMEN:soft, non-distended, non-tender, no massesRECTAL:MUSCULOSKELETAL:no deformity or scoliosis noted, normal range of motion, joints normal, no erythema, edema, effusion, or ecchymosisEXTREMITY:no clubbing, cyanosis, edema, or deformity with normal ROM in both upper and lower bilateral extremitiesNEUROLOGIC:grossly normalSKIN:no rashes, ulcerations, or suspicious lesionsLYMPH NODES:no cervical adenopathy, nodes normalMENTAL STATUS:alert and oriented x3, normal mood and affect
--- OUTSIDE RECORDS SUMMARY | 2025-09-24 08:02 | XMS_ITS ---
Author Organization The [facility] in [place] Address [address] [place] [address] Care Team Providers Care Floor Trader Name Role Phone BaileyRio Primary Care Provider REASON FOR VISIT labs Medications Medication SIG (Take, Route, Frequency, Duration) Notes Start Date End Date Status Liothyronine Sodium 5 MCG 2 tablet on an empty stomach Orally Once a day; Duration: 30 days 5Active Encounters Encounter Location Date Provider Diagnosis [address] [address] 09/24/2025 Rio Avalos Low thyroid stimulat ing hormone (TSH) level R79.89 Assessments Encounter Date Diagnosis (ICD Code) Assessment Notes Treatment Notes Treatment Clinical Notes Section Notes 09/24/2025 Low thyroid stimulating hormone (TSH) level (ICD-10 - R79.89) Plan Of Treatment Medication Medication Name Sig Start Date Stop Date Notes Liothyronine Sodium 5 MCG 2 tablet on an empty stomach Orally Once a day; Duration: 30 days 09/24/2025 Pending Test Test Name Order Date THYROID PANEL (T4/TSH/FREE T3) Progress Notes * José Antonio CERDA SDOB:1950 (75 yo M)Acc No.[id number]:09/24/2025 Patient:?José Antonio CERDA :1950???Age:75 Y???Sex:MalePhone:[phone] Address[address] [place] [address] * Refills Start Liothyronine Sodium Tablet, 5 MCG, Orally, 60 Tablet, 2 tablet on an empty stomach, Once a day, 30 days, Refills=11 Subjective: * Chief Complaints: * L abs * Medical History: * Surgical History: * Hospitalization/Major Diagno stic Procedure: * Medications: Objective: * Vitals: * Physical Examination: ??? Assessment: * Assessment: 1.?Low thyroid stimulating hormone (TSH) level - R79.89 (Primary)??? Plan: * Treatment: ?LAB: THYROID PANEL (T4/TSH/FREE T3)2.?Others? Start Liothyronine Sodium Tablet, 5 MCG, 2 tablet on an empty stomach, Orally, Once a day, 30 days,60 Tablet, Refills 11.?? * Procedure Codes: * true * Date:?Generated for Printing/Faxing/eTransmitting on:?10/05/2025 09:36 AM EST
--- OUTSIDE RECORDS SUMMARY | 2025-10-05 09:37 | XMS_ITS | Clinical Summary ---
Author Organization [facility] Address [address] [place], [place] [id number] Care Team Providers Care Informaticist Name Role Phone Reese Avalos MD Unavailable [phone] Reese Avalos MD Primary Care Provider [phone] Allergies No known active allergies Medications MedicationSigDispense QuantityRefillsLast FilledStart DateEnd DateStatus desloratadine (CLARINEX) 5 mg tablet Take 1 tablet by mouth once daily.10/20/2015ctive Uryljgf-Llzihtbzylcrs-Dmcmmvgu (EXCEDRIN MIGRAINE) 250-250-65 mg per tablet Take 1 tablet by mouth as needed.Active acetaminophen (TYLENOL ORAL) Take by mouth as needed.Active Active Problems ProblemNoted DateDiagnosed DateStage 3a chronic kidney mrqcifj9205/17/2023 Assessment & Plan (05/17/2023 8:20 AM EDT): Assessment: stable BMP Latest Ref Rng & Units 05/16/2023 GLUCOSE 74 - 99 mg/dL 87 BUN 9 - 24 mg/dL 12 CREATININE 0.73 - 1.22 mg/dL 1.51(H) SODIUM 136 - 144 mmol/L 141 POTASSIUM 3.7 - 5.1 mmol/L 5.4(H) CHLORIDE 97 - 105 mmol/L 106(H) CO2 22 - 30 mmol/L 24 ANION GAP 9 - 18 mmol/L 11 CALCIUM, TOTAL 8.5 - 10.2 mg/dL 9.7 eGFR >=60 mL/min/1.73m 48(L) Review labs from PCP 08/2022 at [facility] CR 1.41. GFR 49 Tasejbvxmhql86/06/2023 Assessment & Plan (05/18/2023 8:48 AM EDT): Assessment: initial potassium 5.4, repeat 4.2 +CKD Zenker byrflhlwnumo68/05/2023 Assessment & Plan (05/16/2023 10:38 AM EDT): Assessment: See HPI Immunizations ImmunizationAdministration DatesNext Dueinfluenza (HD-IIV3) vaccine, age 65+ yr, high dose, trivalent, PF (FLUZONE HIGH-DOSE)08/27/2018,08/20/2017influenza (HD- IIV4) vaccine, age 65+ yr, high dose, quadrivalent, PF (FLUZONE HIGH-DOSE) 08/24/2022influenza (IIV3) vaccine, trivalent (AFLURIA, FLULAVAL, FLUVIRIN, FLUZONE)10/20/2015influenza (IIV4) vaccine, age 6 mo - 64 yr, quadrivalent, PF (AFLURIA, FLUARIX, FLULAVAL, FLUZONE)09/17/2017,11/14/2016influenza (aIIV4) vaccine, age 65+ yr, quadrivalent, PF (FLUAD QUAD)08/18/2021influenza vaccine, unspecified iutghfypbeh57/21/2020influenza vaccine, whole virus09/29/2014 pneumococcal conjugate (PCV13) vaccine, 13 valent (PREVNAR 13)08/06/2020, 11/14/2016pneumococcal polysaccharide (PPV23) vaccine, 23 valent (PNEUMOVAX 23) 08/27/2018,11/15/2015,11/03/2014tetanus diphtheria (Td) vaccine, age 7+ yr, 5 Lf tetanus, PF (TENIVAC)09/18/2005tetanus diphtheria pertussis (Tdap) vaccine, age 7+ yr (ADACEL, BOOSTRIX)03/04/2018,04/23/2013zoster (RZV) vaccine, recombinant (SHINGRIX)04/22/2020,12/22/2019 Family History Medical HistoryRelationCommentsAnesthesia ProblemsNo Family History Social History Tobacco UseTypesPacks/DayYears UsedDateSmoking Tobacco: FormerCigarettesQuit: 11/12/1969mokeless Tobacco: Never Tobacco Cessation:Counseling Given: Not Answered Alcohol UseStandard Drinks/WeekCommentsNot Currently0 (1 standard drink = 0.6 oz pure alcohol)Area Deprivation IndexAnswerDate RecordedNational Score (1-100), lower number is lower zixj306203/23/2023State Score (1-10), lower number is lower obcr2813Data from: https://www.neighborhoodatlas.medicine.[facility].edu/. Last address used for f[address]xex[address]/23/2023Sex and Gender Information ValueDate RecordedSex Assigned at ZzrmcEbpb12/18/2022 12:33 PM ESTLegal SexMale 09/05/2022 4:07 PM EDTGender YuusmifqIast82/18/2022 12:33 PM ESTSexual FtzpddeypehMlrnsadz01/18/2022 12:33 PM EST Last Filed Vital Signs Vital SignReadingTime TakenCommentsBlood Auvuvruz027/5807 10:28 AM EDT Ykuzc554905/23/2023 10:28 AM XILZppdizqlaev53.5 ??C (97.7 ??F)05/23/2023 10:28 AM EDTRespiratory Aqfj576105/23/2023 10:28 AM EDTOxygen Opggetowvj95%05/23/2023 10:28 AM EDTInhaled Oxygen Concentration--Llvoxg86.9 kg (196 lb)05/16/2023 10:07 AM FGYVxmjcn242.3 cm (5' 11 )05/16/2023 10:07 AM EDTBody Mass Index27.34005/16/2023 10:07 AM EDT Plan of Treatment Health MaintenanceDue DateLast DoneCommentsAnnual PCP Team Chronic Disease Visit 02/09/1968Anxiety Rziryraoj71/30/1968Depression Lxeuafpvx60/30/1968Hepatitis C Mdwitkgsd60/30/1968Lipid Gqdljzwsa07/30/1985CT Wnkiyceffkvw74/30/1995Cologuard (FIT-DNA)02/08/19953152Ksvkpondtlp07/30/1995Colorectal Cancer Sdghyaqjr54/30/1995 Fecal Occult Blood02/08/19953375Azwmngtvyzlzu72/30/1995Hemoglobin/Hematocrit /10/2023, 05/16/2023, 08/19/2020Serum Vhyngjkzut39/12/2024 05/23/2023, 05/16/2023, 08/19/2020Advance Directive Johuawricn53/01/2025Medicare Advantage Annual Wellness Visit11/12/2024RSV Vaccine (1 - 1-dose 75+ series) 2025ovid-19 Vaccine (6 - 2024- season)5008/11/2022, 03/22/2022, 09/06/2021, Additional history existsInfluenza Vaccine (#1), 08/18/2021, 08/02/2020, Additional history existsDiabetes Vkfjqzlms47/12/2026 05/23/2023, 05/16/2023, 08/19/2020DTaP,Tdap,Td Vaccine (3 - Td or Tdap) , 04/23/2013, 09/18/2005Shingrix AerfmyePayscxyvs26/11/2020, 12/22/2019Pneumococcal Vaccine: 50+Qbnkcamyf53/25/2020, 08/27/2018, 11/14/2016, Additional history exists Procedures Procedure NamePriorityDate/TimeAssociated DiagnosisCommentsCBC + DIFFRoutine 05/23/2023 5:42 AM EDT BASIC METABOLIC VGKLSDmhztme81/12/2023 5:42 AM EDT from Last 3 Months or Most Recently Relevant to Health Maintenance Results * (ABNORMAL) CBC + DIFF (05/23/2023 5:42 AM EDT)ComponentValueRef RangeTest MethodAnalysis TimePerformed AtPathologist XrctnsipoVLQ93.85(H)3.70 - 11.00 k/uL05/23/2023 6:36 AM [facility] LABRBC3.91(L)4.20 - 6.00 m/uL05/23/2023 6:36 AM [facility] JNAVtsepnulqq69.1 13.0 - 17.0 g/dL05/23/2023 6:36 AM [facility]TCW[facility] LAB Keajdcjdfb71.5(L)39.0 - 51.0 %05/23/2023 6:36 AM [facility]TCW[facility] ZVUFNI74.580.0 - 100.0 fL05/23/2023 6:36 AM [facility] ETLIPA65.526.0 - 34.0 pg05/23/2023 6:36 AM [facility] WSOWEUQ59.030.5 - 36.0 g/dL05/23/2023 6:36 AM [facility]TCW[facility] LABRDW-CV12.111.5 - 15.0 %05/23/2023 6:36 AM [facility]TCW[facility] LABPlatelet Atrfz932919 - 400 k/05/23/2023 6:36 AM [facility]TCW[facility] LABMPV9.99.0 - 12.7 fL05/23/2023 6:36 AM [facility] LABNeutrophils %89.0%05/23/2023 6:36 AM [facility]TCW[facility] LABAbs Neut13.22(H)1.45 - 7.50 /05/23/2023 6:36 AM [facility] LABLymphocytes %5.8%05/23/2023 6:36 AM [facility] LABAbs Lymph0.86(L)1.00 - 4.00 k/05/23/2023 6:36 AM [facility] LABMonocytes %4.6%05/23/2023 6:36 AM [facility] LABAbs Mono0.68<0.87 k/05/23/2023 6:36 AM [facility] LABEosinophils %0.0%05/23/2023 6:36 AM [facility] LABAbs Eosin<0.03<0.46 k/05/23/2023 6:36 AM [facility] LABBasophils %0.1%05/23/2023 6:36 AM [facility] LABAbs Baso<0.03<0.11 k/uL05/23/2023 6:36 AM [facility] LABImmature Granulocytes %0.5%05/23/2023 6:36 AM [facility] LABAbs Immature Gran0.07<0.10 k/uL05/23/2023 6:36 AM [facility] LABNRBC0.0/100 WBC05/23/2023 6:36 AM [facility] LABAbsolute nRBC<0.01<0.01 k/uL05/23/2023 6:36 AM [facility] LABDiff BspnDzxi57/12/2023 6:36 AM [facility] LABSpecimen (Source)Anatomical Location / LateralityCollection Method / VolumeCollection TimeReceived TimeBloodBLOOD SPECIMEN / UnknownVenipuncture / Olhxlyc2905/23/2023 5:42 AM EDT05/23/2023 6:20 AM EDT Narrative Authorizing ProviderResult TypeResult StatusPaamira Rosa MDLABORATORYFinal Result Performing OrganizationAddressCity/State/ZIP CodePhone Number [facility] [address] [phone], * (ABNORMAL) BASIC METABOLIC PNL (05/23/2023 5:42 AM EDT)ComponentValueRef Range Test MethodAnalysis TimePerformed AtPathologist IauwnzlcbBlgnppc265(H)74 - 99 mg/dL05/23/2023 7:17 AM [facility] LABComment: The English Diabetes Association (ADA) provides guidance for cutoff values for fasting glucose andrandom glucose. The ADA defines fasting as no [...] Standards of Medical Care in Diabetes 2016, English Diabetes Association. Diabetes Care. 2016.39(Suppl 1). YEQ700 - 24 mg/dL05/23/2023 7:17 AM [facility] Creatinine1.36(H)0.73 - 1.22 mg/dL05/23/2023 7:17 AM [facility] LOREyvseu467737 - 144 mmol/L05/23/2023 7:17 AM [facility] LABPotassium4.93.7 - 5.1 mmol/L05/23/2023 7:17 AM [facility] VREVrsryvfj577(H)97 - 105 mmol/L05/23/2023 7:17 AM [facility] SBSVM32994 - 30 mmol/L05/23/2023 7:17 AM [facility] LABAnion Trs376 - 18 mmol/L05/23/2023 7:17 AM [facility] LABCalcium, Total9.58.5 - 10.2 mg/dL05/23/2023 7:17 AM [facility] LABEstimated Glomerular Filtration Rate55(L)>=60 mL/min/1.73m 05/23/2023 7:17 AM [facility] LABComment:Estimated Glomerular Filtration Rate (eGFR) is calculated using the 2020 CKD-EPI creatinine equation. This equation utilizes serum creatinine, sex, and age as parameters. The creatinine assay has traceable calibration to isotope dilution- mass spectrometry. Refer to KDIGO guidelines for clinical interpretation. In patients with unstable renal function, e.g. those with acute kidney injury, the eGFRmay not accurately reflect actual GFR.Specimen (Source)Anatomical Location / LateralityCollection Method / VolumeCollection TimeReceived TimeBloodBLOOD SPECIMEN / UnknownVenipuncture / Geyxoxf5705/23/2023 5:42 AM EDT05/23/2023 6:20 AM EDT Narrative Authorizing ProviderResult TypeResult StatusPaamira Rosa MDLABORATORYFinal Result Performing OrganizationAddressCity/State/ZIP CodePhone Number [facility] [address] [id number], from Last 3 Months or Most Recently Relevant to Health Maintenance Insurance Care Teams Team MemberRelationshipSpecialtyStart DateEnd Reese Avalos MD [address] [place] [address] PCP - GeneralFamily Medicine05/16/23 Reese Avalos MD ReferringFamily Nhukyfpk43/25/22
--- OUTSIDE RECORDS SUMMARY | 2025-10-05 09:37 | XMS_ITS | Clinical Summary ---
Author Organization [employer] [facility] tem Address [id number] [place] [address] Care Team Providers Care Nurse Sexual Assault Name Role Phone Reese Avalos MD Primary Care Provider [phone] Allergies No known active allergies Medications MedicationSigDispense QuantityRefillsLast FilledStart DateEnd DateStatus HYDROcodone-acetaminophen (NORCO) 5-325 mg per tablet hydrocodone 5 mg-acetaminophen 325 mg tabletActive NIFEdipine (PROCARDIA) 20 mg capsule Take 20 mg by mouth once daily.Active doxycycline (VIBRAMYCIN) 100 mg capsule Take 1 capsule (100 mg total) by mouth 2 (two) times a day. 20 capsule 08/19/2020Active Active Problems No known active problems Immunizations ImmunizationAdministration DatesNext FeeTqcn8403/04/2018 Social History Tobacco UseTypesPacks/DayYears UsedDateSmoking Tobacco: FormerSmokeless Tobacco: NeverChildcareAnswerDate AtysrhtuZxtnqowgeDltjiko67/12/2019EmploymentAnswerDate KlhidgqdOpsfykkxssAchtbvc66/12/2019Purpose - LifeAnswerDate RecordedPurpose and direction in rajpKnbwqul10/11/2021Sex and Gender InformationValueDate Recorded Sex Assigned at BirthNot on fileLegal XbiIcks6506/17/2015 11:32 AM EDTGender IdentityNot on fileSexual OrientationNot on file Last Filed Vital Signs Vital SignReadingTime TakenCommentsBlood Qdrbgmoj206/5310 9:03 PM EDT Zwdsr8452 9:03 PM ZHPItghmpshtpx24.7 ??C (98 ??F)08/19/2020 7:51 PM EDT Respiratory Hkep4258 9:03 PM EDTOxygen Ozsbauoxdj38%08/19/2020 9:03 PM EDTInhaled Oxygen Concentration--Cxnexq74.9 kg (185 lb)08/19/2020 7:51 PM EDT Zejgzq718.3 cm (5' 11 )08/19/2020 7:51 PM EDTBody Mass Index25.810 7:51 PM EDT Plan of Treatment Health MaintenanceDue DateLast DoneCommentsDepression Ajhezmazv46/30/1962Tobacco Ttwqbviyf79/30/1962Zoster (Shingles) Vaccine (1 of 2)02/09/2000Fall Risk Nnllblcie27/30/2015RSV ( or age 60+ yrs) (1 - 1-dose 75+ series) 2025Influenza Tmrdxkc54, 09/29/2014DTaP,Tdap and Td Vaccines (3 - Td or Tdap), 04/23/2013bdominal Aortic Aneurysm (AAA) AoqhzbPbmdnsmeu90/08/2020 Medical Devices Not on file Insurance Care Teams Team MemberRelationshipSpecialtyStart Reese Avalos MD PCP - GeneralFamily Imtgzuni62/8/20
--- OUTSIDE RECORDS SUMMARY | 2025-10-05 09:37 | XMS_ITS | Clinical Summary ---
Author Organization [facility] Address [address], [address] [place] [address] Care Team Providers Care Supervisor [place] Name Role Phone Teddy Reed MD Primary Care Provider [phone] Allergies Active AllergyReactionsCriticalityNoted DateCommentsEnvironmental/Seasonal Qfmeptd9403/29/2015 Itchy eyes and runny nose Medications MedicationSigDispense QuantityRefillsLast FilledStart DateEnd DateStatus meloxicam (MOBIC) 7.5 MG tablet Take 1 tablet by mouth daily as needed for Pain. 30 tablet ctive mometasone (NASONEX) 50 MCG/ACT nasal spray 2 sprays by Nasal route daily. 1 Inhaler ctive HYDROcodone-acetaminophen (NORCO) 5-325 MG per tablet Take 1 tablet by mouth02/04/2015ctive dexlansoprazole (DEXILANT) 60 MG CPDR capsule Take 1 capsule by mouth daily 90 capsule ctive chlorhexidine (PERIDEX) 0.12 % solution ctive tadalafil (CIALIS) 20 MG tablet Take 1 tablet by mouth as needed 20 tablet ctive desloratadine (CLARINEX) 5 MG tablet Take 1 tablet by mouth daily 90 tablet ctive Active Problems ProblemNoted DateDiagnosed QmdhHwhulnelw28/17/6121Ihcitpg46/17/2015 Immunizations ImmunizationAdministration DatesNext DueInfluenza Virus Hgsxaxy4209/29/2014 Influenza, FLUZONE High Dose, (age 65 y+), IM, Trivalent PF, 0.5mL10/20/2015 Pneumococcal, PPSV23, PNEUMOVAX 23, (age 2y+), SC/IM, 0.5mL11/03/2014TDaP, ADACEL (age 10y-64y), BOOSTRIX (age 10y+), IM, 0.5mL04/23/2013Td, unspecified odhkpokcsyo51/07/2005 Family History Medical HistoryRelationNameCommentsAlzheimer's DiseaseFatherStrokeMother Alzheimer's DiseasePaternal GrandfatherRelationNameStatusCommentsBrother 1Alive Brother 2AliveFatherDeceasedalzheimersMotherDeceasedCVAPaternal Grandfather Social History Tobacco UseTypesPacks/DayYears UsedDateSmoking Tobacco: FormerCigarettes Smokeless Tobacco: NeverAlcohol UseStandard Drinks/WeekCommentsNot Asked0 (1 standard drink = 0.6 oz pure alcohol)Sex and Gender InformationValueDate RecordedSex Assigned at BirthNot on fileLegal CxgWqbx8312/22/2012 8:38 PM EST Gender IdentityNot on fileSexual OrientationNot on file Last Filed Vital Signs Vital SignReadingTime TakenCommentsBlood Njeozgya926/6810/20/2015 9:09 AM EST Vscnq350210/20/2015 9:09 AM JBKUxccliktzpb43.9 ??C (98.4 ??F)02/15/2015 9:59 AM EDTRespiratory Bnrf006912/21/2014 9:09 AM ESTOxygen Jhnksnmhug88%02/26/2015 11:52 AM EDTInhaled Oxygen Concentration--Ohpans30.3 kg (210 lb)10/20/2015 9:09 AM EST Amsjgi175.8 cm (5' 10 )10/20/2015 9:09 AM ESTBody Mass Index30.13112/21/2014 9:09 AM EST Plan of Treatment Not on file Insurance Care Teams Team MemberRelationshipSpecialtyStart DateEnd Teddy Blake MD PCP - GeneralInternal Medicine04/23/13
--- OUTSIDE RECORDS SUMMARY | 2025-10-05 09:37 | XMS_ITS | Patient Health Record ---
Author Organization [facility] in [place] Address [address] [place] [address] Care Team Providers Care Deputy United [employer] Marshal Name Role Phone Rio Lucas Primary Care Provider Allergies No Known Allergies Results Component Value Reference Range Notes CBC AUTO DIFF Reviewed date:09/24/2025 01:04:48 PM Interpretation: Performing Lab: Notes/Report: [facility] , White Blood Count 6.7 4.0-11.0 10 3/uL Red Blood Count3.904.70-6.10 10 6/eRTlmuvybofu12.314.0-18.0 g/gBZhahwdimtp82.4 42.0-54.0 %Mean Corpuscular Sjoegm66.580.0-94.0 fLMean Corpuscular Hemoglobin 34.125.9-34.0 pgMean Corpuscular HGB Conc34.629.9-35.2 g/dLRed Cell Distribution Width12.211.0-15.0 %Platelet Fflfq084073-562 10 3/uLMean Platelet Volume9.59.5- 13.5 fLNeutrophils Percent Auto59.443.0-75.0 %Lymphocytes Percent Auto26.420.5- 60.0 %Monocytes Percent Auto8.51.7-12.0 %Eosinophils Percent Auto4.60.9-7.0 % Basophils Percent Auto1.00.2-2.0 %Immature Granulocytes Pct Auto0.10.0-0.5 % Neutrophils Absolute Auto4.01.4-6.5 10 3/uLLymphocytes Absolute Auto1.81.2-3.8 10 3/uLMonocytes Absolute Auto0.60.3-0.8 10 3/uLEosinophils Absolute Auto0.30.0- 0.7 10 3/uLBasophils Absolute Auto0.10.0-0.1 10 3/uLImmature Granulocytes Abs Auto0.010.00-0.03 10 3/uLPerforming Lab:see note - [facility] LB GLYCOHEMOGLOBIN A1C Reviewed date:09/24/2025 02:43:04 PM Interpretation: Performing Lab: Notes/Report: [facility] ,Glycohemoglobin A1C5.34.5-6.2 % ADA THERAPEUTIC TARGET < 7.0 ADA RECOMMENDED LIMIT 4.0 - 6.0 > 7.0 ACTION SUGGESTED Estimated Average Zhjqlai415Rojcjkzvnn Lab:see [facility] PSA SCREENING Reviewed date:09/24/2025 01:04:49 PM Interpretation: Performing Lab: Notes/Report: [facility] ,Prostate Specific Antigen Scrn0.59<=4.00 ng/mLPerforming Lab:see [facility] LBCT chest wo con Reviewed date:03/25/2025 07:18:09 PM Interpretation: Performing Lab: Notes/Report: Source Facility: [place] [address] CT Scan Report Signed Patient: ODALYS CERDA MR#: [id number] : 1950 Acct:[id number] Age/Sex: 75 / M ADM Date: 03/25/25 Loc: CT Attending Dr: Jaron Lucas M.D. Ordering Physician: Jaron Lucas M.D. Date of Service: 03/25/25 Procedure(s): CT chest wo con Accession Number(s): [id number] cc: Jaron Lucas M.D. [place] [address] Patient Name: ODALYS CERDA MRN: [id number] date: 1950 Sex: M Assigned Patient Location: CT Current Patient Location: CT Accession/Order Number: [id number] Exam Date: 03/25/2025 15:42 Report Date: 03/25/2025 15:51 At the request of: JARON LUCAS MD Procedure: CT chest wo con CT chest wo con 03/25/2025 1:56 PM SIGN AND SYMPTOMS: Follow-up opacity in right lower lobe TECHNIQUE: Multidetector CT axial slices of the chest were obtained without IV contrast. Multiplanar reformats were performed and viewed on a separate workstation and reviewed to further define anatomy and possible pathology. CT was performed with one or more of the following dose reduction techniques: Automated exposure control, adjustment of the mA and/or kV according to patient size, or use of iterative reconstruction technique. COMPARISON: 03/13/2024.. FINDINGS: Lower neck: Thyroid gland within normal limits, no supraclavicle adenopathy. Vessels: Atherosclerotic changes are noted in the thoracic aorta and coronary arteries. Mediastinum and Christie: Within normal limits. Heart: Normal size. No pericardial effusion. Airways: Within normal limits Lungs: There is continued scarring or atelectasis in the medial aspect of the right lower lobe adjacent to osteophytes the thoracic spine. This is unchanged. There is dependent atelectasis. Pleura: Within normal limits. Chest Wall: Within normal limits. Upper Abdomen: Within normal limits. Bones: Degenerative changes are present in the thoracic spine. CT/CT chest wo con IMPRESSION: There is continued scarring or atelectasis in the medial aspect of the right lower lobe adjacent to osteophytes the thoracic spine. This is unchanged. No acute cardiopulmonary pathology. Impression dictated by: Sammy Jolly M.D. 03/25/2025 3:51 PM Dictation Location: [place] [address] Electronically authenticated by: [id number] Y Date: 03/25/2025 15:51 Dictated By: Sammy Jolly M.D. Signed By: 03/25/25 1553 DD/ 1551 TD/TT: [employer] Analyst: abdominal aortic aneurysm Reviewed date:02/20/2025 12:52:21 PM Interpretation: Performing Lab: Notes/Report: Source Facility: [place] [address] [address] Ultrasound Report Signed Patient: ODALYS CERDA MR#: [id number] : 1950 Acct:[id number] Age/Sex: 75 / M ADM Date: 02/20/25 Loc: US Attending Dr: Jaron Lucas M.D. Ordering Physician: Jaron Lucas M.D. Date of Service: 02/20/25 Procedure(s): US abdominal aortic aneurysm Accession Number(s): [id number] cc: Jaron Lucas M.D. [address] [address] Patient Name: ODALYS CERDA MRN: [id number] date: 1950 Sex: M Assigned Patient Location: US Current Patient Location: US Accession/Order Number: [id number] Exam Date: 02/20/2025 11:20 Report Date: 02/20/2025 11:21 At the request of: JARON LUCAS MD Procedure: US abdominal aortic aneurysm Aortic ultrasound Reason for exam: Abdominal aortic aneurysm Comparison: Aortic ultrasound 11/23/2023 Technique: Grayscale, spectral and color Doppler images of the abdominal aorta were obtained. Findings: Fusiform type abdominal aortic aneurysm measuring 3.5 x 3.6 cm similar to the prior study. Visualized iliac arteries appear normal in caliber. US/US abdominal aortic aneurysm Impression: Fusiform type abdominal aortic aneurysm 3.5 x 3.6 cm similar to the prior study. Impression dictated by: Louise Troncoso Jr.OBernadine02/20/2025 11:21 AM Dictation Location: [place] [address] Electronically authenticated by: [id number] Y Date: 02/20/2025 11:21 Dictated By: Prudencio Miranda M.D. Signed By: 02/20/25 1124 DD/ 1121 TD/TT: Haz[employer] Analyst:TSH Reviewed date:02/20/2025 12:52:21 PM Interpretation: Performing Lab: Notes/Report: [facility] ,Thyroid Stimulating Hormone5.9670.358-3.740 uIU/mLPerforming Lab:see noteML - [facility] LBT4 Reviewed date:02/20/2025 12:52:21 PM Interpretation: Performing Lab: Notes/Report: [facility] ,T4 Thyroxine6.604.50-12.10 ug/dLPerforming Lab:see noteML - [facility] LBPSA SCREENING Reviewed date:02/20/2025 12:52:21 PM Interpretation: Performing Lab: Notes/Report: [facility] ,Prostate Specific Antigen Scrn0.85<=4.00 ng/mLPerforming Lab:see noteML - [facility] LBPROF 14(COMP METB) Reviewed date:02/20/2025 12:52:21 PM Interpretation: Performing Lab: Notes/Report: [facility] ,Yzewqm464226-718 mmol/LPotassium4.13.5-5.1 mmol/XYuddpqjt17127-953 mmol/LCarbon Qpefnmu77.121.0-32.0 mmol/LAnion Gap11.6Ysiiyju0133-603 mg/dLBlood Urea Nitrogen 14.07.0-18.0 mg/dLCreatinine1.670.70-1.30 mg/dLEstimated GFR ( Fchognp68 >=60 mL/min/1.73m 2Estimated GFR (Non- Ame40>=60 mL/min/1.73m 2BUN Creatinine Ratio8.4Rvzbjwv2.08.5-10.1 mg/dLBilirubin Total0.80.2-1.0 mg/dL Aspartate Amino Mvjxufavssf2964-87 U/LAlanine Pjhqfbisktwfyjjy2499-03 U/L Alkaline Yvicrkourff12396-467 U/LTotal Protein7.16.4-8.2 g/dLAlbumin Level3.5 3.4-5.0 g/dLGlobulin3.6Albumin Globulin Ratio1.0Performing Lab:see noteML - [facility] LBLIPID PROFILE Reviewed date:02/20/2025 12:52:21 PM Interpretation: Performing Lab: Notes/Report: [facility] ,Xevmxfzwrastl773<=150 mg/iNQbvezoazset467<=200 mg/dLHDL Insfoolfzkq9149-92 mg/dL > or =60 mg/dl - LOW CARDIOVASCULAR RISK <40 mg/dl - HIGH CARDIOVASCULAR RISK LDL Cholesterol Scfsiemmyx29.0 100-129 mg/dl NEAR OR ABOVE OPTIMAL 160-189 mg/dl HIGH <100 mg/dl OPTIMAL 130-159 mg/dl BORDERLINE HIGH >190 mg/dl VERY HIGH VLDL PQZHSGPIGEY83.0Chol HDL Ratio3.5 >11.0 HIGH RISK 3.3 - 4.4 LOW RISK 7.1 - 11.0 MODERATE RISK 4.4 - 7.1 AVERAGE RISK Performing Lab:see noteML - [facility] LBGLYCOHEMOGLOBIN A1C Reviewed date:02/20/2025 12:52:21 PM Interpretation: Performing Lab: Notes/Report: [facility] ,Glycohemoglobin A1C5.54.5-6.2 % > 7.0 ADA THERAPEUTIC TARGET < 7.0 ADA RECOMMENDED LIMIT 4.0 - 6.0 ACTION SUGGESTED Estimated Average Cypsrqq712Fxccgoagba Lab:see note - [facility] LB FREE T3 Reviewed date:02/20/2025 12:52:21 PM Interpretation: Performing Lab: Notes/Report: [facility] ,Free T32.672.18-3.98 pg/mLPerforming Lab:see note - [facility] LB CBC AUTO DIFF Reviewed date:02/20/2025 12:52:21 PM Interpretation: Performing Lab: Notes/Report: [facility] ,White Blood Count6.64.0-11.0 10 3/uLRed Blood Count3.694.70-6.10 10 6/uL Nmxydivwkz67.414.0-18.0 g/xJLytnlpblap15.742.0-54.0 %Mean Corpuscular Kbhcoy76.5 80.0-94.0 fLMean Corpuscular Ykyffxoatr02.625.9-34.0 pgMean Corpuscular HGB Conc 33.829.9-35.2 g/dLRed Cell Distribution Width12.411.0-15.0 %Platelet Gwvap703 150-450 10 3/uLMean Platelet Volume9.69.5-13.5 fLNeutrophils Percent Auto56.1 43.0-75.0 %Lymphocytes Percent Auto30.720.5-60.0 %Monocytes Percent Auto8.81.7- 12.0 %Eosinophils Percent Auto3.50.9-7.0 %Basophils Percent Auto0.60.2-2.0 % Immature Granulocytes Pct Auto0.30.0-0.5 %Neutrophils Absolute Auto3.71.4-6.5 10 3/uLLymphocytes Absolute Auto2.01.2-3.8 10 3/uLMonocytes Absolute Auto0.60.3-0.8 10 3/uLEosinophils Absolute Auto0.20.0-0.7 10 3/uLBasophils Absolute Auto0.00.0- 0.1 10 3/uLImmature Granulocytes Abs Auto0.020.00-0.03 10 3/uLPerforming Lab:see noteML - [facility] LBTSH Reviewed date:09/24/2025 01:04:49 PM Interpretation: Performing Lab: Notes/Report: [facility] ,Thyroid Stimulating Hormone9.0660.358-3.740 uIU/mLPerforming Lab:see noteML - [facility] LBT4 Reviewed date:09/24/2025 01:04:49 PM Interpretation: Performing Lab: Notes/Report: [facility] ,T4 Thyroxine5.904.50-12.10 ug/dLPerforming Lab:see noteML - [facility] LBPROF 14(COMP METB) Reviewed date:09/24/2025 01:04:49 PM Interpretation: Performing Lab: Notes/Report: [facility] ,Tlprdt373789-060 mmol/LPotassium4.43.5-5.1 mmol/ZYktsxlnu42742-345 mmol/LCarbon Mkwawed37.321.0-32.0 mmol/LAnion Gap10.5Ylttzng8420-039 mg/dLBlood Urea Nitrogen 18.07.0-18.0 mg/dLCreatinine1.470.70-1.30 mg/dLEstimated GFR ( Tikczjc17 >=60 mL/min/1.73m 2Estimated GFR (Non- Ame47>=60 mL/min/1.73m 2BUN Creatinine Ratio12.0Lplwisc9.08.5-10.1 mg/dLBilirubin Total0.70.2-1.0 mg/dL Aspartate Amino Gqnziogbmxp3501-12 U/LAlanine Ihsqaydentqztqnm6630-09 U/L Alkaline Waughjagdak16484-625 U/LTotal Protein7.66.4-8.2 g/dLAlbumin Level3.7 3.4-5.0 g/dLGlobulin3.9Albumin Globulin Ratio0.9Performing Lab:see noteML - [facility] LBLIPID PROFILE Reviewed date:09/24/2025 01:04:49 PM Interpretation: Performing Lab: Notes/Report: [facility] ,Gvaqwusmkmifa05<=150 mg/aDGxuydpqxdfj906<=200 mg/dLHDL Rabnngifyrc7937-30 mg/dL > or =60 mg/dl - LOW CARDIOVASCULAR RISK <40 mg/dl - HIGH CARDIOVASCULAR RISK LDL Cholesterol Nsahreljkx439.0 130-159 mg/dl BORDERLINE HIGH <100 mg/dl OPTIMAL >190 mg/dl VERY HIGH 160-189 mg/dl HIGH 100-129 mg/dl NEAR OR ABOVE OPTIMAL VLDL ZAONXWTMPPU00.0Chol HDL Ratio3.5 3.3 - 4.4 LOW RISK 4.4 - 7.1 AVERAGE RISK >11.0 HIGH RISK 7.1 - 11.0 MODERATE RISK Performing Lab:see noteML - [facility] LBFREE T3 Reviewed date:09/24/2025 01:04:49 PM Interpretation: Performing Lab: Notes/Report: [facility] ,Free T32.152.18-3.98 pg/mLPerforming Lab:see noteML - [facility] LB Reason For Referral No Information Medications Medication SIG (Take, Route, Frequency, Duration) Notes Start Date End Date Status Fluticasone Propionate 50 MCG/ACT 1 spray in eac h nostril Nasally Twice a day 5ActiveVardenafil HCl 20 MG1 tablet 60 minutes before sexual activity as needed Orally Once a day; Duration: 90 days5ActiveDesloratadine 5 MG 1 tablet Orally Once a day; Duration: 90 days5ActiveLiothyronine Sodium 5 MCG2 tablet on an empty stomach Orally Once a day; Duration: 30 days09/24/2025 ActiveTadalafil 20 mgTAKE 1 TABLET DAILY NEEDEDActiveMeloxicam 15 MG1 tablet Orally Once a day; Duration: 30 days5Active Immunizations Vaccine Route Administration Date Status Comme nts Flu, Fluzone High-Dose (2022 -2023) (82362) 65 yrs+ Unknown 08/15/2023 Administered RSV YfbcqqcZmcijkm42/31/2023AdministeredSpikevax Moderna Syringe Pre-Filled 50 mcg/0.5 vHVfrbjvy04/06/2023Administered Social History Tobacco Use: Social History Observation Description Date Details (start date - stop date) Former Smoker 11/12/1963 - 11/12/1999 Tobacco Use/Smoking Question Answer Notes Patient is a former smoker When did you start smoking?11/12/1963When did you stop smoking?11/12/1999Alcohol Screen (Audit-C) Question Answer Notes Did you have a drink containing alcohol in the p ast year? No Muhrql7YwfkycvkuirrbiYywcwqdfJOKGR-H (Standard) Question Answer Notes Did you have a drink containing alcohol in the p ast year? No Ktxnsx1KkbpeljnkilylmSgvacvks Problems Problem Type SNOMED Code ICD Code Onset Dates Problem Status W/U Status Risk Notes Problem Abdominal aortic ane urysm without rupture (61818733) Abdominal aortic aneurysm, without rupture (I71.4) ActiveconfirmedProblemLung field abnormal (978057812)Other nonspecific abnormal finding of lung field (R91.8)ActiveconfirmedProblemGastroesophageal reflux disease (435386953)GERD (gastroesophageal reflux disease) (K21.9)Activeconfirmed ProblemSeasonal allergic rhinitis (016877425)Seasonal allergic rhinitis (J30.2) ActiveconfirmedProblemLumbar radicular pain (0905660569)Lumbar radicular pain (M54.16)ActiveconfirmedProblemSeasonal allergic rhinitis (367573389)Seasonal allergic reaction (J30.2)ActiveconfirmedProblemErectile dysfunction (disorder) (821358670)Impotence (N52.9)ActiveconfirmedProblemChronic kidney disease stage 3A (disorder) (172179569)Chronic kidney disease, stage 3a (N18.31)Active confirmedProblemAbdominal aortic aneurysm (disorder) (886883808)Abdominal aortic aneurysm (AAA), unspecified part, unspecified whether ruptured (I71.40) 5Activeconfirmed Vital Signs Blood pressure diastolic 96 mm Hg 09/24/2025 Timxmv83 in09/24/2025lood pressure ntxcuerh362 mm Hg09/24/20258521Nolgcf210.8 lbs 09/24/2025BMI29.68 kg/m209/24/2025 Encounters Encounter Location Date Provider Diagnosis [facility] [address] [place] [address] 09/24/2025 [place] Chronic kidney disea se, stage 3a N18.31 ; Impotence N52.9 and Seasonal allergic rhinitis J30.2 [facility] [address] [place] [address] 02/13/2025 [place] GERD (gastroesophage al reflux disease) K21.9 ; Lumbar radicular pain M54.16 ; Seasonal allergic rhinitis J30.2 ; Impotence N52.9 and Abdominal aortic aneurysm (AAA), unspecified part, unspecified whether ruptured I71.40 [facility] [address] [facility] [address] 02/10/2025 [place] [facility] [facility] [place] [address] 02/13/2025Doug HoyGERD (gastroesophageal reflux disease) K21.9[facility] [facility] [place] [address]/02/2025Doug Hoy GERD (gastroesophageal reflux disease) K21.9[facility] [place] [address]/05/2025[facility] [place] [address]/09/2025Doug HoyLow thyroid stimulating hormone (TSH) level R79.89[facility] [address] [place] [address]/03/2025Doug HoyOther nonspecific abnormal finding of lung field R91.8[facility] [place] [address]/Doug [facility] [place] [address]/Doug [facility] thyroid stimulating hormone (TSH) level R79.89 Assessments Encounter Date Diagnosis (ICD Code) Assessment Notes Treatment Notes Treatment Clinical Notes Section Notes 02/13/2025 GERD (gastroesophageal reflux di sease) (ICD-10 - K21.9) 02/13/2025Lumbar radicular pain (ICD-10 - M54.16)02/13/2025GERD (gastroesophageal reflux disease) (ICD-10 - K21.9)02/13/2025GERD (gastroesophageal reflux disease) (ICD-10 - K21.9)02/20/2025Low thyroid stimulating hormone (TSH) level (ICD-10 - R79.89)03/16/2025Other nonspecific abnormal finding of lung field (ICD-10 - R91.8)09/24/2025Low thyroid stimulating hormone (TSH) level (ICD-10 - R79.89)09/24/2025hronic kidney disease, stage 3a (ICD-10 - N18.31)09/24/2025Impotence (ICD-10 - N52.9)09/24/2025Seasonal allergic rhinitis (ICD-10 - J30.2)02/13/2025Seasonal allergic rhinitis (ICD-10 - J30.2) 02/13/2025Impotence (ICD-10 - N52.9)02/13/2025bdominal aortic aneurysm (AAA), unspecified part, unspecified whether ruptured (ICD-10 - I71.40) Plan Of Treatment Pending Test Test Name Order Date CMP (COMPLETE METABOLIC PANEL) 4 HEMOGLOBIN A1C (GLYCO) 11/16/2023 HEMOGLOBIN A1C (GLYCO) 02/13/2025 HEMOGLOBIN A1C (GLYCO) 09/24/2025 LIPID PANEL (CHOL/TRIG/HDL/LDL) 02/14/20 25 LIPID PANEL (CHOL/TRIG/HDL/LDL) 11/16/19 24 LIPID PANEL (CHOL/TRIG/HDL/LDL) 09/24/20 25 CBC WITH DIFF 11/16/2023 PSA, PROSTATE-SPECIFIC ANTIGEN 4 STOOL OCCULT BLOOD 11/16/2023 STOOL OCCULT BLOOD 09/24/2025 STOOL OCCULT BLOOD 02/13/2025 CT CHEST WO CON 02/22/2024 CT CHEST WO CON 03/16/2025 US ABD AORTA DIAGNOSTIC 11/16/2023 THYROID PANEL (T4/TSH/FREE T3) 5 THYROID PANEL (T4/TSH/FREE T3) 5 THYROID PANEL (T4/TSH/FREE T3) 5 THYROID PANEL (T4/TSH/FREE T3) 5 THYROID PANEL (T4/TSH/FREE T3) 4 PSA, SCREENING 02/13/2025 PSA, SCREENING 09/24/2025 US aorta 02/13/2025 CMP (COMP MET KRAUS) w/eGFR CKD-EPI 2024 CMP (COMP MET KRAUS) w/eGFR CKD-EPI 2024 CBC WITH DIFF 09/24/2025 CBC WITH DIFF 02/13/2025 Insurance Providers Payer Name Payer Address Payer Phone Subscriber Number Group Number Insured Name Patient Relationship to Insured Coverage Start Date Coverage End Date [employer] ADV PLAN [address] [address] [place] S[place] [phone] [id number] Trae Cerda - patient is the insured Medications Administered Medication Instructions Date of Administration Dosage Notes Kenalog-40 20 ug614Qwudlpijx Tpnarmlkpceb17/12/040193 zf59Vklcruxpzyrf Citrate mg60 Medical (General) History Medical History History ICD Code 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
--- OUTSIDE RECORDS SUMMARY | 2025-10-05 09:47 | XMS_ITS | CCD ---
Author Organization [facility]formerly [facility] Partnership [facility] Care Team Providers Care Deburr Technician Name Role Phone PHYSICIAN, DEFAULT Unavailable Unavailable PHYSICIAN, DEFAULT Unavailable Unavailable DR JARON AVALOS Admitting Unavailable LANCE, DR SALMERON Attending Unavailable LANCE, DR SALMERON Primary Care Unavailable DR JARON AVALOS Consulting Unavailable Jaron Avalos MD Unavailable Jaron Avalos MD Unavailable Jaron Avalos MD Unavailable Jaron Avalos MD Primary Care Provider [phone] Shaji SALAS Attending Unavailable RODDY LOYD Referring Unavailable CORINA AVALOSLAS M Primary Care Unavailable RODDY LOYD Referring Unavailable JARON AVALOS M Primary Care Unavailable RODDY LOYD Referring Unavailable RODDY LOYD Referring Unavailable RODDY LOYD Attending Unavailable CORINA AVALOSLAS M Primary Care Unavailable CORINA AVALOSLAS M Primary Care Unavailable RODDY LOYD Attending Unavailable RODDY LOYD Admitting Unavailable CORINA AVALOSLAS M Primary Care Unavailable Allergies Allergy ClassificationReported Allergen(s)Allergy TypeDate of OnsetReaction(s) Facility (1 source)No Known Medication Allergies; Translations: [No Known Medication Allergies]Propensity to adverse reactions (disorder)[facility] Repository Medications Current Medications MedicationDrug Class(es)DatesSig (Normalized)Sig (Original)amoxicillin 120 mg/ml / clavulanate 8.58 mg/ml oral suspension (1 source)Penicillin-class AntibacterialStart: 05-23-2023 End: 46-80-8850ytmv 6.5 mL by mouth twice dailyamoxicillin-clavulanate (AUGMENTIN) 600-42.9 mg/5 mL suspension Take 6.5 mL by mouth twice daily for 5 days. 65 mL 0 05/23/2023 05/28/2023 ActiveComment on above:Take 6.5 mL by mouth twice daily for 5 days.enteric contrast (will be provided with radiology test) (1 source)Start: 09-25-2022 End: 77-26-9812mhye 1 dose by mouth once, then take 1 dose by mouth onceenteric contrast (will be provided with radiology test) Take 1 Each by mouth one time only for [address] Chest ABD/PEL WO Routine order Administer, As Directed One Time Only, via Oral, Rectal, both Oral and Rectal, Enteric Tube, Stoma or Indwelling Catheter, Enteric Contrast as designated per enteric contrast guidelines 1 Each 0 09/25/2022 09/25/2022 ActiveComment on above:Take 1 Each by mouth one time only for [address] Chest ABD/PEL WO Routine order Administer, AsDirected One Time Only, via Oral, Rectal, both Oral and Rectal, Enteric Tube, Stoma or Indwelling Catheter, Enteric Contrast as designated per enteric contrast guidelinesoxyCODONE hydrochloride 1 mg/ml oral solution (2 sources)Opioid AgonistStart: 05-22-2023 End: 47-67-0890ukuh 5 mL by mouth every six hours as needed for painoxyCODONE (ROXICODONE) 5 mg/5 mL oral solution Indications: Acute post-operative pain Take 5 mL by mouth every 6 hours as needed for pain for up to 7 days. 100 mL 0 05/25/2023 06/01/2023 ActiveComment on above:Take 5 mL by mouth every 6 hours as needed for pain for up to 7 days. Completed/Discontinued Medications MedicationDrug Class(es)DatesSig (Normalized)Sig (Original)Acetaminophen (7 sources)acetaminophen (TYLENOL ORAL) Take by mouth as needed. 0 ActiveComment on above:Take by mouth as needed.acetaminophen 250 mg / aspirin 250 mg / caffeine 65 mg oral tablet (7 sources)Platelet Aggregation Inhibitor, Nonsteroidal Anti-inflammatory Drug, Central Nervous System Stimulant, Methylxanthinetake 1 tablet by mouth once as vcqcwuVrptdwc-Vjawzslozwxmb-Bfwhjszu (EXCEDRIN MIGRAINE) 250-250-65 mg per tablet Take 1 tablet by mouth as needed. 0 ActiveComment on above:Take 1 tablet by mouth as needed.desloratadine 5 mg oral tablet (7 sources)Histamine-1 Receptor AntagonistStart: 86-44-3094eaer 1 tablet by mouth once dailydesloratadine (CLARINEX) 5 mg tablet Take 1 tablet by mouth once daily. 0 10/20/2015 ActiveComment on above:Take 1 tablet by mouth once daily. Problems Active Problems Problem ClassificationProblemDateDocumented DateEpisodic/ChronicChronic kidney disease (4 sources)Chronic kidney disease stage 3A ; Translations: [Stage 3a chronic kidney disease]Onset: [id number] mellitus without complication (1 source)Other abnormal glucose; Translations: [OTHER ABNORMAL GLUCOSE]Onset: 86-38-7959BojddpzjNmjqusdfh of lipid metabolism (1 source)Hyperlipidemia, unspecified; Translations: [HYPERLIPIDEMIA UNSPECIFIED]Onset: 61-91-0375WcushoiMbtxfersby disorders (1 source)Gastro-esophageal reflux disease without esophagitis; Translations: [GERD WITHOUT ESOPHAGITIS]Onset: 62-58-3584EdtspwzTfogh and electrolyte disorders (5 sources)Hyperkalemia; Translations: [Hyperkalemia]Onset: 00-23-5811Queakrqc Other gastrointestinal disorders (1 source)Dysphagia, unspecified; Translations: [DYSPHAGIA UNSPECIFIED]Onset: 89-74-9106XpyujzeiVwqai gastrointestinal disorders (1 source)Dysphagia; Translations: [Dysphagia, pharyngoesophageal phase]Episodic Other lower respiratory disease (2 sources)Multiple nodules of lung; Translations: [Other nonspecific abnormal finding of lung field]EpisodicOther male genital disorders (4 sources)Male erectile dysfunction, unspecified; Translations: [MALE ERECTILE DYSFUNCTION UNS]Onset: 47-57-8626CjetczcSaqwc nervous system disorders (1 source)Acute postoperative pain; Translations: [Other acute postprocedural pain]49-98-0328IacjtylwPgtrj screening for suspected conditions (not mental disorders or infectious disease) (1 source)Encounter for screening for malignant neoplasm of prostate; Translations: [ENC SCREEN MALIG NEOPLASM PROSTATE]Onset: 17-47-3021Btwbisma Past or Other Problems Problem ClassificationProblemDateDocumented DateEpisodic/ChronicEsophageal disorders (18 sources)Zenker's diverticulum; Translations: [Diverticulum of esophagus, acquired]Onset: 98-77-3282PrikefncGwhyd nervous system disorders (1 source)Other acute postprocedural pain; Translations: [Acute post-operative pain]Onset: 72-17-1023Nktkcfhh Results Test NameValueInterpretationReference RangeFacilityPhysician Referralon 63-27-3929Dlzkzcyru [id number]#1.00TIFF [facility] HospitalCNOVon 96-54-8716DMFPFqxjca Visit (OTOLMN) ODALYS CERDA ([id number]) 1950 M Date Time Provider Department 06/11/23 10:40 AM RODDY LOYD OTOLWV During your visit today, we recorded the [...] Take 1 tablet by mouth once daily. Ohqwphj-Fadjwqkxulkqv-Kuzdlbyo (EXCEDRIN MIGRAINE) 250-250-65 mg per tablet Take [...] Roddy Loyd MD Referring Provider: RODDY LOYD [[id number]] Allergies As of Date: 06/11/2023 (No Known Allergies) Date Reviewed: 06/11/2023 Reviewed by: Amy Rios RN - Fully Assessed Reason for Visit: Established Patient [175] Cmt: Post op visit Primary Visit Diagnosis:Zenker's diverticulum [K22.5] Prescriptions as of 06/14/2023 - desloratadine (CLARINEX) 5 mg tablet Take 1 tablet by mouth once daily. - Twdayfa-Arrshdtqchlry-Lratxygv (EXCEDRIN MIGRAINE) 250-250-65 mg per tablet Take [...] non-smoker Encounter Status:Closed by RODDY LOYD on 06/[facility]23[facility] 48-96-6042IWBKNvozbnjxl (OTOLMN) ODALYS CERDA ([id number]) 1950 M Date Time Provider Department 05/24/23 RODDY LOYD OTOLMN During your visit today, we recorded the following information about you: Diane Joaquin Vilchis 05/24/2023 4:41 PM Signed Mr. Cerda called and said that the oxyCodone 5 mg /5ml can't be filled due to supply shortage with outside company. The pharmacy he was using was [facility] in [facility]. He was wondering if a new prescription be filled at the [facility] in [facility]. The Pharmacy phone number is . Amy Rios RN 05/25/2023 9:55 AM Signed Called [facility] in [place]- they do not have this medication in stock. [facility] [place] Called pt. And he said it is [...] pain for up to 7 days. - amoxicillin-clavulanate (AUGMENTIN) 600-42.9 mg/5 mL suspension Take 6.5 mL by mouth twice daily for 5 days. - desloratadine (CLARINEX) 5 mg tablet Take 1 tablet by mouth once daily. - Ujdsmts-Xatnswjabldbg-Qvvrtiiz (EXCEDRIN MIGRAINE) 250-250-65 mg per tablet Take [...] days. Encounter Status:Closed by RODDY LOYD on 05/25/23NormalCSelect Medical Specialty Hospital [facility] metabolic 2000 panelon 58-28-6023Fraxw gap [Moles/Vol]10 mmol/L Normal9-18[facility] Community HospitalComment on above:Order Comment: Specimen Type: BLOOD SPECIMENOrdering Facility: [facility] Address:[address] [place] [address] [place] [address]Nijwocafw By: #### 53362-0 ####[facility] LABCLIA [id number] [facility] [place] [address] [place] AMERICACalcium [Mass/Vol]9.5 mg/dLNormal8.5-10.2CSt. [facility] Hospital on above:Order Comment: Specimen Type: BLOOD SPECIMENOrdering Facility: [facility] Address:[address] [place], [place] [id number] By: #### 31322-3 ####[facility] LABCLIA [id number] [place] [address] [place] AMERICAChloride [Moles/Vol]106 mmol/ITrfm60-175QqksmrakeMansfield Hospital on above:Order Comment: Specimen Type: BLOOD SPECIMENOrdering Facility: [facility] Address:[address] [place], [place] [address]Performed By: #### 51396-2 ####[facility] LABCLIA [id number] [place] [address] [place] CO2 [Moles/Vol]23 mmol/BKetoey91-38FiehyicldMansfield Hospital on above: Order Comment: Specimen Type: BLOOD SPECIMENOrdering Facility: [facility] Address:[address] [place], [place] [id number] By: #### 26540-4 ####[facility] LABCLIA [id number] [place] [address] [place] AMERICACreatinine [Mass/Vol] 1.36 mg/dLHigh0.73-1.22[facility] on above:Order Comment: Specimen Type: BLOOD SPECIMENOrdering Facility: [facility] Address:[address] [place], [place] [id number] By: #### 71715-0 ####[facility] LABCLIA [id number] [place] [address] [place] AMERICAESTIMATED GLOMERULAR FILTRATION RATE55 mL/min/1.73m???Low>=60[facility] on above:Order Comment: Specimen Type: BLOOD SPECIMENOrdering Facility: [facility] Address:[address] [place], [place] [id number] Comment: Estimated Glomerular Filtration Rate (eGFR) is calculated using the 2020 CKD-EPI creatinine equation. This equation utilizes serum creatinine, sex, and age as parameters. The creatinine assay has traceable calibration to isotope dilution- mass spectrometry. Refer to KDIGO guidelines for clinical interpretation. In patients with unstable renal function, e.g. those with acute kidney injury, the eGFR may not accurately reflect actual GFR.Performed By: #### 43071-3 ####[facility] LABIA [id number] [place] [address] [place] AMERICAGlucose [Mass/Vol]160 mg/dLHigh 74-99[facility] on above:Order Comment: Specimen Type: BLOOD SPECIMENOrdering Facility: [facility] Address:[address] [place] [address]Result Comment: The [place] Diabetes Association (ADA) provides guidance for cutoff values for fasting glucose and random glucose. The ADA defines fasting as no caloric intake for at least 8 hours. F asting plasma glucose results between 100 to 125 [...] Standards of Medical Care in Diabetes 2016, [place] [employer] Association. Diabetes Care. 2016.39(Suppl 1).Performed By: #### 10709-0 ####[facility] LABCLIA [id number] [place] [id number] [place] AMERICAPotassium [Moles/Vol]4.9 mmol/L Normal3.7-5.1CSt. Charles Hospital on above:Order Comment: Specimen Type: BLOOD SPECIMENOrdering Facility: [facility] Address:[address] [place] [phone] By: #### 69971-1 ####[facility] LABIA [id number] [place] [address] [place] AMERICASodium [Moles/Vol]139 mmol/YNhtjrx483-157WhaekdhyzMansfield Hospital on above:Order Comment: Specimen Type: BLOOD SPECIMENOrdering Facility: [facility] Address:[address] [place], [place] [address]Performed By: #### 32326-4 ####[facility] LABCLIA [id number] [place] [address] [place] AMERICAUrea nitrogen [Mass/Vol]12 mg/dLNormal9-24[facility] on above:Order Comment: Specimen Type: BLOOD SPECIMENOrdering Facility: [facility] Address:[address] [place], [place] [address]Performed By: #### 00197-2 ####[facility] LABIA [id number] [place] [address] [place] CBC W Auto Differential panel (Bld)on 09-07-1245Bdbbyiumw (Bld) [#/Vol]10*3/uL Normal<0.11CSt. Charles Hospital on above:Order Comment: Specimen Type: BLOOD SPECIMENOrdering Facility: [facility] Address:[address] [place], [place] [address]Performed By: #### 93941-6 ####[facility] LABCLIA [id number] [place] [address] [place] AMERICABasophils/100 WBC (Bld)0.1 %NormalMansfield Hospital on above:Order Comment: Specimen Type: BLOOD SPECIMENOrdering Facility: [facility] Address:[address] [place], [place] [phone] By: #### 05794-3 ####[facility] LABCLIA [id number] [place] [address] [place] Differential cell count method Nom (Bld)AutoNormalCSelect Medical Special[facility] Hospital [facility] Comment on above:Order Comment: Specimen Type: BLOOD SPECIMENOrdering Facility: [facility] Address:[address] [place] [address] Performed By: #### 50398-7 ####[facility] LABCLIA [id number] [place] [address] [place] Eosinophils (Bld) [#/Vol]10*3/uLNormal<0.46[facility] on above:Order Comment: Specimen Type: BLOOD SPECIMENOrdering Facility: [facility] Address:[address] [place], [place] [phone] By: #### 49899-8 ####[facility] LABIA [id number] [address] STATES OF AMERICAEosinophils/100 WBC (Bld)0.0 %NormalMansfield Hospital on above:Order Comment: Specimen Type: BLOOD SPECIMENOrdering Facility: [facility] Address:[address] [place], [place] [address]Performed By: #### 76851-9 ####[facility] LABIA [id number] [place] [address] [place] AMERICAErythrocyte distribution width (RBC) [Ratio]12.1 %Jqtraq78.5-15.0[facility] on above: Order Comment: Specimen Type: BLOOD SPECIMENOrdering Facility: [facility] Address:[address] [place] [address]Performed By: #### 56504-8 ####[facility] LABIA [id number] [place] [address] [place] AMERICAHematocrit (Bld) [Volume fraction]38.5 %Low39.0-51.0[facility] on above: Order Comment: Specimen Type: BLOOD SPECIMENOrdering Facility: [facility] Address:[address] [place], [place] [phone] By: #### 93443-2 ####[facility] LABIA [id number] [address] [address] [place] AMERICAHemoglobin (Bld) [Mass/Vol]13.1 g/tSMapydc50.0-17.0[facility] on above: Order Comment: Specimen Type: BLOOD SPECIMENOrdering Facility: [facility] Address:[address] [place], [place] [phone] By: #### 34938-5 ####[facility] LABCLIA [id number] [place] [address] [place] AMERICAImmature granulocytes (Bld) [#/Vol]0.07 10*3/uLNormal<0.10[facility] on above: Order Comment: Specimen Type: BLOOD SPECIMENOrdering Facility: [facility] Address:[address] [place], [place] [address]Performed By: #### 29728-5 ####[facility] LABCLIA [id number] [place] [address] [place] AMERICAImmature granulocytes/100 WBC (Bld)0.5 %[facility] on above: Order Comment: Specimen Type: BLOOD SPECIMENOrdering Facility: [facility] Address:[address] [place], [place] [phone] By: #### 81362-9 ####[facility] LABIA [id number] [place] [address] [place] AMERICALymphocytes (Bld) [#/Vol]0.86 10*3/uLLow1.00-4.00[facility] on above:Order Comment: Specimen Type: BLOOD SPECIMENOrdering Facility: [facility] Address:[address] [place], [place] [phone] By: #### 92541-6 ####[facility] LABCLIA [id number] [place] [address] [place] AMERICALymphocytes/100 WBC (Bld)5.8 %NormalMansfield Hospital on above:Order Comment: Specimen Type: BLOOD SPECIMENOrdering Facility: [facility] Address:[address] [place], [place] [phone] By: #### 01207-5 ####[facility] LABCLIA [id number] [address] (RBC) [Entitic mass]33.5 pg Nzkhqy10.0-34.0[facility] on above:Order Comment: Specimen Type: BLOOD SPECIMENOrdering Facility: [facility] Address:[address] [place], [place] [phone] By: #### 80136-2 ####[facility] LABCLIA [id number] [address]ETMCHC (RBC) [Mass/Vol]34.0 g/dL Zcnksb15.5-36.0[facility] on above:Order Comment: Specimen Type: BLOOD SPECIMENOrdering Facility: [facility] Address:[address] [place], [place] [address]Performed By: #### 06518-4 ####[facility] LABIA [id number] [address]ETV (RBC) [Entitic vol]98.5 fL Zhwgtz42.0-100.0[facility] on above:Order Comment: Specimen Type: BLOOD SPECIMENOrdering Facility: [facility] Address:[address] [place], [place] [phone] By: #### 79823-2 ####[facility] LABCLIA [id number] [address]ETMonocytes (Bld) [#/Vol]0.68 10*3/uLNormal<0.87[facility] on above:Order Comment: Specimen Type: BLOOD SPECIMENOrdering Facility: [facility] Address:[address] [place], [place] [phone] By: #### 80403-2 ####[facility] LABCLIA [id number] [place] [address] [place] AMERICAMonocytes/100 WBC (Bld)4.6 % NormalMansfield Hospital on above:Order Comment: Specimen Type: BLOOD SPECIMENOrdering Facility: [facility] Address:[address] [place] [address]Bgmbuvolq By: #### 44610-4 ####[facility] LABCLIA [id number] [place] [address] [place] AMERICANeutrophils (Bld) [#/Vol]13.22 10*3/uLHigh1.45-7.50 [facility] on above:Order Comment: Specimen Type: BLOOD SPECIMENOrdering Facility: [facility] Address:[address] [place] [address]Performed By: #### 53179-8 ####[facility] LABCLIA [id number] [place] [address] [place] AMERICANeutrophils/100 WBC (Bld)89.0 %NormalHarrison Community Hospital Comment on above:Order Comment: Specimen Type: BLOOD SPECIMENOrdering Facility: [facility] Address:[address] [place] [address] Performed By: #### 13130-7 ####[facility] LABCLIA [id number] [place] [address] [place] Nucleated RBC (Bld) [#/Vol]10*3/uLNormal<0.01[facility] on above:Order Comment: Specimen Type: BLOOD SPECIMENOrdering Facility: [facility] Address:[address] [place] [address] Performed By: #### 05428-7 ####[facility] LABCLIA [id number] [place] [address] [place] Nucleated RBC/100 WBC (Bld) [Ratio]0.0 /100 WBCNormalCSelect Medical Special[facility] Comment on above:Order Comment: Specimen Type: BLOOD SPECIMENOrdering Facility: [facility] Address:[address] [place], [place] [phone] Performed By: #### 45427-2 ####[facility] LABIA [id number] [place] [address] [place] Platelet mean volume (Bld) [Entitic vol]9.9 fLNormal9.0-12.7CSt. [facility] Hospital on above:Order Comment: Specimen Type: BLOOD SPECIMENOrdering Facility: [facility] Address:[address] [place], [place] [address]Performed By: #### 67915-2 ####[facility] LABIA [id number] [place] [address] [place] Platelets (Bld) [#/Vol]229 10*3/bGZzcrym230-158AgehkfuhiMansfield Hospital on above:Order Comment: Specimen Type: BLOOD SPECIMENOrdering Facility: [facility] Address:[address] [place], [place] [address] Performed By: #### 82745-6 ####[facility] LABIA [id number] [place] [address] [place] RBC (Bld) [#/Vol]3.91 10*6/uLLow4.20-6.00[facility] on above:Order Comment: Specimen Type: BLOOD SPECIMENOrdering Facility: [facility] Address:[address] [place] [address]Performed By: #### 19770-5 ####[facility] LABIA [id number] [place] [address] [place] AMERICAWBC (Bld) [#/Vol]14.85 10*3/uLHigh3.70-11.00[facility] on above:Order Comment: Specimen Type: BLOOD SPECIMENOrdering Facility: [facility] Address:[address] [place] [address]Enfeqzmto By: #### 08552-2 ####[facility] LABCLIA [id number] [facility] [address]ENTERAUST[facility] [place] [id number] [place] AMERICAXR ESOPHAGRAMon 28-57-8762QT ESOPHAGRAM* * *Final Report* * * DATE OF [...] 0:36 (min:sec). Air kerma: 17.9 mGy. RESULT: Instructor Looping: No focal consolidation within the visualized lung field. Luminal contrast transits the esophagus with filling and rapid emptying of a small Zenker's diverticulum without leak or obstruction. Staff Physician: Dr. Adriana MD was present for the critical portions of the procedure and was immediately available throughout the remainder of the procedure. IMPRESSION: NO LEAK OR OBSTRUCTION. Foiling Machine Operator: PSCB Transcribe Date/Time: May 23 2023 9:41A Dictated by : PEDRO WILSON MD This examination was interpreted and the report reviewed and electronically signed by: MANOHAR CASTANON MD on May 23 2023 9:49AM EST [id number] Community HospitalANES POSTPROC EVALon [id number] POSTPROC EVALHNO ID: [id number] Author: Kevin Gutierrez DO Service: ? Author Type: Anesthesiologist Type: Anesthesia Postprocedure Evaluation Filed: 05/22/2023 4:29 PM Note Text: POST ANESTHESIA EVALUATION NOTE : 1950 Procedure Summary Date: 05/22/23 Room / Location: [address] [facility] Anesthesia Start: 1422 Anesthesia Stop: 1544 Procedures: ENDOSCOPIC EXCISION ZENKERS DIVERTICULUM DIVERTICULECTOMY HYPOPHARYNX [...] May 22, 2023 TIME: 4:29 PM CSN: [id number] Memorial Hospital PRE-OPon [id number] PRE-OPHNO ID: [id number] Author: Kevin Gutierrez DO Service: ? Author Type: Anesthesiologist Type: Anesthesia Preprocedure Evaluation Filed: 05/22/2023 6:42 AM Note Text: ANESTHESIOLOGY DAY OF SURGERY NOTE : 1950 Procedure Information Date/Time: 05/22/23 1515 Procedures: ENDOSCOPIC EXCISION ZENKERS DIVERTICULUM DIVERTICULECTOMY HYPOPHARYNX OR ESOPHAGUS, CERVICAL APPROACH (Neck) Location: MAIN [facility] Surgeons: Roddy Loyd [...] and consent discussed: yes. Patient / Responsible Republican agrees to proceed: yes Patient / Surrogate [...] 1 tablet by mouth once daily. - Ilqigwb-Uhxbgzhtyvvif-Lskmvwjn (EXCEDRIN MIGRAINE) 250-250-65 mg per tablet Take [...] May 22, 2023 TIME: 6:41 AM CSN: [id number] County HospitalOPERATIVE NOon [id number] NOHNO ID: [id number] Author: Roddy Loyd MD Service: Otolaryngology Author Type: Physician Type: Operative Report Filed: 05/22/2023 6:26 PM Note Text: Operative Note DATE OF SERVICE: 05/22/2023 PATIENT: Odalys Cerda LOG ID: [id number] INCISION/PROCEDURE START TIME: 2:40 PM INCISION CLOSE/PROCEDURE END TIME: 3:21 PM Surgeon: Roddy Loyd MD Gravity Prospector: Linda Adkins MD, Philip Thomas MD Pre-Operative [...] year old male who [facility] [facility] with a [facility] of [...] [place] portions of the procedure. Roddy Loyd MDHenry County HospitalPNon [id number] (RYLAN) ODALYS CERDA ([id number]) 1950 M Date Time Provider Department 05/17/23 [...] to upcoming surgery Thank you Stacy Dai APRN.[facility] Jennie Chilel LPN 05/21/2023 7:05 AM Signed DEBORA Gonzalez APRN.BARRY; [facility] Rn Resource Pool 1 4 days [...] Diagnosis:Hyperkalemia [E87.5] Order(s):POTASSIUM BLD [SQK1] Order #: [id number] FUTURE Prescriptions as of 05/21/2023 - desloratadine (CLARINEX) 5 mg tablet Take 1 tablet by mouth once daily. - Xxtdjgd-Bpxfmpybvhljj-Amaplyon (EXCEDRIN MIGRAINE) 250-250-65 mg per tablet Take 1 tablet by mouth as needed. - acetaminophen (TYLENOL ORAL) Take by mouth as needed. Problem List As Of Date 05/17/2023 Noted Resolved 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] 05/16/2023 Stage 3a chronic kidney disease (HCC) [N18.31] 05/17/2023 Hyperkalemia [E87.5] 05/17/2023 Encounter Status:Closed by STACY DAI on 05/17/23NormalCSelect Medical Specialty Hospital - Cleveland-FairhillPOTASSIUM BLDon [id number] [Moles/Vol]4.2 mmol/LNormal3.7-5.1 [facility] on above:Order Comment: Specimen Type: BLOOD SPECIMENOrdering Facility: [facility] Address:[address] [place], [place] [address]Performed By: #### K1 ####[facility] LABCLIA [id number] [place], [place] [address]Amgsd metabolic 2000 panelon 53-03-4008Vlwsn gap [Moles/Vol]11 mmol/LNormal9-18[facility] on above:Order Comment: Specimen Type: BLOOD SPECIMENOrdering Facility: [facility] Address:[address] [place], [place] [address]Performed By: #### 96179-2 ####[facility] LABCLIA [id number] [place] [address] [place] Calcium [Mass/Vol]9.7 mg/dLNormal8.5-10.2CSt. Charles Hospital on above:Order Comment: Specimen Type: BLOOD SPECIMENOrdering Facility: [facility] Address:[address] [place], [place] [address]Performed By: #### 49092-7 ####[facility] LABCLIA [id number] [place] [address] [place] AMERICAChloride [Moles/Vol] 106 mmol/WDwet62-935OzxvttrhsMansfield Hospital on above:Order Comment: Specimen Type: BLOOD SPECIMENOrdering Facility: [facility] Address:[address] [place], [place] [address]Performed By: #### 32639-8 ####[facility] LABCLIA [id number] [place] [address] [place] AMERICACO2 [Moles/Vol]24 mmol/LNormal 22-30[facility] on above:Order Comment: Specimen Type: BLOOD SPECIMENOrdering Facility: [facility] Address:[address] [place], [place] [id number] By: #### 04483-9 ####[facility] LABIA [id number] [place] [address] [place] AMERICACreatinine [Mass/Vol]1.51 mg/dLHigh0.73-1.22[facility] on above:Order Comment: Specimen Type: BLOOD SPECIMENOrdering Facility: [facility] Address:[address] [place], [place] [address]Performed By: #### 12524-9 ####[facility] LABIA [id number] [place] [address] [place] AMERICAESTIMATED GLOMERULAR FILTRATION RATE48 mL/min/1.73m???Low>=60 [facility] on above:Order Comment: Specimen Type: BLOOD SPECIMENOrdering Facility: [facility] Address:[address] [phone] Comment: Estimated Glomerular Filtration Rate (eGFR) is calculated using the 2020 CKD-EPI creatinine equation. This equation utilizes serum creatinine, sex, and age as parameters. The creatinine assay has traceable calibration to isotope dilution-mass spectrometry. Refer to KDIGO guidelines for clinical interpretation. In patients with unstable renal function, e.g. those with acute kidney injury, the eGFR may not accurately reflect actual GFR.Performed By: #### 97741-9 ####[facility] LABCLIA [id number] [place] [address] [place] AMERICAGlucose [Mass/Vol]87 mg/hGSvzuuy73-73FvejqoegwMansfield Hospital on above:Order Comment: Specimen Type: BLOOD SPECIMENOrdering Facility: [facility] Address:[address] [place], [place] [phone] Result Comment: The [place] Diabetes Association (ADA) provides guidance for cutoff [...] Standards of Medical Care in Diabetes 2016, [place] [employer] Association. Diabetes Care. 2016.39(Suppl 1).Performed By: #### 39101-1 ####[facility] LABIA [id number] [place] [id number] [place] AMERICAPotassium [Moles/Vol]5.4 mmol/L High3.7-5.1CSt. Charles Hospital on above:Order Comment: Specimen Type: BLOOD SPECIMENOrdering Facility: [facility] Address:[address] [place] [address]Performed By: #### 87436-2 ####[facility] LABCLIA [id number] [place] [address] [place] AMERICASodium [Moles/Vol]141 mmol/KYiztwq495-364KtbcizbqrMansfield Hospital on above:Order Comment: Specimen Type: BLOOD SPECIMENOrdering Facility: [facility] Address:[address] [place], [place] [address]Performed By: #### 53142-2 ####[facility] LABCLIA [id number] [place] [address] [place] AMERICAUrea nitrogen [Mass/Vol]12 mg/dLNormal9-24[facility] on above:Order Comment: Specimen Type: BLOOD SPECIMENOrdering Facility: [facility] Address:[address] [place], [place] [address]Performed By: #### 84028-5 ####[facility] LABIA [id number] [place] [address] [place] CBC W Auto Differential panel (Bld)on 15-19-1325Yqckwdzqf (Bld) [#/Vol]0.07 10*3/uLNormal<0.11CSt. Charles Hospital on above:Order Comment: Specimen Type: BLOOD SPECIMENOrdering Facility: [facility] Address:[address] [place], [place] [address]Performed By: #### 00545-0 ####[facility] LABIA [id number] [place] [address] [place] AMERICABasophils/100 WBC (Bld)0.9 % NormalMansfield Hospital on above:Order Comment: Specimen Type: BLOOD SPECIMENOrdering Facility: [facility] Address:[address] [place], [place] [address]Performed By: #### 15938-4 ####[facility] LABIA [id number] [place] [address] [place] AMERICADifferential cell count method Nom (Bld)AutoNormal [facility] on above:Order Comment: Specimen Type: BLOOD SPECIMENOrdering Facility: [facility] Address:[address] [place], [place] [address]Performed By: #### 69644-2 ####[facility] LABCLIA [id number] [place] [address] [place] AMERICAEosinophils (Bld) [#/Vol]0.41 10*3/uLNormal<0.46[facility] on above:Order Comment: Specimen Type: BLOOD SPECIMENOrdering Facility: [facility] Address:[address] [place], [place] [address]Performed By: #### 48971-8 ####[facility] LABCLIA [id number] [place] [address] [place] AMERICAEosinophils/100 WBC (Bld)5.5 %NormalHarrison Community Hospital Comment on above:Order Comment: Specimen Type: BLOOD SPECIMENOrdering Facility: [facility] Address:[address] [place] [address] Performed By: #### 88751-3 ####[facility] LABIA [id number] [place] [address] [place] Erythrocyte distribution width (RBC) [Ratio]12.5 %Tycown23.5-15.0[facility] on above:Order Comment: Specimen Type: BLOOD SPECIMENOrdering Facility: [facility] Address:[address] [place], [place] [phone] By: #### 50909-6 ####[facility] LABCLIA [id number] [place] [address] [place] AMERICAHematocrit (Bld) [Volume fraction]39.6 %Jhpspj38.0-51.0 [facility] on above:Order Comment: Specimen Type: BLOOD SPECIMENOrdering Facility: [facility] Address:[address] [place] [address]Performed By: #### 67420-2 ####[facility] LABIA [id number] [place] [address] [place] AMERICAHemoglobin (Bld) [Mass/Vol]13.3 g/cYCpjrry68.0-17.0Harrison Community HospitalComment on above:Order Comment: Specimen Type: BLOOD SPECIMENOrdering Facility: [facility] Address:[address] [place], [place] [phone] By: #### 73507-1 ####[facility] LABIA [id number] [place] [address] [place] AMERICAImmature granulocytes (Bld) [#/Vol]10*3/uLNormal<0.10Harrison Community HospitalComment on above:Order Comment: Specimen Type: BLOOD SPECIMENOrdering Facility: [facility] Address:[address] [place], [place] [phone] By: #### 96988-0 ####[facility] LABIA [id number] [place] [address] [place] AMERICAImmature granulocytes/100 WBC (Bld)0.3 %NormalHarrison Community HospitalComselect specialty hospital[facility] on above:Order Comment: Specimen Type: BLOOD SPECIMENOrdering Facility: [facility] Address:[address] [place] [address]Performed By: #### 41673-7 ####[facility] LABIA [id number] [place] [address] [place] Lymphocytes (Bld) [#/Vol]2.08 10*3/uLNormal1.00-4.00[facility] Comment on above:Order Comment: Specimen Type: BLOOD SPECIMENOrdering Facility: [facility] Address:[address] [place] [address] Performed By: #### 29359-0 ####[facility] LABCLIA [id number] [place] [address] [place] Lymphocytes/100 WBC (Bld)27.7 %NormalMansfield Hospital on above: Order Comment: Specimen Type: BLOOD SPECIMENOrdering Facility: [facility] Address:[address] [place], [place] [phone] By: #### 43209-5 ####[facility] LABIA [id number] [address] (RBC) [Entitic mass]33.6 ajJwfilv78.0-34.0[facility] on above:Order Comment: Specimen Type: BLOOD SPECIMENOrdering Facility: [facility] Address:[address] [place], [place] [address]Performed By: #### 32919-9 ####[facility] [id number] [address]OY STREETMCHC (RBC) [Mass/Vol] 33.6 g/tAYnzsrl40.5-36.0[facility] on above:Order Comment: Specimen Type: BLOOD SPECIMENOrdering Facility: [facility] Address:[address] [place], [place] [phone] By: #### 81405-1 ####[facility] LABGIFFORD MEDICAL CENTER [id number] [address] (RBC) [Entitic vol]100.0 wYMbwiah40.0-100.0[facility] on above:Order Comment: Specimen Type: BLOOD SPECIMENOrdering Facility: [facility] Address:[address] [place] [address]Performed By: #### 06500-7 ####[facility] LABIA [id number] [address]ETMonocytes (Bld) [#/Vol]0.68 10*3/uLNormal<0.87[facility] on above:Order Comment: Specimen Type: BLOOD SPECIMENOrdering Facility: [facility] Address:[address] [place], [place] [phone] By: #### 56102-7 ####[facility] LABCLIA [id number] [place] [address] [place] AMERICAMonocytes/100 WBC (Bld)9.1 %NormalMansfield Hospital on above:Order Comment: Specimen Type: BLOOD SPECIMENOrdering Facility: [facility] Address:[address] [place], [place] [phone] By: #### 07439-3 ####[facility] LABCLIA [id number] [place] [address] [place] AMERICANeutrophils (Bld) [#/Vol]4.25 10*3/uLNormal1.45-7.50[facility] on above:Order Comment: Specimen Type: BLOOD SPECIMENOrdering Facility: [facility] Address:[address] [place], [place] [phone] By: #### 46543-3 ####[facility] LABCLIA [id number] [place] [address] [place] AMERICANeutrophils/100 WBC (Bld)56.5 % NormalMansfield Hospital on above:Order Comment: Specimen Type: BLOOD SPECIMENOrdering Facility: [facility] Address:[address] [place] [address]Performed By: #### 19091-7 ####[facility] LABCLIA [id number] [place] [address] [place] AMERICANucleated RBC (Bld) [#/Vol]10*3/uLNormal<0.01[facility] on above:Order Comment: Specimen Type: BLOOD SPECIMENOrdering Facility: [facility] Address:[address] [place], [place] [address]Performed By: #### 23968-6 ####[facility] LABCLIA [id number] [place] [address] [place] AMERICANucleated RBC/100 WBC (Bld) [Ratio]0.0 /100 WBCNormalCSt. Charles Hospital on above:Order Comment: Specimen Type: BLOOD SPECIMENOrdering Facility: [facility] Address:[address] [place] [address]Performed By: #### 77033-3 ####[facility] LABCLIA [id number] [place] [address] [place] AMERICAPlatelet mean volume (Bld) [Entitic vol]10.2 fLNormal9.0-12.7 [facility] on above:Order Comment: Specimen Type: BLOOD SPECIMENOrdering Facility: [facility] Address:[address] [place] [address]Performed By: #### 85092-2 ####[facility] LABIA [id number] [place] [address] [place] AMER[place]APlatelets (Bld) [#/Vol]264 10*3/eJWgaufn343-558ZfyasctynMansfield Hospital on above:Order Comment: Specimen Type: BLOOD SPECIMENOrdering Facility: [facility] Address:[address] [place] [address]Qtvhuvcuv By: #### 40070-7 ####[facility] LABCLIA [id number] [place] [address] [place] RBC (Bld) [#/Vol]3.96 10*6/uLLow4.20-6.00[facility] on above:Order Comment: Specimen Type: BLOOD SPECIMENOrdering Facility: [facility] Address:[address] [place] [address]Performed By: #### 12367-8 ####[facility] LABCLIA [id number] [place] [address] [place] AMERICAWBC (Bld) [#/Vol]7.51 10*3/uLNormal3.70-11.00[facility] on above:Order Comment: Specimen Type: BLOOD SPECIMENOrdering Facility: [facility] Address:[address] [place], [place] [address]Performed By: #### 68854-3 ####[facility] LABCLIA [id number] [address]ETECG01on 28-66-9215IRF42 Ventricular Rate : 61 BPM Atrial Rate : 61 BPM P-R Interval : 174 ms QRS Duration : 86 ms Q-T Interval : 426 ms QTC Calculation(Bazett) : 428 ms Calculated P Wooldridge : 77 degrees Calculated R Wooldridge : -18 degrees Calculated T Wooldridge : 21 degrees NORMAL SINUS RHYTHM NORMAL ECG Confirmed by KAYE HOLLINGSWORTH MD (34) on 05/27/2023 1:02:45 PM NAME : ODALYS CERDA PID : [id number] : 1950 Gender : Male Race : ORD : Procedure Date : May 16 2023 09:16:45 Edit Date : May 27 2023 13:03:58 Diagnosis: NORMAL SINUS RHYTHM NORMAL ECG Confirmed by KAYE HOLLINGSWORTH MD (34) on 05/27/2023 1:02:45 PM Test Reason : Location : 145 : [facility] Overread By : KAYE HOLLINGSWORTH MD Edited By : KAYE HOLLINGSWORTH MD Referred By : RODDY LOYD Acquired by : [facility]inMer[facility] PHYSICALon 05-16-2023 HISTORY PHYSICALHNO ID: [id number] Author: Stacy Dai APRN.[employer]ITTER [employer] Service: ? Author Type: Nurse Practitioner Type: [...] 1 tablet by mouth once daily. Yes Gdspvqy-Zzgnualumtzqv-Cjnkkhdl (EXCEDRIN MIGRAINE) 250-250-65 mg per tablet Take 1 tablet by mouth as needed. Yes acetaminophen (TYLENOL ORAL) Take by mouth as needed. Yes No medication comments found. CURRENT ALLERGIES: ALLERGIES No Known Allergies COVID VACCINATION STATUS: Fully vaccinated REVIEW OF SYSTEMS: PAIN ASSESSMENT: General: No weight loss, malaise or fevers. Neuro: No history of TIA's, stroke, [employer] tumor, impaired sensorium, hemiplegia, paraplegia or quadraplegia. No neurological symptoms or problems., Postive for Headaches Respiratory: No history of current cough or dyspnea, or pneumonia in the past 6 weeks. No history of respiratory/pulmonary symptoms or problems. + snoring Cardiovascular: No history of HTN requiring medication, no history of angina, CHF, DE, cardiac surgery or stents. Denies rest pain, [...] 426 QTC Calculation (Bazett) 428 Calculated P Wo[place]ridge 77 Calculated R Woold[place] -18 Calculated T Woold[place] 21 Impression NORMAL SINUS RHYTHM NORMAL ECG Chest xray 05/16/20 (more content not included)...NormalHarrison Community HospitalXR CHEST 1V FRONTALon 07-52-5549ZK CHEST 1V FRONTAL* * *Final Report* * * DATE OF [...] thoracic spine. IMPRESSION: No acute radiographic abnormality. Foiling Machine Operator: RACHELLE Transcribe Date/Time: May 16 2023 2:51P Dictated by : BINDU NORRIS MD This examination was interpreted and the report reviewed and electronically signed by: BINDU NORRIS MD on May 16 2023 3:03PM EST [id number] [facility] ClinicCT ABD/PEL WO IVCONon 07-64-9923Argpyycbk ClinicCT CHEST WO IVCONon 37-35-5677Eohrdjxcy ResultACTIONABLEAbnormalCleveland ClinicSIX MINUTE WALKon 80-50-0277Ewsdmqmen ClinicH PYLORI ANTIBODY IGGon 09-01-2022H. PYLORI IGG ABS0.15 Index ValueNormal 0.00-0.79The [facility] HospitalComment on above:Result Comment: Negative <0.80 Equivocal 0.80 - 0.89 Positive >0.89Performed By: #### HPYLLC #### [facility] [address] [place] [address] Dr. Dunia Arrington AUTO DIFFon 64-18-7204BEHP #0.1 103/ulNormal0.0-0.1The [facility] HospitalComment on above:Performed By: #### CBC #### [facility] [address] [place] [address] Dr. Dunia CarlisleBasophils/100 WBC (Bld)1.2 %Normal0.2-2.0[facility] Comment on above:Performed By: #### CBC #### [facility] [address] [place] [address] Dr. Dunia Guzmán #0.2 103/ulNormal0.0-0.7The [facility] HospitalComment on above: Performed By: #### CBC #### [facility] [address] [place] [address] Dr. Dunia Velasquezosinophils/100 WBC (Bld)3.6 %Normal0.9-7.0[facility] Comment on above:Performed By: #### CBC #### [facility] [address] [place] [address] Dr. Dunia Velasquezrythrocyte distribution width (RBC) [Ratio]12.1 %Tuxlxf20.0-15.[address] Charles HospitalComment on above:Performed By: #### CBC #### [facility] [address] [place] [address] Dr. Dunia CarlisleHematocrit (Bld) [Volume fraction]39.3 %Critically low42.0-54.[address] [facility] HospitalComment on above:Performed By: #### CBC #### [facility] [address] [place] [address] Dr. Dunia CarlisleHemoglobin (Bld) [Mass/Vol]13.1 g/dLCritically low14.0-18.0[facility] Charles HospitalComment on above:Performed By: #### CBC #### [facility] [address] [place] [address] Dr. Dunia Parnell #0.07 10e3/ulCritically high0.00-0.03[facility] Comment on above:Performed By: #### CBC #### [facility] [address] [place] [address] Dr. Dunia Parnell %1.2 %Critically high0.0-0.5The [facility] HospitalComment on above:Performed By: #### CBC #### [facility] [address] [place], [place] [address] Dr. Dunia Stein #1.8 103/ulNormal1.2-3.8The [facility] HospitalComment on above:Performed By: #### CBC #### [facility] [address] [place] [address] Dr. Dunia Mckeonmphocytes/100 WBC (Bld)29.1 %Lapsqd87.5-60.0The [facility] HospitalComment on above:Performed By: #### CBC #### [facility] [address] [place] [address] Dr. Dunia Abdullahi DIFF REQNONormalThe Providence HospitalComment on above: Performed By: #### CBC #### [facility] [address] [place] [address] Dr. Dunia Stevens (RBC) [Entitic mass]33.2 jhAwgiyt11.9-34.0The [facility] HospitalComment on above:Performed By: #### CBC #### [facility] [address] [place] [address] Dr. Dunia Stevens (RBC) [Mass/Vol]33.3 g/eMTbjnvx02.9-35.2The [facility] HospitalComment on above:Performed By: #### CBC #### [facility] [address] [place] [address] Dr. Dunia Stevens (RBC) [Entitic vol]99.5 fLCritically high80.0-94.0The [facility] HospitalComment on above:Performed By: #### CBC #### [facility] [address] [place] [address] Dr. Dunia Celeste #0.5 103/ulNormal0.3-0.8The [facility] HospitalComment on above:Performed By: #### CBC #### [facility] [address] [place] [address] Dr. Dunia Porterocytes/100 WBC (Bld)8.9 %Normal1.7-12.0[facility] Comment on above:Performed By: #### CBC #### [facility] [address] [address] [address] Dunia BelcherUT #3.4 103/ulNormal1.4-6.5The [facility] HospitalComment on above:Performed By: #### CBC #### [facility] [address] [place] [address] Dr. Dunia Belcherutrophils/100 WBC (Bld)56.0 %Irqpqd32.0-75.0The [facility] HospitalComselect specialty [facility] on above:Performed By: #### CBC #### [facility] [address] [place] [address] Dr. Dunia CarlislePlatelet mean volume (Bld) [Entitic vol]9.4 fLCritically low 9.5-13.5The [facility] HospitalComselect specialty [facility] on above:Performed By: #### CBC #### [facility] [address] [place] [address] Dr. Dunia CarlislePLT249 103/abHonoop528-336Zxn [facility] HospitalComselect [facility] on above: Performed By: #### CBC #### [facility] [address] [place] [address] Dr. Dunia CarlisleRBC3.95 106/ulCritically low4.70-6.10The [facility] HospitalComselect [facility] on above:Performed By: #### CBC #### [facility] [address] [place] [address] Dr. Dunia CarlisleWBC6.0 103/ulNormal4.0-11.0The [facility] HospitalComselect [facility] on above: Performed By: #### CBC #### [facility] [address] [place] [address] Dr. Dunia CarlisleGLYCOHEMOGLOBIN A1Con 38-37-2841GWM RECOMMENDATIONSEE BELOWNormal [facility] Charles HospitalComselect specialty hospital[facility] on above:Result Comment: ADA RECOMMENDED LIMIT 4.0 - 6.0 ADA THERAPEUTIC TARGET < 7.0 ACTION SUGGESTED > 7.0Performed By: #### A1C #### [facility] [address] [place] [address] Dr. Dunia CarlisleGlucose [Mass/Vol]123 mg/dLNormalThUC West [facility] HospitalComselect [facility] on above:Performed By: #### A1C #### [facility] [address] [address] [address] Dunia CarlisleHbA1c (Bld) [Mass fraction]5.9 %Normal4.5-6.2The [facility] Regional Medical Centerment on above:Performed By: #### A1C #### [facility] [address] [address] [address] Dunia FournierID PROFILEon 19-65-5809YBBF-HDL RATIO NORMSEE BELOWPremier Health Atrium Medical CenterComselect specialty hospital[facility] on above:Result Comment: 3.3 - 4.4 LOW RISK 4.4 - 7.1 AVERAGE RISK 7.1 - 11.0 MODERATE RISK >11.0 HIGH RISKPerformed By: #### LIPID, CMP #### [facility] [address] [address] [address] Dunia CarlisleCholesterol [Mass/Vol]179 mg/dLNormal<=200[facility] Comment on above:Performed By: #### LIPID, CMP #### [facility] [address] [address] [address] Dunia CarlisleCholesterol in HDL [Mass/Vol]56 mg/uSDgsasd96-20Udi [facility] on above:Performed By: #### LIPID, CMP #### [facility] [address] [address] [address] Dunia CarlisleCholesterol in LDL [Mass/Vol]110.6 mg/dLPremier Health Atrium Medical CenterComselect specialty [facility] on above:Performed By: #### LIPID, CMP #### [facility] [address] [address] [address] Dunia Prescottesterpoornima.total/Cholesterol in HDL [Mass ratio]3.2 {ratio} NormalThe Providence HospitalComselect specialty hospital[facility] on above:Performed By: #### LIPID, CMP #### [facility] [address] [address] [address] Dunia CarlisleHDL NORMAL> or = 60 mg/dl - LOW CARDIOVASCULAR RISK <40 mg/dl - HIGH CARDIOVASCULAR RISKPremier Health Atrium Medical CenterComselect specialty hospital[facility] on above:Performed By: #### LIPID, CMP #### [facility] [address] [place] [address] Dr. Dunia Flores CALC NORMALSEE BELOWPremier Health Atrium Medical CenterComment on above:Result Comment: <100 mg/dl OPTIMAL 100 - 129 mg/dl NEAR OR ABOVE OPTIMAL 130 - 159 mg/dl BORDERLINE HIGH 160 - 189 mg/dl HIGH >190 mg/dl VERY HIGH Performed By: #### LIPID, CMP #### [facility] [address] [address] [address] Dunia CarlisleTriglyceride [Mass/Vol]62 mg/dLNormal<=150[facility] Comment on above:Performed By: #### LIPID, CMP #### [facility] [address] [place] [address] Dr. Dunia CarlisleVLDL CALC12.4 mg/dLNoWayne HealthCare Main CampusComment on above: Performed By: #### LIPID, CMP #### [facility] [address] [place] [address] Dr. Dunia CarlislePROKarlos 14(COMP METB)on 99-40-7143Cwlmhwt [Mass/Vol]3.8 g/dLNormal 3.4-5.0The [facility] HospitalComment on above:Performed By: #### LIPID, CMP #### [facility] [address] [place] [address] Dr. Dunia CarlisleAlbumin/Globulin [Mass ratio]1.0 {ratio}NormalThe Providence HospitalComment on above:Performed By: #### LIPID, CMP #### [facility] [address] [place] [address] Dr. Dunia Vallecillo [Catalytic activity/Vol]104 U/FUevacm85-659Xpg Providence HospitalComment on above:Performed By: #### LIPID, CMP #### [facility] [address] [place] [address] Dr. Dunia PortilloT [Catalytic activity/Vol]14 U/LCritically hek31-09Dwy [facility] Medical Centerment on above:Performed By: #### LIPID, CMP #### [facility] [address] [address] [address] Dunia Durbin gap [Moles/Vol]11.0 mmol/LNormalMercy Health St. [facility] Comment on above:Performed By: #### LIPID, CMP #### [facility] [address] [address] [address] Dunia CarlisleAST [Catalytic activity/Vol]16 U/AZtotwk75-23Bwq Providence HospitalComment on above:Performed By: #### LIPID, CMP #### [facility] [address] [address] [address] Dunia CarlisleBilirubin [Mass/Vol]0.6 mg/dLNormal0.2-1.0[facility] Comment on above:Performed By: #### LIPID, CMP #### [facility] [address] [place] [address] Dr. Dunia CarlisleCalcium [Mass/Vol]9.1 mg/dLNormal8.5-10.1[facility] Comment on above:Performed By: #### LIPID, CMP #### [facility] [address] [address] [address] Dunia CarlisleChloride [Moles/Vol]105 mmol/UYalife21-543YetMercy Health St. [facility] Comment on above:Performed By: #### LIPID, CMP #### [facility] [address] [place] [address] Dr. Dunia CarlisleCO2 [Moles/Vol]28.7 mmol/FQepnwg79.0-32.0[facility] Comment on above:Performed By: #### LIPID, CMP #### [facility] [address] [place] [address] Dr. Dunia CarlisleCreatinine [Mass/Vol]1.41 mg/dLCritically high0.70-1.30The [facility] HospitalComment on above:Performed By: #### LIPID, CMP #### [facility] [address] [place] [address] Dr. Dunia VelasquezGFR-AF MOSOTHO=60Normal>=60The Providence HospitalComment on above:Performed By: #### LIPID, CMP #### [facility] [address] [address] [address] Dunia VelasquezGFR-NON AF TCLHAHOR17 mL/min/1.38n0Cogkuhynuz low>=60The [facility] HospitalComment on above:Performed By: #### LIPID, CMP #### [facility] [address] [address] [address] Dunia CarlisleGlobulin (S) [Mass/Vol]3.9 g/dLNormalThUC West Chester HospitalComment on above:Performed By: #### LIPID, CMP #### [facility] [address] [address] [address] Dunia CarlisleGlucose [Mass/Vol]93 mg/nFJwmckq40-612XllMercy Health St. [facility] Comment on above:Performed By: #### LIPID, CMP #### [facility] [address] [address] [address] Dunia CarlislePotassium [Moles/Vol]4.7 mmol/LNormal3.5-5.1[facility] Comment on above:Performed By: #### LIPID, CMP #### [facility] [address] [address] [address] Dunia CarlisleProtein [Mass/Vol]7.7 g/dLNormal6.4-8.2[facility] Comment on above:Performed By: #### LIPID, CMP #### [facility] [address] [address] [address] Dunia CarlisleSodium [Moles/Vol]140 mmol/WShlfxn770-117Trl [facility] Comment on above:Performed By: #### LIPID, CMP #### [facility] [address] [address] [address] Dunia CarlisleUrea nitrogen [Mass/Vol]15.0 mg/dLNormal7.0-18.0The [facility] HospitalComment on above:Performed By: #### LIPID, CMP #### [facility] [address] [address] [address] Dunia CarlisleUrea nitrogen/Creatinine [Mass ratio]10.6 mg/mgNormalThe Providence HospitalComment on above:Performed By: #### LIPID, CMP #### [facility] [address] [address] [address] Dunia Carlisle Vital Signs Date TimeVital SignValuePerforming BqibjplduDccjfqda06-38-1371 10:07-0400Body pvibrb381.3 cmPacc 2 Work Phone: [facility]07-05-2023 10:07-0400Body temperature 97.5 [degF]Pacc 2 Work Phone: [facility]07-05-2023 10:07-0400Body bhzvit90.91 kgPacc 2 Work Phone: [facility]07-05-2023 10:07-0400Diastolic blood hobmcakp78 mm[Hg]Pacc 2 Work Phone: [facility]07-05-2023 10:07-0400Heart rate60 /min Pacc 2 Work Phone: [facility]07-05-2023 10:07-0400Respiratory rate 16 /minPacc 2 Work Phone: [facility]07-05-2023 10:07-2052RuG3% (BldA) [Mass fraction]99 %Pacc 2 Work Phone: [facility]07-05-2023 10:07-0400Systolic blood ivjqprtr428 mm[Hg]Pacc 2 Work Phone: [facility]12-08-2022 12:37-0500Body yqtueb450 cm Pulm J-2CTrinity Health System West CampusUnpbmd77-66-1511 12:37-0500Body nydlnycnuef71.29 [degF]Marine Leon MD, PhD Work Phone: [facility]12-08-2022 12:37-0500Body ghyopb90.04 kgMarine Leon MD, PhD Work Phone: [facility]12-08-2022 12:37-0500Diastolic blood sfzsgrvi25 mm[Hg]Marine Leon MD, PhD Work Phone: [facility]12-08-2022 12:37-0500Heart rate70 /min Marine Leon MD, PhD Work Phone: [facility]12-08-2022 12:37-0500Respiratory rate 12 /minSgómez Leon MD, PhD Work Phone: [phone]12-08-2022 12:37-6867TlK1% (BldA) [Mass fraction]98 %Marine Leon MD, PhD Work Phone: [phone]12-08-2022 12:37-0500Systolic blood tilkqtem986 mm[Hg]Marine Leon MD, PhD Work Phone: [phone]12-08-2022 09:00-0500Body jcbuui35.59 kgPulm J-2[facility] Encounters Encounter DateEncounter TypeCare ProviderFacilityStart: 07-62-9124emgyeeinoa Shaji SALASFacility: BellueStart: 06-11-2023 End: 22-74-2628fezadnttpfCMEV BRYSONFacility:[facility]ertart: 06-11-2023 End: 63-55-3906Ywlsysi encounter procedureRoddy Loyd MD Work Phone: OtolaryngologyComment on above:Zenker's diverticulum (Primary Dx)Start: 91-99-0280Nxngonprb encounterRoddy Lyod MD Work Phone: OtolaryngologyComment on above:Medication Problem (Medication can't be refilled)Start: 05-23-2023 End: 83-49-0567qkzpzpchyqCOGUPWB M HOYFacility:[facility] Centertart: 05-22-2023 End: 28-70-9893jfgmjlvukbDDOE BRYSONFacility:[facility] Centertart: 05-17-2023 End: 04-25-3448roqwlgtvyeTzjvcBereket Dai APRN.FITTER MECHANIC Work Phone: Pre AnesthesiaComment on above:Repeat lab workStart: 78-03-0309B-mail encounter from aKtelynn Dai APRN.CNP Work Phone: [facility]INStart: 29-66-4677Yuweldxtu encounterSaury Dai APRN.CNP Work Phone: pre AnesthesiaComment on above:PreOp Call (Pre-op labs )Start: 05-16-2023 End: 26-02-6612tvynpkpmzgKDWA BRYSONFacility:[facility] HospitalStart: 05-16-2023 End: 18-18-3703Ksbshqnaui hospital visit by physicianXr [facility]ainRadiology Comment on above: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]Start: 05-16-2023 End: 32-17-8430Rlalabjcp to establishmentMulticare Health [place] 2 Work Phone: ccf [place] [facility]PITALtart: 05-16-2023 End: 74-67-9104artgondotqYhft [place] 2 Work Phone: pre AnesthesiaComment on above:Pre-op evaluation (Primary Dx); Zenker diverticulumStart: 77-25-9210Jiruftknj for other preprocedural examinationPAUL Protestant HospitalStart: 05-16-2023 End: 93-80-4658Gyrjgpwgtoqvo examination doneMulticare Health [facility] [place] 2 Work Phone: pre AnesthesiaStart: 04-19-2023 End: 70-16-7212xbqzlokhxtOywcrz Murthy MD, PhD Work Phone: oracic ClinicComment on above:DIVERTICULUM - ESOPHAGUS (Primary Dx)Start: 04-19-2023 End: 52-01-1187Bmozasppbsgc consultation with Monae Leon MD, PhD Work Phone: c[facility]INStart: 12-14-2022 End: 09-82-6197mlfnsroqwgYssluy Murthy MD, PhD Work Phone: oracic ClinicComment on above:DIVERTICULUM - ESOPHAGUS (Primary Dx); Pharyngoesophageal dysphagiaStart: 12-14-2022 End: 55-09-4264Kroublnbsglk consultation with patientSgómez Leon MD, PhD Work Phone: CCST. [facility] MAINStart: 12-25-6145Cluamynlh encounterSgómez Leon MD, PhD Work Phone: oracic ClinicComment on above:Appointment RescheduledStart: 64-25-1265Fbcfbvzxs encounterSgómez Leon MD, PhD Work Phone: oracic ClinicComment on above:Appointment RescheduledStart: 55-71-4342urkglixofcRfxyn Wilfrido PROFESSOR OF FLORICULTURE.FITTER MECHANIC Work Phone: Pulmonary MedicineStart: 60-36-6316Qoutgfiaa encounter Marine Leon MD, PhD Work Phone: oracic ClinicComment on above:Appointment; Orders (follow up ct scan )Start: 10-19-2022 End: 85-22-1872Uoheljr encounter procedureSgómez Leon MD, PhD Work Phone: oracic ClinicComment on above:DIVERTICULUM - ESOPHAGUS (Primary Dx)Start: 10-19-2022 End: 10-76-5548Xehwucmyal hospital visit by physicianCt 2 Main Qb (I-Stat) RadiologyComment on above:Zenkers diverticulum [K22.5]Start: 10-19-2022 End: 60-50-3179vapnfypzxsBekm J-2Pulmonary MedicineComment on above:Spirometry Start: 10-19-2022 End: 31-33-5728Pbooitn encounter procedurePulm Fct Lab J-2CCF [facility] MAINStart: 16-20-4077Nqshrjggf encounterSgómez Leon MD, PhD Work Phone: oracic ClinicComment on above:Consult (Zenker Diverticulum )Start: 08-31-2022 End: 25-99-2519ahnttakdviPG JARON HOYFacility:Y4Zxfzu: 05-16-2018 End: 58-74-4937SegysgleneCKNIFNZ PHYSICIANFacility:[facility] Procedures DateProcedureProcedure DetailPerforming ClinicianStart: 15-95-4950Gnmuubwgpz exam chest single Anders Lopez MD Work Phone: Start: 83-46-4638Zl abdomen & pelvis w/o contrast Keven Leon MD, PhD Work Phone: Start: 45-55-2901Hc thorax w/o contrast Keven Leon MD, PhD Work Phone: Start: 10-19-2022 End: 84-44-3634Dh diffusing capacityMarine Leon MD, PhD Work Phone: Start: 57-57-2642OFL screeningDR JARON GLASSomment on above:Performed By: #### PSASC #### [facility] [address] [place] [address] Dr. Dunia Carlisle Plan of Treatment DateCare ActivityDetailAuthorStart: 32-80-6722Yisvp microalbumin profile DTAP,TDAP,TD (3 - Td or Tdap)[facility]: 64-44-6370VHEEWTHI SCREEN DIABETES SCREENDoctors Hospitaltart: 61-06-5156RPBTDKCM SCREENDIABETES SCREEN [facility]: 02-02-5951DPBDXAZNOT/HEMATOCRITHEMOGLOBIN/HEMATOCRIT [facility]: 04-17-8729FPVIH CREATININESERUM CREATININEDoctors Hospitaltart: 48-55-7773YHBXMIJFND/HEMATOCRITHEMOGLOBIN/HEMATOCRITDoctors Hospitaltart: 10-74-3785BGOZB CREATININESERUM CREATININEDoctors Hospitaltart: 62-85-4434Roorltujl vaccinationINFLUENZA (#1)[facility]: 05-17-2023 End: 51-17-2794RKNOQQRBZ BLDPOTASSIUM BLD Lab Routine Hyperkalemia Expected: 05/17/2023, Expires: 07/17/2023[facility] Work Phone: Comment on above:Expected: 05/17/2023, Expires: 07/17/2023Start: 29-04-5704LYSAX-19 VACCINE (6 - Moderna series)COVID-19 VACCINE (6 - Moderna series)[facility]: 77-59-3606BOIYUNG DIRECTIVE DISCUSSIONADVANCE DIRECTIVE DISCUSSIONDoctors Hospitaltart: 11-12-2022 DEPRESSION ASSESSMENTDEPRESSION ASSESSMENTDoctors Hospitaltart: 11-12-2021 ADVANCE DIRECTIVE DISCUSSIONADVANCE DIRECTIVE DISCUSSIONDoctors Hospitaltart: 89-31-1204DHGGRGUUJF ASSESSMENTDEPRESSION ASSESSMENTDoctors Hospitaltart: 47-09-0395PDXZNEJTA (FIT-DNA)COLOGUARD (FIT-DNA)[facility]: 52-29-4539MgvgguwdsdkYKDWGOXUDBWKnnphssfv ClinicStart: 49-09-3140FGCKNGOKMA CANCER SCREENINGCOLORECTAL CANCER SCREENINGDoctors Hospitaltart: 01-30-4318HA COLONOGRAPHYCT COLONOGRAPHYDoctors Hospitaltart: 45-91-2176ASPESMZC SCREEN DIABETES SCREENDoctors Hospitaltart: 21-63-4090NGJGW OCCULT BLOODFECAL OCCULT BLOODDoctors Hospitaltart: 80-71-2128TMBLZECIUHDEQSAQSOVUQCPLQMJfgxnytfv Clinic Start: 75-43-8564WPJAN SCREENLIPID SCREENDoctors Hospitaltart: 26-07-7154JLZISO PCP TEAM CHRONIC DISEASE VISITANNUAL PCP TEAM CHRONIC DISEASE VISITDoctors Hospitaltart: 66-75-1226RDYIGVTST C SCREENINGHEPATITIS C SCREENINGDoctors Hospitaltart: 99-70-2212ESNERMGDX AORTIC ANEURYSM SCREENINGABDOMINAL AORTIC ANEURYSM SCREENINGOhio [facility] End: 47-65-3949Tw abdomen & pelvis w/o contrast materialCT ABD/PEL WO IVCON Radiology Routine Zenkers diverticulum 1 Occurrences starting 09/25/2022 until 1 12/26/2022[facility] Work Phone: Comment on above:1 Occurrences starting 09/25/2022 until 10/25/2023 End: 18-34-9768Uv thorax w/o contrast materialCT CHEST WO IVCON Radiology Routine Zenkers diverticulum 1 Occurrences starting 09/25/2022 until 10/25/2023 [facility] Work Phone: Comment on above:1 Occurrences starting 09/25/2022 until 10/25/2023 End: 27-89-1637Sb thorax w/o contrast materialCT CHEST WO IVCON Radiology Routine Lung nodules 1 Occurrences starting 10/23/2022 until 4[facility] Work Phone: Comment on above:1 Occurrences starting 10/23/2022 until 11/22/2023 End: 14-98-8006DHSJ DIFFUSION CAPACITY (DLCO)LUNG DIFFUSION CAPACITY (DLCO) PFT Routine Zenkers diverticulum 1 Occurrences starting 09/25/2022 until 10/25/2023 [facility] Work Phone: Comment on above:1 Occurrences starting 09/25/2022 until 10/25/2023LUNG DIFFUSION CAPACITY (DLCO)LUNG DIFFUSION CAPACITY (DLCO) PFT Routine Zenkers diverticulum 10/19/2022 9:29 AM [facility] Work Phone: End: 30-47-3621SJE MINUTE WALKSIX MINUTE WALK PFT Routine Zenkers diverticulum 1 Occurrences starting 09/25/2022 until 10/25/2023[facility] Work Phone: Comment on above:1 Occurrences starting 09/25/2022 until 10/25/2023 End: 03-98-3840YRDXHEKMYC BASELINE ONLYSPIROMETRY BASELINE ONLY PFT Routine Zenkers diverticulum 1 Occurrences starting 09/25/2022 until 10/25/2023[facility] Work Phone: Comment on above:1 Occurrences starting 09/25/2022 until 10/25/2023SPIROMETRY BASELINE ONLYSPIROMETRY BASELINE ONLY PFT Routine Zenkers diverticulum 10/19/2022 9:29 AM [facility] Work Phone: [facility] Immunizations Immunization DateImmunizationNotesCare CgoossolTngahavd63-94-5926wyhgqmxsu, high-dose, quadrivalent vaccine (FLUZONE HIGH DOSE QUADRIVALENT)Pulm J-2 [facility] CenterPrqptx81-23-4760txadonnph (aIIV4) vaccine, age 65+ yr, quadrivalent, PF (FLUAD QUADRIVALENT)Pulm J-2CTrinity Health System West CampusOwwdxa24-56-7047igflhezyktld conjugate vaccine, 13 valentPulm [address]Hwpoaq93-37-1628luejgnvxg virus vaccine, unspecified formulationPul[address] StreetHxhhtl05-27-1928rtvrkm vaccine recombinantPul[address]Nfhozx30-56-8721tjnbpk vaccine recombinantP[address] StreetEwvebx85-76-5235rwspwtaqv, high dose seasonal, preservative-freeul[address] StreetJrrcwr67-81-9694btosfqnrqfgm polysaccharide vaccine, 23 valentPulm [address] StreetKlbzxi84-82-4416nopuozs toxoid, reduced diphtheria toxoid, and acellular pertussis vaccine, adsorbedP[address]11-06-2017 influenza, injectable, quadrivalent, preservative free[address] 76-45-3132hcocruymu, high dose seasonal, preservative-free[address]Oumdpd70-40-1991wrplisgii, injectable, quadrivalent, preservative free[address] StreetSlvehb96-40-4137bkdrqzlukdow conjugate vaccine, 13 valentul[address]Wuftfm03-66-6035cmrgaixtchgn polysaccharide vaccine, 23 valentulm [address]Kgdckr10-96-2014wrfhhnirt, seasonal, injectable[address]Mvzboc73-20-0563wfmpcfmerspq polysaccharide vaccine, 23 valent[address]Yguufw48-68-7940hnfefwfgd virus vaccine, whole virus[address] 46-81-9612wvdfwdt toxoid, reduced diphtheria toxoid, and acellular pertussis vaccine, adsorbedP[address]11-07-2005tetanus and diphtheria toxoids, adsorbed, preservative free, for adult use (5 Lf of tetanus toxoid and 2 Lf of diphtheria toxoid)[address] Payers DatePayer CategoryPayerPolicy ID2019MedicareHUMANA MEDICARE HUMANA MEDICARE PPO [id number] 2018-Present [phone] [address] [address] [place] [address] [id number] [id number] Social History DateTypeDetailFacilityTobacco smoking status NHISTobacco smoking consumption unknownDoctors Hospitaltart: 70-88-5681Axc Assigned At BirthNot on file [facility]: 10-19-2022 End: 14-52-7852Joxplyi smoking status NHISEx-smokerOhio [facility] End: 31-19-6721Anqrtsg of tobacco useCurrent smokerOhio State University Wexner Medical Center End: 47-05-5089Ddripev of tobacco useCigarette SmokerDoctors Hospitaltart: 10-19-2022 End: 49-42-4289Nvkzylu use and exposureSmokeless tobacco non-userDoctors Hospitaltart: 10-19-2022 End: 43-36-0613Lyfarig intakeEx-drinker (finding)[facility] Hospitaltart: 48-63-2241Cox Assigned At BirthMaleCSelect Medical Specialty Hospital - Youngstowntart: 03-23-2023 End: 13-06-7190Seslnhewbi smoked current (pack per day) - Ldwucapd1Hefttqtjs ClinicStart: 03-23-2023 End: 38-40-8890Bsoqeiu use panelOhio State University Wexner Medical CenterNational Score (1-100), lower number is lower iksw70UujoebvulDoctors Hospitaltart: 76-58-8516Adocyh identityIdentifies as male gender (finding)[facility]: 11-73-2927Ehovbl orientation Heterosexual (finding)[facility] Clinical Notes 09-25-2022 to 06-11-2023 Note Date & AtmvLebbGjyksvef15-31-5242 NoteHNO ID: [id number] Author: Roddy Loyd MD Service: ? Author [...] Take 1 tablet by mouth once daily. Hbzbkwp-Zfxwrqqmmyldq-Bwnjhmau (EXCEDRIN MIGRAINE) 250-250-65 mg per tablet Take [...] or lymphadenopathy. ROM was intact Roddy Loyd [facility]07-31-2023 History of Present illness Narrative* Roddy Loyd MD - 06/11/2023 11:30 AM EDT CC: Odalys Cerda is a 73 year [...] Take 1 tablet by mouth once daily. Iajwxre-Rgwvmptkazaut-Mdwbrsta (EXCEDRIN MIGRAINE) 250-250-65 mg per tablet Take [...] intact Roddy Loyd MD documented in this encounterOhio State University Wex[facility] Medical Center07-31-2023 Nurse Note* Amy Rios RN - 06/11/2023 10:57 AM EDT Tobacco Use: 5 packs/day Quit 11/12/1969. Types: Cigarettes Was smoking cessation packet given? N/A - Patient is a non-smoker or quit >1 year ago. Was a referral initiated?N/A Patient is a non-smoker documented in this encounterOhio State University Wexner Medical Center07-14-2023 Miscellaneous Notes* Telephone Encounter - Amy Rios RN - 05/25/2023 9:46 AM EDT Called [facility] in [place]- they do not have this medication in stock. Said nearest pharmacy is [facility] in [place]. Called pt. And he said it is ok to send there, since will be there this afternoon. * Telephone Encounter - Diane Vilchis - 05/24/2023 3:52 PM EDT Mr. Cerda called and said that the oxyCodone 5 mg /5ml can't be filled due to supply shortage with outside company. The pharmacy he was using was [facility] in [facility]. He was wondering if a new prescription be filled at the [facility] in [facility]. The Pharmacy phone number is . documented in this encounterOhio State University We[facility] Medical Center07-12-2023 NoteHNO ID: [id number] Author: Keri Mcgrath, RT(R) Service: Radiology Author Type: Technologist Type: [...] Keri Mcgrath RT(R) May 23, 2023 9:43 [facility]07-12-2023 NoteHNO ID: [id number] Author: Philip Thomas MD Service: Otolaryngology Author [...] Head and Neck Surgery PGY 5 Pager: [phone] Service pager: [phone] (page after 5pm and on weekends)[facility] 05-22-2023 NoteHNO ID: [id number] Author: Donita Torres APRN.DIRECTOR MEDICAL SAFETY Service: ? Author Type: Nurse Regulatory Affairs Analyst Type: Anesthesia Procedure Notes Filed: 05/22/2023 2:51 PM Note Text: ANESTHESIOLOGY PROCEDURE NOTE Airway General Information Procedure Start Time/Medication Administration: 05/22/2023 2:36 PM Patient location during procedure: OR Timeout Performed Pre-procedure: timeout performed Consent Obtained: Yes Patient identity confirmed: arm band, care hourly team members and patient Staffing DIRECTOR MEDICAL SAFETY: Donita Torres APRN.DIRECTOR MEDICAL SAFETY Performed by: ZAINA Indications and Patient Condition Indications for airway management: anesthesia and airway protection Preoxygenated: yes anesthesia circuit Method: modified rapid sequence Cricoid Pressure: No Final Airway Details Final airway type: endotracheal airway Final Endotracheal Airway: microlaryngeal (6.0) Cuffed: yes Successful intubation technique: video laryngoscopy Devices used: Pride Endotracheal tube insertion site: oral Blade size: #4 Measured from: lips Measurement (cm): 23 Placement verified by: chest auscultation and capnometry Cormack-Lehane Classification: grade I - full view of glottis Number of attempts at approach: 1 Airway not difficult SIGNATURE: Donita Torres APRN.DIRECTOR MEDICAL SAFETY PATIENT NAME: Odalys Cerda DATE: May 22, 2023 TIME: 2:50 PM CSN: [id number] [facility]07-[facility]-2023 Miscellaneous Notes* Telephone Encounter - Mariel Mccollum RN - 05/17/2023 11:51 AM EDT my chart message sent documented in this encounterOhio State University Wexner Medical Center07-06-2023 Miscellaneous Notes* Telephone Encounter - Stacy Dai APRN.CNP - 05/17/2023 8:22 AM EDT Please contact patient and advise potassium level is elevated on pre-op labs -5.4 Repeat potassium ordered Advise patient to increase water intake, avoid high potassium foods and have potassium repeated in 2-3 days prior to upcoming surgery Thank you Stacy Dai APRN.CNP PACC documented in this encounterOhio State University Wex[facility] Medical Center07-05-2023 History of Present illness Narrative* Manda Pendleton RT(Jennifer) - 05/16/2023 11:45 AM EDT Radiology Service Progress Note PATIENT NAME: Odalys Cerda DATE OF SERVICE: May 16, 2023 TIME: 11:24 AM PATIENT IDENTITY VERIFICATION COMPLETED USING TWO (2) IDENTIFIERS: Name and Date of confirmedby patient verbally. FALL SCREENING: Has the patient [...] 16, 2023 11:24 AM documented in this encounterOhio State University Wexner Medical Center07-05-2023 NoteHNO ID: [id number] Author: CLARISSE Fried) Service: ? Author Type: [...] BY: RT Corky(Jennifer) May 16, 2023 11:24 [facility]07-05-2023 History and physical note* Stacy aDi APRN.CNP - 05/16/2023 10:20 AM EDT HISTORY AND PHYSICAL EXAMINATION SERVICE DATE: 05/16/2023 [...] 1 tablet by mouth once daily. Yes Odztqyr-Xkigycxcxibii-Mictxstk (EXCEDRIN MIGRAINE) 250-250-65 mg per tablet Take 1 tablet by mouth as needed. Yes acetaminophen (TYLENOL ORAL) Take by mouth as needed. Yes No medication comments found. CURRENT ALLERGIES: ALLERGIES No Known Allergies COVID VACCINATION STATUS: Fully vaccinated REVIEW OF SYSTEMS: PAIN ASSESSMENT: General: No weight loss, malaise or fevers. Neuro: No history of TIA's, stroke, PROFESS[employer] tumor, impaired sensorium, hemiplegia, paraplegia or quadraplegia. No neurological symptoms or problems., Postive for Headaches Respiratory: No history of current cough or dyspnea, or pneumonia in the past 6 weeks. No history of respiratory/pulmonary symptoms or problems. + snoring Cardiovascular: No history of HTN requiring medication, no history of angina, CHF, DE, cardiac surgery or stents. Denies rest pain, [...] or clotting disorder. Pt is not taking anti- coagulation or platelet medications. No history of hematological [...] such as golf, bowling, dancing, doubles tennis, orthrowing a baseball or football (6.00 METs) Patient [...] May 16, 2023 TIME: documented in this encounterOhio [facility]07-05-2023 Instructions* Patient Instructions* Stacy Dai APRN.CNP - 05/16/2023 10:12 AM EDT PATIENT PREOPERATIVE INSTRUCTIONS Roddy Loyd MD has scheduled you for your procedure at this surgery center: [facility] [place] Scheduling Office: [phone] --[address] [place] [address]. Please read below carefully for your personalized [...] Procedures: - YOU MUST HAVE A RESPONSIBLE FLAVOR ROOM WORKER TAKE YOU HOME. A PICK UP TRUCK DRIVER OR REMOTE COMPUTER TERMINAL OPERATOR CANNOT BE MADE A RESPONSIBLE FLAVOR ROOM WORKER. - We recommend that a responsible person stays with you overnight to take care of you. - You cannot stay in a hotel alone after outpatient surgery. You will not be permitted to have yoursurgery, if you do not have someone to take care of you. Arrival Time for Surgery: - To obtain your arrival time for surgery, call your physician's office the day before your surgery. - If your surgery is scheduled for Sunday, call the Sunday before. Your surgeon s rehabilitation aide/scheduler will tell you what time to call the office. - If you have not reached the departmental rehabilitation aide/scheduler by 5 P.M., call [phone] after 5 P.M. the day before your surgery. Please be aware that emergency situations arise, which may delay or change your surgical time. If this happens, we will notify you as soon as possible and regret any inconvenience. If you already have an Advance Directive, please fax a copy to [phone] or email to for it to be added to your chart. If you do not have an Advance Directive, you can find the appropriate form and more information at [email or web address]. We recommend that youcomplete the Advance Directive form found on the website and bring it with you the day of your surgery. It can be witnessed and scanned into your chart that day. documented in this encounterOhio State University [facility]06-08-2023 History of Present illness Narrative* Marine Leon MD, PhD - 04/19/2023 11:00 AM EDT VIRTUAL VISIT PROGRESS NOTE This is a virtual visit using Audio only. It required patient-provider interaction for the medical decision making as documented below. I have communicated my name and active licensure. The patient's identity and physical location wereverified at the time of this visit. Either the patient or their legal off premise service representative has been informed of the risks and benefits of -- and alternatives to -- treatment through a remote evaluation andconsents to proceed with the evaluation remotely. Odalys [...] injury to dentoalveolar structures, tongue numbness, taste d isturbance, need for temporary feeding tube, need for [...] Take 1 tablet by mouth once daily. Eiufeoh-Orywwrslrznqg-Uafskkmf (EXCEDRIN MIGRAINE) 250-250-65 mg per tablet Take [...] which included preparing to see the patient, ccfj-tn-gcth patient care, completing clinical documentation, counseling and educating the patient/family/caregiver, and care coordination (not separately reported) Marine Leon M.D., Ph.D., FACS, FCCP I have read and reviewed the documentation and agree. I wish to add the following findings which have been dictated and will be communicated back to the requesting physician. Marine Leon MD, PhD documented in this encounterOhio State University [facility]02-02-2023 History of Present illness Narrative* Marine Leon MD, PhD - 12/14/2022 8:40 AM EST VIRTUAL VISIT PROGRESS NOTE This is a [...] despite the diminutive size of the diverticulum, Iwill be happy to move in that direction. [...] Marine Leon MD, PhD documented in this encounterOhio State University [facility]01-11-2023 Miscellaneous Notes* Telephone Encounter - Venessa Murphy - 11/22/2022 10:36 AM EST Changed phone apt time from 9:20am to 8:40 am 12/14/2022. Confirmed with patient via phone. Sent via mail. Patient also has access to Mangia. PF documented in this encounterOhio State University [facility]01-05-2023 Miscellaneous Notes* Telephone Encounter - Venessa Murphy - 11/16/2022 12:46 PM EST Left message with patient to reschedule for a different day and/or time (phone visit) w/ Dr. Leon. PF documented in this encounterOhio State University [facility]01-05-2023 Miscellaneous Notes* Telephone Encounter - Venessa Murphy - 11/16/2022 10:55 AM EST Confirmed rescheduled date and time of apt w/ patient from 11/30/2022 at 9:20am to 12/14/2022 at 9:20am, phone visit w/ Dr. Leon. Dr Leon not available on 11/30/2022. Set out via mail. Patient also has access to Mangia. documented in this encounterOhio State University [facility]12-13-2022 History of Present illness Narrative* Abigail Anna APRN.CNP - 10/24/2022 12:15 PM EST Incidental Lung Nodule Enrollment Call attempt: 1st Attempt Call status: Complete Enrolled in Lung Nodule program: No Lung Nodule outreach: No outreach - TSx Lung Nodule Program Location: [place] CT Chest ordered by Dr. Leon. Abigail Anna APRN.BARRY documented in this encounterOhio State University [facility]12-12-2022 Miscellaneous Notes* Telephone Encounter - Katy Berrios RN - 10/23/2022 8:[address] leon , plan for CT scan of the chest in 6 months to follow lung nodule CT scan of chest April [address] leon or barry to review documented in this encounterOhio State University [facility]12-10-2022 History of Present illness Narrative* Marine Leon MD, PhD - 10/21/2022 11:52 AM EST [facility] STAFF PHYSICIAN NOTE OF PERSONAL INVOLVEMENT IN [...] PhD DATE OF SERVICE: October 19, 2022 * Richard Navarro MD - 10/19/2022 12:40 PM EST Images from the original note were not included. [facility] THORACIC SURGERY OUTPATIENT CONSULT NOTE Odalys Cerda [id number] Requesting Provider: Jaron Avalos MD Thoracic Physician: [...] Hx of tonsillectomy. Ex smoker quit 30 yearsago. Not on anticoagulation. White male referred by [...] Paper Medical Records Review personally performed by: Wi SIGNATURE: Richard Navarro MD PAGER: [phone] DATE of SERVICE: 10/19/2022 TIME of SERVICE: 9:22 AM documented in this encounterOhio State University [facility]12-08-2022 History of Present illness Narrative* RT Tino(R) - 10/19/2022 11:30 AM EST Radiology Service Progress Note PATIENT NAME: Odalys Cerda DATE OF SERVICE: October 19, 2022 TIME: 11:23 AM PATIENT IDENTITY VERIFICATION COMPLETED USING TWO (2) IDENTIFIERS: Name and Date of confirmedby patient verbally and Name and Date of [...] IV DATA: Not applicable SIGNED BY: RT Tino(Jennifer) October 19, 2022 11:23 AM documented in this encounterOhio State University [facility]12-08-2022 Procedure note* Lulu Jacome RRT - 10/19/2022 9:57 AM ESTAssociated Order(s): SIX MINUTE WALK RESPIRATORY THERAPY SIX MINUTE [...] 2022 TIME: 9:58 AM documented in this encounterOhio State University [facility]12-08-2022 History of Present illness Narrative* Lulu Jacome RRT - 10/19/2022 9:35 AM EST PULM FUNCTION SMARTBLOCK: Provider: Marine Leon MD, PhD Spirometry: 1 DLCO: 1 6 MW: 1 documented in this encounterOhio State University [facility] Center11-14-2022 Miscellaneous Notes* Telephone Encounter - Katy Berrios RN - 09/25/2022 8:38 AM EST Images from the original note were not included. Thoracic Surgery Consultation - review of records for appointment scheduling Received medical records from the office of Jaron Avalos MD [address] [place] [id number] Patient is being referred to Unspecified/First Available [...] chest/abd with oral constrast Katy Berrios RN * Telephone Encounter - Porsha Nick - 09/06/2022 11:46 AM EDT Received Routed [facility] Telephone Encounter from Dr. Jaron Avalos MD Odalys Cerda is being referred to Unspecified Thoracic Surgeon by Jaron Avalos MD [address] [place], [place] [id number] Patient diagnosis/Reason for consult: Zenker's Diverticulum Referral triage process explained: Yes Patient will receive a call from Thoracic NPM after triage review with surgeon to discuss any additional testing and/or consults that will be scheduled. Pt will then receive a call from our scheduling office for scheduling. Please call pt at [phone]. Patient was informed consultation could be at [place] or [facility]: No Patient Registration: Registration complete/updated: Yes Insurance card(s) scanned in [facility] with in the past year: Yes, 09/06/22 Pt's Mangia is inactive. Ok to communicate to pt via Mangia no Medical Records: Records in [facility] (internal [facility] records): No Imaging in [facility] (internal [facility] records): No Care Everywhere [...] 06, 2022 Outside Hospital(s) requested imaging from: [facility]. Imaging will be received via Electronic Transfer Received: Yes Imaging uploaded: Yes Waiting on additional: Yes. Missing (list): CT Additional providers added to Care Teams: Yes Additional Notes/Comments: n/a Enct routed to: Willie Gaston NPM for triage Porsha Nick, administrative and program specialist [facility] [place] [facility]* Diagnosis Zenkers diverticulum- Primary Diverticulum of esophagus, acquired documented [facility] [place] [facility]* Diagnosis Zenkers diverticulum Diverticulum of esophagus, acquired [facility] [place] [facility]* Diagnosis Zenkers diverticulum- Primary Diverticulum of esophagus, acquired [facility] [place] [facility]* Diagnosis Zenkers diverticulum- Primary Diverticulum of esophagus, acquired documented [facility] this [facility] [place] [facility]* Diagnosis DIVERTICULUM - ESOPHAGUS- Primary Diverticulum of esophagus, acquired documented [facility] this [facility] [place] [facility]* Diagnosis Lung nodules- Primary Other nonspecific abnormal finding of lung field documented [facility] this encounter [facility] [place] [facility]* Diagnosis Lung nodules- Primary Other nonspecific abnormal finding of lung field documented [facility] this [facility] [place] [facility]* Diagnosis DIVERTICULUM - ESOPHAGUS- Primary Diverticulum of esophagus, acquired Pharyngoesophageal dysphagia Dysphagia, pharyngoesophageal phase documented in this [facility] [place] [facility]* Diagnosis DIVERTICULUM - ESOPHAGUS- Primary Diverticulum of esophagus, acquired Zenker diverticulum Diverticulum of esophagus, acquired Pharyngoesophageal dysphagia Dysphagia, pharyngoesophageal phase documented in this encounter [facility] [place] [facility]* Diagnosis Pre-op evaluation- Primary Preoperative examination, unspecified Zenker diverticulum Diverticulum of esophagus, acquired Zenker diverticulum Diverticulum of esophagus, acquired Pharyngoesophageal dysphagia Dysphagia, pharyngoesophageal phase documented in this encounter [facility] note* Diagnosis Hyperkalemia- Primary Hyperpotassemia Zenker diverticulum Diverticulum of esophagus, acquired Pharyngoesophageal dysphagia Dysphagia, pharyngoesophageal phase documented in this encounter [facility] note* Diagnosis Acute post-operative pain documented in this encounter [facility] note* Diagnosis Zenker's diverticulum- Primary Diverticulum of esophagus, acquired documented in this encounter [facility] note* Diagnosis Zenker diverticulum Diverticulum of esophagus, acquired documented in this encounter [facility] for referral (narrative)* Diagnostic Procedure Only (Routine) - ClosedSpecialtyDiagnoses / ProceduresReferred By ContactReferred To ContactXR IMAGING Diagnoses Zenker diverticulum Procedures XR CHEST 1V FRONTAL RADIOLOGIC EXAM CHEST SINGLE VIEW Roddy Loyd MD [address] [facility] [place] [id number] Xr Imaging Referral IDStatusReasonStpoplar grove DateExpiration DateVisits RequestedVisits [id number] Auto-Generated Referral / [facility] Summary Purpose Family History No Family History Records FoundNo Family History Records FoundNo Family History Records FoundNo Family History Records Found Advance Directives No Advanced Directives Records FoundNo Advanced Directives Records FoundNo Advanced Directives Records FoundNo Advanced Directives Records Found Reason for Referral SpecialtyDiagnoses / ProceduresReferred By ContactReferred To ContactCT IMAGING Diagnoses Zenkers diverticulum Procedures CT ABD/PEL WO IVCON CT ABD & PELVIS W/O CONTRAST Marine Leon MD, PhD [address] [facility] [address] [place] [address] Ct Imaging Referral IDStatusReasonStart DateExpiration DateVisits RequestedVisits [id number] Review Auto-Generated Referral 11/14/539535/14/186836DfvmtfshfRpavdugfr / ProceduresReferred By ContactReferred To ContactCT IMAGING Diagnoses Zenkers diverticulum Procedures CT CHEST WO IVCON DIAGNOSTIC COMPUTED TOMOGRAPHY THORAX W/O CNTRST Mraine Leon MD, PhD [address] [place] [id number] Imaging Referral IDStatusReasonStart DateExpiration DateVisits RequestedVisits [id number] Review Auto-Generated Referral [id number] / ProceduresReferred By ContactReferred To [facility] Diagnoses Zenkers diverticulum Procedures SIX MINUTE WALK CARDIOPULMONARY EXERCISE STRESS Marine Leon MD, PhD [address] [place] [address] [place] [address] Referral IDStatCyndiSt. Vincent's East DateExpiration DateVisits RequestedVisits [id number] Review Auto-Generated Referral [id number] / ProceduresReferred By ContactReferred To [facility] Diagnoses Zenkers diverticulum Procedures LUNG DIFFUSION CAPACITY (DLCO) DIFFUSING CAPACITY Marine Leon MD, PhD [address] [address] [place] [address] Referral IDStatusShilpiasonStpoplar grove DateExpiration DateVisits RequestedVisits [id number] Review Auto-Generated Referral [id number] / ProceduresReferred By ContactReferred To [facility] Diagnoses Zenkers diverticulum Procedures SPIROMETRY BASELINE ONLY SPMTRY W/VC EXPIRATORY NAHUM W/WO MXML VOL VNTJ Marine Leon MD, PhD [address] [address] [address] [place] [address] Referral IDStatusReasonStart DateExpiration DateVisits RequestedVisits [id number] Review Auto-Generated Referral eferral IDStatusReasonStart DateExpiration DateVisits RequestedVisits [id number] Auto-Generated Referral 1Referral IDStatusReasonStart DateExpiration DateVisits RequestedVisits [id number] Auto-Generated Referral [id number] / ProceduresReferred By ContactReferred To ContactEnt - Otolaryngology Diagnoses Diverticulum of esophagus, acquired Procedures CONSULT TO ENT OFFICE/OUTPATIENT NEW HIGH MDM 60-74 MINUTES Marine Leon MD, PhD [address] [facility] [place] [address] Referral IDStatusReasonStart DateExpiration DateVisits RequestedVisits [id number] PCP Requested Referral [id number] / ProceduresReferred By ContactReferred To ContactCT IMAGING Diagnoses Lung nodules Procedures CT CHEST WO IVCON DIAGNOSTIC COMPUTED TOMOGRAPHY THORAX W/O CNTRST Marine Leon MD, PhD [address] [facility] [address] [place] [address] Ct Imaging Referral IDStatusReasonStart DateExpiration DateVisits RequestedVisits [id number] Review Auto-Generated Referral Additional Source Comments (unrecognized sect ion and content) No Status Records FoundNo Status Records FoundNo Status Records FoundNo Status Records Found INFORMATION SOURCE (unrecogn ized section and content) DATE CREATED AUTHOR 05/17/2018 [facility] DATE CREATED AUTHOR AUTHOR'S ORGANIZ ATION 09/04/2022 [facility] DATE CREATED AUTHOR AUTHOR'S ORGANIZ ATION 12/25/2023 [facility] DATE CREATED AUTHOR AUTHOR'S ORGANIZ ATION 05/15/2024 [facility] Source Comments (unrecognize d section and content) In the event this informatio n is protected by the Federal Confidentiality of Alcohol and Drug Abuse Patient Records regulations: The Federal rules restrict any use of the information to criminally investigate or prosecute any alcohol or drug abuse patient.[facility] CenterIn the event this information is protected by the Federal Confidentiality of Alcohol and Drug Abuse Patient Records regulations: The Federal rules restrict any use of the information to criminally investigate or prosecute any alcohol or drug abuse patient.[facility] CenterIn the event this information is protected by the Federal Confidentiality of Alcohol and Drug Abuse Patient Records regulations: The Federal rules restrict any use of the information to criminally investigate or prosecute any alcohol or drug abuse patient.[facility] CenterIn the event this information is protected by the Federal Confidentiality of Alcohol and Drug Abuse Patient Records regulations: The Federal rules restrict any use of the information to criminally investigate or prosecute any alcohol or drug abuse patient.[facility] CenterIn the event this information is protected by the Federal Confidentiality of Alcohol and Drug Abuse Patient Records regulations: The Federal rules restrict any use of the information to criminally investigate or prosecute any alcohol or drug abuse patient.[facility] CenterIn the event this information is protected by the Federal Confidentiality of Alcohol and Drug Abuse Patient Records regulations: The Federal rules restrict any use of the information to criminally investigate or prosecute any alcohol or drug abuse patient.[facility] CenterIn the event this information is protected by the Federal Confidentiality of Alcohol and Drug Abuse Patient Records regulations: The Federal rules restrict any use of the information to criminally investigate or prosecute any alcohol or drug abuse patient.[facility] CenterIn the event this information is protected by the Federal Confidentiality of Alcohol and Drug Abuse Patient Records regulations: The Federal rules restrict any use of the information to criminally investigate or prosecute any alcohol or drug abuse patient.[facility] CenterIn the event this information is protected by the Federal Confidentiality of Alcohol and Drug Abuse Patient Records regulations: The Federal rules restrict any use of the information to criminally investigate or prosecute any alcohol or drug abuse patient.[facility] CenterIn the event this information is protected by the Federal Confidentiality of Alcohol and Drug Abuse Patient Records regulations: The Federal rules restrict any use of the information to criminally investigate or prosecute any alcohol or drug abuse patient.[facility] CenterIn the event this information is protected by the Federal Confidentiality of Alcohol and Drug Abuse Patient Records regulations: The Federal rules restrict any use of the information to criminally investigate or prosecute any alcohol or drug abuse patient.[facility] CenterIn the event this information is protected by the Federal Confidentiality of Alcohol and Drug Abuse Patient Records regulations: The Federal rules restrict any use of the information to criminally investigate or prosecute any alcohol or drug abuse patient.[facility] CenterIn the event this information is protected by the Federal Confidentiality of Alcohol and Drug Abuse Patient Records regulations: The Federal rules restrict any use of the information to criminally investigate or prosecute any alcohol or drug abuse patient.[facility] CenterIn the event this information is protected by the Federal Confidentiality of Alcohol and Drug Abuse Patient Records regulations: The Federal rules restrict any use of the information to criminally investigate or prosecute any alcohol or drug abuse patient.[facility] CenterIn the event this information is protected by the Federal Confidentiality of Alcohol and Drug Abuse Patient Records regulations: The Federal rules restrict any use of the information to criminally investigate or prosecute any alcohol or drug abuse patient.[facility] CenterIn the event this information is protected by the Federal Confidentiality of Alcohol and Drug Abuse Patient Records regulations: The Federal rules restrict any use of the information to criminally investigate or prosecute any alcohol or drug abuse patient.[facility] CenterIn the event this information is protected by the Federal Confidentiality of Alcohol and Drug Abuse Patient Records regulations: The Federal rules restrict any use of the information to criminally investigate or prosecute any alcohol or drug abuse patient.[facility] CenterIn the event this information is protected by the Federal Confidentiality of Alcohol and Drug Abuse Patient Records regulations: The Federal rules restrict any use of the information to criminally investigate or prosecute any alcohol or drug abuse patient.[facility] CenterIn the event this information is protected by the Federal Confidentiality of Alcohol and Drug Abuse Patient Records regulations: The Federal rules restrict any use of the information to criminally investigate or prosecute any alcohol or drug abuse patient.[facility] CenterIn the event this information is protected by the Federal Confidentiality of Alcohol and Drug Abuse Patient Records regulations: The Federal rules restrict any use of the information to criminally investigate or prosecute any alcohol or drug abuse patient.[facility] Reason for Visit (unrecogniz ed section and content) ReasonCommentsConsultZenker DiverticulumReasonCommentsSpirometrySpecialty Diagnoses / ProceduresReferred By ContactReferred To [facility] Diagnoses Zenkers diverticulum Procedures LUNG DIFFUSION CAPACITY (DLCO) DIFFUSING CAPACITY Marine Leon MD, PhD [address] [facility] [place] [address] [place] [address] [place] [address] Referral IDStatusReasonStart DateExpiration DateVisits RequestedVisits [id number] Auto-Generated Referral [id number] / ProceduresReferred By ContactReferred To [facility] Diagnoses Zenkers diverticulum Procedures SPIROMETRY BASELINE ONLY SPMTRY W/VC EXPIRATORY NAHUM W/WO MXML VOL VNTJ Marine Leon MD, PhD [address] [place] [address] [place] [address] [employer] [place] [id number] Referral IDStatusShilpiasonStart DateExpiration DateVisits RequestedVisits [id number] Auto-Generated Referral [id number] / ProceduresReferred By ContactReferred To [facility] Diagnoses Zenkers diverticulum Procedures SIX MINUTE WALK CARDIOPULMONARY EXERCISE STRESS Marine Leon MD, PhD [address] [facility] [address] [place] [address] Respiratory [address] [place] [address] Referral IDStatusReasonStart DateExpiration DateVisits RequestedVisits [id number] Auto-Generated Referral [id number] / ProceduresReferred By ContactReferred To ContactCT IMAGING Diagnoses Zenkers diverticulum Procedures CT ABD/PEL WO IVCON CT ABD & PELVIS W/O CONTRAST Marine Leon MD, PhD [address] [facility] [place] [address] Ct Imaging Referral IDStatusReasonStart DateExpiration DateVisits RequestedVisits [id number] Auto-Generated Referral /[id number]jyjKjqeatguKjgesavtfppKzsrqnctzlpq up ct scanReasonCommentsAppointment RescheduledReasonCommentsEstablished Patient ReasonCommentsCoughReasonCommentsPre-Op VisitReasonCommentsPreOp CallPre-op labs ReasonCommentsMedication ProblemMedication can't be refilledReasonComments Established PatientPost op visitReasonCommentsRadiology XRSpecialtyDiagnoses / ProceduresReferred By ContactReferred To ContactXR IMAGING Diagnoses Zenker diverticulum Procedures XR CHEST 1V FRONTAL RADIOLOGIC EXAM CHEST SINGLE VIEW Roddy Loyd MD [address] [place] [address] Xr Imaging Referral IDStatusReasonStart DateExpiration DateVisits RequestedVisits [id number] Auto-Generated Referral Care Teams (unrecognized sec tion and content) Team MemberRelationshipSpecialtyStart DateEnd Date Jaron Avalos MD [address] [place] [id number] ReferringFamily Mdbenmhp15/25/22Team MemberRelationshipSpecialtyStart DateEnd Date Jaron Avalos MD [address] [place] [address] ReferringFamily Stwbnjnb12/25/22Team MemberRelationshipSpecialtyStart DateEnd Date Jaron Avalos MD [address] [place] [address] ReferringFamily Qxauazpz03/25/22Team MemberRelationshipSpecialtyStart DateEnd Date Jaron Avalos MD [address] [place] [address] ReferringFamily Cnwnwyjv46/25/22Team MemberRelationshipSpecialtyStart DateEnd Date Jaron Avalos MD [address] [place] [phone] ReferringFamily Zbbnnnch78/25/22Team MemberRelationshipSpecialtyStart DateEnd Date Jaron Avalos MD [address] [phone] ReferringFamily Mcvcntpp38/25/22Team MemberRelationshipSpecialtyStart DateEnd Date Jaron Avalos MD [address] [place] [address] ReferringFamily Pzjznybx66/25/22Team MemberRelationshipSpecialtyStart DateEnd Date Jaron Avalos MD [address] [place] [address] ReferringFamily Nlukyhsp33/25/22Team MemberRelationshipSpecialtyStart DateEnd Date Jaron Avalos MD ReferringFamily Rboyrsyp65/25/22Team MemberRelationshipSpecialtyStart DateEnd Date Jaron Avalos MD [address] [place] [address] PCP - GeneralFamily Medicine05/16/23 Jaron Avalos MD ReferringFamily Teipcezl84/25/22Team MemberRelationshipSpecialtyStart DateEnd Date Jaron Avalos MD [address] [place] [address] PCP - GeneralFamily Medicine05/16/23 Jaron Avalos MD ReferringFamily Rxveyhox63/25/22Team MemberRelationshipSpecialtyStart DateEnd Date Jaron Avalos MD [address] [place] [address] PCP - GeneralFamily Medicine05/16/23 Jaron Avalos MD ReferringFamily Ulmxutph16/25/22Team MemberRelationshipSpecialtyStart DateEnd Date Jaron Avalos MD [address] [place] [address] PCP - GeneralFamily Medicine05/16/23 Jaron Avalos MD ReferringFamily Nuepdefp14/25/22Team MemberRelationshipSpecialtyStart DateEnd Date Jaron Avalos MD [address] [place] [address] PCP - GeneralFamily Medicine05/16/23 Jaron Avalos MD [facility]09/05/22Team MemberRelationshipSpecialtyStart DateEnd Date Jaron Avalos MD [address] [place] [address] PCP - [facility]05/16/23 Jaron Avalos MD [facility]09/05/22 FOR RECORDS PERTAINING TO PATIENTS WHO ARE [...] BE BASED ON THE PRIMARY CLINICAL RECORDS. [facility] [email or web address] provides no warranty or guarantee of the accuracy or completeness of information in this document.
== END 2025-10-05 09:34 | disposition home or self-care (01) ==
LOC: LAB 09:33
PROVIDERS: PCP Family Medicine; Visit Provider Family Medicine
DX: I12.9 Hypertensive chronic kidney disease with stage 1 through stage 4 chronic kidney disease, or unspecified chronic kidney disease (principal); N18.31 Chronic kidney disease, stage 3a; R73.09 Other abnormal glucose; N52.9 Male erectile dysfunction, unspecified; J30.2 Other seasonal allergic rhinitis; E78.5 Hyperlipidemia, unspecified; Z12.12 Encounter for screening for malignant neoplasm of rectum; E03.9 Hypothyroidism, unspecified; Z12.5 Encounter for screening for malignant neoplasm of prostate; D50.9 Iron deficiency anemia, unspecified
CPT/HCPCS: G0328